=== PATIENT | female | born 1960 | race Caucasian/White ===

== ENCOUNTER → 2020-09-23 11:17 | Outpatient (BNVA) | payer MEDICARE, MEDICAID, SELFPAY | PROVIDERS: PCP Internal Medicine; Referring Provider Internal Medicine; Visit Provider Internal Medicine Gastroenterology | DX: K50.012 Crohn's disease of small intestine with intestinal obstruction (principal) | CPT/HCPCS: 99213 ==

== ENCOUNTER → 2020-09-25 10:38 | Outpatient (BNVA) | payer MEDICARE, MEDICAID, SELFPAY | PROVIDERS: PCP Internal Medicine; Referring Provider Internal Medicine; Visit Provider Internal Medicine Gastroenterology | DX: Z23 Encounter for immunization (principal) | CPT/HCPCS: 90471; 90686; 99211 ==

== ENCOUNTER 2020-09-26 09:34 | Outpatient (REF) | payer MEDICARE, MEDICAID, SELFPAY ==
[2020-09-26 10:15] LABS: MANUAL DIFF FLAG NO
[2020-09-26 10:33] LABS: Basophils Absolute Auto 0.1 X10*3/uL (0.0-0.2); Basophils Percent Auto 0.7 % (0-2); Eosinophils Absolute Auto 0.2 X10*3/uL (0.0-0.4); Hematocrit 44.7 % (37-47); Hemoglobin 14.6 g/dl (12.0-16.0); Imm Gran Abs Auto 0.02 X10*3/uL (0.00-0.03); Imm Gran Pct Auto 0.2 % (0.0-0.4); Lymphocytes Absolute Auto 3.3 X10*3/uL (1.2-4.9); Lymphocytes Percent Auto 36.1 % (20-40); Mean Corpuscular HGB Conc 32.7 g/dl (31.0-35.0); Mean Corpuscular Hemoglobin 29.4 pg (27.0-33.0); Mean Corpuscular Volume 90.1 fL (80-98); Mean Platelet Volume 11.3 fL (9.4-12.3); Monocytes Absolute Auto 0.5 X10*3/uL (0.1-1.2); Neutrophils Absolute Auto 5.1 X10*3/uL (2.0-8.3); Platelet Count 285 X10*3/uL (160-400); Red Blood Count 4.96 X10*6/uL (4.20-5.50); Red Cell Distribution Width 13.7 % (11.0-16.0); White Blood Count 9.2 X10*3/uL (4.8-10.8)
[2020-09-26 11:04] LABS: Alanine Aminotransferase 26 U/L (0-31); Albumin Level 4.3 g/dL (3.5-5.0); Alkaline Phosphatase 102 U/L (39-117); Anion Gap 14 (12-20); Aspartate Amino Transferase 20 U/L (5-31); Bilirubin Total 0.7 mg/dL (0.0-1.0); Blood Urea Nitrogen 9 mg/dL (9-16); C Reactive Protein 0.28 mg/dL (< or = 0.50); Calcium 9.8 mg/dL (8.4-10.2); Carbon Dioxide 26 mmol/L (22-29); Chloride 107 mmol/L (96-108); Estimated Glomerular Filt Rate > 60; Glucose Random 124 mg/dL (60-115); Potassium 4.6 mmol/l (3.3-5.1); Sodium 142 mmol/L (135-145); Total Protein 6.9 g/dL (6.5-8.0)
[2020-09-26 11:13] LABS: Vitamin D 25-OH Total 33.1 ng/mL (>30)
== END 2020-09-26 09:35 | disposition home or self-care (01) ==
LOC: HO.LAB 09:34
PROVIDERS: PCP Internal Medicine; Visit Provider Internal Medicine Gastroenterology
DX: K50.00 Crohn's disease of small intestine without complications (principal)
CPT/HCPCS: 36415; 80053; 82306; 85025; 86140

== ENCOUNTER 2020-10-03 01:31 | Inpatient (IN) | payer MEDICARE, MEDICAID, SELFPAY ==
[2020-10-03] VITALS (7 sets, daily range): BP systolic 101–142; BP diastolic 49–74; PULSE 59–88; RESP 16–19; TEMP 36.1–36.9; O2SAT 94–98; BMI 25.7
--- NOTE | 2020-10-03 01:50 | ECG_ITS ---
Test Reason : ABD PAIN Blood Pressure : / mmHG Vent. Rate : 071 BPM Atrial Rate : 071 BPM P-R Int : 128 ms QRS Dur : 088 ms QT Int : 408 ms P-R-T Axes : 062 041 065 degrees QTc Int : 443 ms Sinus rhythm with occasional Premature ventricular complexes Otherwise normal ECG When compared with ECG of 28-MAR-2020 18:47, Premature ventricular complexes are now Present Referred By: Stephanie Lai Electronically Signed By:AKIRA MARX MD
--- NOTE | 2020-10-03 01:52 | ED_ITS ---
HPI - Abdominal Pain General Chief Complaint: Abdominal Pain Stated Complaint: ABD PAIN Time Seen by Provider: 10/03/20 01:50 Source: patient Mode of arrival: ambulatory Limitations: no limitations History of Present Illness HPI narrative: This is a 60-year-old female with significant past medical history for Crohn's currently managed on Stelara and states that she began having abdominal discomfort that she describes as crampy, nonradiating, waxing and waning this started at approximately midnight. She denies any associated fevers, chills, shortness of breath, chest pain/palpitations, vomiting, but is having some nausea. In addition, she denies any urinary pain/ burning / frequency, obstipation. She is currently being followed by Dr. Cruz, of GI. Related Data Home Medications Medication Instructions Recorded Confirmed atorvastatin 40 mg tablet 40 mg PO DAILY 09/23/20 09/23/20 ustekinumab 90 mg/mL subcutaneous 90 mg SUBCUT Q4W 09/23/20 09/23/20 syringe Allergies Allergy/AdvReac Type Severity Reaction Status Date / Time No Known Allergies Allergy Unverified 08/15/20 15:00 [No Known Allergies*] Review of Systems Review of Systems Pertinent positives and negatives as stated in the HPI and 10 point review of systems is otherwise negative. Physical Exam Vital Signs: Vital Signs: Vital Signs Temp Pulse Resp BP Pulse Ox 10/03/20 01:40 98.5 F 88 18 142/74 H 97 Body Mass Index 25.7 VITAL SIGNS: Reviewed. GENERAL: Well developed, well nourished, in no acute distress. HEAD: Normocephalic/atraumatic, EYES: PERRLA, EOMI intact without pain, no nystagmus/pallor/icterus noted EARS: Ext canals without abnormality, TMs non-bulging and non-erythematous NOSE: Nares patent bilateral OROPHARYNX: no oral lesions noted, posterior pharynx clear and non-erythematous without noted tonsillar enlargement/erythema/exudates NECK: Supple, no adenopathy LUNGS: Normal breath sounds. No adventitious sounds or accessory muscle use. SpO2<97> CARDIOVASCULAR: Regular rate and rhythm without noted murmurs, no JVD or lower extremity edema. ABDOMEN: Soft, tenderness on palpation throughout the right side of the abdomen without rebound, non-distended with bowel sounds. No rigidity. No guarding. No p alpable masses or hernias noted MUSCULOSKELETAL: No tenderness, deformities, or effusions noted on gross inspection. EXTREMITIES: No cyanosis, clubbing or edema. SKIN: Inspection of the skin reveals no rashes, ulcerations, jaundice, pallor, or petechiae. NEUROLOGIC: Alert and oriented x 4. Strength and sensation to light touch were grossly intact x 4. Course Course Course Narrative: This is a 60-year-old female with history and clinical presentation consistent with possible Crohn's flare but more than likely an SBO as patient has had no previous flares in between her Stelara treatments ( the next of which is due on 10/08). I doubt cholecystitis, pancreatitis, appendicitis, diverticulitis. On review review of all investigations there is a leukocytosis with CT findings consistent with SBO and trace free fluid. Otherwise, there are no other clinically significant abnormalities noted. 0335: Spoke with Dr Dick who will admit patient. MDM - Abdominal Pain Lab Data Result diagrams: 10/03/20 02:06 10/03/20 02:06 Labs: Lab Results 10/03/20 10/03/20 10/03/20 Range/Units 02:06 02:06 02:06 WBC 13.2 H (4.8-10.8) X10*3/uL RBC 5.03 (4.20-5.50) X10*6/uL Hgb 15.0 (12.0-16.0) g/dl Hct 44.5 (37-47) % MCV 88.5 (80-98) fL MCH 29.8 (27.0-33.0) pg MCHC 33.7 (31.0-35.0) g/dl RDW 13.6 (11.0-16.0) % Plt Count 268 (160-400) X10*3/uL MPV 10.6 (9.4-12.3) fL Immature Gran % (Auto) 0.4 (0.0-0.4) % Neut % (Auto) 69.1 (45-73) % Lymph % (Auto) 23.5 (20-40) % [place] % (Auto) 5.2 (2-11) % Eos % (Auto) 1.3 (0-4) % Baso % (Auto) 0.5 (0-2) % Lymph # (Auto) 3.1 (1.2-4.9) X10*3/uL [place] # (Auto) 0.7 (0.1-1.2) X10*3/uL Eos # (Auto) 0.2 (0.0-0.4) X10*3/uL Baso # (Auto) 0.1 (0.0-0.2) X10*3/uL Abs Immat Gran (auto) 0.05 H (0.00-0.03) X10*3/uL Absolute Neuts (auto) 9.1 H (2.0-8.3) X10*3/uL Absolute Nucleated RBC 0.000 (0.0-0.012) X10*3/uL Nucleated RBC % (auto) 0.0 (0.0-0.2) /100WBC Sodium 141 (135-145) mmol/L Potassium 3.9 (3.3-5.1) mmol/l Chloride 107 (96-108) mmol/L Carbon Dioxide 21 L (22-29) mmol/L Anion Gap 17 (12-20) BUN 8 L (9-16) mg/dL Creatinine 0.74 (0.5-1.4) mg/dL Estim Creat Clear Calc 64.5 Estimated GFR > 60 Random Glucose 112 (60-115) mg/dL Lactic Acid 1.9 (0.5-2.0) mmol/L Calcium 9.6 (8.4-10.2) mg/dL Total Bilirubin 0.4 (0.0-1.0) mg/dL AST 23 (5-31) U/L ALT 28 (0-31) U/L Alkaline Phosphatase 100 (39-117) U/L Total Protein 6.7 (6.5-8.0) g/dL Albumin 4.1 (3.5-5.0) g/dL Lipase 16 (8-78) U/L ECG Data Attestation: I personally reviewed and interpreted this ECG as follows: Prior ECG tracings: not available for review Interpretation: Normal sinus rhythm, HR - 71, there is no evidence of acute ischemia, DC/QRS/QTC are within normal limits. Discharge Plan Discharge Clinical Impression: Small bowel obstruction Prescriptions: No Action Stelara 90 mg/mL syringe 90 mg subcut Q4W RF: 0 atorvastatin 40 mg tablet 40 mg PO DAILY RF: 0 PMFSH Past Medical History Source: nursing notes reviewed Medical History Crohns disease of small intestine Hyperlipidemia Surgical History History of esophagogastroduodenoscopy (EGD) Hx of colonoscopy Family History Family History Father No problems noted. Mother Pneumonia Sister Breast cancer Social History Social History Alcohol intake: never Smoking Status: Never smoker Tobacco Type: Cigarette Packs Per Day: 0.5 Cigarettes Per Day: 10.0 Use of substances other than those prescribed or required for medical reasons: No Advance Directives: No
[2020-10-03] MEDS: ondansetron HCL 4 MG/2 ML VIAL IVPUSH ×4 (02:10→19:20)
[2020-10-03 02:13] LABS: MANUAL DIFF FLAG NO
[2020-10-03 02:14] LABS: Basophils Absolute Auto 0.1 X10*3/uL (0.0-0.2); Basophils Percent Auto 0.5 % (0-2); Eosinophils Absolute Auto 0.2 X10*3/uL (0.0-0.4); Eosinophils Percent Auto 1.3 % (0-4); Hematocrit 44.5 % (37-47); Imm Gran Abs Auto 0.05 X10*3/uL (0.00-0.03); Imm Gran Pct Auto 0.4 % (0.0-0.4); Lymphocytes Absolute Auto 3.1 X10*3/uL (1.2-4.9); Lymphocytes Percent Auto 23.5 % (20-40); Mean Corpuscular HGB Conc 33.7 g/dl (31.0-35.0); Mean Corpuscular Hemoglobin 29.8 pg (27.0-33.0); Mean Corpuscular Volume 88.5 fL (80-98); Mean Platelet Volume 10.6 fL (9.4-12.3); Monocytes Absolute Auto 0.7 X10*3/uL (0.1-1.2); Monocytes Percent Auto 5.2 % (2-11); Neutrophils Absolute Auto 9.1 X10*3/uL (2.0-8.3); Neutrophils Percent Auto 69.1 % (45-73); Platelet Count 268 X10*3/uL (160-400); Red Blood Count 5.03 X10*6/uL (4.20-5.50); Red Cell Distribution Width 13.6 % (11.0-16.0); White Blood Count 13.2 X10*3/uL (4.8-10.8)
--- NOTE | 2020-10-03 02:15 | CT_ITS ---
EXAMINATION: CT ABDOMEN AND PELVIS WITH CONTRAST CLINICAL INFORMATION: Abdominal pain. COMPARISON: Multiple prior exams are reviewed. The most recent is from 03/28/2020. TECHNIQUE: Contiguous axial thin section helical images of the abdomen and pelvis were performed following the administration of 85 mL of intravenous Omnipaque 350. The data set was reformatted in the coronal and sagittal planes and reviewed on an independent workstation. DLP: 454 mGy-cm. FINDINGS: The visualized lung bases are clear. The visualized portions of the heart are unremarkable. The liver is of normal size and attenuation without concerning focal lesions nor intrahepatic biliary ductal dilation. There is a stable low-attenuation lesion within the inferior right lobe of the liver measuring 11 mm that is too small to fully characterize following contrast administration. A normal gallbladder is identified. There is no wall thickening or discernible pericholecystic fluid. The spleen, pancreas, adrenal glands are unremarkable. Both kidneys are of normal size and attenuation without hydronephrosis or nephrolithiasis. Following the administration of IV contrast, prompt symmetric nephrograms are displayed. There is no abdominal free fluid. There is neither mesenteric nor retroperitoneal lymphadenopathy. There is irregular wall thickening to the distal ileum proximal to the anastomosis site within the colon within the right upper quadrant. There is mild adjacent fat stranding and trace free fluid. There are also a few scattered nonpathologically enlarged lymph nodes. Proximal to this location, there aren't numerous dilated loops of small bowel. There is mild wall thickening to the colon at the anastomosis site. There is trace pelvic free fluid. The urinary bladder is unremarkable. There is neither pelvic nor inguinal lymphadenopathy. Bone windows: Neither sclerotic nor lytic bone lesions are identified. CT/CT abdomen pelvis w con IMPRESSION: Distal small bowel obstruction secondary to marked wall thickening to the distal ileum proximal to the anastomosis site. There is adjacent fat stranding and trace free fluid without drainable fluid collections. Automated exposure control (Care Dose) Adjustment of the mA and/or kv according to patient size (this includes techniques or standardized protocols for targeted exams where dose is matched to indication / reason for exam; i.e. extremities or head).
[2020-10-03] MEDS: HYDROmorphone HCl 0.5 MG/0.5 ML SYRINGE IVPUSH ×2 (02:20→03:55)
[2020-10-03 02:34] LABS: Lactic Acid 1.9 mmol/L (0.5-2.0)
[2020-10-03 02:39] LABS: Alanine Aminotransferase 28 U/L (0-31); Albumin Level 4.1 g/dL (3.5-5.0); Alkaline Phosphatase 100 U/L (39-117); Anion Gap 17 (12-20); Aspartate Amino Transferase 23 U/L (5-31); Bilirubin Total 0.4 mg/dL (0.0-1.0); Blood Urea Nitrogen 8 mg/dL (9-16); Calcium 9.6 mg/dL (8.4-10.2); Carbon Dioxide 21 mmol/L (22-29); Chloride 107 mmol/L (96-108); Creatinine Clr Calc Pharmacy 64.5; Estimated Glomerular Filt Rate > 60; Glucose Random 112 mg/dL (60-115); Lipase 16 U/L (8-78); Potassium 3.9 mmol/l (3.3-5.1); Sodium 141 mmol/L (135-145); Total Protein 6.7 g/dL (6.5-8.0)
[2020-10-03] MEDS: iohexoL 350 MG/ML 100 ML INFUS..BTL 85 ML IV (03:14)
[2020-10-03] MEDS: Piperacillin Sodium/Tazobactam 3.375 GM in 0.9 % Sodium Chloride 50 ML IV ×4 (03:55→22:10)
[2020-10-03 04:21] LABS: SARS COV2 PCR INHOUSE NEGATIVE (Negative)
[2020-10-03] MEDS: Lidocaine HCl 4 % Laryng-O-Jet 4 ML 1 APPL TOPICAL (05:10)
[2020-10-03] MEDS: Morphine Sulfate 4 MG/ML CARTRIDGE 3 MG IVPUSH ×6 (06:03→22:22)
[2020-10-03] MEDS: Dextrose 5 % and Lactated Ring 1,000 ML 125 ML IVCONT ×2 (06:07→15:50)
--- NOTE | 2020-10-03 07:51 | XR_ITS ---
EXAMINATION: XR CHEST CLINICAL INFORMATION: NG tube placement. COMPARISON: 03/28/2020 TECHNIQUE: Frontal view of the chest was obtained. FINDINGS: Lungs are well expanded and clear. No consolidation, pleural effusion or pneumothorax. Cardiac silhouette is normal in size. Atherosclerotic calcification of the aortic arch. The tip of the NG tube is located in the proximal stomach. The side-port of the tube is in the region of the esophagogastric junction. The visualized bones are intact. The visualized loops of bowel in the upper portion of the abdomen are in the normal size range. No pneumoperitoneum. XR/XR chest 1V IMPRESSION: * The tip of the NG tube is located within the proximal stomach. * No acute pulmonary disease.
[2020-10-03 08:31] LABS: Glucose Urine UA NEG (NEG); Leukocyte Esterase Urine NEG (NEG); Nitrite Urine NEG (NEG); Urine Blood NEG (NEG); Urine Ketones NEG (NEG); Urine Protein NEG (NEG-TRACE)
[2020-10-03 08:35] LABS: Appearance Urine CLEAR; Color Urine YELLOW; UACC Culture Trigger NO
--- NOTE | 2020-10-03 10:11 | MHC.CM.PN ---
PATIENT REPORTS THAT SHE LIVES ALONE. NO DME OR VNA SERVICES. SHE IS ACTIVE WITH [facility]. SHE IS HOPING TO RETURN HOME WITH NO NEED FOR SERVICES. HCP ON FILE, PRINTED, AND IN CHART. IMM 10/03 IN CHART
--- NOTE | 2020-10-03 11:12 | P.CONIM_ITS ---
History of Present Illness Data of Consult Service Date: 10/03/20 Requesting physician: Simone Dick Primary Care Provider: Jorge Green MD [facility] Reason for consult: Crohn's disease, SBO, medical management this is a 60-year-old female with history of Crohn's disease and dyslipidemia who presented to the emergency department with abdominal pain. She reports onset of generalized abdominal pain around midnight. This was associated with nausea and nonbloody emesis. She had 1 loose stool prior to midnight and has not had any diarrhea. She has history of Crohn's disease with multiple colon resections in the past. she has been admitted previously for SBOs related to Crohn's flare. she had a tele health visit on 09/23 with her faculty support coordinator Dr. Cruz at that time she had no abdominal pain or GI complaints. Today in the emergency department her workup was significant for leukocytosis of 13.2. her CAT scan showed a distal small bowel obstruction secondary to marked wall thickening to the distal ileum proximal to the anastomosis site. An NG-tube was placed. She was admitted to the surgical service and the hospitalists were consulted for assistance in medical management. She continues to have generalized abdominal discomfort. She has no other specific complaints. Review of Systems Review of Systems: Yes all other systems are reviewed and are negative Constitutional: Constitutional: Denies chills and Denies fever(s) Cardiovascular: Cardiovascular: Denies chest pain, Denies palpitations and Denies dyspnea Respiratory: Respiratory: Denies dyspnea Gastrointestinal: Gastrointestinal: Reports abdominal pain and Reports nausea Endocrine: Endocrine: Denies palpitations [facility] Medical History (Updated 10/03/20 @ 11:26 by COLIN Wright) Crohns disease of small intestine Gastritis Hyperlipidemia Small bowel obstruction Functional capacity: independent ambulation Family History Father No problems noted. Mother Pneumonia Sister Breast cancer Surgical History (Updated 10/03/20 @ 11:22 by COLIN Wright) History of appendectomy History of bowel resection History of esophagogastroduodenoscopy (EGD) Hx of colonoscopy S/P BSO (bilateral salpingo-oophorectomy) Social History (Updated 10/03/20 @ 11:24 by COLIN Wright) Household Members: None Housing: House Do you presently have visiting nurse or other home services: No Alcohol intake: never Smoking Status: Current every day smoker Tobacco Type: Cigarette Packs Per Day: 1 Cigarettes Per Day: 20.0 Smoked in Last 30 Days: Yes Patient Interested in Nicotine Replacement: Yes Patient Given Instructions on How to Stop Smoking: Yes Date Education Initiated: 10/03/20 Second Hand Smoke Exposure: No Use of substances other than those prescribed or required for medical reasons: No Currently Displaying Signs/Symptoms of Drug Intoxication Withdrawal: No Any prior treatment program specific to substance use: No Have you been hit, kicked, punched, or otherwise hurt by someone within the past year? If so, by whom?: No Do you feel safe in your current relationship?: No Current Relationship Is there a partner from a previous relationship who is making you feel unsafe now?: No Are you made to feel afraid or neglected: No Advance Directives: No Do you have thoughts of harming others: None Do you have a plan to hurt others: No Plan Recently lost weight without trying: No service: No Current occupational status: disabled Meds Allergies Allergy/AdvReac Type Severity Reaction Status Date / Time No Known Allergies Allergy Unverified 08/15/20 15:00 [No Known Allergies*] Home Medications Medication Instructions Recorded Confirmed Type atorvastatin 40 mg tablet 40 mg PO DAILY 09/23/20 10/03/20 History ustekinumab 90 mg/mL subcutaneous 90 mg SUBCUT Q4W 09/23/20 10/03/20 History syringe Physical Exam Vital Signs and Narrative: Vital Signs: Last Vital Signs Temp 97.3 F 10/03/20 07:24 Pulse 59 10/03/20 07:24 Resp 18 10/03/20 07:24 BP 133/66 10/03/20 07:24 Pulse Ox 97 10/03/20 07:24 Body Mass Index 25.7 Const: Nutritional Appearance: well nourished Orientation/consciousness: patient oriented x3 HENMT: Other: NGT in place with 150cc output Head: Yes normocephalic and Yes atraumatic Eyes: Sclerae: sclerae normal Chest: Chest palpation & inspection: normal inspection of the chest Resp: Effort & Inspection: normal respiratory effort and no respiratory distress Auscultation: clear to auscultation bilaterally Cardio: Rate: regular rate Rhythm: regular rhythm GI: Palpation (GI): Soft to palpation and Tenderness to palpation present (GI) (generalized) Skin: General skin exam: no rashes or lesions noted Neuro: General: patient oriented x3 Cranial nerves: Yes CN's II-XII intact bilaterally and Yes Bilaterally intact EOM present Extrem: General: Yes normal to inspection Results Labs Labs: Laboratory Tests 10/03/20 10/03/20 10/03/20 02:06 02:06 02:06 WBC 13.2 H RBC 5.03 Hgb 15.0 Hct 44.5 MCV 88.5 MCH 29.8 MCHC 33.7 RDW 13.6 Plt Count 268 MPV 10.6 Immature Gran % (Auto) 0.4 Neut % (Auto) 69.1 Lymph % (Auto) 23.5 [place] % (Auto) 5.2 Eos % (Auto) 1.3 Baso % (Auto) 0.5 Lymph # (Auto) 3.1 [place] # (Auto) 0.7 Eos # (Auto) 0.2 Baso # (Auto) 0.1 Abs Immat Gran (auto) 0.05 H Absolute Neuts (auto) 9.1 H Absolute Nucleated RBC 0.000 Nucleated RBC % (auto) 0.0 Sodium 141 Potassium 3.9 Chloride 107 Carbon Dioxide 21 L Anion Gap 17 BUN 8 L Creatinine 0.74 Estim Creat Clear Calc 64.5 Estimated GFR > 60 Random Glucose 112 Lactic Acid 1.9 Calcium 9.6 Total Bilirubin 0.4 AST 23 ALT 28 Alkaline Phosphatase 100 Total Protein 6.7 Albumin 4.1 Lipase 16 Urine Color Urine Appearance Urine pH Ur Specific [place] Urine Protein Urine Glucose (UA) Urine Ketones Urine Blood Urine Nitrite Ur Leukocyte Esterase Coronavirus (PCR) 10/03/20 10/03/20 03:16 08:16 WBC RBC Hgb Hct MCV MCH MCHC RDW Plt Count MPV Immature Gran % (Auto) Neut % (Auto) Lymph % (Auto) [place] % (Auto) Eos % (Auto) Baso % (Auto) Lymph # (Auto) [place] # (Auto) Eos # (Auto) Baso # (Auto) Abs Immat Gran (auto) Absolute Neuts (auto) Absolute Nucleated RBC Nucleated RBC % (auto) Sodium Potassium Chloride Carbon Dioxide Anion Gap BUN Creatinine Estim Creat Clear Calc Estimated GFR Random Glucose Lactic Acid Calcium Total Bilirubin AST ALT Alkaline Phosphatase Total Protein Albumin Lipase Urine Color YELLOW Urine Appearance CLEAR Urine pH 5.0 Ur Specific [place] 1.010 Urine Protein NEG Urine Glucose (UA) NEG Urine Ketones NEG Urine Blood NEG Urine Nitrite NEG Ur Leukocyte Esterase NEG Coronavirus (PCR) NEGATIVE Assessment and Plan (1) Crohns disease of small intestine: Status: Acute (2) Small bowel obstruction: Status: Acute this is a 60-year-old female with a history of Crohn's disease on Stelara who presented to the emergency department with abdominal pain found to have small-bowel obstruction SBO possibly related to underlying Crohn's flare - recommend GI consult to determine need for steroids HLD - hold statin tobacco dependence smoking cessation advised -NRT thank you for allowing us to participate in the care of this patient. We will follow along with you. this case was discussed with Dr. Spear
[2020-10-03] MEDS: Nicotine 14 MG PATCH.TD24 TRANSDERMA (12:19)
--- NOTE | 2020-10-03 12:25 | P.HPGS_ITS ---
History of Present Illness History of Present Illness Chief complaint: SMALL BOWEL OBSTRUCTION, CHRON'S Narrative: Rose Nieves is a 60 year old female Presenting with complaints of abdominal pain beginning in the right upper quadrant extending throughout the entire abdomen. The pain is similar to previous episodes of abdominal pain related to small-bowel obstruction. She reports no bowels for several days and abdominal distension. Patient has a history of Crohn's disease and is on the care of Dr. Erum Cruz. The pain developed around midnight today and increased in severity throughout the day. She subsequently presented to the emergency department. A CT of the abdomen and pelvis was obtained which confirmed a small-bowel obstruction with transition point in areas of bowel wall thickening proximal to a prior bowel anastomosis. She is admitted to the surgical service for management of this small-bowel obstruction. Review of Systems Review of Systems: Yes all other systems are reviewed and are negative Constitutional: Constitutional: Denies chills, Denies fever(s) and Denies headache(s) ENT: Denies dizziness and Denies headache(s) Cardiovascular: Cardiovascular: Denies chest pain, Denies palpitations and Denies dyspnea Respiratory: Respiratory: Denies dyspnea and Denies wheezing Gastrointestinal: Gastrointestinal: Reports abdominal pain and Reports nausea Musculoskeletal: Musculoskeletal: Denies back pain, Denies arthralgias, Denies joint swelling and Denies numbness Integumentary/Breasts: Skin/Breast: Denies change in pigmentation, Denies erythema and Denies rash Neurologic: Denies confusion, Denies dizziness, Denies headache(s) and Denies numbness Psychiatric: Psychiatric: Denies anxiety, Denies confusion and Denies depression Endocrine: Endocrine: Denies palpitations Hematologic/Lymphatic: Hematologic/Lymphatic: Denies easy bleeding, Denies easy bruising and Denies lymphadenopathy Allergic/Immunologic: Allergic/Immunologic: Denies wheezing PMFSH Past Medical History Medical History Crohns disease of small intestine Gastritis Hyperlipidemia Small bowel obstruction Functional capacity: independent ambulation Family History Family History Father No problems noted. Mother Pneumonia Sister Breast cancer Surgical History Surgical History History of appendectomy History of bowel resection History of esophagogastroduodenoscopy (EGD) Hx of colonoscopy S/P BSO (bilateral salpingo-oophorectomy) Social History Social History Household Members: None Housing: House Do you presently have visiting nurse or other home services: No Alcohol intake: never Smoking Status: Current every day smoker Tobacco Type: Cigarette Packs Per Day: 1 Cigarettes Per Day: 20.0 Smoked in Last 30 Days: Yes Patient Interested in Nicotine Replacement: Yes Patient Given Instructions on How to Stop Smoking: Yes Date Education Initiated: 10/03/20 Second Hand Smoke Exposure: No Use of substances other than those prescribed or required for medical reasons: No Currently Displaying Signs/Symptoms of Drug Intoxication Withdrawal: No Any prior treatment program specific to substance use: No Have you been hit, kicked, punched, or otherwise hurt by someone within the past year? If so, by whom?: No Do you feel safe in your current relationship?: No Current Relationship Is there a partner from a previous relationship who is making you feel unsafe now?: No Are you made to feel afraid or neglected: No Advance Directives: No Do you have thoughts of harming others: None Do you have a plan to hurt others: No Plan Recently lost weight without trying: No service: No Current occupational status: disabled Meds Allergies Allergy/AdvReac Type Severity Reaction Status Date / Time No Known Allergies Allergy Unverified 08/15/20 15:00 [No Known Allergies*] Home Medications Medication Instructions Recorded Confirmed Type atorvastatin 40 mg tablet 40 mg PO DAILY 09/23/20 10/03/20 History ustekinumab 90 mg/mL subcutaneous 90 mg SUBCUT Q4W 09/23/20 10/03/20 History syringe Physical Exam Vital Signs: Vital Signs: Vital Signs Temp Pulse Resp BP Pulse Ox 10/03/20 11:35 96.9 F 64 18 109/49 L 96 10/03/20 07:24 97.3 F 59 18 133/66 97 10/03/20 02:55 69 16 122/70 98 10/03/20 01:40 98.5 F 88 18 142/74 H 97 Body Mass Index 25.7 Const: General: No confusion Nutritional Appearance: well nourished Orientation/consciousness: No confusion Eyes: Sclerae: sclerae normal EOM: EOMs intact bilaterally Neck: Neck: Yes normal visual inspection Resp: Effort & Inspection: normal respiratory effort, no cough and no respiratory distress Cardio: Jugular venous distension: no JVD Rate: regular rate Rhythm: regular rhythm GI: Inspection: Yes distended and Yes scar Palpation (GI): Soft to palpation, Tenderness to palpation present (GI) in the LUQ and in the RUQ, no guarding and not rigid Percussion: Yes normal to percussion Auscultation: normal bowel sounds Skin: General skin exam: dry skin Rashes: no rashes Neuro: General: No confusion Extrem: General: Yes no clubbing, cyanosis or edema Right upper extremity: normal capillary refill Left upper extremity: full ROM Results Results Labs: Short CBC 10/03/20 Range/Units 02:06 WBC 13.2 H (4.8-10.8) X10*3/uL Hgb 15.0 (12.0-16.0) g/dl Hct 44.5 (37-47) % Plt Count 268 (160-400) X10*3/uL BMP 10/03/20 02:06 Sodium 141 Potassium 3.9 Chloride 107 Carbon Dioxide 21 L BUN 8 L Creatinine 0.74 Calcium 9.6 Liver Function 10/03/20 Range/Units 02:06 Total Bilirubin 0.4 (0.0-1.0) mg/dL AST 23 (5-31) U/L ALT 28 (0-31) U/L Alkaline Phosphatase 100 (39-117) U/L Albumin 4.1 (3.5-5.0) g/dL Urine 10/03/20 Range/Units 08:16 Urine Color YELLOW Urine Appearance CLEAR Urine pH 5.0 (5.0-8.0) Ur Specific [place] 1.010 (1.005-1.025) Urine Protein NEG (NEG-TRACE) MG/DL Urine Glucose (UA) NEG (NEG) MG/DL Assessment and Plan (1) Small bowel obstruction: Status: Acute Patient presents with a recurrent episode of small-bowel obstruction. She has had numerous previous episodes of similar problem related to prior surgery and scar tissue. There is an area of wall thickening which may be related to Crohn's disease. GI consultation will be requested. Will keep NPO, with IV fluid hydration and nasogastric tube decompression. Appreciate hospitalist's input. (2) Crohns disease of small intestine: Status: Acute
--- NOTE | 2020-10-03 18:57 | PC.NURSE ---
0743- When this RN checked placement of NG tube, there was alot of resistance, unable to successfully check placement with air. Dr. Dick made aware. Ordered STAT CXR to check for placement. Placement confirmed. Pt c/o nausea and abd pain. NG tube placed back on low intermittent suction Given PRN morphine at 0918. 0945- Pt still having increased nausea and pain. Pt not due for zofran or morphine. NG tube easier to flush, poor output. 100ml clear liquid. Dr. Dick updated on pt status. No new orders. Will continue to monitor.
[2020-10-04] MEDS: Dextrose 5 % and Lactated Ring 1,000 ML 125 ML IVCONT ×3 (00:18→20:27)
[2020-10-04] MEDS: Morphine Sulfate 4 MG/ML CARTRIDGE 3 MG IVPUSH ×4 (01:21→21:44)
[2020-10-04 04:00] VITALS: BP 117/55; PULSE 72; RESP 19; TEMP 36.4; O2SAT 94
[2020-10-04] MEDS: Piperacillin Sodium/Tazobactam 3.375 GM in 0.9 % Sodium Chloride 50 ML IV ×4 (04:12→21:55)
[2020-10-04 05:37] LABS: MANUAL DIFF FLAG NO
[2020-10-04 06:13] LABS: Anion Gap 14 (12-20); Blood Urea Nitrogen 10 mg/dL (9-16); Calcium 8.3 mg/dL (8.4-10.2); Carbon Dioxide 23 mmol/L (22-29); Chloride 109 mmol/L (96-108); Creatinine Clr Calc Pharmacy 69.2; Estimated Glomerular Filt Rate > 60; Glucose Random 134 mg/dL (60-115); Potassium 4.1 mmol/l (3.3-5.1); Sodium 142 mmol/L (135-145)
[2020-10-04 06:59] LABS: Basophils Percent Auto 0.4 % (0-2); Eosinophils Absolute Auto 0.1 X10*3/uL (0.0-0.4); Eosinophils Percent Auto 1.5 % (0-4); Hematocrit 43.2 % (37-47); Imm Gran Abs Auto 0.01 X10*3/uL (0.00-0.03); Imm Gran Pct Auto 0.1 % (0.0-0.4); Lymphocytes Absolute Auto 2.2 X10*3/uL (1.2-4.9); Lymphocytes Percent Auto 29.5 % (20-40); Mean Corpuscular HGB Conc 32.4 g/dl (31.0-35.0); Mean Corpuscular Hemoglobin 29.6 pg (27.0-33.0); Mean Corpuscular Volume 91.3 fL (80-98); Mean Platelet Volume 11.4 fL (9.4-12.3); Monocytes Absolute Auto 0.7 X10*3/uL (0.1-1.2); Neutrophils Absolute Auto 4.3 X10*3/uL (2.0-8.3); Neutrophils Percent Auto 58.5 % (45-73); Platelet Count 245 X10*3/uL (160-400); Red Blood Count 4.73 X10*6/uL (4.20-5.50); Red Cell Distribution Width 13.9 % (11.0-16.0); White Blood Count 7.3 X10*3/uL (4.8-10.8)
[2020-10-04 07:39] VITALS: BP 128/57; PULSE 62; RESP 19; TEMP 36.3; O2SAT 97
[2020-10-04] MEDS: Nicotine 14 MG PATCH.TD24 TRANSDERMA (09:05)
--- NOTE | 2020-10-04 10:47 | PM.PNGS ---
Subjective Subjective Interval history: Ms. Nieves reports continued abdominal pain in the right upper quadrant radiating towards the left upper quadrant, seems to come in waves. Pain does improve with pain medication. No flatus or BM reported yet. Physical Exam Vital Signs: Vital Signs: Last Vital Signs Temp 97.3 F 10/04/20 07:39 Pulse 62 10/04/20 07:39 Resp 19 10/04/20 07:39 BP 128/57 L 10/04/20 07:39 Pulse Ox 97 10/04/20 07:39 Body Mass Index 25.7 Const: Other: sleepy, appears in pain Resp: Other: breathing comfortably on room air, no respiratory distress GI: Other: abdomen is softer to palpation with tenderness to deep palpation but no rebound or guarding Extrem: Other: no edema Progress Note: A&P Assessment and plan (1) Small bowel obstruction: Status: Acute Assessment and Plan: continue bowel rest, IV fluids, nasogastric tube decompression. (2) Crohns disease of small intestine: Status: Acute Assessment and Plan: Awaiting GI consultation, may benefit from steroid bolus. Fall Risk Details Current Medications: Current Medications Generic Name Dose Route Start Last Admin Trade Name Freq PRN Reason Stop Dose Admin Dextrose/Lactated Ringer's 1,000 mls @ 125 mls/hr 10/03/20 05:28 10/04/20 09:04 D5lr IVCONT 125 mls/hr .Q8H BARRON Administration Piperacillin Sod/Tazobactam 50 mls @ 100 mls/hr 10/03/20 10:00 10/04/20 09:43 Sod 3.375 gm/ Sodium Chloride IV Infused Q6H BARRON Infusion Morphine Sulfate 3 mg 10/03/20 05:28 10/04/20 09:06 Morphine Sulfate 4 Mg/Ml Cartridge IVPUSH 3 mg Q3H PRN Administration ABDOMINAL PAIN Nicotine 14 mg 10/03/20 11:10 10/04/20 09:05 Nicotine 14 Mg Patch.Td24 TRANSDERMA 14 mg DAILY BARRON Administration Ondansetron HCl 4 mg 10/03/20 05:28 10/03/20 19:20 Ondansetron Hcl 4 Mg/2 Ml Vial IVPUSH 4 mg QID PRN Administration Nausea Time Spent With Patient Time: Total time spent is greater than 50% in coordination of care (as documented) at patient's floor/unit and/or counseling patient: Time with patient: 15 - 24 minutes
[2020-10-04 11:31] VITALS: BP 122/52; PULSE 69; RESP 19; TEMP 37.3; O2SAT 96
--- NOTE | 2020-10-04 12:16 | HO.PM.IMPN ---
Subjective Subjective Date of Service: 10/04/20 Interval History: Patient seen and examined at bedside patient reported nausea and abdominal discomfort Constitutional Constitutional: Reports weakness Cardiovascular Cardiovascular: Denies dyspnea Respiratory Respiratory: Denies dyspnea Gastrointestinal Gastrointestinal: Reports abdominal pain, Reports nausea and Reports vomiting Neurologic Neurologic: Reports weakness Physical Exam Vital Signs: Vital Signs: Last Vital Signs Temp 99.1 F 10/04/20 11:31 Pulse 69 10/04/20 11:31 Resp 19 10/04/20 11:31 BP 122/52 L 10/04/20 11:31 Pulse Ox 96 10/04/20 11:31 Body Mass Index 25.7 Const: Nutritional Appearance: well nourished Orientation/consciousness: patient oriented x3 HENMT: Other: NGT in place Head: Yes normocephalic and Yes atraumatic Eyes: Sclerae: sclerae normal Chest: Chest palpation & inspection: normal inspection of the chest Resp: Effort & Inspection: normal respiratory effort and no respiratory distress Auscultation: clear to auscultation bilaterally Cardio: Rate: regular rate Rhythm: regular rhythm GI: Palpation (GI): Soft to palpation and Tenderness to palpation present (GI) (generalized) Skin: General skin exam: no rashes or lesions noted Neuro: General: patient oriented x3 Cranial nerves: Yes CN's II-XII intact bilaterally and Yes Bilaterally intact EOM present Extrem: General: Yes normal to inspection Objective Data Current Medications Generic Name Dose Route Start Last Admin Trade Name Freq PRN Reason Stop Dose Admin Dextrose/Lactated Ringer's 1,000 mls @ 125 mls/hr 10/03/20 05:28 10/04/20 09:04 D5lr IVCONT 125 mls/hr .Q8H BARRON Administration Piperacillin Sod/Tazobactam 50 mls @ 100 mls/hr 10/03/20 10:00 10/04/20 09:43 Sod 3.375 gm/ Sodium Chloride IV Infused Q6H BARRON Infusion Morphine Sulfate 3 mg 10/03/20 05:28 10/04/20 09:06 Morphine Sulfate 4 Mg/Ml Cartridge IVPUSH 3 mg Q3H PRN Administration ABDOMINAL PAIN Nicotine 14 mg 10/03/20 11:10 10/04/20 09:05 Nicotine 14 Mg Patch.Td24 TRANSDERMA 14 mg DAILY BARRON Administration Ondansetron HCl 4 mg 10/03/20 05:28 10/03/20 19:20 Ondansetron Hcl 4 Mg/2 Ml Vial IVPUSH 4 mg QID PRN Administration Nausea Labs CBC & Chem 7: 10/04/20 05:23 10/04/20 05:23 Assessment and Plan (1) Crohns disease of small intestine: Status: Acute (2) Small bowel obstruction: Status: Acute Assessment and Plan: 60-year-old female with a history of Crohn's disease on Stelara who presented to the emergency department with abdominal pain found to have small-bowel obstruction SBO likely related to underlying Crohn's flare surgery following GI consult pending patient will likely need IV steroid HLD -hold statin tobacco dependence smoking cessation advised -NRT DVT prophylaxis Venodyne per surgery
--- NOTE | 2020-10-04 12:45 | P.CNGI_ITS ---
History of Present Illness Data of Consult Primary Care Provider: Jorge Green MD HPI 60 y/o f w/ crohn disease s/p small bowel resction x 2 with ileocecal a nastomosis who I am seeing for assessment for SBO, possible crohns exacerbation. She had sudden onset severe diffuse abdominal pain along with nausea, vomiting and abdominal distention yesterday. Before that she felt totally normal and had no concerning sx. She did not have fever or night sweats. She denies diarrhea or constipation. Symptoms were consistent with prior episodes of crohns flare and SBO. No sick contacts. CT of the abdomen and pelvis was obtained which confirmed a small-bowel obs truction with transition point in areas of bowel wall thickening proximal to a prior bowel anastomosis. 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 She has NGT placed with coffee colored aspirate, she feels a little better today, less abdo pain, commenced on zosyn. For her crohns she had been on stelara with good effect q 4 weeks up till now. She has had entyvio, and remicade in the past due to break thru sx and flares whilst on these treatments, note she had no antibodies per lab review, levels seemed good, so more consistent with primary failure vs sub optimal dosing or not enought time given to elicit response. she has never been on imuran or 6MP, MTX, never been on other anti TNF. Not on NSAIDS Review of Systems Constitutional: Constitutional: Denies headache(s) and Reports weakness ENT: Denies dizziness and Denies headache(s) Musculoskeletal: Musculoskeletal: Denies numbness Neurologic: Denies confusion, Denies dizziness, Denies headache(s), Denies n umbness and Reports weakness Psychiatric: Psychiatric: Denies confusion PMFSH Past Medical History Medical History Crohns disease of small intestine Gastritis Hyperlipidemia Small bowel obstruction Functional capacity: independent ambulation Family History Family History Father No problems noted. Mother Pneumonia Sister Breast cancer Surgical History Surgical History History of appendectomy History of bowel resection History of esophagogastroduodenoscopy (EGD) Hx of colonoscopy S/P BSO (bilateral salpingo-oophorectomy) Social History Social History Household Members: None Housing: House Do you presently have visiting nurse or other home services: No Alcohol intake: never Smoking Status: Current every day smoker Tobacco Type: Cigarette Packs Per Day: 1 Cigarettes Per Day: 20.0 Smoked in Last 30 Days: Yes Patient Interested in Nicotine Replacement: Yes Patient Given Instructions on How to Stop Smoking: Yes Date Education Initiated: 10/03/20 Second Hand Smoke Exposure: No Use of substances other than those prescribed or required for medical reasons: No Currently Displaying Signs/Symptoms of Drug Intoxication Withdrawal: No Any prior treatment program specific to substance use: No Have you been hit, kicked, punched, or otherwise hurt by someone within the past year? If so, by whom?: No Do you feel safe in your current relationship?: No Current Relationship Is there a partner from a previous relationship who is making you feel unsafe now?: No Are you made to feel afraid or neglected: No Advance Directives: No Do you have thoughts of harming others: None Do you have a plan to hurt others: No Plan Recently lost weight without trying: No service: No Current occupational status: disabled Meds Allergies Allergy/AdvReac Type Severity Reaction Status Date / Time No Known Allergies Allergy Unverified 08/15/20 15:00 [No Known Allergies*] Home Medications Medication Instructions Recorded Confirmed Type atorvastatin 40 mg tablet 40 mg PO DAILY 09/23/20 10/03/20 History ustekinumab 90 mg/mL subcutaneous 90 mg SUBCUT Q4W 09/23/20 10/03/20 History syringe Physical Exam Vital Signs: Vital Signs: Last Vital Signs Temp 99.1 F 10/04/20 11:31 Pulse 69 10/04/20 11:31 Resp 19 10/04/20 11:31 BP 122/52 L 10/04/20 11:31 Pulse Ox 96 10/04/20 11:31 Body Mass Index 25.7 VITAL SIGNS: Reviewed. GENERAL: Well developed, well nourished, in no acute distress. HEAD: Normocephalic/atraumatic, EYES: PERRLA, EOMI intact without pain, no nystagmus/pallor/icterus noted EARS: Ext canals without abnormality, TMs non-bulging and non-erythematous NOSE: Nares patent bilateral OROPHARYNX: no oral lesions noted, posterior pharynx clear and non-erythematous without noted tonsillar enlargement/erythema/exudates NECK: Supple, no adenopathy LUNGS: Normal breath sounds. No adventitious sounds or accessory muscle use. SpO2<97> CARDIOVASCULAR: Regular rate and rhythm without noted murmurs, no JVD or lower extremity edema. ABDOMEN: Soft, tenderness on palpation throughout the right side of the abdomen without rebound, non-distended with bowel sounds. No rigidity. No guarding. No palpable masses or hernias noted MUSCULOSKELETAL: No tenderness, deformities, or effusions noted on gross inspection. EXTREMITIES: No cyanosis, clubbing or edema. SKIN: Inspection of the skin reveals no rashes, ulcerations, jaundice, pallor, or petechiae. NEUROLOGIC: Alert and oriented x 4. Strength and sensation to light touch were grossly intact x 4. Const: Other: sleepy, appears in pain General: No confusion Nutritional Appearance: well nourished Orientation/consciousness: No confusion HENMT: Other: NGT in place Head: Yes normocephalic and Yes atraumatic Eyes: Sclerae: sclerae normal EOM: EOMs intact bilaterally Neck: Neck: Yes normal visual inspection Chest: Chest palpation & inspection: normal inspection of the chest Resp: Other: breathing comfortably on room air, no respiratory distress Effort & Inspection: normal respiratory effort, no cough and no respiratory distress Auscultation: clear to auscultation bilaterally Cardio: Jugular venous distension: no JVD Rate: regular rate Rhythm: regular rhythm GI: Other: abdomen is softer to palpation with tenderness to deep palpation but no rebound or guarding Inspection: Yes distended and Yes scar Palpation (GI): Soft to palpation, Tenderness to palpation present (GI) (generalized) in the LUQ and in the RUQ, no guarding and not rigid Percussion: Yes normal to percussion Auscultation: abnormal bowel sounds (high pitched, tinkling) Skin: General skin exam: no rashes or lesions noted and dry skin Rashes: no rashes Neuro: General: No confusion Cranial nerves: Yes CN's II-XII intact bilaterally and Yes Bilaterally intact EOM present Extrem: Other: no edema General: Yes normal to inspection and Yes no clubbing, cyanosis or edema Right upper extremity: normal capillary refill Left upper extremity: full ROM Results Labs CBC & Chem 7: 10/04/20 05:23 10/04/20 05:23 Labs: Short CBC 10/04/20 Range/Units 05:23 WBC 7.3 (4.8-10.8) X10*3/uL Hgb 14.0 (12.0-16.0) g/dl Hct 43.2 (37-47) % Plt Count 245 (160-400) X10*3/uL BMP 10/04/20 05:23 Sodium 142 Potassium 4.1 Chloride 109 H Carbon Dioxide 23 BUN 10 Creatinine 0.69 Calcium 8.[address] scan - abdomen: Attestation: I personally reviewed and interpreted this imaging study as follows: My impression: patchy hyperattenuated bowel, large and small bowel, worse ileocolonic area, with surrounding mesenteric stranding, dilated loops with air fluid levels Radiologist's impression: Assessment and Plan (1) Crohns disease of small intestine: Status: Acute (2) Small bowel obstruction: Status: Acute 1/ Acute on chronic SBO at surgical anastomosis site, prob has a combination of inflammatory and fibostenotic stricturing disease, infectious enteritis also possible given she is on a biologic. Smoking would be an indep endent risk factor for severe crohns and may even enhance biologic clearance. c diff and CMV colitis seem much less given the sudden onset of sx. PLAN: 1/ Rcommend cont wt bowel decompression as doing 2/ can commence short course of solu medrol 20 mg q8h for 48 hrs, can stop thereafter, and can decide whether she needs longer term taper or not, personally she would rather avoid steroids as it affects her sleep and mood. Budesonide would be another option. 3/ cont wth ABx therapy as doing 4/ if transition to PO diet must be on low roughage diet and avoid high fiber content 5/ encourage smoking cessation 6/ doesnt need TPN at this point, check minerals and micronutrient levels, replace if low 7/ longer term should check ustekinumab levels and for antibodies, might need a top up one off infusion 8/ if conts to have attcks might need to consider colonoscopy with balloon dilation +/-kenalog injection into stricture vs surgical stricturoplasty or limited resection of problem area.
[2020-10-04 15:08] LABS: CDIFF Ag Negative (Negative); CDIFF Internal ctrl Dots and bkg OK (V); CDiff Toxin Negative (Negative)
[2020-10-04 15:20] VITALS: BP 140/69; PULSE 73; RESP 18; TEMP 36.7; O2SAT 92
[2020-10-04 19:54] VITALS: BP 132/69; PULSE 73; RESP 18; TEMP 36.6; O2SAT 97
[2020-10-04] MEDS: ondansetron HCL 4 MG/2 ML VIAL IVPUSH (21:55)
[2020-10-05] VITALS (7 sets, daily range): BP systolic 106–154; BP diastolic 60–76; PULSE 65–79; RESP 17–18; TEMP 36.3–36.6; O2SAT 92–95
[2020-10-05] MEDS: Piperacillin Sodium/Tazobactam 3.375 GM in 0.9 % Sodium Chloride 50 ML IV ×4 (05:28→21:25)
[2020-10-05] MEDS: Morphine Sulfate 4 MG/ML CARTRIDGE 3 MG IVPUSH ×2 (07:37→18:11)
[2020-10-05] MEDS: Nicotine 14 MG PATCH.TD24 TRANSDERMA (07:38)
[2020-10-05] MEDS: ondansetron HCL 4 MG/2 ML VIAL IVPUSH ×2 (07:42→18:11)
[2020-10-05] MEDS: Dextrose 5 % and Lactated Ring 1,000 ML 125 ML IVCONT ×3 (07:43→19:40)
--- NOTE | 2020-10-05 09:07 | PM.PNGS ---
Subjective Subjective Interval history: Rose feels improved today with decreased abdominal pain. She reports 3 bowel movements between yesterday and today. Nasogastric tube is noted to be bloody today. Physical Exam Vital Signs: Vital Signs: Last Vital Signs Temp 97.7 F 10/05/20 07:36 Pulse 75 10/05/20 07:36 Resp 18 10/05/20 07:36 BP 138/63 10/05/20 07:36 Pulse Ox 93 10/05/20 07:36 Body Mass Index 25.7 Const: Other: Awake, alert, in no acute distress Resp: Other: breathing comfortably on room air, no respiratory distress GI: Other: abdomen soft and nontender, no tympany to percussion, no rebound, no guarding Skin: Other: warm and dry, no rash Extrem: Other: no edema, full range of motion Psych: Other: alert and oriented x3 Progress Note: A&P Assessment and plan (1) Crohns disease of small intestine: Status: Acute Assessment and Plan: The patient started on steroid bolus yesterday and already is improved with several bowel movements and less abdominal pain. Nasogastric tube output has decreased as well. The tube will be clamped in residuals checked in 4 hours. Will removed tube if low residual output. Will slowly advanced to a low residue diet. Gastroenterology input greatly appreciated. (2) Small bowel obstruction: Status: Acute Fall Risk Details Current Medications: Current Medications Generic Name Dose Route Start Last Admin Trade Name Freq PRN Reason Stop Dose Admin Famotidine 20 mg 10/05/20 09:00 Famotidine/Pf 20 Mg/2 Ml Vial IVPUSH DAILY BARRON Dextrose/Lactated Ringer's 1,000 mls @ 125 mls/hr 10/03/20 05:28 10/05/20 07:43 D5lr IVCONT 125 mls/hr .Q8H BARRON Administration Piperacillin Sod/Tazobactam 50 mls @ 100 mls/hr 10/03/20 10:00 10/05/20 06:18 Sod 3.375 gm/ Sodium Chloride IV Infused Q6H BARRON Infusion Methylprednisolone Sodium Succinate 20 mg 10/04/20 13:15 10/05/20 05:28 Methylprednisolone Sod Succ/Pf 40 Mg/Ml Vial IVPUSH 20 mg Q8H BARRON Administration Morphine Sulfate 3 mg 10/03/20 05:28 10/05/20 07:37 Morphine Sulfate 4 Mg/Ml Cartridge IVPUSH 3 mg Q3H PRN Administration ABDOMINAL PAIN Nicotine 14 mg 10/03/20 11:10 10/05/20 07:38 Nicotine 14 Mg Patch.Td24 TRANSDERMA 14 mg DAILY BARRON Administration Ondansetron HCl 4 mg 10/03/20 05:28 10/05/20 07:42 Ondansetron Hcl 4 Mg/2 Ml Vial IVPUSH 4 mg QID PRN Administration Nausea Time Spent With Patient Time: Total time spent is greater than 50% in coordination of care (as documented) at patient's floor/unit and/or counseling patient: Time with patient: 15 - 24 minutes
[2020-10-05] MEDS: Famotidine/PF 20 MG/2 ML VIAL IVPUSH (10:37)
--- NOTE | 2020-10-05 13:03 | P.PNIM_ITS ---
Subjective Subjective Date of Service: 10/05/20 Interval History: the patient was seen and evaluated this morning Laying in bed, sleeping, comfortable NG tube in place, reported suctioning small amount blood with gastric contents No reported other overnight events. Physical Exam Vital Signs: Vital Signs: Last Vital Signs Temp 97.4 F 10/05/20 11:05 Pulse 70 10/05/20 11:05 Resp 17 10/05/20 11:05 BP 143/66 H 10/05/20 11:05 Pulse Ox 93 10/05/20 11:05 Body Mass Index 25.7 Constitutional : Alert, oriented, not in distress Neck : Normal inspection, Supple Cardiovascular : RRR, S1 S2, no lower extremity edema Respiratory : Good bilateral air entry, no crackles, wheezes or rhonchi Gastrointestinal: soft, lax, Normal bowel sounds, Non tender Skin : Warm/Dry, No rash Neurological : Alert & oriented x3, No focal deficit Objective Data Current Medications Generic Name Dose Route Start Last Admin Trade Name Freq PRN Reason Stop Dose Admin Famotidine 20 mg 10/05/20 09:00 10/05/20 10:37 Famotidine/Pf 20 Mg/2 Ml Vial IVPUSH 20 mg DAILY BARRON Administration Dextrose/Lactated Ringer's 1,000 mls @ 125 mls/hr 10/03/20 05:28 10/05/20 07:43 D5lr IVCONT 125 mls/hr .Q8H BARRON Administration Piperacillin Sod/Tazobactam 50 mls @ 100 mls/hr 10/03/20 10:00 10/05/20 12:50 Sod 3.375 gm/ Sodium Chloride IV Infused Q6H BARRON Infusion Methylprednisolone Sodium Succinate 20 mg 10/04/20 13:15 10/05/20 05:28 Methylprednisolone Sod Succ/Pf 40 Mg/Ml Vial IVPUSH 20 mg Q8H BARRON Administration Morphine Sulfate 3 mg 10/03/20 05:28 10/05/20 07:37 Morphine Sulfate 4 Mg/Ml Cartridge IVPUSH 3 mg Q3H PRN Administration ABDOMINAL PAIN Nicotine 14 mg 10/03/20 11:10 10/05/20 07:38 Nicotine 14 Mg Patch.Td24 TRANSDERMA 14 mg DAILY BARRON Administration Ondansetron HCl 4 mg 10/03/20 05:28 10/05/20 07:42 Ondansetron Hcl 4 Mg/2 Ml Vial IVPUSH 4 mg QID PRN Administration Nausea Labs CBC & Chem 7: 10/04/20 05:23 10/04/20 05:23 Assessment and Plan (1) Small bowel obstruction: Status: Acute (2) Crohns disease of small intestine: Status: Acute Assessment and Plan: this is a 60-year-old female with a history of Crohn's disease on Stelara who presented to the emergency department with abdominal pain found to have small- bowel obstruction SBO possibly related to underlying Crohn's flare Started on IV steroids for total of 2 days GI on board GI bleed Seems to be local irritation from the NG tube Hemoglobin and vitals are stable continue to monitor CBC HLD hold statin tobacco dependence smoking cessation advised NRT
--- NOTE | 2020-10-05 15:27 | PC.NURSE ---
ngt clamped x 4 hours, residual 0. ngt removed per md order. patient tolerated without complaint
[2020-10-06] MEDS: Morphine Sulfate 4 MG/ML CARTRIDGE 3 MG IVPUSH (01:19)
[2020-10-06] MEDS: Piperacillin Sodium/Tazobactam 3.375 GM in 0.9 % Sodium Chloride 50 ML IV ×2 (03:30→07:53)
[2020-10-06] MEDS: Dextrose 5 % and Lactated Ring 1,000 ML 125 ML IVCONT (03:34)
[2020-10-06 03:42] VITALS: BP 119/61; PULSE 65; RESP 18; TEMP 36.8; O2SAT 94
[2020-10-06 07:43] VITALS: BP 154/74; PULSE 63; RESP 18; TEMP 36.4; O2SAT 98
[2020-10-06] MEDS: Nicotine 14 MG PATCH.TD24 TRANSDERMA (07:53)
[2020-10-06] MEDS: Famotidine/PF 20 MG/2 ML VIAL IVPUSH (07:54)
--- NOTE | 2020-10-06 08:09 | PM.PNGS ---
Subjective Subjective Interval history: Rose reports feels much improved, tolerated removal of NGT and clear liquid diet. Passing her normally loose stools. Denies abdominal pain. Physical Exam Vital Signs: Vital Signs: Last Vital Signs Temp 97.6 F 10/06/20 07:43 Pulse 63 10/06/20 07:43 Resp 18 10/06/20 07:43 BP 154/74 H 10/06/20 07:43 Pulse Ox 98 10/06/20 07:43 Body Mass Index 25.7 Const: General: cooperative, comfortable and no acute distress Resp: Effort & Inspection: normal respiratory effort Cardio: Jugular venous distension: no JVD GI: Inspection: Yes normal to inspection and No distended Palpation (GI): Soft to palpation, nontender, no guarding and not rigid Percussion: Yes normal to percussion Skin: General skin exam: no rashes or lesions noted Progress Note: A&P Assessment and plan (1) Small bowel obstruction: Status: Acute Assessment and Plan: SBO resolved (2) Crohns disease of small intestine: Status: Acute Assessment and Plan: Continues on steroid bolus of Methyprednisolone 20 mg Q8H with a marked improvement of symptoms. Will stop the bolus after 48 hours as recommended by Dr. James. Will stop IVFs, Pepcid and antibiotics. Fall Risk Details Current Medications: Current Medications Generic Name Dose Route Start Last Admin Trade Name Freq PRN Reason Stop Dose Admin Famotidine 20 mg 10/05/20 09:00 10/06/20 07:54 Famotidine/Pf 20 Mg/2 Ml Vial IVPUSH 20 mg DAILY BARRON Administration Dextrose/Lactated Ringer's 1,000 mls @ 125 mls/hr 10/03/20 05:28 10/06/20 04:10 D5lr IVCONT 125 mls/hr .Q8H BARRON Infusion Piperacillin Sod/Tazobactam 50 mls @ 100 mls/hr 10/03/20 10:00 10/06/20 07:53 Sod 3.375 gm/ Sodium Chloride IV 100 mls/hr Q6H BARRON Administration Methylprednisolone Sodium Succinate 20 mg 10/04/20 13:15 10/06/20 03:30 Methylprednisolone Sod Succ/Pf 40 Mg/Ml Vial IVPUSH 20 mg Q8H BARRON Administration Morphine Sulfate 3 mg 10/03/20 05:28 10/06/20 01:19 Morphine Sulfate 4 Mg/Ml Cartridge IVPUSH 3 mg Q3H PRN Administration ABDOMINAL PAIN Nicotine 14 mg 10/03/20 11:10 10/06/20 07:53 Nicotine 14 Mg Patch.Td24 TRANSDERMA 14 mg DAILY BARRON Administration Ondansetron HCl 4 mg 10/03/20 05:28 10/05/20 18:11 Ondansetron Hcl 4 Mg/2 Ml Vial IVPUSH 4 mg QID PRN Administration Nausea Time Spent With Patient Time: Total time spent is greater than 50% in coordination of care (as documented) at patient's floor/unit and/or counseling patient: Time with patient: 15 - 24 minutes
[2020-10-06 09:47] LABS: Hematocrit 38.7 % (37-47); Hemoglobin 12.8 g/dl (12.0-16.0); Mean Corpuscular HGB Conc 33.1 g/dl (31.0-35.0); Mean Corpuscular Hemoglobin 29.8 pg (27.0-33.0); Mean Corpuscular Volume 90.2 fL (80-98); Mean Platelet Volume 11.2 fL (9.4-12.3); Platelet Count 234 X10*3/uL (160-400); Red Blood Count 4.29 X10*6/uL (4.20-5.50); Red Cell Distribution Width 13.3 % (11.0-16.0); White Blood Count 10.6 X10*3/uL (4.8-10.8)
--- NOTE | 2020-10-06 11:22 | P.PNIM_ITS ---
Subjective Subjective Interval History: the patient was seen and evaluated this morning Feels better, having difficulty passing stool but has been passing gas denies any fever, chills, pain is under better control Tolerating diet much better No reported other overnight events. Physical Exam Vital Signs: Vital Signs: Last Vital Signs Temp 97.6 F 10/06/20 07:43 Pulse 63 10/06/20 07:43 Resp 18 10/06/20 07:43 BP 154/74 H 10/06/20 07:43 Pulse Ox 98 10/06/20 07:43 Body Mass Index 25.7 Constitutional : Alert, oriented, not in distress Neck : Normal inspection, Supple Cardiovascular : RRR, S1 S2, no lower extremity edema Respiratory : Good bilateral air entry, no crackles, wheezes or rhonchi Gastrointestinal: soft, lax, Normal bowel sounds, Non tender Skin : Warm/Dry, No rash Neurological : Alert & oriented x3, No focal deficit Objective Data Current Medications Generic Name Dose Route Start Last Admin Trade Name Freq PRN Reason Stop Dose Admin Methylprednisolone Sodium Succinate 20 mg 10/04/20 13:15 10/06/20 03:30 Methylprednisolone Sod Succ/Pf 40 Mg/Ml Vial IVPUSH 10/06/20 14:00 20 mg Q8H BARRON Administration Morphine Sulfate 3 mg 10/03/20 05:28 10/06/20 01:19 Morphine Sulfate 4 Mg/Ml Cartridge IVPUSH 3 mg Q3H PRN Administration ABDOMINAL PAIN Nicotine 14 mg 10/03/20 11:10 10/06/20 07:53 Nicotine 14 Mg Patch.Td24 TRANSDERMA 14 mg DAILY BARRON Administration Ondansetron HCl 4 mg 10/03/20 05:28 10/05/20 18:11 Ondansetron Hcl 4 Mg/2 Ml Vial IVPUSH 4 mg QID PRN Administration Nausea Labs CBC & Chem 7: 10/06/20 09:26 10/04/20 05:23 Assessment and Plan (1) Small bowel obstruction: Status: Acute (2) Crohns disease of small intestine: Status: Acute Assessment and Plan: this is a 60-year-old female with a history of Crohn's disease on Stelara who presented to the emergency department with abdominal pain found to have small- bowel obstruction SBO possibly related to underlying Crohn's flare Continue IV steroids for today tapering dose starting tomorrow GI on board GI bleed Seems to be local irritation from the NG tube Hemoglobin and vitals are stable continue to monitor CBC HLD hold statin tobacco dependence smoking cessation advised NRT
[2020-10-06 12:00] VITALS: BP 157/75; PULSE 67; RESP 16; TEMP 36.4; O2SAT 96
[2020-10-06 15:41] VITALS: BP 156/73; PULSE 66; RESP 18; TEMP 36.4; O2SAT 94
[2020-10-06 19:07] VITALS: BP 152/76; PULSE 78; RESP 18; TEMP 36.4; O2SAT 93
[2020-10-07] VITALS: BP 141/77; PULSE 62; RESP 16; TEMP 36.6; O2SAT 96
[2020-10-07 03:50] VITALS: BP 166/74; PULSE 55; RESP 16; TEMP 36.7; O2SAT 96
[2020-10-07 06:25] LABS: Hemoglobin 13.2 g/dl (12.0-16.0); Mean Corpuscular Hemoglobin 29.2 pg (27.0-33.0); Mean Corpuscular Volume 88.5 fL (80-98); Mean Platelet Volume 11.1 fL (9.4-12.3); Platelet Count 242 X10*3/uL (160-400); Red Blood Count 4.52 X10*6/uL (4.20-5.50); Red Cell Distribution Width 13.2 % (11.0-16.0); White Blood Count 13.2 X10*3/uL (4.8-10.8)
[2020-10-07 06:58] LABS: Anion Gap 9 (12-20); Blood Urea Nitrogen 11 mg/dL (9-16); Calcium 8.9 mg/dL (8.4-10.2); Carbon Dioxide 27 mmol/L (22-29); Chloride 107 mmol/L (96-108); Creatinine Clr Calc Pharmacy 74.6; Estimated Glomerular Filt Rate > 60; Glucose Random 87 mg/dL (60-115); Potassium 3.1 mmol/l (3.3-5.1); Sodium 140 mmol/L (135-145)
[2020-10-07 08:00] VITALS: BP 156/78; PULSE 58; RESP 18; TEMP 36.3; O2SAT 96
[2020-10-07] MEDS: predniSONE 10 MG TABLET 30 MG PO (08:53)
[2020-10-07] MEDS: Famotidine 20 MG TABLET PO (08:53)
[2020-10-07] MEDS: Potassium Chloride ER 20 MEQ TAB.ER.PRT PO (08:54)
[2020-10-07] MEDS: Nicotine 14 MG PATCH.TD24 TRANSDERMA (08:54)
--- NOTE | 2020-10-07 09:50 | MHC.CM.PN ---
PATIENT IS DISCHARGED HOME WITH NO SERVICES. DAUGHTER IS HERE TO TRANSPORT. RN AWARE
--- NOTE | 2020-10-07 10:06 | P.PNIM_ITS ---
Subjective Subjective Date of Service: 10/07/20 Interval History: the patient was seen and evaluated this morning Feels better, having difficulty passing stool but has been passing gas denies any fever, chills, pain is under better control Tolerating diet much better No reported other overnight events. Review of Systems Review of Systems: Yes all other systems are reviewed and are negative Constitutional No fever, chills or weakness No chest pain, palpitation No shortness of breath or coughing No abdominal pain, nausea or vomiting No urinary symptoms No any rash or wounds Physical Exam Vital Signs: Vital Signs: Last Vital Signs Temp 97.4 F 10/07/20 08:00 Pulse 58 10/07/20 08:00 Resp 18 10/07/20 08:00 BP 156/78 H 10/07/20 08:00 Pulse Ox 96 10/07/20 08:00 Body Mass Index 25.7 Constitutional : Alert, oriented, not in distress Neck : Normal inspection, Supple Cardiovascular : RRR, S1 S2, no lower extremity edema Respiratory : Good bilateral air entry, no crackles, wheezes or rhonchi Gastrointestinal: soft, lax, Normal bowel sounds, Non tender Skin : Warm/Dry, No rash Neurological : Alert & oriented x3, No focal deficit Objective Data Current Medications Generic Name Dose Route Start Last Admin Trade Name Freq PRN Reason Stop Dose Admin Famotidine 20 mg 10/07/20 09:00 10/07/20 08:53 Famotidine 20 Mg Tablet PO 20 mg BID BARRON Administration Morphine Sulfate 3 mg 10/03/20 05:28 10/06/20 01:19 Morphine Sulfate 4 Mg/Ml Cartridge IVPUSH 3 mg Q3H PRN Administration ABDOMINAL PAIN Nicotine 14 mg 10/03/20 11:10 10/07/20 08:54 Nicotine 14 Mg Patch.Td24 TRANSDERMA 14 mg DAILY BARRON Administration Ondansetron HCl 4 mg 10/03/20 05:28 10/05/20 18:11 Ondansetron Hcl 4 Mg/2 Ml Vial IVPUSH 4 mg QID PRN Administration Nausea Prednisone 30 mg 10/07/20 09:00 10/07/20 08:53 Prednisone 10 Mg Tablet PO 30 mg DAILY BARRON Administration Labs CBC & Chem 7: 10/07/20 06:04 10/07/20 06:04 Assessment and Plan (1) Small bowel obstruction: Status: Acute (2) Crohns disease of small intestine: Status: Acute Assessment and Plan: this is a 60-year-old female with a history of Crohn's disease on Stelara who presented to the emergency department with abdominal pain found to have small- bowel obstruction SBO related to underlying Crohn's flare Better with steroids To DC on tapering dose of Prednisone after discussing with dr Iglesias from GI To DC on Famotidine as well GI bleed Seems to be local irritation from the NG tube Hemoglobin and vitals are stable HLD hold statin tobacco dependence smoking cessation advised NRT at discharge
--- NOTE | 2020-11-19 09:53 | P.DS_ITS ---
DS: Providers Provider Date of admission: 10/03/20 03:49 Date of discharge: 10/07/20 Primary care physician: Jorge Green MD Admitting clinician: Simone Dick Consults: 10/03/20 05:28 Consult to Hospitalist Routine Consulting Provider: Hospitalist Reason for consultation: CROHNS DISEASE, SBO, MEDICAL MANAGEMENT 10/03/20 11:06 Consult to Gastroenterology Routine Consulting Provider: [facility] Reason for consultation: sbo ?r/t crohns flare Has provider been notified: No Attending physician on discharge: Simone Dick Discharging clinician: Simone Dick DS: Diagnosis Discharge Diagnosis (1) Small bowel obstruction: Status: Resolved (2) Crohns disease of small intestine: Status: Acute DS: Medications Discharge Medications Home Medications: Home Medications Medication Instructions Recorded Confirmed atorvastatin 40 mg tablet 40 mg PO DAILY 09/23/20 10/03/20 ustekinumab 90 mg/mL subcutaneous 90 mg SUBCUT Q4W 09/23/20 10/03/20 syringe Previous Rx's Medication Instructions Recorded famotidine 20 mg PO BID #60 tab 10/07/20 nicotine 14 mg TRANSDERMAL DAILY #30 ea 10/07/20 prednisone See Taper PO DAILY #147 ea 10/07/20 DS: Summary Hospital Course Hospital Course: Rose Nieves is a 60 year old female presenting with complaints of abdominal pain beginning in the right upper quadrant extending throughout the entire abdomen.? The pain was similar to previous episodes of abdominal pain related to small-bowel obstruction.? She reports no bowels for several days and abdominal distension.? Patient has a history of Crohn's disease and is on the care of Dr. Erum Cruz.? The pain developed around midnight 10/03/2020 and increased in severity throughout the day.? She subsequently presented to the emergency department.? A CT of the abdomen and pelvis confirmed a small-bowel obstruction with transition point in areas of bowel wall thickening proximal to a prior bowel anastomosis.? She is admitted to the surgical service for management of this small-bowel obstruction. She was made NPO and started on IV fluids. A hospitalist and GI consult was requested. On HD #2: Ms. Nieves reported continued abdominal pain in the right upper quadrant radiating towards the left upper quadrant, which came in waves.? Pain did improve with pain medication.? No flatus or BM reported yet. She was evaluated by GI and started on a steroid bolus. On the next hospital day, she felt improved with decreased abdominal pain.? She reported 3 bowel movements over the previous 24 hours.? Nasogastric tube is noted to be bloody. She was much improved with the steroid bolus. The tube was clamped and low residuals noted after 4 hours. The tube was then removed and clear liquids started. ? HD#3: Rose reported feeling much improved, tolerated removal of NGT and clear liquid diet.? She continued passing her normally loose stools and denied abdominal pain.?The steroid? bolus of Methyprednisolone 20 mg Q8H was continued and the IVFs, Pepcid and antibiotics stopped. HD#4: Patient much improved with SBO due to a Crohn?s flair. She was placed on a steroid taper and discharged to home. She will follow up with GI as an outpatient. Time Spent with Patient Time attestation: Total time spent providing and/or coordinating discharge services: Discharge coordination time: Less than 30 minutes Physical Exam Vital Signs: Vital Signs: Last Vital Signs Temp 97.4 F 10/07/20 08:00 Pulse 58 10/07/20 08:00 Resp 18 10/07/20 08:00 BP 156/78 H 10/07/20 08:00 Pulse Ox 96 10/07/20 08:00 Body Mass Index 25.7 Const: General: cooperative, comfortable and well developed; No confusion Nutritional Appearance: well nourished Orientation/consciousness: patient oriented x3 and No confusion Eyes: Sclerae: sclerae normal EOM: EOMs intact bilaterally Neck: Neck: Yes normal visual inspection Resp: Effort & Inspection: normal respiratory effort, no cough and no respiratory distress Cardio: Jugular venous distension: no JVD Rate: regular rate Rhythm: regular rhythm GI: Inspection: Yes normal to inspection Palpation (GI): Soft to palpation, nontender, no guarding and not rigid Percussion: Yes normal to percussion Auscultation: normal bowel sounds Skin: General skin exam: dry skin Rashes: no rashes Neuro: General: patient oriented x3, no focal motor deficits and No confusion Extrem: General: Yes full ROM and Yes no clubbing, cyanosis or edema DS: Data Data Completed and Pending Labs on day of discharge: 10/03/20 01:50 ECG 12 lead EKG Stat EKG Documentation DIRECTED IV insert/maintain .Now ondansetron HCL [Zofran] 4 mg IVPUSH ONCE ONE 10/03/20 02:06 Complete Blood Count Auto Diff Stat Comprehensive Met. Panel Stat Lactic Acid Stat Lipase Stat 10/03/20 02:12 HYDROmorphone HCl [Dilaudid] 0.5 mg IVPUSH ONCE ONE 10/03/20 02:15 CT abdomen pelvis w con Stat 10/03/20 03:13 iohexoL 350 MG/ML [Omnipaque 350 MG/ML] 85 ml IV ONCE ONE 10/03/20 03:16 SARS COV2 PCR INHOUSE Stat 10/03/20 03:37 HYDROmorphone HCl [Dilaudid] 0.5 mg IVPUSH ONCE ONE Piperacillin Sodium/Tazobactam [Zosyn] 3.375 gm 0.9 % Sodium Chloride [Ns] 50 ml IV ONCE 10/03/20 03:39 Code Status Routine Transfer Order Routine 10/03/20 03:53 Piperacillin Sodium/Tazobactam [Zosyn] 3.375 gm IV .STK-MED ONE 10/03/20 04:50 ondansetron HCL [Zofran] 4 mg IVPUSH ONCE ONE 10/03/20 04:52 NG/OG Tube Insert/Maintain Q8HR Lidocaine HCl 4 % Sdchse-Y-Lzx [Xylocaine 4 % Azesgs-D-Nlw] 1 appl TOPICAL ONCE ONE 10/03/20 05:28 Dextrose 5 % and Lactated Ring [D5lr] 1,000 ml IVCONT 125 mls/hr Morphine Sulfate 3 mg IVPUSH Q3H PRN ondansetron HCL [Zofran] 4 mg IVPUSH QID PRN 10/03/20 05:28 Ambulate QSHIFT WHILE AWAKE Compression Therapy QSHIFT IV insert/maintain Q4HR Intake and Output QSHIFTE Vital Signs QSHIFT 10/03/20 07:18 NG/OG Tube Insert/Maintain NOW 10/03/20 07:51 XR chest 1V Stat 10/03/20 08:16 UA CC w/rflx Micro + Cult Stat 10/03/20 09:11 Piperacillin Sodium/Tazobactam [Zosyn] 3.375 gm IV .STK-MED ONE 10/03/20 10:00 Piperacillin Sodium/Tazobactam [Zosyn] 3.375 gm 0.9 % Sodium Chloride [Ns] 50 ml IV Q6H 10/03/20 11:10 Nicotine [Nicoderm] 14 mg TRANSDERMA DAILY 10/03/20 15:37 Piperacillin Sodium/Tazobactam [Zosyn] 3.375 gm IV .STK-MED ONE 10/03/20 21:44 Piperacillin Sodium/Tazobactam [Zosyn] 3.375 gm IV .STK-MED ONE 10/04/20 03:17 Piperacillin Sodium/Tazobactam [Zosyn] 3.375 gm IV .STK-MED ONE 10/04/20 05:23 Basic Metabolic Panel Routine Complete Blood Count Auto Diff Routine 10/04/20 08:58 Piperacillin Sodium/Tazobactam [Zosyn] 3.375 gm IV .STK-MED ONE 10/04/20 13:15 methylPREDNISolone Sod Succ/PF [SOLU-MedroL] 20 mg IVPUSH Q8H 10/04/20 13:38 CDiff with Reflex to PCR Routine 10/04/20 15:35 Piperacillin Sodium/Tazobactam [Zosyn] 3.375 gm IV .STK-MED ONE 10/04/20 21:39 Piperacillin Sodium/Tazobactam [Zosyn] 3.375 gm IV .STK-MED ONE 10/05/20 05:23 Piperacillin Sodium/Tazobactam [Zosyn] 3.375 gm IV .STK-MED ONE 10/05/20 09:00 Famotidine/PF [Pepcid/PF] 20 mg IVPUSH DAILY 10/05/20 10:33 Piperacillin Sodium/Tazobactam [Zosyn] 3.375 gm IV .STK-MED ONE 10/05/20 15:40 Piperacillin Sodium/Tazobactam [Zosyn] 3.375 gm IV .STK-MED ONE 10/05/20 21:17 Piperacillin Sodium/Tazobactam [Zosyn] 3.375 gm IV .STK-MED ONE 10/06/20 03:24 Piperacillin Sodium/Tazobactam [Zosyn] 3.375 gm IV .STK-MED ONE 10/06/20 07:51 Piperacillin Sodium/Tazobactam [Zosyn] 3.375 gm IV .STK-MED ONE 10/06/20 09:26 Complete Blood Count no Diff Routine 10/07/20 06:04 Basic Metabolic Panel DAILY@0600 Complete Blood Count no Diff DAILY@0600 10/07/20 07:30 Potassium Chloride ER [Klor-con] 20 meq PO ONCE ONE 10/07/20 09:00 Famotidine [Pepcid] 20 mg PO BID predniSONE 30 mg PO DAILY Laboratory Last Values WBC 13.2 X10*3/uL (4.8-10.8) H 10/07/20 06:04 RBC 4.52 X10*6/uL (4.20-5.50) 10/07/20 06:04 Hgb 13.2 g/dl (12.0-16.0) 10/07/20 06:04 Hct 40.0 % (37-47) 10/07/20 06:04 MCV 88.5 fL (80-98) 10/07/20 06:04 MCH 29.2 pg (27.0-33.0) 10/07/20 06:04 MCHC 33.0 g/dl (31.0-35.0) 10/07/20 06:04 RDW 13.2 % (11.0-16.0) 10/07/20 06:04 Plt Count 242 X10*3/uL (160-400) 10/07/20 06:04 MPV 11.1 fL (9.4-12.3) 10/07/20 06:04 Immature Gran % (Auto) 0.1 % (0.0-0.4) 10/04/20 05:23 Neut % (Auto) 58.5 % (45-73) 10/04/20 05:23 Lymph % (Auto) 29.5 % (20-40) 10/04/20 05:23 [place] % (Auto) 10.0 % (2-11) 10/04/20 05:23 Eos % (Auto) 1.5 % (0-4) 10/04/20 05:23 Baso % (Auto) 0.4 % (0-2) 10/04/20 05:23 Lymph # (Auto) 2.2 X10*3/uL (1.2-4.9) 10/04/20 05:23 [place] # (Auto) 0.7 X10*3/uL (0.1-1.2) 10/04/20 05:23 Eos # (Auto) 0.1 X10*3/uL (0.0-0.4) 10/04/20 05:23 Baso # (Auto) 0.0 X10*3/uL (0.0-0.2) 10/04/20 05:23 Abs Immat Gran (auto) 0.01 X10*3/uL (0.00-0.03) 10/04/20 05:23 Absolute Neuts (auto) 4.3 X10*3/uL (2.0-8.3) 10/04/20 05:23 Absolute Nucleated RBC 0.000 X10*3/uL (0.0-0.012) 10/07/20 06:04 Nucleated RBC % (auto) 0.0 /100WBC (0.0-0.2) 10/07/20 06:04 Sodium 140 mmol/L (135-145) 10/07/20 06:04 Potassium 3.1 mmol/l (3.3-5.1) L D 10/07/20 06:04 Chloride 107 mmol/L (96-108) 10/07/20 06:04 Carbon Dioxide 27 mmol/L (22-29) 10/07/20 06:04 Anion Gap 9 (12-20) L 10/07/20 06:04 BUN 11 mg/dL (9-16) 10/07/20 06:04 Creatinine 0.64 mg/dL (0.5-1.4) 10/07/20 06:04 Estim Creat Clear Calc 74.6 10/07/20 06:04 Estimated GFR > 60 10/07/20 06:04 Random Glucose 87 mg/dL (60-115) D 10/07/20 06:04 Lactic Acid 1.9 mmol/L (0.5-2.0) 10/03/20 02:06 Calcium 8.9 mg/dL (8.4-10.2) D 10/07/20 06:04 Total Bilirubin 0.4 mg/dL (0.0-1.0) 10/03/20 02:06 AST 23 U/L (5-31) 10/03/20 02:06 ALT 28 U/L (0-31) 10/03/20 02:06 Alkaline Phosphatase 100 U/L (39-117) 10/03/20 02:06 Total Protein 6.7 g/dL (6.5-8.0) 10/03/20 02:06 Albumin 4.1 g/dL (3.5-5.0) 10/03/20 02:06 Lipase 16 U/L (8-78) 10/03/20 02:06 Urine Color YELLOW 10/03/20 08:16 Urine Appearance CLEAR 10/03/20 08:16 Urine pH 5.0 (5.0-8.0) 10/03/20 08:16 Ur Specific [place] 1.010 (1.005-1.025) 10/03/20 08:16 Urine Protein NEG MG/DL (NEG-TRACE) 10/03/20 08:16 Urine Glucose (UA) NEG MG/DL (NEG) 10/03/20 08:16 Urine Ketones NEG MG/DL (NEG) 10/03/20 08:16 Urine Blood NEG (NEG) 10/03/20 08:16 Urine Nitrite NEG (NEG) 10/03/20 08:16 Ur Leukocyte Esterase NEG (NEG) 10/03/20 08:16 C. difficile Toxin A&B Negative (Negative) 10/04/20 13:38 C. difficile Antigen Negative (Negative) 10/04/20 13:38 C. difficile Interpret SEE NOTE 10/04/20 13:38 Coronavirus (PCR) NEGATIVE (Negative) 10/03/20 03:16 Discharge Plan Discharge Patient Disposition: Home, Self-Care Referrals: Jorge Green MD [Primary Care Provider] - Discharge Medications: New nicotine 14 mg/24 hr Patch 24 Hour 14 mg transdermal DAILY Qty: 30 RF: 0 prednisone 5 mg tablets,dose pack See Taper mg PO DAILY Qty: 147 RF: 0 famotidine 20 mg Tablet 20 mg PO BID Qty: 60 RF: 2 Continued Stelara 90 mg/mL syringe 90 mg subcut Q4W RF: 0 atorvastatin 40 mg tablet 40 mg PO DAILY RF: 0 Discharge Orders: Discharge Order (Routine); Ordered 10/07/20 Ordered By: Simone Dick Diet: advance to usual diet Activity on Discharge: As tolerated Discharge Date/Time: 10/07/20 10:34 Visit Report Forms: Patient Portal Discharge page Care Plan Goals: Steroid bolus, GI consultation Health Concerns: Stricture due to Crohn's disease, partial SBO Plan of Treatment: Advance diet as tolerated
== END 2020-10-07 10:34 | disposition home or self-care (01) | DRG 387 ==
LOC: HO.ED 03:41 → HO.S3 04:40
PROVIDERS: Internal Medicine; Student in an Organized Health Care Education/Training Program; Admitting Provider Surgery; Emergency Provider Student in an Organized Health Care Education/Training Program; PCP Internal Medicine; Visit Provider Surgery
DX: K50.012 Crohn's disease of small intestine with intestinal obstruction (principal); E78.5 Hyperlipidemia, unspecified; Z20.828 Contact with and (suspected) exposure to other viral communicable diseases; F17.210 Nicotine dependence, cigarettes, uncomplicated; Z71.6 Tobacco abuse counseling; Z79.899 Other long term (current) drug therapy
CPT/HCPCS: 36415; 71045; 74177; 80048; 80053; 81003; 83605; 83690; 85025; 85027; 87324; 87449; 93005; 96365; 96375; 96376; 99285; J1170; J2270; J2405; J2543; J2920; Q9967; U0003

== ENCOUNTER 2020-11-18 09:23 | Outpatient (REF) | payer MEDICARE, MEDICAID, SELFPAY ==
[2020-11-18 10:36] LABS: Alanine Aminotransferase 23 U/L (0-31); Albumin Level 4.2 g/dL (3.5-5.0); Alkaline Phosphatase 91 U/L (39-117); Aspartate Amino Transferase 21 U/L (5-31); Bilirubin Direct 0.2 mg/dL (0.0-0.5); Bilirubin Total 0.5 mg/dL (0.0-1.0); Cholesterol 180 mg/dL; HDL Cholesterol 50 mg/dL; LDL Cholesterol Calculated 106 mg/dl; Total Protein 6.7 g/dL (6.5-8.0); Triglycerides 124 mg/dL
[2020-11-18 11:44] LABS: Reflex LDLD? No
== END 2020-11-18 09:24 | disposition home or self-care (01) ==
LOC: HO.LAB 09:23
PROVIDERS: Visit Provider Internal Medicine
DX: E78.2 Mixed hyperlipidemia (principal)
CPT/HCPCS: 80061; 80076

== ENCOUNTER → 2020-12-04 09:16 | Outpatient (BNVA) | payer MEDICARE, MEDICAID, SELFPAY | PROVIDERS: PCP Internal Medicine; Visit Provider Internal Medicine Gastroenterology | DX: Z13.89 Encounter for screening for other disorder (principal) | CPT/HCPCS: 99212 ==

== ENCOUNTER 2020-12-27 08:27 | Outpatient (REF) | payer MEDICARE, MEDICAID, SELFPAY ==
[2020-12-27 09:07] LABS: Blood Urea Nitrogen 10 mg/dL (9-16)
[2020-12-27 10:52] LABS: Estimated Glomerular Filt Rate > 60
== END 2020-12-27 08:28 | disposition home or self-care (01) ==
LOC: HO.MRI 08:27
PROVIDERS: Visit Provider Internal Medicine Gastroenterology
DX: K50.00 Crohn's disease of small intestine without complications (principal)
CPT/HCPCS: 36415; 82550; 82565; 84520

== ENCOUNTER 2020-12-28 09:07 | Outpatient (REF) | payer MEDICARE, MEDICAID, SELFPAY ==
[2020-12-28 09:40] LABS: MANUAL DIFF FLAG NO
[2020-12-28 09:44] LABS: Basophils Absolute Auto 0.1 X10*3/uL (0.0-0.2); Basophils Percent Auto 0.6 % (0-2); Eosinophils Absolute Auto 0.2 X10*3/uL (0.0-0.4); Eosinophils Percent Auto 1.2 % (0-4); Hematocrit 44.4 % (37-47); Hemoglobin 14.7 g/dl (12.0-16.0); Imm Gran Abs Auto 0.04 X10*3/uL (0.00-0.03); Imm Gran Pct Auto 0.3 % (0.0-0.4); Lymphocytes Absolute Auto 3.4 X10*3/uL (1.2-4.9); Lymphocytes Percent Auto 27.7 % (20-40); Mean Corpuscular HGB Conc 33.1 g/dl (31.0-35.0); Mean Corpuscular Hemoglobin 29.4 pg (27.0-33.0); Mean Corpuscular Volume 88.8 fL (80-98); Mean Platelet Volume 10.9 fL (9.4-12.3); Monocytes Absolute Auto 0.5 X10*3/uL (0.1-1.2); Monocytes Percent Auto 4.2 % (2-11); Neutrophils Absolute Auto 8.2 X10*3/uL (2.0-8.3); Platelet Count 273 X10*3/uL (160-400); Red Cell Distribution Width 13.7 % (11.0-16.0); White Blood Count 12.4 X10*3/uL (4.8-10.8)
[2020-12-28 10:10] LABS: Alanine Aminotransferase 26 U/L (0-31); Albumin Level 4.3 g/dL (3.5-5.0); Alkaline Phosphatase 98 U/L (39-117); Anion Gap 15 (12-20); Aspartate Amino Transferase 21 U/L (5-31); Bilirubin Total 0.7 mg/dL (0.0-1.0); Blood Urea Nitrogen 10 mg/dL (9-16); C Reactive Protein 0.25 mg/dL (< or = 0.50); Calcium 10.1 mg/dL (8.4-10.2); Carbon Dioxide 25 mmol/L (22-29); Chloride 106 mmol/L (96-108); Estimated Glomerular Filt Rate > 60; Glucose Random 117 mg/dL (60-115); Potassium 4.2 mmol/L (3.3-5.1); Sodium 142 mmol/L (135-145)
== END 2020-12-28 09:08 | disposition home or self-care (01) ==
LOC: HO.LAB 09:07
PROVIDERS: PCP Internal Medicine; Visit Provider Internal Medicine Gastroenterology
DX: K50.00 Crohn's disease of small intestine without complications (principal)
CPT/HCPCS: 36415; 80053; 80299; 82542; 84999; 85025; 86140

== ENCOUNTER 2021-01-24 11:19 | Outpatient (REF) | payer MEDICARE, MEDICAID, SELFPAY ==
[2021-01-24 13:41] LABS: Blood Urea Nitrogen 11 mg/dL (9-16); Estimated Glomerular Filt Rate > 60
== END 2021-01-24 11:20 | disposition home or self-care (01) ==
LOC: HO.LAB 11:19
PROVIDERS: PCP Internal Medicine; Visit Provider Internal Medicine Gastroenterology
DX: K50.00 Crohn's disease of small intestine without complications (principal)
CPT/HCPCS: 36415; 82565; 84520

== ENCOUNTER 2021-01-27 13:38 | Outpatient (REF) | payer MEDICARE, MEDICAID, SELFPAY ==
--- NOTE | ~2021-01-27 | CT_ITS ---
EXAMINATION: CT ABDOMEN AND PELVIS WITH CONTRAST CLINICAL INFORMATION: Crohn's disease and small intestine COMPARISON: Previous CT of the abdomen and pelvis most recent September 2020 TECHNIQUE: Multidetector volumetric images were obtained from the superior aspect of the liver through the pubic symphysis following administration 85 mL of Omnipaque 350 intravenous contrast. Sagittal and coronal reformatted images were obtained on the technologist's workstation. Oral contrast: 1.5 L of oral BREEZA contrast. This CT examination was performed using dose optimization techniques as appropriate, variously including the following: *Automated exposure control *Adjustment of mA and/or kV according to patient size (this includes techniques or standardized protocols for targeted exams where dose is matched to indication/reason for exam; i.e. extremities or head) *Use of iterative reconstruction technique DLP: 355 mGy-cm FINDINGS: LUNG BASES: There is a 3 mm left lower lobe nodule axial image 25 series 3. The lung bases are otherwise clear. LIVER, GALLBLADDER, AND BILIARY TREE: The liver is normal in size, shape, and attenuation. There are several small low-attenuation lesions, largest measuring 1 cm in the peripheral right lobe of the liver axial image 90 series 3. These probably represent cysts and are stable. No biliary ductal dilatation is present. The gallbladder is unremarkable with no evidence of radiopaque gallstones, gallbladder wall thickening, or obvious pericholecystic inflammatory changes. PANCREAS: Unremarkable. SPLEEN: Unremarkable. ADRENAL GLANDS: Unremarkable. KIDNEYS AND URETERS: The kidneys are normal in size, shape, and attenuation. No hydronephrosis, hydroureter. There are small bilateral renal stones. There are bilateral renal cysts. BLADDER: Unremarkable. GASTROINTESTINAL TRACT: There are postsurgical changes following right hemicolectomy. There is a subtle wall thickening, enhancement and caliber change of the distal small bowel just proximal to the enterocolic anastomosis axial image 171 series 3, coronal reconstructed image 38 and sagittal reconstructed image 90 questionable for short segment area of active Crohn's disease. There is a slight caliber change of the most distal small bowel distal to this region and just proximal to the enterocolic anastomosis questionable for mild stricture. There is no evidence of obstruction. No abscess or fistula is seen. Small and large bowel is otherwise unremarkable. The rectum is unremarkable. ABDOMINAL WALL: No significant hernia is appreciated. LYMPH NODES: There are small, small bowel mesentery lymph nodes. No enlarged lymph nodes are seen. There is no ascites. VASCULAR: There is evidence of atherosclerotic disease. PELVIC VISCERA: There are multiple calcified and noncalcified small uterine lesions suggestive of fibroids. OSSEOUS STRUCTURES: Unremarkable. CT/CT abdomen pelvis w con IMPRESSION: Subtle area of wall thickening and enhancement of the distal small bowel of questionable for active Crohn's disease. There is also a slight caliber change in this region suggestive of possible mild stricture. This area is approximately 5 cm proximal to the enterocolic anastomosis. There is no evidence of obstruction. Liver and bilateral renal cysts. Small bilateral renal stones. Fibroid uterus.
[2021-01-27] MEDS: iohexoL 350 MG/ML 100 ML INFUS..BTL 85 ML IV (15:35)
[2021-01-27] MEDS: Sorbitol/Mannit/Xanth Imaging 500 ML LIQUID 1500 ML PO (15:36)
== END 2021-01-27 13:39 | disposition home or self-care (01) ==
LOC: HO.US 13:38
PROVIDERS: Visit Provider Internal Medicine Gastroenterology
DX: K50.00 Crohn's disease of small intestine without complications (principal)
CPT/HCPCS: 74177; Q9967

== ENCOUNTER 2021-03-06 09:26 | Outpatient (REF) | payer MEDICARE, MEDICAID, SELFPAY ==
--- NOTE | ~2021-03-06 | CT_ITS ---
EXAMINATION: CT chest wo con. CLINICAL INFORMATION: Pulmonary nodules COMPARISON: Prior CT December 2019 TECHNIQUE: Multidetector volumetric CT imaging of the chest was done. Axial MIP volume rendering provided. Sagittal and coronal reformatted images were obtained. This CT examination was performed using dose optimization techniques as appropriate, variously including the following: *Automated exposure control *Adjustment of mA and/or kV according to patient size (this includes techniques or standardized protocols for targeted exams where dose is matched to indication/reason for exam; i.e. extremities or head) *Use of iterative reconstruction technique CONTRAST: Noncontrasted study. DLP: 319 mGy-cm FINDINGS: CARD PUNCHER: LINES/TUBES: Blasting Contract Man reviewed, no lines. LUNGS: Lung parenchyma: No evidence of significant interstitial disease. Lung nodules/masses: There is a stable 4.5 mm nodule right upper lobe now on image 121 series 4 unchanged from prior study. Stable calcified 3 mm nodule right upper lobe image 145 series 4. Stable 3 mm fissure based nodule right lower lobe image 346 series 4. There is a stable 5 mm nodule left lower lobe image 371 series 4. Stable 4 mm nodule left upper lobe image 571 series 7. There are other smaller densities. AIRWAYS: Trachea and bronchi are normal. PLEURA: No pleural effusion or pneumothorax. MEDIASTINUM AND JOYCE: No mediastinal, hilar or axillary lymphadenopathy. No mediastinal mass. VESSELS: HEART AND PERICARDIUM: Thoracic aorta is normal in size. Heart is normal in size. No pericardial effusion. There are coronary calcifications. Pulmonary arteries are normal in size. LOWER NECK, AXILLA: The visualized thyroid gland is unremarkable. No axillary mass or adenopathy. VISUALIZED ABDOMEN: There is a nonobstructing 3 mm stone upper calyx right kidney. There is subcapsular liver cysts 1 cm they have not changed from prior exams. CHEST WALL AND BONES: No chest wall mass. The visualized bony thorax is within normal limits. CT/CT chest wo con IMPRESSION: 1. No suspicious lung mass. No suspicious lung nodules. 2. Scattered bilateral calcified and noncalcified subcentimeter lung nodules unchanged largest is a 5 mm nodule. Various management parameters for solitary pulmonary nodules are in the literature. According to the UPDATED 2017 Fleischner Society recommendations, the advised follow-up imaging for solid nodules < 6 mm is: LOW RISK PATIENT: No routine follow-up. HIGH RISK PATIENT: Optional CT at 12 months. Reference: Guidelines for Management of Incidental Pulmonary Nodules Detected on CT Images: From the Fleischner Society 2017. 3. Coronary calcifications. 4. Nonobstructing 4 mm stone right kidney, right lower 1 cm liver cyst unchanged.
== END 2021-03-06 09:27 | disposition home or self-care (01) ==
LOC: HO.CT 09:26
PROVIDERS: PCP Internal Medicine; Visit Provider Internal Medicine
DX: R91.1 Solitary pulmonary nodule (principal)
CPT/HCPCS: 71250

== ENCOUNTER → 2021-03-24 09:56 | Outpatient (BNVA) | payer MEDICARE, MEDICAID, SELFPAY | PROVIDERS: PCP Internal Medicine; Visit Provider Internal Medicine Gastroenterology | DX: K50.012 Crohn's disease of small intestine with intestinal obstruction (principal); F17.200 Nicotine dependence, unspecified, uncomplicated; Z71.6 Tobacco abuse counseling; Z79.899 Other long term (current) drug therapy | CPT/HCPCS: Q3014 ==

== ENCOUNTER 2021-04-13 05:15 | Inpatient (IN) | payer MEDICARE, MEDICAID, SELFPAY ==
--- NOTE | ~2021-04-13 | CT_ITS ---
EXAMINATION: CT ABDOMEN AND PELVIS WITHOUT CONTRAST CLINICAL INFORMATION: History of Crohn's disease and small bowel obstructions. COMPARISON: 01/27/2021 TECHNIQUE: Multidetector volumetric imaging was performed from the superior aspect of the liver through the pubic symphysis. Sagittal and coronal reformatted images were obtained on the technologist's workstation. This CT examination was performed using dose optimization techniques as appropriate, variously including the following: *Automated exposure control *Adjustment of mA and/or kV according to patient size (this includes techniques or standardized protocols for targeted exams where dose is matched to indication/reason for exam; i.e. extremities or head) *Use of iterative reconstruction technique DLP: 517 mGy-cm FINDINGS: LUNG BASES: No acute findings. No suspicious pulmonary nodules. Coronary calcifications. LIVER, GALLBLADDER, AND BILIARY TREE: The liver is normal in size, shape, and attenuation. Stable cyst within the right lobe of liver. No suspicious hepatic lesion or biliary ductal dilatation is present. Gallbladder unremarkable. PANCREAS: Unremarkable. SPLEEN: Unremarkable. ADRENAL GLANDS: Unremarkable. KIDNEYS AND URETERS: The kidneys are normal in size, shape, and attenuation. No hydronephrosis, or hydroureter. There are bilateral nonobstructive intrarenal calculi, at least 3 within the right kidney and 4 within the left kidney ranging in size from punctate to 4 mm. No ureteral calculi. No perinephric stranding. BLADDER: Unremarkable. GASTROINTESTINAL TRACT: Status post right hemicolectomy with ileocolic anastomosis within the right midabdomen. Upstream from the anastomosis, extending over length of approximately 10 cm up to the anastomosis is irregular wall thickening and narrowing with upstream dilatation of the small bowel measuring up to 4.2 cm. Further upstream, within the distal jejunum or proximal ileum is a segment of small bowel approximately 8.6 cm in length demonstrating irregular wall thickening and narrowing. Proximal celiac, there are additional mildly dilated loops of small bowel which gradually taper to normal caliber within the proximal jejunum. ABDOMINAL WALL: No significant hernia is appreciated. LYMPH NODES: Normal. VASCULAR: Aorta is atherosclerotic but normal caliber. PELVIC VISCERA: Calcified uterine fibroids are present without significant enlargement of the uterus. No adnexal abnormalities. OSSEOUS STRUCTURES: No acute or suspicious osseous abnormalities. CT/CT abdomen pelvis wo con IMPRESSION: * The patient is status post right hemicolectomy with an ileocolic anastomosis within the right midabdomen. The distal 10 cm of small bowel leading up to the ileocolic anastomosis shows irregular wall thickening and luminal narrowing on a chronic basis. There is dilatation of the small bowel proximal to this segment measuring up to 4.2 cm which may represent a combination of a partial mechanical small bowel obstruction and ileus. There is an additional segment of small bowel within the left midabdomen, likely distal jejunum or proximal ileum measuring 8.6 cm in length, also showing irregular wall thickening and luminal narrowing likely representing an additional site of inflammation of indeterminate activity. * Bilateral nonobstructive intrarenal calculi as described.
[2021-04-13 05:18] VITALS: BP 132/86; PULSE 112; RESP 18; TEMP 36.9; O2SAT 98; BMI 26.4
--- NOTE | 2021-04-13 05:32 | ECG_ITS ---
Test Reason : CHEST PAIN Blood Pressure : / mmHG Vent. Rate : 089 BPM Atrial Rate : 089 BPM P-R Int : 124 ms QRS Dur : 082 ms QT Int : 374 ms P-R-T Axes : 067 039 069 degrees QTc Int : 455 ms Sinus rhythm with frequent Premature ventricular complexes Otherwise normal ECG When compared with ECG of 03-OCT-2020 01:57, Premature ventricular complexes Present Referred By: Raissa Toledo Electronically Signed By:Bart Clarke
--- NOTE | 2021-04-13 05:34 | ED_ITS ---
HPI - Abdominal Pain General Chief Complaint: Abdominal Pain Stated Complaint: ABD PAIN Time Seen by Provider: 04/13/21 05:26 Source: patient Mode of arrival: ambulatory Limitations: no limitations History of Present Illness HPI narrative: Patient comes emergency room complaining of diffuse abdominal pain that started at 2 in the morning. Patient states she has had small bowel obstructions in the past secondary to Crohn's disease. Patient states it feels the same. Patient states that if she does have a small bowel obstruction, she refuses an NG tube. Patient complaining of nausea, no vomiting or diarrhea. Patient denies fever chills. Related Data Home Medications Medication Instructions Recorded Confirmed atorvastatin 40 mg tablet 40 mg PO DAILY 09/23/20 03/24/21 Previous Rx's Medication Instructions Recorded nicotine 14 mg TRANSDERMAL DAILY #30 ea 10/07/20 ustekinumab 90 mg/mL subcutaneous 90 mg SUBCUT Q4W 28 Days #1 ml 01/30/21 syringe Allergies Allergy/AdvReac Type Severity Reaction Status Date / Time No Known Allergies Allergy Verified 12/04/20 09:16 [No Known Allergies*] Review of Systems Review of Systems Constitutional : No Weight loss, No Fever, No Chills, No Night Sweats, No Fatigue, No Malaise ENT/Mouth : No Hearing loss, No Ear Pain, No Nasal Congestion, No Sinus Pain, No Hoarseness, No sore throat, No Rhinorrhea, No Swallowing Difficulty Eyes: No Eye Pain, No Swelling, No Redness, No Foreign Body, No Discharge, No Vision Changes Cardiovascular : No Chest Pain, No SOB, No Dyspnea on Exertion, No Orthopnea, No Edema, No Palpitations Respiratory : No Cough, No Sputum, No Wheezing, No Smoke Exposure, No Dyspnea Gastrointestinal : Complaining of Nausea, No Vomiting, No Diarrhea, No Constipation, complaining of diffuse abdominal pain and distension, No H ematochezia, No Melena Genitourinary : no irregular bleeding, No Dysuria, No Urinary Frequency, No H ematuria, No Urinary Incontinence, No Urgency, No Flank Pain, No Urinary Flow Changes, No Hesitancy Musculoskeletal : No joint pain, No Myalgias, No Joint Swelling Skin : No Skin Lesions, No rash Neuro : No Weakness, No Numbness, No Paresthesias, No Loss of Consciousness, No Dizziness, No Headache Psych : No Anxiety/Panic, No Depression, No SI/HI/AH/VH, No Social Issues, Heme/Lymph: No Bruising, No Bleeding,No Lymphadenopathy Endocrine : No Polyuria, No Polydipsia, No Temperature Intolerance Physical Exam Vital Signs: Vital Signs: Last Vital Signs Temp 98.5 F 04/13/21 05:18 Pulse 112 H 04/13/21 05:18 Resp 18 04/13/21 05:18 BP 132/86 04/13/21 05:18 Pulse Ox 98 04/13/21 05:18 Body Mass Index 26.4 Appearance: Alert. Oriented X3. Patient looks very uncomfortable Eyes: Pupils equal, round and reactive to light. ENT: Pharynx normal. Neck: Normal inspection. Neck supple. No lymph nodes noted. No crepitus CVS: Normal heart rate and rhythm. Pulses normal. Normal S1 and S2 Respiratory: No respiratory distress. Breath sounds normal. No Wheezing. No rales Abdomen: Distended, diffuse tenderness to palpation, no rebound or guarding Skin: Skin warm and dry. Normal skin color. Normal skin turgor. Extremities: No lower extremity edema. No lower extremity edema. No Lacerations. No Rash Neuro: Oriented X 3. No motor deficit. No sensory deficit. Moving all extermities. No slurred speech. Course Course Course Narrative: I discussed the patient with Dr. Dick. Patient will be admitted by surgery. MDM - Abdominal Pain Lab Data Result diagrams: 04/13/21 06:22 04/13/21 06:21 Labs: Lab Results 04/13/21 04/13/21 04/13/21 Range/Units 06:21 06:21 06:21 WBC (4.8-10.8) X10*3/uL RBC (4.20-5.50) X10*6/uL Hgb (12.0-16.0) g/dl Hct (37-47) % MCV (80-98) fL MCH (27.0-33.0) pg MCHC (31.0-35.0) g/dl RDW (11.0-16.0) % Plt Count (160-400) X10*3/uL MPV (9.4-12.3) fL Immature Gran % (Auto) (0.0-0.4) % Neut % (Auto) (45-73) % Lymph % (Auto) (20-40) % [place] % (Auto) (2-11) % Eos % (Auto) (0-4) % Baso % (Auto) (0-2) % Lymph # (Auto) (1.2-4.9) X10*3/uL [place] # (Auto) (0.1-1.2) X10*3/uL Eos # (Auto) (0.0-0.4) X10*3/uL Baso # (Auto) (0.0-0.2) X10*3/uL Abs Immat Gran (auto) (0.00-0.03) X10*3/uL Absolute Neuts (auto) (2.0-8.3) X10*3/uL Absolute Nucleated RBC (0.0-0.012) X10*3/uL Nucleated RBC % (auto) (0.0-0.2) /100WBC Smear Tech's Comments Sodium 141 (135-145) mmol/L Potassium 4.8 (3.3-5.1) mmol/L Chloride 107 (96-108) mmol/L Carbon Dioxide 22 (22-29) mmol/L Anion Gap 17 (12-20) BUN 11 (9-16) mg/dL Creatinine 0.84 (0.5-1.4) mg/dL Estim Creat Clear Calc 56.7 Estimated GFR > 60 Random Glucose 115 (60-115) mg/dL Lactic Acid 2.5 H* (0.5-2.0) mmol/L Calcium 10.6 H (8.4-10.2) mg/dL Total Bilirubin 0.5 (0.0-1.0) mg/dL Direct Bilirubin 0.2 (0.0-0.5) mg/dL AST 23 (5-31) U/L ALT 25 (0-31) U/L Alkaline Phosphatase 121 H D (39-117) U/L Total Protein 7.4 (6.5-8.0) g/dL Albumin 4.4 (3.5-5.0) g/dL Lipase 20 (8-78) U/L 05/16/ Range/Units 06:22 WBC 16.0 H (4.8-10.8) X10*3/uL RBC 5.47 (4.20-5.50) X10*6/uL Hgb 16.1 H (12.0-16.0) g/dl Hct 48.5 H (37-47) % MCV 88.7 (80-98) fL MCH 29.4 (27.0-33.0) pg MCHC 33.2 (31.0-35.0) g/dl RDW 13.8 (11.0-16.0) % Plt Count 273 (160-400) X10*3/uL MPV 11.0 (9.4-12.3) fL Immature Gran % (Auto) 0.3 (0.0-0.4) % Neut % (Auto) 79.0 H (45-73) % Lymph % (Auto) 15.6 L (20-40) % [place] % (Auto) 4.3 (2-11) % Eos % (Auto) 0.4 (0-4) % Baso % (Auto) 0.4 (0-2) % Lymph # (Auto) 2.5 (1.2-4.9) X10*3/uL [place] # (Auto) 0.7 (0.1-1.2) X10*3/uL Eos # (Auto) 0.1 (0.0-0.4) X10*3/uL Baso # (Auto) 0.1 (0.0-0.2) X10*3/uL Abs Immat Gran (auto) 0.05 H (0.00-0.03) X10*3/uL Absolute Neuts (auto) 12.6 H (2.0-8.3) X10*3/uL Absolute Nucleated RBC 0.000 (0.0-0.012) X10*3/uL Nucleated RBC % (auto) 0.0 (0.0-0.2) /100WBC Smear Tech's Comments VERIFIED Sodium (135-145) mmol/L Potassium (3.3-5.1) mmol/L Chloride (96-108) mmol/L Carbon Dioxide (22-29) mmol/L Anion Gap (12-20) BUN (9-16) mg/dL Creatinine (0.5-1.4) mg/dL Estim Creat Clear Calc Estimated GFR Random Glucose (60-115) mg/dL Lactic Acid (0.5-2.0) mmol/L Calcium (8.4-10.2) mg/dL Total Bilirubin (0.0-1.0) mg/dL Direct Bilirubin (0.0-0.5) mg/dL AST (5-31) U/L ALT (0-31) U/L Alkaline Phosphatase (39-117) U/L Total Protein (6.5-8.0) g/dL Albumin (3.5-5.0) g/dL Lipase (8-78) U/L Imaging Data CT scan - abdomen: Radiologist's impression: FINDINGS: LUNG BASES: No acute findings. No suspicious pulmonary nodules. Coronary calcifications. LIVER, GALLBLADDER, AND BILIARY TREE: The liver is normal in size, shape, and attenuation. Stable cyst within the right lobe of liver. No suspicious hepatic lesion or biliary ductal dilatation is present. Gallbladder unremarkable. PANCREAS: Unremarkable. SPLEEN: Unremarkable. ADRENAL GLANDS: Unremarkable. KIDNEYS AND URETERS: The kidneys are normal in size, shape, and attenuation. No hydronephrosis, or hydroureter. There are bilateral nonobstructive intrarenal calculi, at least 3 within the right kidney and 4 within the left kidney ranging in size from punctate to 4 mm. No ureteral calculi. No perinephric stranding. BLADDER: Unremarkable. GASTROINTESTINAL TRACT: Status post right hemicolectomy with ileocolic anastomosis within the right midabdomen. Upstream from the anastomosis, extending over length of approximately 10 cm up to the anastomosis is irregular wall thickening and narrowing with upstream dilatation of the small bowel measuring up to 4.2 cm. Further upstream, within the distal jejunum or proximal ileum is a segment of small bowel approximately 8.6 cm in length demonstrating irregular wall thickening and narrowing. Proximal celiac, there are additional mildly dilated loops of small bowel which gradually taper to normal caliber within the proximal jejunum. ABDOMINAL WALL: No significant hernia is appreciated. LYMPH NODES: Normal. VASCULAR: Aorta is atherosclerotic but normal caliber. PELVIC VISCERA: Calcified uterine fibroids are present without significant enlargement of the uterus. No adnexal abnormalities. OSSEOUS STRUCTURES: No acute or suspicious osseous abnormalities. CT/CT abdomen pelvis wo con IMPRESSION: * The patient is status post right hemicolectomy with an ileocolic anastomosis within the right midabdomen. The distal 10 cm of small bowel leading up to the ileocolic anastomosis shows irregular wall thickening and luminal narrowing on a chronic basis. There is dilatation of the small bowel proximal to this segment measuring up to 4.2 cm which may represent a combination of a partial mechanical small bowel obstruction and ileus. There is an additional segment of small bowel within the left midabdomen, likely distal jejunum or proximal ileum measuring 8.6 cm in length, also showing irregular wall thickening and luminal narrowing likely representing an additional site of inflammation of indeterminate activity. * Bilateral nonobstructive intrarenal calculi as described. ECG Data Attestation: I personally reviewed and interpreted this ECG as follows: (Center rhythm, heart rate 89, no ST segment depression or elevation, frequent PVCs, QTC 455) Discharge Plan Discharge Clinical Impression: SBO (small bowel obstruction) Patient Disposition: Admitted As Inpatient [facility] Past Medical History Medical History Crohns disease of small intestine Gastritis Hyperlipidemia Small bowel obstruction Surgical History History of appendectomy History of bowel resection History of esophagogastroduodenoscopy (EGD) Hx of colonoscopy S/P BSO (bilateral salpingo-oophorectomy) Family History Family History Father No problems noted. Mother Pneumonia Sister Breast cancer Social History Social History Household Members: None Housing: House Alcohol intake: never Smoking Status: Never smoker Tobacco Type: Cigarette Packs Per Day: 1 Cigarettes Per Day: 20.0 Second Hand Smoke Exposure: No Use of substances other than those prescribed or required for medical reasons: No Advance Directives: Yes Advance Directives Information Provided: No Advance Directives on File: No Patient : No service: No Current occupational status: disabled
[2021-04-13 06:26] LABS: Eosinophils Absolute Auto 0.1 X10*3/uL (0.0-0.4); Eosinophils Percent Auto 0.4 % (0-4); Imm Gran Abs Auto 0.05 X10*3/uL (0.00-0.03); Imm Gran Pct Auto 0.3 % (0.0-0.4); MANUAL DIFF FLAG SCAN; Mean Corpuscular HGB Conc 33.2 g/dl (31.0-35.0); Mean Corpuscular Hemoglobin 29.4 pg (27.0-33.0); PLT CLUMP 1; SCAN SMEAR FLAG 1
[2021-04-13 06:28] LABS: Basophils Absolute Auto 0.1 X10*3/uL (0.0-0.2); Basophils Percent Auto 0.4 % (0-2); Hematocrit 48.5 % (37-47); Hemoglobin 16.1 g/dl (12.0-16.0); Lymphocytes Absolute Auto 2.5 X10*3/uL (1.2-4.9); Lymphocytes Percent Auto 15.6 % (20-40); Mean Corpuscular Volume 88.7 fL (80-98); Monocytes Absolute Auto 0.7 X10*3/uL (0.1-1.2); Monocytes Percent Auto 4.3 % (2-11); Neutrophils Absolute Auto 12.6 X10*3/uL (2.0-8.3); Red Blood Count 5.47 X10*6/uL (4.20-5.50); Red Cell Distribution Width 13.8 % (11.0-16.0)
[2021-04-13 06:45] LABS: Lactic Acid 2.5 mmol/L (0.5-2.0)
[2021-04-13 06:50] LABS: Lipase 20 U/L (8-78)
[2021-04-13 06:51] LABS: Platelet Count 273 X10*3/uL (160-400); SLIDE REVIEW VERIFIED
[2021-04-13 06:54] LABS: Alanine Aminotransferase 25 U/L (0-31); Albumin Level 4.4 g/dL (3.5-5.0); Alkaline Phosphatase 121 U/L (39-117); Anion Gap 17 (12-20); Aspartate Amino Transferase 23 U/L (5-31); Bilirubin Direct 0.2 mg/dL (0.0-0.5); Bilirubin Total 0.5 mg/dL (0.0-1.0); Blood Urea Nitrogen 11 mg/dL (9-16); Calcium 10.6 mg/dL (8.4-10.2); Carbon Dioxide 22 mmol/L (22-29); Chloride 107 mmol/L (96-108); Creatinine Clr Calc Pharmacy 56.7; Estimated Glomerular Filt Rate > 60; Glucose Random 115 mg/dL (60-115); Potassium 4.8 mmol/L (3.3-5.1); Sodium 141 mmol/L (135-145); Total Protein 7.4 g/dL (6.5-8.0)
[2021-04-13] MEDS: 0.9 % Sodium Chloride 1,000 ML 999 ML IVCONT ×2 (07:32→08:15)
[2021-04-13] MEDS: Morphine Sulfate 4 MG/ML CARTRIDGE IVPUSH ×3 (07:32→14:44)
[2021-04-13] MEDS: ondansetron HCL 4 MG/2 ML VIAL IVPUSH ×2 (07:32→11:56)
--- NOTE | 2021-04-13 08:01 | PM.HPGS ---
History of Present Illness History of Present Illness Date of Service: 04/13/21 Chief complaint: Small bowel obstruction Crohns disease Narrative: Rose Nieves is a 61 year old female presenting with complaints of abdominal pain beginning in the right upper quadrant extending throughout the entire abdomen. The pain is similar to previous episodes of abdominal pain related to small-bowel obstruction . She reports the pain started suddenly at around 02:00 o'clock in the morning today. She was fine yesterday without any pain. She did have a bowel movement this morning without change in the abdominal pain. Patient has a history of Crohn's disease and is on the care of Dr. Erum Cruz. She subsequently presented to the emergency department and a CT of the abdomen and pelvis was obtained which confirmed a small-bowel obstruction with transition point in areas of bowel wall thickening proximal to a prior bowel anastomosis at the site similar to previous areas of obstruction. She is admitted to the surgical service for management of this small-bowel obstruction /Crohn's flare. Review of Systems Review of Systems: Yes all other systems are reviewed and are negative Constitutional: Constitutional: Denies chills, Denies fever(s) and Denies headache(s) ENT: Denies dizziness and Denies headache(s) Cardiovascular: Cardiovascular: Denies chest pain, Denies palpitations and Denies dyspnea Respiratory: Respiratory: Denies dyspnea and Denies wheezing Gastrointestinal: Gastrointestinal: Reports abdominal pain and Reports nausea Musculoskeletal: Musculoskeletal: Denies back pain, Denies arthralgias, Denies joint swelling and Denies numbness Integumentary/Breasts: Skin/Breast: Denies change in pigmentation, Denies erythema and Denies rash Neurologic: Denies dizziness, Denies headache(s) and Denies numbness Psychiatric: Psychiatric: Denies anxiety and Denies depression Endocrine: Endocrine: Denies palpitations Hematologic/Lymphatic: Hematologic/Lymphatic: Denies easy bleeding, Denies easy bruising and Denies lymphadenopathy Allergic/Immunologic: Allergic/Immunologic: Denies wheezing PMFSH Past Medical History Medical History Crohns disease of small intestine Gastritis Hyperlipidemia Small bowel obstruction Family History Family History Father No problems noted. Mother Pneumonia Sister Breast cancer Surgical History Surgical History History of appendectomy History of bowel resection History of esophagogastroduodenoscopy (EGD) Hx of colonoscopy S/P BSO (bilateral salpingo-oophorectomy) Social History Social History Household Members: None Housing: House Alcohol intake: never Smoking Status: Never smoker Tobacco Type: Cigarette Packs Per Day: 1 Cigarettes Per Day: 20.0 Second Hand Smoke Exposure: No Use of substances other than those prescribed or required for medical reasons: No Advance Directives: Yes Advance Directives Information Provided: No Advance Directives on File: No Patient : No service: No Current occupational status: disabled Meds Allergies Allergy/AdvReac Type Severity Reaction Status Date / Time No Known Allergies Allergy Verified 12/04/20 09:16 [No Known Allergies*] Active Medications: Current Medications Generic Name Dose Route Start Last Admin Trade Name Freq PRN Reason Stop Dose Admin Sodium Chloride 1,000 mls @ 999 mls/hr 04/13/21 07:11 Ns IVCONT 04/13/21 08:11 .Q1H1M ONE Home Medications Medication Instructions Recorded Confirmed Last Taken Type atorvastatin 40 mg tablet 40 mg PO DAILY 09/23/20 03/24/21 Unknown History Physical Exam Vital Signs: Vital Signs: Last Vital Signs Temp 98.5 F 04/13/21 05:18 Pulse 112 H 04/13/21 05:18 Resp 18 04/13/21 05:18 BP 132/86 04/13/21 05:18 Pulse Ox 98 04/13/21 05:18 Body Mass Index 26.4 Const: General: cooperative, comfortable, no acute distress, alert and awake Nutritional Appearance: well nourished Orientation/consciousness: patient oriented x3 Limitations: no limitations Neck: Neck: Yes normal visual inspection, Yes full ROM and Yes no JVD Resp: Effort & Inspection: normal respiratory effort, no cough, no stridor and not tachypneic Auscultation: no wheezes GI: Inspection: Yes normal to inspection and Yes distended Palpation (GI): Soft to palpation, nontender, no guarding and not rigid Percussion: Yes dullness to percussion Auscultation: Hypoactive bowel sounds present Skin: Other: Warm and dry General skin exam: no rashes or lesions noted Neuro: General: patient oriented x3 Extrem: General: Yes capillary refill normal and Yes no clubbing, cyanosis or edema Results Results Labs: Short CBC 04/13/21 Range/Units 06:22 WBC 16.0 H (4.8-10.8) X10*3/uL Hgb 16.1 H (12.0-16.0) g/dl Hct 48.5 H (37-47) % Plt Count 273 (160-400) X10*3/uL BMP 04/13/21 06:21 Sodium 141 Potassium 4.8 Chloride 107 Carbon Dioxide 22 BUN 11 Creatinine 0.84 Calcium 10.6 H Liver Function 04/13/21 Range/Units 06:21 Total Bilirubin 0.5 (0.0-1.0) mg/dL Direct Bilirubin 0.2 (0.0-0.5) mg/dL AST 23 (5-31) U/L ALT 25 (0-31) U/L Alkaline Phosphatase 121 H D (39-117) U/L Albumin 4.4 (3.5-5.0) g/dL [address] [id number] Scan ReportSigned Patient: Rose Nieves [facility]#: [id number]: 1960cct:[id number]/Sex: 61 / FADM Date: 04/13/21Loc: [address]: Ordering Physician: SUSAN FUCHS MD Date of Service: 04/13/21 Procedure(s): CT abdomen pelvis wo [facility] Accession Number(s): [id number] cc: SUSAN FUCHS MD~ EXAMINATION: CT ABDOMEN AND PELVIS WITHOUT CONTRAST CLINICAL INFORMATION: History of Crohn's disease and small bowel obstructions. COMPARISON: 01/27/2021 TECHNIQUE: Multidetector volumetric imaging was performed from the superior aspect of the liver through the pubic symphysis. Sagittal and coronal reformatted images were obtained on the technologist's workstation. This CT examination was performed using dose optimization techniques as appropriate, variously including the following: *Automated exposure control *Adjustment of mA and/or kV according to patient size (this includes techniques or standardized protocols for targeted exams where dose is matched to indication/reason for exam; i.e. extremities or head) *Use of iterative reconstruction technique DLP: 517 mGy-cm FINDINGS: LUNG BASES: No acute findings. No suspicious pulmonary nodules. Coronary calcifications. LIVER, GALLBLADDER, AND BILIARY TREE: The liver is normal in size, shape, and attenuation. Stable cyst within the right lobe of liver. No suspicious hepatic lesion or biliary ductal dilatation is present. Gallbladder unremarkable. PANCREAS: Unremarkable. SPLEEN: Unremarkable. ADRENAL GLANDS: Unremarkable. KIDNEYS AND URETERS: The kidneys are normal in size, shape, and attenuation. No hydronephrosis, or hydroureter. There are bilateral nonobstructive intrarenal calculi, at least 3 within the right kidney and 4 within the left kidney ranging in size from punctate to 4 mm. No ureteral calculi. No perinephric stranding. BLADDER: Unremarkable. GASTROINTESTINAL TRACT: Status post right hemicolectomy with ileocolic anastomosis within the right midabdomen. Upstream from the anastomosis, extending over length of approximately 10 cm up to the anastomosis is irregular wall thickening and narrowing with upstream dilatation of the small bowel measuring up to 4.2 cm. Further upstream, within the distal jejunum or proximal ileum is a segment of small bowel approximately 8.6 cm in length demonstrating irregular wall thickening and narrowing. Proximal celiac, there are additional mildly dilated loops of small bowel which gradually taper to normal caliber within the proximal jejunum. ABDOMINAL WALL: No significant hernia is appreciated. LYMPH NODES: Normal. VASCULAR: Aorta is atherosclerotic but normal caliber. PELVIC VISCERA: Calcified uterine fibroids are present without significant enlargement of the uterus. No adnexal abnormalities. OSSEOUS STRUCTURES: No acute or suspicious osseous abnormalities. CT/CT abdomen pelvis wo con IMPRESSION: * The patient is status post right hemicolectomy with an ileocolic anastomosis within the right midabdomen. The distal 10 cm of small bowel leading up to the ileocolic anastomosis shows irregular wall thickening and luminal narrowing on a chronic basis. There is dilatation of the small bowel proximal to this segment measuring up to 4.2 cm which may represent a combination of a partial mechanical small bowel obstruction and ileus. There is an additional segment of small bowel within the left midabdomen, likely distal jejunum or proximal ileum measuring 8.6 cm in length, also showing irregular wall thickening and luminal narrowing likely representing an additional site of inflammation of indeterminate activity. * Bilateral nonobstructive intrarenal calculi as described. Dictated By:BRYNN CORLEY MDSigned By:<Electronically signed by BRYNN CORLEY MD in OV>04/13/21 0628 Assessment and Plan (1) SBO (small bowel obstruction): Status: Acute Rose Nieves returns with recurrence small-bowel obstruction located just proximal to her ileocolonic anastomosis with some thickening of the small bowel similar to previous episodes most recently in September 2020. there is proximal dilated small bowel suggestive of a small-bowel obstruction. Her WBC and lactate are elevated and she is currently receiving boluses in the emergency department and repeat lactate has been requested. examination reveals her abdomen to be soft with only mild distension. She reports passing a bowel movement today there for findings are suggestive of a partial obstruction. I will hold off on nasogastric tube decompression but will keep her NPO with IV fluids. I will start her on Zosyn because of the elevated WBC and consult Gastroenterology for possible management of a Crohn's flare. Patient expressed understanding and agrees with the plan. (2) Crohns disease of small intestine: Qualifiers: Digestive disease complication type: with intestinal obstruction Qualified Code(s): K50.012 - Crohn's disease of small intestine with intestinal obstruction Status: Acute
[2021-04-13 08:25] LABS: Reflex Lactate? Lactic Acid Added
[2021-04-13 08:45] VITALS: BP 142/68; PULSE 80; RESP 18; O2SAT 97
[2021-04-13 09:25] LABS: COVID-19 Test Negative (Negative)
[2021-04-13 09:30] LABS: ~Lactic Acid-LAB USE ONLY 1.8 mmol/L (0.5-2.0)
[2021-04-13] MEDS: oxyCODONE HCl Immed Release 5 MG TABLET PO (10:16)
[2021-04-13 11:08] VITALS: BP 129/78; PULSE 93; RESP 20; O2SAT 93
[2021-04-13] MEDS: Piperacillin Sodium/Tazobactam 3.375 GM in 0.9 % Sodium Chloride 50 ML IV ×2 (11:17→18:05)
[2021-04-13] MEDS: Heparin Sodium,Porcine 5,000 UNIT/ML VIAL 5000 UNIT SUBCUT ×2 (11:18→21:08)
--- NOTE | 2021-04-13 11:22 | PM.GICN ---
History of Present Illness Data of Consult Service Date: 04/13/21 Requesting physician: Simone Dick Primary Care Provider: Jorge Green MD [facility] Reason for consult: SBO, crohns 61 y/o f w/ crohn disease s/p small bowel resction x 2 with ileocecal anastomosis who I am seeing for assessment for SBO, and crohns exacerbation. She had sudden onset severe diffuse abdominal pain / along with nausea, vomiting and abdominal distention today which mimics her usual crohn flare up. Before today she had no concerning sx. She has been on stelara q 4 weekly, and last admission was 09/2020 with same attack. She has had entyvio, and remicade in the past due to break thru sx and flares whilst on these treatments, note she had no antibodies per lab review, levels seemed good, so more consistent with primary failure vs sub optimal dosing or not enought time given to elicit response. she has never been on imuran or 6MP, MTX, never been on other anti TNF. Not on NSAIDS. She is a smoker. She denies fever or night sweats. She denies diarrhea or constipation. No sick contacts. CT of the abdomen and pelvis was obtained which confirmed a small-bowel obstruction with transition point in areas of bowel wall thickening proximal to a prior bowel anastomosis at the site similar to previous areas of obstruction. Due to elevated WCC and lactate she is on bowel rest and zosyn Review of Systems Review of Systems: Constitutional : No Weight loss, No Fever, No Chills, No Night Sweats, No Fatigue, No Malaise ENT/Mouth : No Hearing loss, No Ear Pain, No Nasal Congestion, No Sinus Pain, No Hoarseness, No sore throat, No Rhinorrhea, No Swallowing Difficulty Eyes: No Eye Pain, No Swelling, No Redness, No Foreign Body, No Discharge, No Vision Changes Cardiovascular : No Chest Pain, No SOB, No Dyspnea on Exertion, No Orthopnea, No Edema, No Palpitations Respiratory : No Cough, No Sputum, No Wheezing, No Smoke Exposure, No Dyspnea Gastrointestinal : Complaining of Nausea, No Vomiting, No Diarrhea, No Constipation, complaining of diffuse abdominal pain and distension, No Hematochezia, No Melena Genitourinary : no irregular bleeding, No Dysuria, No Urinary Frequency, No Hematuria, No Urinary Incontinence, No Urgency, No Flank Pain, No Urinary Flow Changes, No Hesitancy Musculoskeletal : No joint pain, No Myalgias, No Joint Swelling Skin : No Skin Lesions, No rash Neuro : No Weakness, No Numbness, No Paresthesias, No Loss of Consciousness, No Dizziness, No Headache Psych : No Anxiety/Panic, No Depression, No SI/HI/AH/VH, No Social Issues, Heme/Lymph: No Bruising, No Bleeding,No Lymphadenopathy Endocrine : No Polyuria, No Polydipsia, No Temperature Intolerance Constitutional: Constitutional: Denies headache(s) ENT: Denies dizziness and Denies headache(s) Musculoskeletal: Musculoskeletal: Denies numbness Neurologic: Denies dizziness, Denies headache(s) and Denies numbness Psychiatric: Psychiatric: Denies anxiety and Denies depression [facility] Past Medical History Medical History Crohns disease of small intestine Gastritis Hyperlipidemia Small bowel obstruction Family History Family History Father No problems noted. Mother Pneumonia Sister Breast cancer Surgical History Surgical History History of appendectomy History of bowel resection History of esophagogastroduodenoscopy (EGD) Hx of colonoscopy S/P BSO (bilateral salpingo-oophorectomy) Social History Social History Household Members: None Housing: House Alcohol intake: never Smoking Status: Never smoker Tobacco Type: Cigarette Packs Per Day: 1 Cigarettes Per Day: 20.0 Second Hand Smoke Exposure: No Advance Directives Date on File: 04/13/21 service: No Current occupational status: disabled Meds Allergies Allergy/AdvReac Type Severity Reaction Status Date / Time No Known Allergies Allergy Verified 04/13/21 15:02 [No Known Allergies*] Active Medications: Current Medications Generic Name Dose Route Start Last Admin Trade Name Freq PRN Reason Stop Dose Admin Acetaminophen 650 mg 04/13/21 09:57 Acetaminophen 325 Mg Tablet PO Q6H PRN Pain, Mild (Pain Scale 1-3) Heparin Sodium (Porcine) 5,000 unit 04/13/21 09:57 04/13/21 11:18 Heparin Sodium,Porcine 5,000 Unit/Ml Vial SUBCUT 5,000 unit Q12H BARRON Administration Dextrose/Lactated Ringer's 1,000 mls @ 125 mls/hr 04/13/21 09:57 D5lr IVCONT .Q8H BARRON Piperacillin Sod/Tazobactam 50 mls @ 100 mls/hr 04/13/21 09:57 04/13/21 11:17 Sod 3.375 gm/ Sodium Chloride IV 100 mls/hr Q6H BARRON Administration Morphine Sulfate 4 mg 04/13/21 09:57 Morphine Sulfate 4 Mg/Ml Cartridge IVPUSH Q4H PRN Pain, Severe (Pain Scale 7-10) Oxycodone HCl 5 mg 04/13/21 09:57 04/13/21 10:16 Oxycodone Hcl Immed Release 5 Mg Tablet PO 5 mg Q6H PRN Administration Pain, Moderate (Pain Scale 4-6 Sodium Chloride 3 ml 04/13/21 16:00 0.9 % Sodium Chloride Flush 3 Ml Syringe IVFLUSH QSHIFT [facility] Zolpidem Tartrate 5 mg 04/13/21 09:57 Zolpidem Tartrate 5 Mg Tablet PO BEDTIME PRN Insomnia Home Medications Medication Instructions Recorded Confirmed Last Taken Type atorvastatin 40 mg tablet 40 mg PO DAILY 09/23/20 04/13/21 1 Day Ago History ~04/12/21 Physical Exam Vital Signs: Vital Signs: Last Vital Signs Temp 98.5 F 04/13/21 05:18 Pulse 93 04/13/21 11:08 Resp 20 04/13/21 11:08 BP 129/78 04/13/21 11:08 Pulse Ox 93 04/13/21 11:08 Body Mass Index 26.4 Const: General: cooperative, alert, awake and in distress; No comfortable Orientation/consciousness: patient oriented x3 Limitations: no limitations Eyes: General: appearance normal, both eyes and all related structures Neck: Neck: Yes normal visual inspection, Yes full ROM and Yes no JVD Resp: Effort & Inspection: normal respiratory effort, no cough, no stridor and not tachypneic Auscultation: no wheezes Cardio: Jugular venous distension: no JVD Rate: regular rate Rhythm: regular rhythm GI: Inspection: Yes normal to inspection and Yes distended Palpation (GI): Soft to palpation, nontender, no guarding and not rigid Percussion: Yes dullness to percussion Auscultation: Hypoactive bowel sounds present Skin: Other: Warm and dry General skin exam: no rashes or lesions noted Neuro: General: patient oriented x3 Extrem: General: Yes capillary refill normal and Yes no clubbing, cyanosis or edema Psych: Appearance: grossly normal Insight: Good insight present (Psych) Results Labs CBC & Chem 7: 04/13/21 06:22 04/13/21 06:21 Labs: Short CBC 04/13/21 Range/Units 06:22 WBC 16.0 H (4.8-10.8) X10*3/uL Hgb 16.1 H (12.0-16.0) g/dl Hct 48.5 H (37-47) % Plt Count 273 (160-400) X10*3/uL BMP 04/13/21 06:21 Sodium 141 Potassium 4.8 Chloride 107 Carbon Dioxide 22 BUN 11 Creatinine 0.84 Calcium 10.6 H Liver Function 04/13/21 Range/Units 06:21 Total Bilirubin 0.5 (0.0-1.0) mg/dL Direct Bilirubin 0.2 (0.0-0.5) mg/dL AST 23 (5-31) U/L ALT 25 (0-31) U/L Alkaline Phosphatase 121 H D (39-117) U/L Albumin 4.4 (3.5-5.0) g/dL Imaging CT scan - abdomen: Attestation: I personally reviewed and interpreted this imaging study as follows: My impression: dilated loops of small bowel with transition point noted, air fluid levels, colon decompressed with stool present--diffuse aortic atherosclerosis. Assessment and Plan (1) SBO (small bowel obstruction): Status: Acute (2) Crohns disease of small intestine: Qualifiers: Digestive disease complication type: with intestinal obstruction Qualified Code(s): K50.012 - Crohn's disease of small intestine with intestinal obstruction Status: Acute 1/ SBO due to crohns flare possible fibrostenotic vs inflammatory stricture with inadequate response to stelara. PLAN: 1/ Agree with bowel rest, IV fluids, scheduled zofran q8h, replace lytes riley Mag, K, Ca, Na, minimize opiates as best as possible 2/ add solumderol 20 mg q 8 h to the zosyn 3/ IF turns around within 24-48 hrs then transition to PO prednisone, otherwise she may need TPN 4/ looking further out, options becoming less with current treatment modalities, I would recommend adding methotrexate 25 mg IV once a week with folic acid 1 mg daily but can be discussed at f/u 5/ she needs to stop smoking 6/ check zinc level and replace if low 7/ At some point a repeat colonoscopy would be a good idea to eval the anastomosis and see if any scope for dilation of any stricture there
[2021-04-13 11:33] LABS: Glucose Urine UA NEG (NEG); Leukocyte Esterase Urine NEG (NEG); Nitrite Urine NEG (NEG); PH 5.5 (5.0-8.0); Specific Gravity - Urine 1.025 (1.005-1.025); Urine Blood NEG (NEG); Urine Ketones NEG (NEG); Urine Protein NEG (NEG-TRACE)
[2021-04-13 11:37] LABS: Appearance Urine HAZY; Color Urine YELLOW
[2021-04-13] MEDS: Dextrose 5 % and Lactated Ring 1,000 ML 125 ML IVCONT (11:57)
--- NOTE | 2021-04-13 13:26 | PC.NURSE ---
Attempted to call report to the floor, nurse not available and will call back.
--- NOTE | 2021-04-13 13:55 | PC.NURSE ---
Patient informed that she has a bed assignment and that we are waiting to give nurse-nurse report. At this time she also complains of 3/10 pain in her abdomen that was relieved earlier by morphine but has started to wear off. This RN offered the patient Tylenol as she is not due for her oxycodone or morphine yet. Patient refused PRN Tylenol as she states it doesnt help at all .
[2021-04-13 14:47] VITALS: BP 99/56; PULSE 78; RESP 18; TEMP 36; O2SAT 93
[2021-04-13] MEDS: HYDROmorphone HCl 0.5 MG/0.5 ML SYRINGE IVPUSH ×2 (18:05→21:29)
[2021-04-13] MEDS: Metoclopramide HCl 10 MG/2 ML VIAL IVPUSH (18:06)
[2021-04-13] MEDS: methylPREDNISolone Sod Succ 40 MG/ML VIAL 20 MG IVPUSH (19:42)
[2021-04-13 23:59] VITALS: BP 121/60; PULSE 82; RESP 16; TEMP 36.7; O2SAT 92
[2021-04-14] MEDS: HYDROmorphone HCl 0.5 MG/0.5 ML SYRINGE IVPUSH ×5 (00:30→17:41)
[2021-04-14] MEDS: Piperacillin Sodium/Tazobactam 3.375 GM in 0.9 % Sodium Chloride 50 ML IV ×4 (00:30→17:44)
[2021-04-14] MEDS: Dextrose 5 % and Lactated Ring 1,000 ML 125 ML IVCONT ×3 (02:13→22:23)
[2021-04-14] MEDS: methylPREDNISolone Sod Succ 40 MG/ML VIAL 20 MG IVPUSH ×3 (02:13→20:07)
[2021-04-14 07:01] LABS: Hematocrit 43.7 % (37-47); Hemoglobin 14.1 g/dl (12.0-16.0); Mean Corpuscular HGB Conc 32.3 g/dl (31.0-35.0); Mean Corpuscular Hemoglobin 29.5 pg (27.0-33.0); Mean Corpuscular Volume 91.4 fL (80-98); Red Blood Count 4.78 X10*6/uL (4.20-5.50); Red Cell Distribution Width 14.5 % (11.0-16.0); White Blood Count 8.9 X10*3/uL (4.8-10.8)
--- NOTE | 2021-04-14 07:05 | P.CDIC_ITS ---
CDI Concurrent Query Service Date: 04/14/21 Documentation Clarification: Please clarify if you are treating a proba ble/suspected/likely or confirmed: Sepsis, present on admission No Sepsis Provider Response: Other (no sepsis) Other Diagnosis: No sepsis PLEASE DO NOT DELETE/MODIFY EXISTING CONTENT Additional information is needed in order to code to the highest accuracy and appropriate Severity of Illness (SOI). Please clarify the information noted below in your progress notes and discharge summary. Risk Factors/Clinical Indicators/Treatments 61 year old female admitted with Acute Crohns Disease of small intestine with intestinal obstruction. WBC 16.0 LA 2.5 T 98.5, P 112, R 18, BP 132/86 Treated with IVF and IV antibiotic GI consult CDS: Audra Carrizales RN Contact Number: [phone] Please Review the information above and exercise your independent professional judgment in responding to the query. If you concur, pleas document in the PRO AMBROSIO NOTES and DISCHARGE SUMMARY. If you do not agree with the query, please document in the query above. THIS QUERY IS PART OF THE PERMANENT MEDICAL RECORD
[2021-04-14 07:12] VITALS: BP 137/59; PULSE 69; RESP 20; TEMP 36.1; O2SAT 93
[2021-04-14 07:22] LABS: Anion Gap 16 (12-20); Blood Urea Nitrogen 15 mg/dL (9-16); Calcium 8.7 mg/dL (8.4-10.2); Carbon Dioxide 20 mmol/L (22-29); Chloride 111 mmol/L (96-108); Creatinine Clr Calc Pharmacy 67.2; Estimated Glomerular Filt Rate > 60; Glucose Random 150 mg/dL (60-115); Potassium 4.6 mmol/L (3.3-5.1); Sodium 142 mmol/L (135-145)
[2021-04-14 07:50] LABS: Band Neutrophils Percent 13 % (3-5); Lymphocytes Absolute Manual 2.1 X10*3/uL (0.6-4.8); Lymphocytes Percent Manual 24 % (20-40); Monocytes Absolute Manual 0.7 X10*3/uL (0.0-1.2); Monocytes Percent Manual 8 % (2-11); Neutrophils Absolute Manual 6.1 X10*3/uL (2.2-7.9); Neutrophils Percent Manual 55 % (45-73)
[2021-04-14 07:51] LABS: Large Platelet PRESENT; Platelet Estimate NORMAL (NORMAL); Platelet Morphology Comment NOTED
[2021-04-14 07:52] LABS: RBC Morphology NORMAL
[2021-04-14 07:53] LABS: Mean Platelet Volume 12.3 fL (9.4-12.3); Platelet Count 192 X10*3/uL (160-400)
[2021-04-14] MEDS: Nicotine 14 MG PATCH.TD24 TRANSDERMA (10:10)
[2021-04-14] MEDS: Heparin Sodium,Porcine 5,000 UNIT/ML VIAL 5000 UNIT SUBCUT ×2 (10:11→21:24)
--- NOTE | 2021-04-14 10:32 | P.PNGS_ITS ---
Subjective Subjective Date of Service: 04/14/21 Interval history: Patient feels improved with decreased abdominal pain and small BM Physical Exam Vital Signs: Vital Signs: Last Vital Signs Temp 97 F 04/14/21 07:12 Pulse 69 04/14/21 07:12 Resp 20 04/14/21 07:12 BP 137/59 L 04/14/21 07:12 Pulse Ox 93 04/14/21 07:12 Body Mass Index 26.4 Const: General: cooperative, comfortable and no acute distress GI: Other: soft, nondistended, non-tender, no rebound no guarding Percussion: Yes normal to percussion Skin: General skin exam: no rashes or lesions noted Extrem: General: Yes no clubbing, cyanosis or edema Progress Note: A&P Assessment and plan (1) SBO (small bowel obstruction): Status: Acute (2) Crohns disease of small intestine: Status: Acute Assessment and Plan: Patient started on a steroid bolus per GI for Crohn's flair. She reports a small BM this morning. Will advance to clear liquids this morning. Fall Risk Details Current Medications: Current Medications Generic Name Dose Route Start Last Admin Trade Name Freq PRN Reason Stop Dose Admin Acetaminophen 650 mg 04/13/21 09:57 Acetaminophen 325 Mg Tablet PO Q6H PRN Pain, Mild (Pain Scale 1-3) Atorvastatin Calcium 40 mg 04/14/21 21:00 Atorvastatin Calcium 40 Mg Tablet PO BEDTIME [facility] Heparin Sodium (Porcine) 5,000 unit 04/13/21 09:57 04/14/21 10:11 Heparin Sodium,Porcine 5,000 Unit/Ml Vial SUBCUT 5,000 unit Q12H B[facility]ON Administration Hydromorphone HCl 0.5 mg 04/13/21 15:00 04/14/21 10:11 Hydromorphone Hcl 0.5 Mg/0.5 Ml Syringe IVPUSH 0.5 mg Q2H PRN Administration abdominal pain Dextrose/Lactated Ringer's 1,000 mls @ 125 mls/hr 04/13/21 09:57 04/14/21 10:11 D5lr IVCONT Not Given .Q8H [facility]ON Piperacillin Sod/Tazobactam 50 mls @ 100 mls/hr 04/13/21 18:00 04/14/21 06:44 Sod 3.375 gm/ Sodium Chloride IV Infused Q6H [facility]ON Infusion Methylprednisolone Sodium Succinate 20 mg 04/13/21 19:00 04/14/21 10:11 Methylprednisolone Sod Succ 40 Mg/Ml Vial IVPUSH 20 mg Q8H B[facility]ON Administration Metoclopramide HCl 10 mg 04/13/21 14:59 04/13/21 18:06 Metoclopramide Hcl 10 Mg/2 Ml Vial IVPUSH 10 mg Q6H PRN Administration Nausea and Vomiting Nicotine 14 mg 04/14/21 09:00 04/14/21 10:10 Nicotine 14 Mg Patch.Td24 TRANSDERMA 14 mg DAILY [facility]ON Administration Ondansetron HCl 4 mg 04/13/21 11:27 04/13/21 11:56 Ondansetron Hcl 4 Mg/2 Ml Vial IVPUSH 4 mg Q6H PRN Administration Nausea Oxycodone HCl 5 mg 04/13/21 09:57 04/13/21 10:16 Oxycodone Hcl Immed Release 5 Mg Tablet PO 5 mg Q6H PRN Administration Pain, Moderate (Pain Scale 4-6 Sodium Chloride 3 ml 04/13/21 16:00 04/14/21 08:10 0.9 % Sodium Chloride Flush 3 Ml Syringe IVFLUSH Not Given QSHIFT [facility] Zolpidem Tartrate 5 mg 04/13/21 09:57 Zolpidem Tartrate 5 Mg Tablet PO BEDTIME PRN Insomnia Time Spent With Patient Time: Total time spent is greater than 50% in coordination of care (as documented) at patient's floor/unit and/or counseling patient: Time with patient: 15 - 24 minutes Procedures Date of Service Date of Service: 04/14/21
[2021-04-14 11:02] VITALS: BP 105/52; PULSE 73; RESP 18; TEMP 36; O2SAT 93
[2021-04-14] MEDS: ondansetron HCL 4 MG/2 ML VIAL IVPUSH (13:14)
--- NOTE | 2021-04-14 13:41 | MHC.CM.PN ---
NURSE CODING ASSISTANT NOTE ELECTRONIC MEDICAL RECORD REVIEWED ALONG WITH CASE DISCUSSED WITH STAFF NURSE AND HOSPITALIST MET WITH PATIENT SHE HAS KNOW CHRONS DIAGNOSIS AND ILUS FOLLOWED OUTPATIENT BY DR SOTO. SHE WAS ADMITTED INPATIENT STATUS AND IS BEING TREATED CONSERVATIVELY WITH IV ANALGESICS, ANTIEMETIC, IV FLUIDS (NPO) IV SOULMADEROL AND REPLACING HER MAGNESIUM ,POTASSIUM AND CALCIUM AND ALL LABS / PATIENT REPORTED SHE LIVES ALONE BUT HER DAUGHTER MECHELLE MICHELLE LIVE ON THE SECOND FLOOR SHE HAS NO VNA /NO DME /NO PROTOCOL MANAGER SERVICES DISCHARGE PLAN HOME WITH NO SERVICES PCP DR JAY JAY [facility] REQUESTED COPY CONTINUE TO SMOKE INFORMED HER OF SMOKING CESSATION PROGRAMS HERE AT THE [facility].
[2021-04-14 15:52] VITALS: BP 145/67; PULSE 80; RESP 20; TEMP 36.6; O2SAT 92
[2021-04-14] MEDS: 0.9 % Sodium Chloride Flush 3 ML SYRINGE IVFLUSH (16:00)
[2021-04-14] MEDS: Metoclopramide HCl 10 MG/2 ML VIAL IVPUSH (17:42)
--- NOTE | 2021-04-14 18:42 | PC.NURSE ---
pt unable to tolerate clears. Vomitted clears x 2. Nausea present. Gave PRN Zofran and later PRN Reglan w. some effect. Pt also reported increased pain throughout shift. Gave PRN dilaudid with good effect. Pt also reported that this SBO feels differently than previous. Pt reported in the past she typically felt much better than she does today. Encouraged ambulation to try to relieve gas pain, but only contributed to worsening cramping and nausea. Pt now resting comfortably in bed. Will cont to monitor and assess.
[2021-04-14] MEDS: Atorvastatin Calcium 40 MG TABLET PO (20:07)
--- NOTE | 2021-04-14 20:20 | P.PNGI_ITS ---
Subjective Subjective Date of Service: 04/14/21 Interval History: She feels better today, much more relaxed and passing some stool and gas this morning pain is reduced but still present no fevers or chills Critical Care Time (minutes): 15 Physical Exam Vital Signs: Vital Signs: Last Vital Signs Temp 97.8 F 04/14/21 15:52 Pulse 80 04/14/21 15:52 Resp 20 04/14/21 15:52 BP 145/67 H 04/14/21 15:52 Pulse Ox 92 04/14/21 15:52 Body Mass Index 26.4 Const: General: no acute distress and alert Orientation/consciousness: patient oriented x3 Resp: Effort & Inspection: normal respiratory effort Cardio: Jugular venous distension: no JVD Rate: regular rate Rhythm: reg ular rhythm GI: Inspection: Yes normal to inspection Palpation (GI): Soft to palpation, Tenderness to palpation present (GI) and no guarding Percussion: Yes normal to percussion Skin: General skin exam: no rashes or lesions noted Neuro: General: patient oriented x3 Extrem: General: Yes normal to inspection Psych: Appearance: grossly normal Objective Data Labs CBC & Chem 7: 04/14/21 06:00 04/14/21 06:00 Labs: Laboratory Results - last 24 hr 04/14/21 04/14/21 06:00 06:00 WBC 8.9 RBC 4.78 Hgb 14.1 Hct 43.7 MCV 91.4 MCH 29.5 MCHC 32.3 RDW 14.5 Plt Count 192 D MPV 12.3 Immature Gran % (Auto) Cancelled Neut % (Auto) Cancelled Lymph % (Auto) Cancelled [place] % (Auto) Cancelled Eos % (Auto) Cancelled Baso % (Auto) Cancelled Lymph # (Auto) Cancelled [place] # (Auto) Cancelled Eos # (Auto) Cancelled Baso # (Auto) Cancelled Abs Immat Gran (auto) Cancelled Absolute Neuts (auto) Cancelled Absolute Nucleated RBC 0.000 Nucleated RBC % (auto) 0.0 Neutrophils % (Manual) 55 Band Neutrophils % 13 H Lymphocytes % (Manual) 24 Monocytes % (Manual) 8 Abs Neuts (Manual) 6.1 Lymphocytes # (Manual) 2.1 Monocytes # (Manual) 0.7 Platelet Estimate NORMAL Large Platelets PRESENT Plt Morphology Comment NOTED RBC Morphology NORMAL Sodium 142 Potassium 4.6 Chloride 111 H Carbon Dioxide 20 L Anion Gap 16 BUN 15 Creatinine 0.71 Estim Creat Clear Calc 67.2 Estimated GFR > 60 Random Glucose 150 H Calcium 8.7 D Progress Note: A&P Assessment and plan (1) SBO (small bowel obstruction): Status: Acute (2) Crohns disease of small intestine: Status: Acute Assessment and Plan: 1/ SBO from active crohns, seems improved with ABX and steroids PLAN: 1/ allow clears and advance diet as tolerated 2/ another 24 hrs of solumderol then transition to PO pred 40 mg with taper over 2-4 weeks 3/ discussed o/p f/u for MTX and colonoscopy, she seems amenable to the idea--will discuss further at f/u 4/ smoking cessation Fall Risk Details Current Medications: Current Medications Generic Name Dose Route Start Last Admin Trade Name Freq PRN Reason Stop Dose Admin Acetaminophen 650 mg 04/13/21 09:57 Acetaminophen 325 Mg Tablet PO Q6H PRN Pain, Mild (Pain Scale 1-3) Atorvastatin Calcium 40 mg 04/14/21 21:00 04/14/21 20:07 Atorvastatin Calcium 40 Mg Tablet PO 40 mg BEDTIME [facility] Administration Heparin Sodium (Porcine) 5,000 unit 04/13/21 09:57 04/14/21 10:11 Heparin Sodium,Porcine 5,000 Unit/Ml Vial SUBCUT 5,000 unit Q12H B[facility]ON Administration Hydromorphone HCl 0.5 mg 04/13/21 15:00 04/14/21 17:41 Hydromorphone Hcl 0.5 Mg/0.5 Ml Syringe IVPUSH 0.5 mg Q2H PRN Administration abdominal pain Dextrose/Lactated Ringer's 1,000 mls @ 125 mls/hr 04/13/21 09:57 04/14/21 18:00 D5lr IVCONT Not Given .Q8H [facility]ON Piperacillin Sod/Tazobactam 50 mls @ 100 mls/hr 04/13/21 18:00 04/14/21 18:16 Sod 3.375 gm/ Sodium Chloride IV Infused Q6H [facility]ON Infusion Methylprednisolone Sodium Succinate 20 mg 04/13/21 19:00 04/14/21 20:07 Methylprednisolone Sod Succ 40 Mg/Ml Vial IVPUSH 20 mg Q8H B[facility]ON Administration Metoclopramide HCl 10 mg 04/13/21 14:59 04/14/21 17:42 Metoclopramide Hcl 10 Mg/2 Ml Vial IVPUSH 10 mg Q6H PRN Administration Nausea and Vomiting Nicotine 14 mg 04/14/21 09:00 04/14/21 10:10 Nicotine 14 Mg Patch.Td24 TRANSDERMA 14 mg DAILY [facility] Administration Ondansetron HCl 4 mg 04/13/21 11:27 04/14/21 13:14 Ondansetron Hcl 4 Mg/2 Ml Vial IVPUSH 4 mg Q6H PRN Administration Nausea Oxycodone HCl 5 mg 04/13/21 09:57 04/13/21 10:16 Oxycodone Hcl Immed Release 5 Mg Tablet PO 5 mg Q6H PRN Administration Pain, Moderate (Pain Scale 4-6 Sodium Chloride 3 ml 04/13/21 16:00 04/14/21 16:00 0.9 % Sodium Chloride Flush 3 Ml Syringe IVFLUSH 3 ml QSHIFT [facility] Administration Zolpidem Tartrate 5 mg 04/13/21 09:57 Zolpidem Tartrate 5 Mg Tablet PO BEDTIME PRN Insomnia Time Spent With Patient Time: Total time spent is greater than 50% in coordination of care (as documented) at patient's floor/unit and/or counseling patient: Time with patient: 15 - 24 minutes No Severe Sepsis: No Severe Sepsis Procedures Date of Service Date of Service: 04/14/21
[2021-04-15] VITALS: BP 144/68; PULSE 84; RESP 16; TEMP 36.6; O2SAT 99
[2021-04-15] MEDS: Piperacillin Sodium/Tazobactam 3.375 GM in 0.9 % Sodium Chloride 50 ML IV ×2 (00:30→05:55)
[2021-04-15] MEDS: methylPREDNISolone Sod Succ 40 MG/ML VIAL 20 MG IVPUSH ×3 (03:34→18:10)
[2021-04-15] MEDS: Nicotine 14 MG PATCH.TD24 TRANSDERMA (07:08)
[2021-04-15] MEDS: HYDROmorphone HCl 0.5 MG/0.5 ML SYRINGE IVPUSH ×3 (07:10→19:58)
[2021-04-15] MEDS: 0.9 % Sodium Chloride Flush 3 ML SYRINGE IVFLUSH ×2 (07:15→19:58)
[2021-04-15 07:51] VITALS: BP 166/75; PULSE 83; RESP 19; TEMP 36.6; O2SAT 92
--- NOTE | 2021-04-15 08:37 | PM.PNGS ---
Subjective Subjective Date of Service: 04/15/21 Interval history: Patient denies significant abdominal pain other than occasional cramping with loose stool. She tried clear liquids yesterday but did vomit x1. She feels improved today would like to try liquids once again. She denies any new symptoms. Physical Exam Vital Signs: Vital Signs: Last Vital Signs Temp 97.8 F 04/15/21 07:51 Pulse 83 04/15/21 07:51 Resp 19 04/15/21 07:51 BP 166/75 H 04/15/21 07:51 Pulse Ox 92 04/15/21 07:51 Body Mass Index 26.4 Const: General: cooperative, comfortable and no acute distress Eyes: Sclerae: sclerae normal GI: Other: Soft, nondistended, nontender, no rebound or rigidity. No evidence of intra-abdominal sepsis Skin: Other: Warm, dry, no rash, Extrem: Other: No cyanosis, clubbing, or edema, normal capillary refill bilaterally. Progress Note: A&P Assessment and plan (1) SBO (small bowel obstruction): Status: Acute Assessment and Plan: Patient small-bowel obstruction has resolved and he is now moving her bowels. We will try her on clear liquids once again and decreased IV fluids. Patient initially noted to have elevated lactate and WBC which have all normalized. Patient has no evidence of intra-abdominal abscess or other septic source. Will stop antibiotics. Patient encouraged to ambulate. (2) Crohns disease of small intestine: Status: Acute Fall Risk Details Current Medications: Current Medications Generic Name Dose Route Start Last Admin Trade Name Freq PRN Reason Stop Dose Admin Acetaminophen 650 mg 04/13/21 09:57 Acetaminophen 325 Mg Tablet PO Q6H PRN Pain, Mild (Pain Scale 1-3) Atorvastatin Calcium 40 mg 04/14/21 21:00 04/14/21 20:07 Atorvastatin Calcium 40 Mg Tablet PO 40 mg BEDTIME BARRON Administration Heparin Sodium (Porcine) 5,000 unit 04/13/21 09:57 04/14/21 21:24 Heparin Sodium,Porcine 5,000 Unit/Ml Vial SUBCUT 5,000 unit Q12H BARRON Administration Hydromorphone HCl 0.5 mg 04/13/21 15:00 04/15/21 07:10 Hydromorphone Hcl 0.5 Mg/0.5 Ml Syringe IVPUSH 0.5 mg Q2H PRN Administration abdominal pain Dextrose/Lactated Ringer's 1,000 mls @ 80 mls/hr 04/13/21 09:57 04/15/21 06:05 D5lr IVCONT Infused .[id number] BARRON Infusion Methylprednisolone Sodium Succinate 20 mg 04/13/21 19:00 04/15/21 03:34 Methylprednisolone Sod Succ 40 Mg/Ml Vial IVPUSH 20 mg Q8H BARRON Administration Metoclopramide HCl 10 mg 04/13/21 14:59 04/14/21 17:42 Metoclopramide Hcl 10 Mg/2 Ml Vial IVPUSH 10 mg Q6H PRN Administration Nausea and Vomiting Nicotine 14 mg 04/14/21 09:00 04/15/21 07:08 Nicotine 14 Mg Patch.Td24 TRANSDERMA 14 mg DAILY BARRON Administration Ondansetron HCl 4 mg 04/13/21 11:27 04/14/21 13:14 Ondansetron Hcl 4 Mg/2 Ml Vial IVPUSH 4 mg Q6H PRN Administration Nausea Oxycodone HCl 5 mg 04/13/21 09:57 04/13/21 10:16 Oxycodone Hcl Immed Release 5 Mg Tablet PO 5 mg Q6H PRN Administration Pain, Moderate (Pain Scale 4-6 Sodium Chloride 3 ml 04/13/21 16:00 04/15/21 07:15 0.9 % Sodium Chloride Flush 3 Ml Syringe IVFLUSH 3 ml QSHIFT BARRON Administration Zolpidem Tartrate 5 mg 04/13/21 09:57 Zolpidem Tartrate 5 Mg Tablet PO BEDTIME PRN Insomnia Time Spent With Patient Time: Total time spent is greater than 50% in coordination of care (as documented) at patient's floor/unit and/or counseling patient: Time with patient: 15 - 24 minutes Procedures Date of Service Date of Service: 04/15/21
[2021-04-15] MEDS: Heparin Sodium,Porcine 5,000 UNIT/ML VIAL 5000 UNIT SUBCUT ×2 (10:50→21:27)
[2021-04-15] MEDS: Dextrose 5 % and Lactated Ring 1,000 ML 80 ML IVCONT (10:51)
--- NOTE | 2021-04-15 13:10 | MHC.CM.PN ---
NURSE TILE HELPER NOTE ELECTRONIC MEDICAL RECORD REVIEWED ALONG WITH CASE DISCUSSED ON MULTIPLE, DISCIPLINARY ROUNDS. PATIENT HAD BEEN ADMITTED WITH SMALL BOWEL OBSTRUCTION, RESOLVED AND NO WMOVING HER BOWELS PLAN PER DOPCUMENTATION IS TO ADVANCE DIET TO CLEAR LIQUIDS ONCE AGAIN. AND THEN [id number] IV FLUIDS. CONTINUE TO MONITOR ALL LABS , IV SOLUDEROL IV ANALGEICS DISCHARGE PLAN HOME NO SERVICES ANTICIPATED
[2021-04-15 15:09] VITALS: BP 172/82; PULSE 83; RESP 16; TEMP 36.6; O2SAT 98
[2021-04-15 16:56] VITALS: BP 158/76
[2021-04-15] MEDS: Atorvastatin Calcium 40 MG TABLET PO (19:58)
[2021-04-15] MEDS: Zolpidem Tartrate 5 MG TABLET PO (19:58)
[2021-04-15 23:41] VITALS: BP 157/79; PULSE 75; RESP 14; TEMP 36.4; O2SAT 97
[2021-04-16] MEDS: Dextrose 5 % and Lactated Ring 1,000 ML 80 ML IVCONT ×2 (01:00→12:00)
[2021-04-16] MEDS: methylPREDNISolone Sod Succ 40 MG/ML VIAL 20 MG IVPUSH ×3 (02:40→18:01)
[2021-04-16 07:31] VITALS: BP 169/87; PULSE 62; RESP 17; TEMP 36.7; O2SAT 96
[2021-04-16] MEDS: Heparin Sodium,Porcine 5,000 UNIT/ML VIAL 5000 UNIT SUBCUT ×2 (09:10→21:08)
[2021-04-16] MEDS: Nicotine 14 MG PATCH.TD24 TRANSDERMA (09:11)
[2021-04-16] MEDS: Acetaminophen 325 MG TABLET 650 MG PO (13:17)
[2021-04-16 15:24] VITALS: BP 149/75; PULSE 73; RESP 18; TEMP 36.6; O2SAT 95
--- NOTE | 2021-04-16 17:55 | PM.GIPN ---
Subjective Subjective Date of Service: 04/16/21 Interval History: conts to improve, diet has been advanced passing stool and gas pain is much less no fevers no nausea or vomiting Critical Care Time (minutes): 15 Physical Exam Vital Signs: Vital Signs: Last Vital Signs Temp 97.9 F 04/16/21 15:24 Pulse 73 04/16/21 15:24 Resp 18 04/16/21 15:24 BP 149/75 H 04/16/21 15:24 Pulse Ox 95 04/16/21 15:24 Body Mass Index 26.4 EXAM: GENERAL: The patient is relaxed VITAL SIGNS:see workflow HEENT: Nonicteric sclerae, PERRLA, EOMI. Oropharynx clear. Moist mucous membranes. Conjunctivae appear well perfused. No thyroid mass. CHEST: Chest wall is nontender. HEART: Regular rate and rhythm without murmurs. LUNGS: Clear to auscultation bilaterally. ABDOMEN: Soft, positive bowel sounds, nontender, no organomegaly.no flank tenderness SKIN: No rash, no excessive bruising, petechiae, or purpura. NEUROLOGIC: Cranial nerves II-XII intact without motor/sensory deficit. Objective Data Labs CBC & Chem 7: 04/14/21 06:00 04/14/21 06:00 Progress Note: A&P Assessment and plan (1) SBO (small bowel obstruction): Status: Acute (2) Crohns disease of small intestine: Status: Acute Assessment and Plan: 1/ SBO and crohns disease--improved PLAN: 1/ transition to PO pred 40 mg OD and titrate down over 2 weeks 2/ discussed other options again like budesonide and MTX but she wants to talk to Dr Cruz, explained that not sure if Dr Cruz will be back, but she can wait to see, can f/u with the office Fall Risk Details Current Medications: Current Medications Generic Name Dose Route Start Last Admin Trade Name Freq PRN Reason Stop Dose Admin Acetaminophen 650 mg 04/13/21 09:57 04/16/21 13:17 Acetaminophen 325 Mg Tablet PO 650 mg Q6H PRN Administration Pain, Mild (Pain Scale 1-3) Atorvastatin Calcium 40 mg 04/14/21 21:00 04/15/21 19:58 Atorvastatin Calcium 40 Mg Tablet PO 40 mg BEDTIME BARRON Administration Heparin Sodium (Porcine) 5,000 unit 04/13/21 09:57 04/16/21 09:10 Heparin Sodium,Porcine 5,000 Unit/Ml Vial SUBCUT 5,000 unit Q12H BARRON Administration Hydromorphone HCl 0.5 mg 04/13/21 15:00 04/15/21 19:58 Hydromorphone Hcl 0.5 Mg/0.5 Ml Syringe IVPUSH 0.5 mg Q2H PRN Administration abdominal pain Methylprednisolone Sodium Succinate 20 mg 04/13/21 19:00 04/16/21 10:41 Methylprednisolone Sod Succ 40 Mg/Ml Vial IVPUSH 20 mg Q8H BARRON Administration Metoclopramide HCl 10 mg 04/13/21 14:59 04/14/21 17:42 Metoclopramide Hcl 10 Mg/2 Ml Vial IVPUSH 10 mg Q6H PRN Administration Nausea and Vomiting Nicotine 14 mg 04/14/21 09:00 04/16/21 09:11 Nicotine 14 Mg Patch.Td24 TRANSDERMA 14 mg DAILY BARRON Administration Ondansetron HCl 4 mg 04/13/21 11:27 04/14/21 13:14 Ondansetron Hcl 4 Mg/2 Ml Vial IVPUSH 4 mg Q6H PRN Administration Nausea Oxycodone HCl 5 mg 04/13/21 09:57 04/13/21 10:16 Oxycodone Hcl Immed Release 5 Mg Tablet PO 5 mg Q6H PRN Administration Pain, Moderate (Pain Scale 4-6 Sodium Chloride 3 ml 04/13/21 16:00 04/16/21 13:15 0.9 % Sodium Chloride Flush 3 Ml Syringe IVFLUSH Not Given QSHIFT [facility] Zolpidem Tartrate 5 mg 04/13/21 09:57 04/15/21 19:58 Zolpidem Tartrate 5 Mg Tablet PO 5 mg BEDTIME PRN Administration Insomnia Time Spent With Patient Time: Total time spent is greater than 50% in coordination of care (as documented) at patient's floor/unit and/or counseling patient: Time with patient: 15 - 24 minutes Procedures Date of Service Date of Service: 04/16/21
--- NOTE | 2021-04-16 19:01 | PM.PNGS ---
Subjective Subjective Date of Service: 04/16/21 Interval history: Patient feels improved with decreased abdominal pain and no further diarrhea. She tolerated the clear liquids and would like to try a regular diet Physical Exam Vital Signs: Vital Signs: Last Vital Signs Temp 97.9 F 04/16/21 15:24 Pulse 73 04/16/21 15:24 Resp 18 04/16/21 15:24 BP 149/75 H 04/16/21 15:24 Pulse Ox 95 04/16/21 15:24 Body Mass Index 26.4 Const: General: cooperative, healthy appearing, comfortable and no acute distress Resp: Effort & Inspection: normal respiratory effort GI: Other: Soft, nondistended, nontender to palpation, no rebound or guarding Skin: Other: Warm, dry, no rash Extrem: General: Yes no clubbing, cyanosis or edema Progress Note: A&P Assessment and plan (1) SBO (small bowel obstruction): Status: Acute (2) Crohns disease of small intestine: Status: Acute Assessment and Plan: Patient with a Crohn's flare resulting in bowel obstruction, now on a steroid bolus which appears to be helping. Her symptoms are much improved and she is ready for regular diet. Possible discharge in a.m. if diet is tolerated without nausea or vomiting. Fall Risk Details Current Medications: Current Medications Generic Name Dose Route Start Last Admin Trade Name Freq PRN Reason Stop Dose Admin Acetaminophen 650 mg 04/13/21 09:57 04/16/21 13:17 Acetaminophen 325 Mg Tablet PO 650 mg Q6H PRN Administration Pain, Mild (Pain Scale 1-3) Atorvastatin Calcium 40 mg 04/14/21 21:00 04/15/21 19:58 Atorvastatin Calcium 40 Mg Tablet PO 40 mg BEDTIME BARRON Administration Heparin Sodium (Porcine) 5,000 unit 04/13/21 09:57 04/16/21 09:10 Heparin Sodium,Porcine 5,000 Unit/Ml Vial SUBCUT 5,000 unit Q12H BARRON Administration Hydromorphone HCl 0.5 mg 04/13/21 15:00 04/15/21 19:58 Hydromorphone Hcl 0.5 Mg/0.5 Ml Syringe IVPUSH 0.5 mg Q2H PRN Administration abdominal pain Methylprednisolone Sodium Succinate 20 mg 04/13/21 19:00 04/16/21 18:01 Methylprednisolone Sod Succ 40 Mg/Ml Vial IVPUSH 20 mg Q8H BARRON Administration Metoclopramide HCl 10 mg 04/13/21 14:59 04/14/21 17:42 Metoclopramide Hcl 10 Mg/2 Ml Vial IVPUSH 10 mg Q6H PRN Administration Nausea and Vomiting Nicotine 14 mg 04/14/21 09:00 04/16/21 09:11 Nicotine 14 Mg Patch.Td24 TRANSDERMA 14 mg DAILY BARRON Administration Ondansetron HCl 4 mg 04/13/21 11:27 04/14/21 13:14 Ondansetron Hcl 4 Mg/2 Ml Vial IVPUSH 4 mg Q6H PRN Administration Nausea Oxycodone HCl 5 mg 04/13/21 09:57 04/13/21 10:16 Oxycodone Hcl Immed Release 5 Mg Tablet PO 5 mg Q6H PRN Administration Pain, Moderate (Pain Scale 4-6 Sodium Chloride 3 ml 04/13/21 16:00 04/16/21 13:15 0.9 % Sodium Chloride Flush 3 Ml Syringe IVFLUSH Not Given QSHIFT BARRON Zolpidem Tartrate 5 mg 04/13/21 09:57 04/15/21 19:58 Zolpidem Tartrate 5 Mg Tablet PO 5 mg BEDTIME PRN Administration Insomnia Time Spent With Patient Time: Total time spent is greater than 50% in coordination of care (as documented) at patient's floor/unit and/or counseling patient: Time with patient: 15 - 24 minutes Procedures Date of Service Date of Service: 04/16/21
[2021-04-16] MEDS: Atorvastatin Calcium 40 MG TABLET PO (21:08)
[2021-04-16] MEDS: 0.9 % Sodium Chloride Flush 3 ML SYRINGE IVFLUSH (21:09)
[2021-04-17] VITALS: BP 143/81; PULSE 64; RESP 14; TEMP 37; O2SAT 97
[2021-04-17 07:36] VITALS: BP 149/80; PULSE 61; RESP 16; TEMP 37.1; O2SAT 98
--- NOTE | 2021-04-17 07:58 | PM.DS ---
DS: Providers Provider Date of Service: 04/17/21 Date of admission: 04/13/21 08:17 Primary care physician: Jorge Green MD Consults: 04/13/21 09:57 Consult to Gastroenterology Routine Consulting Provider: [facility] [place] G[facility]ology [facility] Reason for consultation: small-bowel obstruction, Crohn's disease, possible flare Discharging clinician: Simone Dick DS: Diagnosis Discharge Diagnosis (1) SBO (small bowel obstruction): Status: Acute (2) Crohns disease of small intestine: Status: Acute DS: Medications Discharge Medications Home Medications: Home Medications Medication Instructions Recorded Confirmed atorvastatin 40 mg tablet 40 mg PO DAILY 09/23/20 04/13/21 Previous Rx's Medication Instructions Recorded nicotine 14 mg TRANSDERMAL DAILY #30 ea 10/07/20 ustekinumab 90 mg/mL subcutaneous 90 mg SUBCUT Q4W 28 Days #1 ml 01/30/21 syringe prednisone See Taper PO Q OTHER DAY #84 tab 04/17/21 DS: Summary Hospital Course Hospital Course: Rose Nieves is a 61 year old female presenting with complaints of abdominal pain beginning in the right upper quadrant extending throughout the entire abdomen. The pain is similar to previous episodes of abdominal pain related to small-bowel obstruction . She reports the pain started suddenly at around 02:00 o'clock in the morning today. She was fine the day prior without any pain. She did have a bowel movement in the morning without change in the abdominal pain. Patient has a history of Crohn's disease and is on the care of Dr. Erum Cruz. She subsequently presented to the emergency department and a CT of the abdomen and pelvis was obtained which confirmed a small-bowel obstruction with transition point in areas of bowel wall thickening proximal to a prior bowel anastomosis at the site similar to previous areas of obstruction. She is admitted to the surgical service for management of this small-bowel obstruction /Crohn's flare. Patient was made NPO and started on IV fluids. Nasogastric tube was not placed. Consultation with Gastroenterology was requested. She was seen by Dr. James, and a steroid bolus was ordered. Within 24 hours the patient feels improved with decreased abdominal pain, passing liquid stool. She was subsequently started on a clear liquid diet and tolerated this well. On the next 24 hours she was advanced to a regular low residue diet and again tolerated this well without nausea or vomiting. She subsequently discharged to home in stable condition tolerating regular diet without abdominal pain 04/17/2021. She was converted to oral prednisone and will taper over the next several weeks. She should follow up with Gastroenterology as outpatient for further management of her Crohn's. Patient expressed understanding and agrees with the plan. I recommended remaining on a low residue diet. Time Spent with Patient Time attestation: Total time spent providing and/or coordinating discharge services: Discharge coordination time: Less than 30 minutes Quality: Stroke Does the patient have a stroke diagnosis?: No Physical Exam Vital Signs: Vital Signs: Last Vital Signs Temp 98.7 F 04/17/21 07:36 Pulse 61 04/17/21 07:36 Resp 16 04/17/21 07:36 BP 149/80 H 04/17/21 07:36 Pulse Ox 98 04/17/21 07:36 Body Mass Index 26.4 Const: General: cooperative, healthy appearing, comfortable and no acute distress Resp: Effort & Inspection: normal respiratory effort, no stridor and not tachypneic Auscultation: no rhonchi GI: Inspection: Yes normal to inspection Palpation (GI): Soft to palpation, nontender, no guarding and not rigid Skin: General skin exam: no rashes or lesions noted Extrem: General: Yes no clubbing, cyanosis or edema Discharge Plan Discharge Patient Disposition: Home, Self-Care Discharge Diagnosis: Crohn's disease flair Referrals: Jorge Green MD [Primary Care Provider] - 1 Week Erum Cruz MD [Physician] - 2 Weeks Discharge Medications: New prednisone 5 mg tablet See Taper mg PO Q OTHER DAY Qty: 84 RF: 0 Continued ustekinumab [Stelara] 90 mg/mL syringe 90 mg subcut Q4W 28 Days Qty: 1 RF: 6 nicotine 14 mg/24 hr Patch 24 Hour 14 mg transdermal DAILY Qty: 30 RF: 0 atorvastatin 40 mg tablet 40 mg PO DAILY RF: 0 Discharge Orders: Discharge Order (Routine); Ordered 04/17/21 Ordered By: Simone Dick Diet: advance to usual diet Activity on Discharge: As tolerated Stand Alone Forms: Patient Portal Discharge page Care Plan Goals: Return to normal diet and activity Health Concerns: Crohn's disease, small-bowel obstruction Plan of Treatment: Prednisone taper, follow-up with Gastroenterology Assessment: Crohn's disease with small-bowel obstruction
[2021-04-17] MEDS: predniSONE 20 MG TABLET 40 MG PO (08:29)
[2021-04-17] MEDS: 0.9 % Sodium Chloride Flush 3 ML SYRINGE IVFLUSH (08:30)
== END 2021-04-17 09:16 | disposition home or self-care (01) | DRG 387 ==
LOC: HO.ED 07:23 → HO.EDOVER 08:41 → HO.S3 13:07
PROVIDERS: Admitting Provider Surgery; Emergency Provider Emergency Medicine; PCP Internal Medicine; Visit Provider Surgery
DX: K50.012 Crohn's disease of small intestine with intestinal obstruction (principal); E78.5 Hyperlipidemia, unspecified; Z20.822 Contact with and (suspected) exposure to COVID-19; Z79.899 Other long term (current) drug therapy
CPT/HCPCS: 36415; 74176; 80048; 80076; 81003; 83605; 83690; 85007; 85025; 85027; 87635; 93005; 96361; 96374; 96375; 99285; J1170; J2270; J2405; J2543; J2765; J2920

== ENCOUNTER → 2021-05-22 09:42 | Outpatient (BNVA) | payer MEDICARE, MEDICAID, SELFPAY | PROVIDERS: PCP Internal Medicine; Referring Provider Internal Medicine; Visit Provider Internal Medicine Gastroenterology | DX: K50.012 Crohn's disease of small intestine with intestinal obstruction (principal) | CPT/HCPCS: 99212 ==

== ENCOUNTER 2021-05-26 13:13 | Outpatient (REF) | payer MEDICARE, MEDICAID, SELFPAY ==
[2021-05-26 13:16] LABS: MANUAL DIFF FLAG NO
[2021-05-26 13:24] LABS: Basophils Absolute Auto 0.1 X10*3/uL (0.0-0.2); Basophils Percent Auto 0.7 % (0-2); Eosinophils Absolute Auto 0.2 X10*3/uL (0.0-0.4); Eosinophils Percent Auto 1.3 % (0-4); Hematocrit 44.4 % (37-47); Hemoglobin 14.3 g/dl (12.0-16.0); Imm Gran Abs Auto 0.04 X10*3/uL (0.00-0.03); Imm Gran Pct Auto 0.3 % (0.0-0.4); Lymphocytes Absolute Auto 4.4 X10*3/uL (1.2-4.9); Mean Corpuscular HGB Conc 32.2 g/dl (31.0-35.0); Mean Corpuscular Hemoglobin 29.5 pg (27.0-33.0); Mean Corpuscular Volume 91.7 fL (80-98); Mean Platelet Volume 11.5 fL (9.4-12.3); Monocytes Absolute Auto 0.5 X10*3/uL (0.1-1.2); Monocytes Percent Auto 4.4 % (2-11); Neutrophils Absolute Auto 6.4 X10*3/uL (2.0-8.3); Neutrophils Percent Auto 55.3 % (45-73); Platelet Count 301 X10*3/uL (160-400); Red Blood Count 4.84 X10*6/uL (4.20-5.50); Red Cell Distribution Width 14.7 % (11.0-16.0); White Blood Count 11.5 X10*3/uL (4.8-10.8)
[2021-05-26 14:01] LABS: Alanine Aminotransferase 18 U/L (0-31); Albumin Level 4.4 g/dL (3.5-5.0); Alkaline Phosphatase 92 U/L (39-117); Anion Gap 14 (12-20); Aspartate Amino Transferase 20 U/L (5-31); Bilirubin Total 0.3 mg/dL (0.0-1.0); Blood Urea Nitrogen 10 mg/dL (9-16); Carbon Dioxide 24 mmol/L (22-29); Chloride 112 mmol/L (96-108); Cholesterol 165 mg/dL; Estimated Glomerular Filt Rate > 60; Glucose Fasting 78 mg/dL (60-99); HDL Cholesterol 52 mg/dL; LDL Cholesterol Calculated 90 mg/dl; Potassium 4.5 mmol/L (3.3-5.1); Sodium 145 mmol/L (135-145); Total Protein 6.8 g/dL (6.5-8.0); Triglycerides 115 mg/dL
[2021-05-26 14:06] LABS: Reflex LDLD? No
[2021-05-26 14:07] LABS: Glucose Urine UA NEG (NEG); Leukocyte Esterase Urine NEG (NEG); Nitrite Urine NEG (NEG); PH 5.5 (5.0-8.0); Specific Gravity - Urine >= 1.030 (1.005-1.025); Urine Blood NEG (NEG); Urine Ketones NEG (NEG); Urine Protein TRACE MG/DL (NEG-TRACE)
[2021-05-26 14:13] LABS: Appearance Urine CLEAR; Color Urine YELLOW
== END 2021-05-26 13:14 | disposition home or self-care (01) ==
LOC: HO.LNP 13:13
PROVIDERS: Visit Provider Internal Medicine
DX: D72.9 Disorder of white blood cells, unspecified (principal); R03.0 Elevated blood-pressure reading, without diagnosis of hypertension; F17.200 Nicotine dependence, unspecified, uncomplicated
CPT/HCPCS: 80053; 80061; 81003; 85025

== ENCOUNTER 2021-05-29 15:01 | Outpatient (REF) | payer MEDICARE, MEDICAID, SELFPAY ==
[2021-05-29 15:32] LABS: Iron 86 mcg/dL (30-160); Percent Iron Saturation 25 % (15-50); Total Iron Binding Capacity 351 mcg/dL (228-428); Unsaturated Iron Binding 265 ug/dL
== END 2021-05-29 15:02 | disposition home or self-care (01) ==
LOC: HO.LNP 15:01
PROVIDERS: Visit Provider Internal Medicine
DX: G25.81 Restless legs syndrome (principal)
CPT/HCPCS: 83540

== ENCOUNTER 2021-06-04 08:39 | Outpatient (REF) | payer MEDICARE, MEDICAID, SELFPAY ==
--- NOTE | ~2021-06-04 | MM_ITS ---
EXAMINATION: MM SCREENING DIGITAL BREAST TOMOSYNTHESIS, BILATERAL CLINICAL INFORMATION: Screening. Asymptomatic. The lifetime risk of breast cancer based on the Tyrer-Cuzick Model is 7%. COMPARISON: Mammography: 05/29/2020 and prior exams dating back to 03/10/2013 TECHNIQUE: Digital breast tomosynthesis is performed in both the craniocaudal and mediolateral oblique views along with computer-aided detection (CAD). Synthesized 2D images are generated from the tomosynthesis. FINDINGS: There are scattered areas of fibroglandular density (ACR BI-RADS breast composition Category b). Breast tissue composition borders on predominantly fatty. Background stromal and fibroglandular densities are similar to prior studies. There is no interval mass or architectural abnormality. No abnormal calcifications. The axilla and skin contours are unremarkable. MM/MM tomosynthesis screening BI IMPRESSION: No mammographic evidence of malignancy. ASSESSMENT: BI-RADS 1: Negative RECOMMENDATION: Routine annual mammography screening. This patient's information was entered into a reminder system with a target due date for their next mammogram.
== END 2021-06-04 08:40 | disposition home or self-care (01) ==
LOC: HO.MAMMO 08:39
PROVIDERS: PCP Internal Medicine; Visit Provider Internal Medicine
DX: Z12.31 Encounter for screening mammogram for malignant neoplasm of breast (principal)
CPT/HCPCS: 77063; 77067

== ENCOUNTER 2021-06-19 10:06 | Outpatient (REF) | payer MEDICARE, MEDICAID, SELFPAY ==
--- NOTE | ~2021-06-19 | US_ITS ---
EXAMINATION: US EXTRACRANIAL CAROTID DUPLEX, BILATERAL CLINICAL INFORMATION: This is a 61 year old female with carotid bruit. Carotid artery disease. COMPARISON: None TECHNIQUE: Real-time ultrasound and Doppler techniques (integrating B-mode 2-D vascular images, Doppler spectral analysis and color-flow Doppler imaging) were utilized to interrogate the extracranial carotid arteries, the vertebral arteries and proximal subclavian arteries bilaterally. The degree of stenosis is determined by criteria similar to NASCET. FINDINGS: Right Side: 1. There is minimal atherosclerotic plaque seen in the bifurcation/proximal ICA region. 2. The common carotid artery PSV proximally is 89 cm/s and distally 93 cm/s. 3. The proximal internal carotid artery velocities are 91 cm/s systolic and 25 cm/s diastolic. 4. The proximal external carotid artery PSV is 121 cm/s. 5. The vertebral artery shows antegrade flow. 6. The subclavian artery waveforms are stenotic with elevated velocities of 284 cm/s. This is consistent with a hemodynamically significant stenosis. Left Side: 1. There is minimal atherosclerotic plaque seen in the bifurcation/proximal ICA region. 2. The common carotid artery PSV proximally is 110 cm/s and distally 94 cm/s. 3. The proximal internal carotid artery velocities are 60 cm/s systolic and 20 cm/s diastolic. 4. The proximal external carotid artery PSV is 143 cm/s. 5. The vertebral artery shows antegrade flow. 6. The subclavian artery waveforms are stenotic with elevated velocities of 212 cm/s.. This is consistent with a hemodynamically significant stenosis. US/US carotid duplex BI IMPRESSION: 1. RIGHT: Minimal, non-hemodynamically significant stenosis of the proximal right internal carotid artery corresponding to a 0-49% stenosis by velocity criteria. 2. LEFT: Minimal, non-hemodynamically significant stenosis of the proximal left internal carotid artery corresponding to a 0-49% stenosis by velocity criteria. 3. There are bilateral hemodynamically significant subclavian artery stenoses. However, the vertebral arteries remain antegrade.
== END 2021-06-19 10:07 | disposition home or self-care (01) ==
LOC: HO.US 10:06
PROVIDERS: PCP Internal Medicine; Visit Provider Internal Medicine
DX: R09.89 Other specified symptoms and signs involving the circulatory and respiratory systems (principal)
CPT/HCPCS: 93880

== ENCOUNTER 2021-06-19 10:13 | Outpatient (REF) | payer MEDICARE, MEDICAID, SELFPAY ==
[2021-06-24 23:26] LABS: Calprotectin, Fecal 43 mcg/g
== END 2021-06-19 10:14 | disposition home or self-care (01) ==
LOC: HO.LNP 10:13
PROVIDERS: Visit Provider Internal Medicine Gastroenterology
DX: K50.012 Crohn's disease of small intestine with intestinal obstruction (principal)
CPT/HCPCS: 83993

== ENCOUNTER 2021-07-03 08:08 | Outpatient (REF) | payer MEDICARE, MEDICAID, SELFPAY | END 2021-07-03 08:09 | disposition home or self-care (01) | LOC: HO.MAMMO 08:08 | PROVIDERS: Visit Provider Internal Medicine | DX: Z13.89 Encounter for screening for other disorder (principal) ==

== ENCOUNTER → 2021-07-28 08:14 | Outpatient (BNVA) | payer MEDICARE, MEDICAID, SELFPAY | PROVIDERS: PCP Internal Medicine; Visit Provider Internal Medicine Gastroenterology | CPT/HCPCS: Q3014 ==

== ENCOUNTER 2021-12-06 13:51 | Inpatient (IN) | payer MEDICARE, MEDICAID, SELFPAY ==
--- NOTE | ~2021-12-06 | CT_ITS ---
EXAMINATION: CT ABDOMEN AND PELVIS WITHOUT CONTRAST CLINICAL INFORMATION: Small bowel obstruction, vomiting and abdominal pain COMPARISON: CT abdomen pelvis 04/13/2021 and 09/17/2019 TECHNIQUE: Multidetector volumetric imaging was performed from the superior aspect of the liver through the pubic symphysis. Sagittal and coronal reformatted images were obtained on the technologist's workstation. This CT examination was performed using dose optimization techniques as appropriate, variously including the following: *Automated exposure control *Adjustment of mA and/or kV according to patient size (this includes techniques or standardized protocols for targeted exams where dose is matched to indication/reason for exam; i.e. extremities or head) *Use of iterative reconstruction technique DLP: 479 mGy-cm FINDINGS: LUNG BASES: Stable 3 mm solid right lower lobe pulmonary nodule when compared to 2019 therefore likely benign. Stable 3 mm pleural-based left lower lobe pulmonary nodule morphologically resembling a benign intrapulmonary lymph node. Stable 5 mm solid left lower lobe pulmonary nodule, 4:79 when compared to 2019 therefore likely benign. ABDOMINAL AND PELVIC WALL: Small fat-containing umbilical hernia. LIVER AND BILIARY TREE: Stable fluid attenuation cyst in the right hepatic lobe. GALLBLADDER: Unremarkable PANCREAS: Unremarkable SPLEEN: Unremarkable ADRENAL GLANDS: Unremarkable. KIDNEYS AND URETERS: Bilateral nonobstructing renal stones measuring up to 3 mm in the right midpole similar to prior. No hydronephrosis. UPPER GASTROINTESTINAL TRACT: New marked wall thickening of the gastric wall throughout the lesser curvature and the greater curvature along the gastric antrum and distal body. Proximal to the wall thickening along the greater curvature is a large saccular thin-walled outpouching new from prior with an approximately 4 cm neck. VASCULAR: Moderate aortoiliac atherosclerosis. LYMPH NODES: Few prominent right lower quadrant nodes likely reactive. BLADDER: Unremarkable PELVIC VISCERA: Unremarkable LOWER GASTROINTESTINAL TRACT: Colonic diverticulosis without evidence of diverticulitis. Stool is present in the colon at the hepatic flexure and in the rectosigmoid colon. The post surgical changes of prior right hemicolectomy and ileocolonic anastomosis. There is at least moderate wall thickening involving the neoterminal ileum similar to prior with dilation of proximal small bowel to 4.3 cm suggestive of underlying stricture with resultant small bowel obstruction with dilated loops of small bowel with air-fluid levels overall similar in morphology to prior previously measuring up to 4.2 cm. Lack of intravenous contrast limits assessment for bowel wall enhancement. There is small volume of free fluid with intermesenteric loop inflammatory fat stranding. No pneumatosis or portal venous gas. OSSEOUS STRUCTURES: Unremarkable CT/CT abdomen pelvis wo con IMPRESSION: There is at least moderate chronic wall thickening involving the neoterminal ileum similar to prior with dilation of proximal small bowel to 4.3 cm suggestive of underlying stricture with proximally dilated loops of small bowel with air-fluid levels suggesting small bowel obstruction overall similar in morphology to prior. Lack of intravenous contrast limits assessment for bowel wall enhancement. There is small volume of free fluid with intermesenteric loop inflammatory fat stranding. Stool is present in the colon distally. New marked wall thickening of the gastric wall throughout the lesser curvature as well as the greater curvature along the gastric antrum and distal body. Proximal to the wall thickening along the greater curvature is a large saccular thin-walled outpouching new from prior with an approximately 4 cm neck, which may reflect a new large ulceration or possibly diverticulum, for which correlation with endoscopy is recommended. Bilateral nonobstructing renal stones measuring up to 3 mm in the right midpole similar to prior. No hydronephrosis.
--- NOTE | ~2021-12-06 | XR_ITS ---
EXAMINATION: XR CHEST CLINICAL INFORMATION: NG tube confirmation COMPARISON: CT abdomen pelvis today TECHNIQUE: Frontal view of the chest was obtained. FINDINGS: Since the CT scan earlier today, an NG tube has been placed with its tip in good position within the fundus of the stomach. No significant abnormality is noted involving the heart, lungs, mediastinum, bony thorax or soft tissues. XR/XR chest 1V IMPRESSION: NG tube in good position within the stomach
[2021-12-06 14:05] VITALS: BP 146/70; PULSE 96; RESP 18; TEMP 36.7; O2SAT 99; BMI 26.5
--- NOTE | 2021-12-06 16:44 | ECG_ITS ---
Test Reason : abdominal pain Blood Pressure : / mmHG Vent. Rate : 069 BPM Atrial Rate : 069 BPM P-R Int : 152 ms QRS Dur : 084 ms QT Int : 408 ms P-R-T Axes : 055 025 062 degrees QTc Int : 437 ms Normal sinus rhythm Normal ECG When compared with ECG of 13-APR-2021 05:59, Premature ventricular complexes are no longer Present Referred By: Shelly Gerard Electronically Signed By:FARIDEH SAMSON MD
--- NOTE | 2021-12-06 16:46 | ED.ABDPAIN ---
HPI - Abdominal Pain General Chief Complaint: Abdominal Pain Stated Complaint: Abd pain Time Seen by Provider: 12/06/21 16:43 Source: patient Mode of arrival: ambulatory Limitations: no limitations History of Present Illness HPI narrative: 61-year-old female history of Crohn's disease came in for evaluation of abdominal pain. Pain started since yesterday, describes the pain as constant severe 10/10 minutes may abdominal pain, patient had small bowel movement this morning unable to pass flatus since yesterday, pain is associated with feeling distension of the abdomen and bloating sensation, patient vomited 2 times this morning, movement, no passing flatus nothing aggravated the pain, nothing alleviates the pain, patient had similar pain in the past and was secondary to small bowel obstruction. Patient had a history of Crohn's disease and she also had surgical history of appendectomy, small-bowel resection, bilateral salpingo oophorectomy . Related Data Home Medications Medication Instructions Recorded Confirmed atorvastatin 40 mg tablet 40 mg PO DAILY 09/23/20 12/06/21 Previous Rx's Medication Instructions Recorded ustekinumab 90 mg/mL subcutaneous 90 mg SUBCUT Q4W 28 Days #1 ml 08/11/21 syringe (Polyeralara) Allergies Allergy/AdvReac Type Severity Reaction Status Date / Time No Known Allergies Allergy Verified 07/28/21 08:15 [No Known Allergies*] Review of Systems Review of Systems All other systems are reviewed and are negative Constitutional: Reports as per HPI and Reports no additional constitutional complaints Eyes: Reports as per HPI and Reports no additional eye complaints Reports system reviewed and no additional complaints, except as documented Cardiovascular: Reports as per HPI and Reports no additional cardiovascular complaints Respiratory: Reports as per HPI and Reports no additional respiratory complaints Gastrointestinal: Reports as per HPI and Reports no additional gastrointestinal complaints Genitourinary: Reports no additional female genitourinary complaints Musculoskeletal: Reports no additional musculoskeletal complaints Skin/Breast: Reports system reviewed and no additional complaints, except as docu Psychiatric: Reports no additional psychiatric complaints Endocrine: Reports no additional endocrine complaints Hematologic/Lymphatic: Reports no additional hematologic/lymphatic complaints Allergic/Immunologic: Reports no additional allergic/immunologic complaints Reports system reviewed and no additional complaints, except as documented and Reports Abnormal speech present Physical Exam Vital Signs: Vital Signs: Last Vital Signs Temp 97.9 F 12/06/21 18:23 Pulse 75 12/06/21 20:19 Resp 16 12/06/21 20:19 BP 117/57 L 12/06/21 20:19 Pulse Ox 96 12/06/21 20:19 BMI result Body Mass Index 26.5 vital signs have been reviewed as appeared to be correct. Blood pressure normal. Heart rate normal. Respiration rate normal. Temperature normal. Oxygen saturation normal. Appearance: Alert. Oriented X3. Moderate generalized distress due to abdominal pain and vomiting. Head: Normal external exam. Normocephalic. Atraumatic. No Adkins signs noted. No raccoon eyes noted Eyes: PERRLA. EOMI. Conjunctiva and sclera normal. Eyelids normal. ENT: TM's Normal. Pharynx normal. Uvula midline. Moist mucous membranes. No trismus noted. No drooling noted. No muffled voice noted. Neck: Normal inspection. Neck supple. FROM. No adenopathy. Thyroid Normal. No meningeal signs. No neck mass noted. CVS: Normal heart rate and rhythm. Heart sound normal. No murmurs noted. Pulses normal throughout. Respiratory: No respiratory distress. Painless inspiration. Breath sounds normal. No wheezes/rales/rhonchi noted. Chest nontender. No accessory muscle usage noted or decreased air movement noted. Abdomen: Distended, diffusely tender, no rebound tenderness, no bowel sound. No organomegaly noted. No visible injury noted. Back: No CVA tenderness. Full range of motion noted. Skin: Skin warm and dry. Normal skin color. Normal skin turgor. No rashes/lesions/lacerations noted. Extremities: No lower extremity edema. Extremities exhibit normal range of motion. Extremities nontender. Neuro: Oriented X 3. Cranial nerve exam: II-XII are grossly intact No motor deficit. No sensory deficit. Reflexes normal. Course Course Course Narrative: Assessment and plan. 61 years old female history of small-bowel obstruction secondary to small bowel surgery and Crohn's disease, presented today with 1 day of abdominal pain and vomiting typical for her presentation of small bowel obstruction. 1. Dr. Cortes at the bedside examining the patient patient will get admitted, patient is declining NG tube I will have another spoke with the patient explaining the importance of having NG tube at this point. 2. Patient meets SIRS criteria which is secondary to non infectious small bowel obstruction at this point there is no sepsis and no indication for antibiotic. MDM - Abdominal Pain Lab Data Attestation: I reviewed the patient's lab results. Result diagrams: 12/06/21 18:18 12/06/21 18:18 Labs: Lab Results 12/06/21 12/06/21 12/06/21 Range/Units 18:18 18:18 18:19 WBC 17.0 H (4.8-10.8) X10*3/uL RBC 5.53 H (4.20-5.50) X10*6/uL Hgb 16.4 H (12.0-16.0) g/dl Hct 49.6 H (37.0-47.0) % MCV 89.7 (80.0-98.0) fL MCH 29.7 (27.0-33.0) pg MCHC 33.1 (31.0-35.0) g/dl RDW 13.6 (11.0-16.0) % Plt Count 213 (160-400) X10*3/uL MPV 10.7 (9.4-12.3) fL Immature Gran % (Auto) 0.5 H (0.0-0.4) % Neut % (Auto) 79.3 H (45-73) % Lymph % (Auto) 14.4 L (20-40) % [place] % (Auto) 4.9 (2-11) % Eos % (Auto) 0.5 (0-4) % Baso % (Auto) 0.4 (0-2) % Lymph # (Auto) 2.5 (1.2-4.9) X10*3/uL [place] # (Auto) 0.8 (0.1-1.2) X10*3/uL Eos # (Auto) 0.1 (0.0-0.4) X10*3/uL Baso # (Auto) 0.1 (0.0-0.2) X10*3/uL Abs Immat Gran (auto) 0.08 H (0.00-0.03) X10*3/uL Absolute Neuts (auto) 13.5 H (2.0-8.3) x10*3/uL Absolute Nucleated RBC 0.000 (0.0-0.012) X10*3/uL Nucleated RBC % (auto) 0.0 (0.0-0.2) /100WBC Sodium 143 (135-145) mmol/L Potassium 4.1 (3.3-5.1) mmol/L Chloride 109 H (96-108) mmol/L Carbon Dioxide 23 (22-29) mmol/L Anion Gap 15 (12-20) BUN 10 (9-16) mg/dL Creatinine 0.95 (0.5-1.4) mg/dL Estim Creat Clear Calc 50.3 Estimated GFR 60 Random Glucose 103 (60-115) mg/dL Lactic Acid (0.5-2.0) mmol/L Calcium 10.6 H (8.4-10.2) mg/dL Total Bilirubin 0.4 (0.0-1.0) mg/dL Direct Bilirubin 0.2 (0.0-0.5) mg/dL AST 19 (5-31) U/L ALT 24 (0-31) U/L Alkaline Phosphatase 104 (39-117) U/L B-Natriuretic Peptide (<100) pg/mL Total Protein 7.2 (6.5-8.0) g/dL Albumin 4.3 (3.5-5.0) g/dL Lipase 32 (8-78) U/L Urine Color Urine Appearance Urine pH (5.0-8.0) Ur Specific [place] (1.005-1.025) Urine Protein (NEG-TRACE) MG/DL Urine Glucose (UA) (NEG) MG/DL Urine Ketones (NEG) MG/DL Urine Blood (NEG) Urine Nitrite (NEG) Ur Leukocyte Esterase (NEG) Urine RBC (0) /HPF Urine WBC (0-4) /HPF Ur Squamous Epith Cells /LPF Urine Bacteria /LPF Urine Mucus /LPF COVID-19 (LINDA) Negative (Negative) COVID-19 Clin Com See Note 12/06/21 12/06/21 12/06/21 Range/Units 18:32 18:59 18:59 WBC (4.8-10.8) X10*3/uL RBC (4.20-5.50) X10*6/uL Hgb (12.0-16.0) g/dl Hct (37.0-47.0) % MCV (80.0-98.0) fL MCH (27.0-33.0) pg MCHC (31.0-35.0) g/dl RDW (11.0-16.0) % Plt Count (160-400) X10*3/uL MPV (9.4-12.3) fL Immature Gran % (Auto) (0.0-0.4) % Neut % (Auto) (45-73) % Lymph % (Auto) (20-40) % [place] % (Auto) (2-11) % Eos % (Auto) (0-4) % Baso % (Auto) (0-2) % Lymph # (Auto) (1.2-4.9) X10*3/uL [place] # (Auto) (0.1-1.2) X10*3/uL Eos # (Auto) (0.0-0.4) X10*3/uL Baso # (Auto) (0.0-0.2) X10*3/uL Abs Immat Gran (auto) (0.00-0.03) X10*3/uL Absolute Neuts (auto) (2.0-8.3) x10*3/uL Absolute Nucleated RBC (0.0-0.012) X10*3/uL Nucleated RBC % (auto) (0.0-0.2) /100WBC Sodium (135-145) mmol/L Potassium (3.3-5.1) mmol/L Chloride (96-108) mmol/L Carbon Dioxide (22-29) mmol/L Anion Gap (12-20) BUN (9-16) mg/dL Creatinine (0.5-1.4) mg/dL Estim Creat Clear Calc Estimated GFR Random Glucose (60-115) mg/dL Lactic Acid 1.4 (0.5-2.0) mmol/L Calcium (8.4-10.2) mg/dL Total Bilirubin (0.0-1.0) mg/dL Direct Bilirubin (0.0-0.5) mg/dL AST (5-31) U/L ALT (0-31) U/L Alkaline Phosphatase (39-117) U/L B-Natriuretic Peptide 59 (<100) pg/mL Total Protein (6.5-8.0) g/dL Albumin (3.5-5.0) g/dL Lipase (8-78) U/L Urine Color YELLOW Urine Appearance HAZY Urine pH 5.5 (5.0-8.0) Ur Specific [place] 1.020 (1.005-1.025) Urine Protein NEG (NEG-TRACE) MG/DL Urine Glucose (UA) NEG (NEG) MG/DL Urine Ketones NEG (NEG) MG/DL Urine Blood NEG (NEG) Urine Nitrite NEG (NEG) Ur Leukocyte Esterase 1+ H (NEG) Urine RBC 0-2 (0) /HPF Urine WBC 1-4 (0-4) /HPF Ur Squamous Epith Cells 2+ /LPF Urine Bacteria TRACE /LPF Urine Mucus 2+ /LPF COVID-19 (LINDA) (Negative) COVID-19 Clin Com Imaging Data CT scan - abdomen: Attestation: I personally reviewed and interpreted this imaging study as follows: Radiologist's impression: SThere is at least moderate chronic wall thickening involving the neoterminal ileum similar to prior with dilation of proximal small bowel to 4.3 cm suggestive of underlying stricture with proximally dilated loops of small bowel with air-fluid levels suggesting small bowel obstruction overall similar in morphology to prior. Lack of intravenous contrast limits assessment for bowel wall enhancement. There is small volume of free fluid with intermesenteric loop inflammatory fat stranding. Stool is present in the colon distally. ? New marked wall thickening of the gastric wall throughout the lesser curvature as well as the greater curvature along the gastric antrum and distal body. Proximal to the wall thickening along the greater curvature is a large saccular thin-walled outpouching new from prior with an approximately 4 cm neck, which may reflect a new large ulceration or possibly diverticulum, for which correlation with endoscopy is recommended.? ? Bilateral nonobstructing renal stones measuring up to 3 mm in the right midpole similar to prior. No hydronephrosis.? ECG Data Attestation: I personally reviewed and interpreted this ECG as follows: Interpretation: Normal sinus rhythm at 69 beats per minute, normal axis deviation, normal intervals. Discharge Plan Discharge Clinical Impression: Crohns disease of small intestine, SBO (small bowel obstruction) Patient Disposition: Admitted As Inpatient [facility] Past Medical History Medical History Crohns disease of small intestine Gastritis Hyperlipidemia Small bowel obstruction Surgical History History of appendectomy History of bowel resection History of esophagogastroduodenoscopy (EGD) Hx of colonoscopy S/P BSO (bilateral salpingo-oophorectomy) Family History Family History Father No problems noted. Mother Pneumonia Sister Breast cancer Social History Social History Household Members: None Housing: House Do you presently have visiting nurse or other home services: No Alcohol intake: never Cigarette Packs Per Day: 1 Cigarettes Per Day: 20.0 Second Hand Smoke Exposure: No Advance Directives: No Advance Directives Date on File: 04/13/21 service: No Current occupational status: unemployed and disabled
--- NOTE | 2021-12-06 17:12 | PHA.MEDREC ---
Pharmacy Consult ? Medication Reconciliation Pharmacy has completed the medication reconciliation.
[2021-12-06] MEDS: Morphine Sulfate 2 MG/ML CARTRIDGE IVPUSH ×2 (17:27→19:20)
[2021-12-06] MEDS: 0.9 % Sodium Chloride 1,000 ML 999 ML IV (17:27)
[2021-12-06] MEDS: ondansetron HCL 4 MG/2 ML VIAL IVPUSH ×3 (17:28→20:18)
[2021-12-06 18:23] VITALS: BP 123/55; PULSE 72; RESP 16; TEMP 36.6; O2SAT 97
[2021-12-06 18:26] LABS: MANUAL DIFF FLAG NO
[2021-12-06 18:28] LABS: Basophils Absolute Auto 0.1 X10*3/uL (0.0-0.2); Basophils Percent Auto 0.4 % (0-2); Eosinophils Percent Auto 0.5 % (0-4); PLT CLUMP 1; SCAN SMEAR FLAG 1
[2021-12-06 18:30] LABS: Eosinophils Absolute Auto 0.1 X10*3/uL (0.0-0.4); Hematocrit 49.6 % (37.0-47.0); Hemoglobin 16.4 g/dl (12.0-16.0); Imm Gran Abs Auto 0.08 X10*3/uL (0.00-0.03); Imm Gran Pct Auto 0.5 % (0.0-0.4); Lymphocytes Absolute Auto 2.5 X10*3/uL (1.2-4.9); Lymphocytes Percent Auto 14.4 % (20-40); Mean Corpuscular HGB Conc 33.1 g/dl (31.0-35.0); Mean Corpuscular Hemoglobin 29.7 pg (27.0-33.0); Mean Corpuscular Volume 89.7 fL (80.0-98.0); Mean Platelet Volume 10.7 fL (9.4-12.3); Monocytes Absolute Auto 0.8 X10*3/uL (0.1-1.2); Monocytes Percent Auto 4.9 % (2-11); Neutrophils Absolute Auto 13.5 x10*3/uL (2.0-8.3); Neutrophils Percent Auto 79.3 % (45-73); Red Blood Count 5.53 X10*6/uL (4.20-5.50); Red Cell Distribution Width 13.6 % (11.0-16.0)
[2021-12-06 18:41] LABS: COVID-19 Test Negative (Negative); IDNOW Serial# 9DD0AD1C
[2021-12-06 18:46] LABS: Alanine Aminotransferase 24 U/L (0-31); Albumin Level 4.3 g/dL (3.5-5.0); Alkaline Phosphatase 104 U/L (39-117); Anion Gap 15 (12-20); Aspartate Amino Transferase 19 U/L (5-31); Bilirubin Direct 0.2 mg/dL (0.0-0.5); Bilirubin Total 0.4 mg/dL (0.0-1.0); Blood Urea Nitrogen 10 mg/dL (9-16); Calcium 10.6 mg/dL (8.4-10.2); Carbon Dioxide 23 mmol/L (22-29); Chloride 109 mmol/L (96-108); Creatinine Clr Calc Pharmacy 50.3; Estimated Glomerular Filt Rate 60; Glucose Random 103 mg/dL (60-115); Lipase 32 U/L (8-78); Potassium 4.1 mmol/L (3.3-5.1); Sodium 143 mmol/L (135-145); Total Protein 7.2 g/dL (6.5-8.0)
[2021-12-06 18:49] LABS: Appearance Urine HAZY; Color Urine YELLOW; Glucose Urine UA NEG (NEG); Leukocyte Esterase Urine 1+ (NEG); Nitrite Urine NEG (NEG); PH 5.5 (5.0-8.0); UACC Culture Trigger YES; Urine Blood NEG (NEG); Urine Ketones NEG (NEG); Urine Protein NEG (NEG-TRACE)
[2021-12-06 18:52] LABS: Platelet Count 213 X10*3/uL (160-400)
[2021-12-06 18:59] LABS: Bacteria Urine TRACE /LPF; Mucus Urine 2+ /LPF; RBC Urine 0-2 /HPF (0); Squamous Epithelial Cell Urine 2+ /LPF
[2021-12-06 19:15] LABS: Lactic Acid 1.4 mmol/L (0.5-2.0)
[2021-12-06 19:23] LABS: B Type Natriuretic Peptide 59 pg/mL (<100)
--- NOTE | 2021-12-06 20:10 | P.HPGS_ITS ---
History of Present Illness History of Present Illness Date of Service: 12/08/21 Chief complaint: Crohns ds with sbo Narrative: Rose Nieves is a 61 year old female well knwon to the surgical service. She has a long hx of XCrohn's disease with frequent admissions for SBO. She says she has started to have abdl pain again this morning, constant, mostly on the right and lower abdomen. She says she felt much more distended earlier. She vomitted once. She had a bowel movement today but no flatus. Her last admission for the same problem was last March 2021. She says she has been well since then and maintained on Stellara. She sees Dr. Iglesias for GI. Review of Systems Constitutional: Constitutional: Denies chills and Denies fever(s) Cardiovascular: Cardiovascular: Denies chest pain, Denies dyspnea and Denies dyspnea on exertion Respiratory: Respiratory: Denies cough, Denies dyspnea and Denies dyspnea on exertion Gastrointestinal: Gastrointestinal: Denies hematochezia and Denies change in bowel habits Genitourinary: Genitourinary: Denies hematuria Musculoskeletal: Musculoskeletal: Denies back pain and Denies limited range of motion Neurologic: Denies focal weakness and Denies convulsions Psychiatric: Psychiatric: Denies depression and Denies mood swings PMFSH Past Medical History Medical History Crohns disease of small intestine Gastritis Hyperlipidemia Small bowel obstruction Family History Family History Father No problems noted. Mother Pneumonia Sister Breast cancer Surgical History Surgical History History of appendectomy History of bowel resection History of esophagogastroduodenoscopy (EGD) Hx of colonoscopy S/P BSO (bilateral salpingo-oophorectomy) Social History Social History Household Members: None Housing: Apartment Do you presently have visiting nurse or other home services: No Alcohol intake: never Patient Tobacco Use Status: Current everyday Tobacco user Tobacco use type: Cigarette Cigarette Packs Per Day: 1 Cigarettes Per Day: 20.0 Years Smoked: 45 Smoked in Last 30 Days: Yes Patient Interested in Nicotine Replacement: Yes Patient Given Instructions on How to Stop Smoking: Yes Date Education Initiated: 12/07/21 Second Hand Smoke Exposure: No Use of substances other than those prescribed or required for medical reasons: No Currently Displaying Signs/Symptoms of Drug Intoxication Withdrawal: No Have you been hit, kicked, punched, or otherwise hurt by someone within the past year? If so, by whom?: No Do you feel safe in your current relationship?: Yes Is there a partner from a previous relationship who is making you feel unsafe now?: No Are you made to feel afraid or neglected: No Advance Directives: No Advance Directives Date on File: 04/13/21 Do you have thoughts of harming others: None Do you have a plan to hurt others: No Plan Recently lost weight without trying: No Nutrition Risks: No Nutritional Risk service: No Current occupational status: unemployed and disabled Meds Allergies Allergy/AdvReac Type Severity Reaction Status Date / Time No Known Allergies Allergy Verified 12/07/21 13:43 [No Known Allergies*] Active Medications: Current Medications Pharmacy Consult (Consult Rx Perform Med Rec) 1 each MISCELLANE ONCE PRN PRN Reason: Consult order Home Medications Medication Instructions Recorded Confirmed Last Taken Type atorvastatin 40 mg tablet 40 mg PO DAILY 09/23/20 12/06/21 12/06/21 History Physical Exam Vital Signs: Vital Signs: Last Vital Signs Temp 97.9 F 12/06/21 18:23 Pulse 72 12/06/21 18:23 Resp 16 12/06/21 18:23 BP 123/55 L 12/06/21 18:23 Pulse Ox 97 12/06/21 18:23 BMI result Body Mass Index 26.5 Const: General: comfortable and no acute distress Orientation/consciousness: patient oriented x3 Neck: Neck: Yes no lymphadenopathy Resp: Auscultation: clear to auscultation bilaterally Cardio: Rhythm: regular rhythm GI: Other: tender dffusely with no rebound or guarding, minimally distended Palpation (GI): Soft to palpation, nontender and no guarding Neuro: General: patient oriented x3 Results Results Labs: Short CBC 12/06/21 Range/Units 18:18 WBC 17.0 H (4.8-10.8) X10*3/uL Hgb 16.4 H (12.0-16.0) g/dl Hct 49.6 H (37.0-47.0) % Plt Count 213 (160-400) X10*3/uL BMP 12/06/21 18:18 Sodium 143 Potassium 4.1 Chloride 109 H Carbon Dioxide 23 BUN 10 Creatinine 0.95 Calcium 10.6 H Liver Function 12/06/21 Range/Units 18:18 Total Bilirubin 0.4 (0.0-1.0) mg/dL Direct Bilirubin 0.2 (0.0-0.5) mg/dL AST 19 (5-31) U/L ALT 24 (0-31) U/L Alkaline Phosphatase 104 (39-117) U/L Albumin 4.3 (3.5-5.0) g/dL Urine 12/06/21 Range/Units 18:32 Urine Color YELLOW Urine Appearance HAZY Urine pH 5.5 (5.0-8.0) Ur Specific [place] 1.020 (1.005-1.025) Urine Protein NEG (NEG-TRACE) MG/DL Urine Glucose (UA) NEG (NEG) MG/DL Assessment and Plan (1) Crohns disease of small intestine: Qualifiers: Digestive disease complication type: with intestinal obstruction Qualified Code(s): K50.012 - Crohn's disease of small intestine with intestinal obstruction Status: Acute She is presenting again with SBO at the same area at the old ileocolonic anastomosis. She will be admitted and will be kept NPO. She will have an NGT inserted. I will repeat her labs tomorrow. I may consult Dr. Iglesias during this admission for input. Her CAT scan shows is question of thickening of the gastric wall along with a possible new diverticulum in the stomach. She otherwise has a very benign exam. She understands the plan well. Quality Stroke Does the patient have a stroke diagnosis?: No VTE Prior VTE?: No VTE Risk Level:: Medical - moderate - high VTE Device Contraindication: N/A - Device Ordered VTE Drug Contraindication: Drug Allergy Procedures Date of Service Date of Service: 12/06/21
[2021-12-06] MEDS: Morphine Sulfate 2 MG/ML CARTRIDGE 1 MG IVPUSH (20:18)
[2021-12-06 20:19] VITALS: BP 117/57; PULSE 75; RESP 16; O2SAT 96
[2021-12-06] MEDS: Heparin Sodium,Porcine 5,000 UNIT/ML VIAL 5000 UNIT SUBCUT (20:54)
[2021-12-06] MEDS: Lactated Ringers 1,000 ML 100 ML IVCONT (20:54)
[2021-12-06 23:06] VITALS: BP 123/67; PULSE 87; RESP 18; TEMP 37.2; O2SAT 97
[2021-12-07] VITALS: BP 120/57; PULSE 80; RESP 18; TEMP 36.5; O2SAT 94
[2021-12-07] MEDS: Morphine Sulfate 4 MG/ML CARTRIDGE 3 MG IVPUSH ×2 (00:30→03:33)
[2021-12-07 03:32] VITALS: BP 132/67; PULSE 78; RESP 18; TEMP 36.3; O2SAT 94
[2021-12-07] MEDS: Lactated Ringers 1,000 ML 100 ML IVCONT ×2 (05:37→16:33)
[2021-12-07 05:50] LABS: Hematocrit 44.5 % (37.0-47.0); Hemoglobin 14.6 g/dl (12.0-16.0); Mean Corpuscular HGB Conc 32.8 g/dl (31.0-35.0); Mean Corpuscular Hemoglobin 29.2 pg (27.0-33.0); Mean Platelet Volume 10.7 fL (9.4-12.3); Platelet Count 240 X10*3/uL (160-400); Red Cell Distribution Width 13.9 % (11.0-16.0); White Blood Count 10.4 X10*3/uL (4.8-10.8)
[2021-12-07 06:20] LABS: Anion Gap 13 (12-20); Blood Urea Nitrogen 17 mg/dL (9-16); Calcium 9.3 mg/dL (8.4-10.2); Carbon Dioxide 23 mmol/L (22-29); Chloride 111 mmol/L (96-108); Creatinine Clr Calc Pharmacy 63.8; Estimated Glomerular Filt Rate > 60; Glucose Random 109 mg/dL (60-115); Potassium 4.6 mmol/L (3.3-5.1); Sodium 142 mmol/L (135-145)
[2021-12-07 07:37] VITALS: BP 133/57; PULSE 73; RESP 20; TEMP 36.4; O2SAT 93
[2021-12-07] MEDS: Heparin Sodium,Porcine 5,000 UNIT/ML VIAL 5000 UNIT SUBCUT ×2 (09:28→20:57)
--- NOTE | 2021-12-07 10:07 | PM.PNGS ---
Subjective Subjective Date of Service: 12/07/21 Interval history: pain still present although not as severe as yesterday she says she gets nauseous with Morphine - asking for alternative denies flatus no events reported overnight Physical Exam Vital Signs: Vital Signs: Last Vital Signs Temp 97.5 F 12/07/21 07:37 Pulse 73 12/07/21 07:37 Resp 20 12/07/21 07:37 BP 133/57 L 12/07/21 07:37 Pulse Ox 93 12/07/21 07:37 BMI result Body Mass Index 26.5 Const: General: no acute distress Resp: Effort & Inspection: normal respiratory effort Cardio: Rate: regular rate GI: Other: not disteneded, mild diffuse tenderness Palpation (GI): Soft to palpation, not firm and no guarding Objective Data Active Medications Heparin Sodium (Porcine) (Heparin Sodium,Porcine 5,000 Unit/Ml Vial) 5,000 unit SUBCUT BID [facility] Last Admin: 12/07/21 09:28 Dose: 5,000 unit Documented by: KAL Lactated Ringer's (Lr) 1,000 mls @ 100 mls/hr IVCONT .Q10H [facility] Last Admin: 12/07/21 05:37 Dose: 100 mls/hr Documented by: MUNA Ondansetron HCl (Ondansetron Hcl 4 Mg/2 Ml Vial) 4 mg IVPUSH Q8H PRN PRN Reason: Nasal Congestion Pharmacy Consult (Consult Rx Perform Med Rec) 1 each MISCELLANE ONCE PRN PRN Reason: Consult order Sodium Chloride (0.9 % Sodium Chloride Flush 3 Ml Syringe) 3 ml IVFLUSH QSHIFT [facility] Last Admin: 12/07/21 07:20 Dose: Not Given Documented by: KAL Non-Admin Reason: IV Running Labs CBC & Chem 7: 12/07/21 05:36 12/07/21 05:36 Labs: Laboratory Results - last 24 hr 12/06/21 12/06/21 12/06/21 18:18 18:18 18:19 MCV 89.7 MCH 29.7 MCHC 33.1 RDW 13.6 Plt Count 213 MPV 10.7 Immature Gran % (Auto) 0.5 H Neut % (Auto) 79.3 H Lymph % (Auto) 14.4 L [place] % (Auto) 4.9 Eos % (Auto) 0.5 Baso % (Auto) 0.4 Lymph # (Auto) 2.5 [place] # (Auto) 0.8 Eos # (Auto) 0.1 Baso # (Auto) 0.1 Abs Immat Gran (auto) 0.08 H Absolute Neuts (auto) 13.5 H Absolute Nucleated RBC 0.000 Nucleated RBC % (auto) 0.0 Anion Gap 15 Estim Creat Clear Calc 50.3 Estimated GFR 60 Random Glucose 103 Lactic Acid Calcium 10.6 H Total Bilirubin 0.4 Direct Bilirubin 0.2 AST 19 ALT 24 Alkaline Phosphatase 104 B-Natriuretic Peptide Total Protein 7.2 Albumin 4.3 Lipase 32 Urine Color Urine Appearance Urine pH Ur Specific [place] Urine Protein Urine Glucose (UA) Urine Ketones Urine Blood Urine Nitrite Ur Leukocyte Esterase Urine RBC Urine WBC Ur Squamous Epith Cells Urine Bacteria Urine Mucus COVID-19 (LINDA) Negative COVID-19 Clin Com See Note 12/06/21 12/06/21 12/06/21 18:32 18:59 18:59 MCV MCH MCHC RDW Plt Count MPV Immature Gran % (Auto) Neut % (Auto) Lymph % (Auto) [place] % (Auto) Eos % (Auto) Baso % (Auto) Lymph # (Auto) [place] # (Auto) Eos # (Auto) Baso # (Auto) Abs Immat Gran (auto) Absolute Neuts (auto) Absolute Nucleated RBC Nucleated RBC % (auto) Anion Gap Estim Creat Clear Calc Estimated GFR Random Glucose Lactic Acid 1.4 Calcium Total Bilirubin Direct Bilirubin AST ALT Alkaline Phosphatase B-Natriuretic Peptide 59 Total Protein Albumin Lipase Urine Color YELLOW Urine Appearance HAZY Urine pH 5.5 Ur Specific [place] 1.020 Urine Protein NEG Urine Glucose (UA) NEG Urine Ketones NEG Urine Blood NEG Urine Nitrite NEG Ur Leukocyte Esterase 1+ H Urine RBC 0-2 Urine WBC 1-4 Ur Squamous Epith Cells 2+ Urine Bacteria TRACE Urine Mucus 2+ COVID-19 (LINDA) COVID-19 [employer] Com 12/07/21 12/07/21 05:36 05:36 MCV 89.0 MCH 29.2 MCHC 32.8 RDW 13.9 Plt Count 240 MPV 10.7 Immature Gran % (Auto) Neut % (Auto) Lymph % (Auto) [place] % (Auto) Eos % (Auto) Baso % (Auto) Lymph # (Auto) [place] # (Auto) Eos # (Auto) Baso # (Auto) Abs Immat Gran (auto) Absolute Neuts (auto) Absolute Nucleated RBC 0.000 Nucleated RBC % (auto) 0.0 Anion Gap 13 Estim Creat Clear Calc 63.8 Estimated GFR > 60 Random Glucose 109 Lactic Acid Calcium 9.3 D Total Bilirubin Direct Bilirubin AST ALT Alkaline Phosphatase B-Natriuretic Peptide Total Protein Albumin Lipase Urine Color Urine Appearance Urine pH Ur Specific [place] Urine Protein Urine Glucose (UA) Urine Ketones Urine Blood Urine Nitrite Ur Leukocyte Esterase Urine RBC Urine WBC Ur Squamous Epith Cells Urine Bacteria Urine Mucus COVID-19 (LINDA) COVID-19 Clin Com Procedures Date of Service Date of Service: 12/07/21 Progress Note: A&P Assessment and plan (1) SBO (small bowel obstruction): Status: Acute Assessment and Plan: Crohns ds with obstruction at 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 Harris bloom NGT in will switch to Dilaudid as pt's request encouraged ambulation exam benign labs ok explained plan to pt Fall Risk Details Current Medications: Current Medications Heparin Sodium (Porcine) (Heparin Sodium,Porcine 5,000 Unit/Ml Vial) 5,000 unit SUBCUT BID [facility] Last Admin: 12/07/21 09:28 Dose: 5,000 unit Documented by: Lactated Ringer's (Lr) 1,000 mls @ 100 mls/hr IVCONT .Q10H [facility] Last Admin: 12/07/21 05:37 Dose: 100 mls/hr Documented by: Ondansetron HCl (Ondansetron Hcl 4 Mg/2 Ml Vial) 4 mg IVPUSH Q8H PRN PRN Reason: Nasal Congestion Pharmacy Consult (Consult Rx Perform Med Rec) 1 each MISCELLANE ONCE PRN PRN Reason: Consult order Sodium Chloride (0.9 % Sodium Chloride Flush 3 Ml Syringe) 3 ml IVFLUSH QSHIFT [facility] Last Admin: 12/07/21 07:20 Dose: Not Given Documented by: Time Spent With Patient Time: Total time spent is greater than 50% in coordination of care (as documented) at patient's floor/unit and/or counseling patient: Time with patient: 15 - 24 minutes Quality Stroke Does the patient have a stroke diagnosis?: No VTE Prior VTE?: No VTE Risk Level:: Medical - moderate - high VTE Device Contraindication: N/A - Device Ordered VTE Drug Contraindication: N/A - Med Ordered
[2021-12-07] MEDS: HYDROmorphone HCl 1 MG/ML SYRINGE 0.5 MG IVPUSH ×2 (11:11→19:22)
[2021-12-07 12:00] VITALS: PULSE 97; RESP 18; TEMP 37.2; O2SAT 98
--- NOTE | 2021-12-07 12:40 | MHC.CM.PN ---
CM MET WITH PT WHO REPORTS SHE LIVES ALONE AND IS INDEPENDENT WITH ALL CARE PT DENIES USE OF HOME OR COMMUNITY SERVICES PT HAS A HCP ON FILE PT CONFIRMS HER PCP IS JAY JAY STUART IMM DELIVERED CURRENT DC PLAN IS HOME WITH NO SERVICES FAMILY TO TRANSPORT
[2021-12-07 16:00] VITALS: BP 146/68; PULSE 72; RESP 15; TEMP 36.9; O2SAT 92
[2021-12-07] MEDS: ondansetron HCL 4 MG/2 ML VIAL IVPUSH (19:29)
[2021-12-07 19:32] VITALS: BP 136/60; PULSE 78; RESP 17; TEMP 37.1; O2SAT 92
[2021-12-08] VITALS (9 sets, daily range): BP systolic 119–176; BP diastolic 62–91; PULSE 66–78; RESP 16–18; TEMP 36.1–37.2; O2SAT 92–99
[2021-12-08] MEDS: HYDROmorphone HCl 1 MG/ML SYRINGE 0.5 MG IVPUSH ×5 (00:39→19:50)
[2021-12-08] MEDS: Lactated Ringers 1,000 ML 100 ML IVCONT ×3 (01:52→19:44)
--- NOTE | 2021-12-08 08:44 | P.PNGS_ITS ---
Subjective Subjective Date of Service: 12/08/21 <Radha Hsieh PA-C - Last Filed: 12/08/21 08:50> 12/08/21 <Rusty Cortes MD - Last Filed: 12/08/21 14:32> Interval history: Feels better this morning. Abd pain continues to wax and wane but overall pain has decreased significantly. Passing flatus and has had multiple BM. Denies nausea, vomiting. Has not been OOB. <Radha Hsieh PA-C - Last Filed: 12/08/21 08:50> Physical Exam Vital Signs: Vital Signs: Last Vital Signs Temp 97 F 12/08/21 07:03 Pulse 71 12/08/21 07:03 Resp 18 12/08/21 07:03 BP 119/62 12/08/21 07:03 Pulse Ox 92 12/08/21 07:03 BMI result Body Mass Index 26.5 <UJ Neves Last Filed: 12/08/21 08:50> Const: General: comfortable, no acute distress and alert <Radha Hsieh PA-C - Last Filed: 12/08/21 08:50> Orientation/consciousness: patient oriented x3 <JU Neves Last Filed: 12/08/21 08:50> Resp: Effort & Inspection: normal respiratory effort <JU Neves Last Filed: 12/08/21 08:50> GI: Inspection: No distended <JU Neves Last Filed: 12/08/21 08:50> Palpation (GI): Soft to palpation, Tenderness to palpation present (GI) (mild, RLQ), no guarding and not rigid <Radha Hsieh PA-C - Last Filed: 12/08/21 08:50> Percussion: Yes normal to percussion <JU Neves Last Filed: 12/08/21 08:50> Skin: General skin exam: no rashes or lesions noted <JU Neves Last Filed: 12/08/21 08:50> Neuro: General: patient oriented x3 <JU Neves Last Filed: 12/08/21 08:50> Extrem: General: Yes no clubbing, cyanosis or edema <Radha Hsieh PA-C - Last Filed: 12/08/21 08:50> Objective Data Active Medications Heparin Sodium (Porcine) (Heparin Sodium,Porcine 5,000 Unit/Ml Vial) 5,000 unit SUBCUT BID [facility] Last Admin: 12/07/21 20:57 Dose: 5,000 unit Documented by: MUNA Hydromorphone HCl (Hydromorphone Hcl 1 Mg/Ml Syringe) 0.5 mg IVPUSH Q3H PRN; Protocol PRN Reason: Pain, Severe (Pain Scale 7-10) Last Admin: 12/08/21 06:10 Dose: 0.5 mg Documented by: MUNA Lactated Ringer's (Lr) 1,000 mls @ 100 mls/hr IVCONT .Q10H [facility] Last Admin: 12/08/21 01:52 Dose: 100 mls/hr Documented by: MUNA Ondansetron HCl (Ondansetron Hcl 4 Mg/2 Ml Vial) 4 mg IVPUSH Q8H PRN PRN Reason: Nasal Congestion Last Admin: 12/07/21 19:29 Dose: 4 mg Documented by: MUNA Pharmacy Consult (Consult Rx Perform Med Rec) 1 each MISCELLANE ONCE PRN PRN Reason: Consult order Sodium Chloride (0.9 % Sodium Chloride Flush 3 Ml Syringe) 3 ml IVFLUSH QSHIFT [facility] Last Admin: 12/08/21 00:14 Dose: Not Given Documented by: MUNA Non-Admin Reason: IV Running <Radha Hsieh PA-C - Last Filed: 12/08/21 08:50> Labs CBC & Chem 7: : 12/07/21 05:36 12/07/21 05:36 <Radha Hsieh PA-C - Last Filed: 12/08/21 08:50> Microbiology Microbiology Results: Microbiology 12/06/21 18:59 Blood Culture - Preliminary Blood - Venous No growth after 24 hours. 12/06/21 18:46 Blood Culture - Preliminary Blood - Venous No growth after 24 hours. 12/06/21 18:55 Urine Culture - Preliminary Urine clean catch - Clean Catch Midstream No growth to date. <Radha Hsieh PA-C - Last Filed: 12/08/21 08:50> Procedures Date of Service Date of Service: 12/08/21 <Radha Hsieh PA-C - Last Filed: 12/08/21 08:50> Progress Note: A&P Assessment and plan (1) SBO (small bowel obstruction): Status: Acute <Radha Hsieh PA-C - Last Filed: 12/08/21 08:50> (2) Crohns disease of small intestine: Status: Acute <Radha Hsieh PA-C - Last Filed: 12/08/21 08:50> Assessment and Plan: Passing flatus Feels much better Has BMs DC NG tube Abdomen remained soft, benign, minimal tenderness GI consult because of findings on CT scan - new diverticulum on stomach? Looks well Seen and examined - agree with COLIN Hsieh <Rusty Cortes MD - Last Filed: 12/08/21 14:32> Assessment and Plan: 61 year old female with history of Crohns with obstruction at old ileocolonic anastomosis. Inflammatory changes on CT scan. Also with ?new stomach diverticulum. She feels improved with decreased overall pain, now with return of GI function. Abd benign- soft, ND, mild right sided tenderness. Will clamp NGT, check residual in 4 hrs, unclamp sooner if abd pain worsens, develops N/V. Await GI input. Strongly encouraged OOB/ambulation. Patient agrees. <Radha Hsieh PA-C - Last Filed: 12/08/21 08:50> Fall Risk Details Current Medications: Current Medications Heparin Sodium (Porcine) (Heparin Sodium,Porcine 5,000 Unit/Ml Vial) 5,000 unit SUBCUT BID [facility] Last Admin: 12/07/21 20:57 Dose: 5,000 unit Documented by: Hydromorphone HCl (Hydromorphone Hcl 1 Mg/Ml Syringe) 0.5 mg IVPUSH Q3H PRN; Protocol PRN Reason: Pain, Severe (Pain Scale 7-10) Last Admin: 12/08/21 06:10 Dose: 0.5 mg Documented by: Lactated Ringer's (Lr) 1,000 mls @ 100 mls/hr IVCONT .Q10H [facility] Last Admin: 12/08/21 01:52 Dose: 100 mls/hr Documented by: Ondansetron HCl (Ondansetron Hcl 4 Mg/2 Ml Vial) 4 mg IVPUSH Q8H PRN PRN Reason: Nasal Congestion Last Admin: 12/07/21 19:29 Dose: 4 mg Documented by: Pharmacy Consult (Consult Rx Perform Med Rec) 1 each MISCELLANE ONCE PRN PRN Reason: Consult order Sodium Chloride (0.9 % Sodium Chloride Flush 3 Ml Syringe) 3 ml IVFLUSH QSHIFT [facility] Last Admin: 12/08/21 00:14 Dose: Not Given Documented by: <Radha Hsieh PA-C - Last Filed: 12/08/21 08:50> Time Spent With Patient Time: Total time spent is greater than 50% in coordination of care (as documented) at patient's floor/unit and/or counseling patient: <Radha Hsieh PA-C - Last Filed: 12/08/21 08:50> Time with patient: 15 - 24 minutes <Radha Hsieh PA-C - Last Filed: 12/08/21 08:50> Quality Stroke Does the patient have a stroke diagnosis?: No <Radha Hsieh PA-C - Last Filed: 12/08/21 08:50> VTE Prior VTE?: No <Radha Hsieh PA-C - Last Filed: 12/08/21 08:50> VTE Risk Level:: Medical - moderate - high <JU Neves Last Filed: 12/08/21 08:50> VTE Device Contraindication: N/A - Device Ordered <JU Neves Last Filed: 12/08/21 08:50> VTE Drug Contraindication: N/A - Med Ordered <Radha Hsieh PA-C - Last Filed: 12/08/21 08:50>
[2021-12-08] MEDS: Heparin Sodium,Porcine 5,000 UNIT/ML VIAL 5000 UNIT SUBCUT ×2 (08:57→19:45)
--- NOTE | 2021-12-08 11:16 | P.CNGI_ITS ---
History of Present Illness Data of Consult Service Date: 12/08/21 Requesting physician: Radha Hsieh Primary Care Provider: Jorge Green MD HPI 61 YF was seen at [facility] ED on 12/06/21: HPI narrative:? 61-year-old female history of Crohn's disease came in for evaluation of abdominal pain. Pain started since yesterday, describes the pain as constant severe 10/10 minutes may abdominal pain, patient had small bowel movement this morning unable to pass flatus since yesterday, pain is associated with feeling distension of the abdomen and bloating sensation, patient vomited 2 times this morning, movement, no passing flatus nothing aggravated the pain, nothing alleviates the pain, patient had similar pain in the past and was secondary to small bowel obstruction. Patient had a history of Crohn's disease and she also had surgical history of appendectomy, small-bowel resection, bilateral salpingo oophorectomy . Patient was being followed by Dr. Cruz since 2012 before establishing care with me. Pt complains of sudden onset of lower abominal pain with bloating morning of 12/06/20 accompanied by nausea and bilious yellow vomitus. Pt was admitted and managed with bowel rest and NG suction. She has been passing gas and having watery bowel movements since last night with improvement in abdominal pain and bloating. Patient denies use of aspirin or NSAIDs and takes Tylenol p.r.n. for aches and pains. IMAGING STUDIES:? 12/06/[address] SCAN SHOWED: There is at least moderate chronic wall thickening involving the neoterminal ileum similar to prior with dilation of proximal small bowel to 4.3 cm suggestive of underlying stricture with proximally dilated loops of small bowel with air-fluid levels suggesting small bowel obstruction overall similar in morphology to prior. Lack of intravenous contrast limits assessment for bowel wall enhancement. There is small volume of free fluid with intermesenteric loop inflammatory fat stranding. Stool is present in the colon distally. ? New marked wall thickening of the gastric wall throughout the lesser curvature as well as the greater curvature along the gastric antrum and distal body. Proximal to the wall thickening along the greater curvature is a large saccular thin-walled outpouching new from prior with an approximately 4 cm neck, which may reflect a new large ulceration or possibly diverticulum, for which correlation with endoscopy is recommended.? ? Bilateral nonobstructing renal stones measuring up to 3 mm in the right midpole similar to prior. No hydronephrosis.? 04/13/[address] SCAN SHOWED: *? The patient is status post right hemicolectomy with an ileocolic anastomosis within the right midabdomen. The distal 10 cm of small bowel leading up to the ileocolic anastomosis shows irregular wall thickening and luminal narrowing on a chronic basis. There is dilatation of the small bowel proximal to this segment measuring up to 4.2 cm which may represent a combination of a partial mechanical small bowel obstruction and ileus. There is an additional segment of small bowel within the left midabdomen, likely distal jejunum or proximal ileum measuring 8.6 cm in length, also showing irregular wall thickening and luminal narrowing likely representing an additional site of inflammation of indeterminate activity. *? Bilateral nonobstructive intrarenal calculi as described. ENDOSCOPIC STUDIES:?01/29/21 EGD AND COLONOSCOPY WERE PERFORMED BY DR. CRUZ: POSTOPERATIVE DIAGNOSIS: Esophagogastroduodenoscopy: Hiatal hernia, Superficial hemorrhagic gastritis; Colonoscopy: open anastomosis, ileal mucosa normal, able to intubate for approximately 8 cm, colon mucosa normal. BIOPSIES SHOWED: A.? Duodenum, biopsies:? Duodenal mucosa with no significant histopathology; no villous abnormality identified; no increase in intraepithelial lymphocytes. B.? Stomach, random, biopsies:? Gastric mucosa with mild chronic, inactive gastritis; negative for Helicobacter pylori organisms; negative for intestinal metaplasia; negative for dysplasia. C.? Small bowel, biopsies:? Small bowel mucosa within normal limits; no active ?inflammation; no granulomas; negative for malignancy. ?D.? Colon, proximal, biopsies:? Colonic mucosa within normal limits. ?E.? Colon, left, biopsies:? Colonic mucosa within normal limits. 05/2021 Fecal calprotectin was 43 Nov, 2020: Stelara level was 14 and no antibodies were detected Review of Systems Constitutional: Constitutional: Denies fever(s), Denies headache(s) and Denies weight loss Eyes: Eyes: Denies eye discharge and Denies irritation ENT: Reports Normal hearing present, Denies dysphagia, Denies dizziness and Denies headache(s) Cardiovascular: Cardiovascular: Denies chest pain, Denies leg edema and Denies dyspnea on exertion Respiratory: Respiratory: Denies cough, Denies dyspnea on exertion and Denies wheezing Gastrointestinal: Gastrointestinal: Reports abdominal pain, Denies change in bowel habits, Denies dysphagia, Denies heartburn, Reports nausea and Reports vomiting Genitourinary: Genitourinary: Denies difficulty voiding and Denies dysuria Musculoskeletal: Musculoskeletal: Denies back pain and Denies arthralgias Integumentary/Breasts: Skin/Breast: Denies pruritus, Denies rash and Denies jaundice Neurologic: Reports Normal hearing present, Denies Abnormal speech present, Denies dizziness, Denies headache(s) and Denies seizure-like activity Psychiatric: Psychiatric: Denies anxiety, Denies depression and Denies panic attacks Endocrine: Endocrine: Denies cold intolerance, Denies flushing and Denies heat intolerance Hematologic/Lymphatic: Hematologic/Lymphatic: Denies easy bleeding and Denies easy bruising Allergic/Immunologic: Allergic/Immunologic: Denies wheezing PMFSH Past Medical History Medical History Crohns disease of small intestine Gastritis Hyperlipidemia Small bowel obstruction Family History Family History Father No problems noted. Mother Pneumonia Sister Breast cancer Surgical History Surgical History History of appendectomy History of bowel resection History of esophagogastroduodenoscopy (EGD) Hx of colonoscopy S/P BSO (bilateral salpingo-oophorectomy) Social History Social History Household Members: None Housing: Apartment Do you presently have visiting nurse or other home services: No Alcohol intake: never Patient Tobacco Use Status: Current everyday Tobacco user Tobacco use type: Cigarette Cigarette Packs Per Day: 1 Cigarettes Per Day: 20.0 Years Smoked: 45 Smoked in Last 30 Days: Yes Patient Interested in Nicotine Replacement: Yes Patient Given Instructions on How to Stop Smoking: Yes Date Education Initiated: 12/07/21 Second Hand Smoke Exposure: No Use of substances other than those prescribed or required for medical reasons: No Currently Displaying Signs/Symptoms of Drug Intoxication Withdrawal: No Have you been hit, kicked, punched, or otherwise hurt by someone within the past year? If so, by whom?: No Do you feel safe in your current relationship?: Yes Is there a partner from a previous relationship who is making you feel unsafe now?: No Are you made to feel afraid or neglected: No Advance Directives: No Advance Directives Date on File: 04/13/21 Do you have thoughts of harming others: None Do you have a plan to hurt others: No Plan Recently lost weight without trying: No Nutrition Risks: No Nutritional Risk service: No Current occupational status: unemployed and disabled Meds Allergies Allergy/AdvReac Type Severity Reaction Status Date / Time No Known Allergies Allergy Verified 12/07/21 13:43 [No Known Allergies*] Active Medications: Current Medications Heparin Sodium (Porcine) (Heparin Sodium,Porcine 5,000 Unit/Ml Vial) 5,000 unit SUBCUT BID [facility] Last Admin: 12/08/21 08:57 Dose: 5,000 unit Documented by: Hydromorphone HCl (Hydromorphone Hcl 1 Mg/Ml Syringe) 0.5 mg IVPUSH Q3H PRN; Protocol PRN Reason: Pain, Severe (Pain Scale 7-10) Last Admin: 12/08/21 06:10 Dose: 0.5 mg Documented by: Lactated Ringer's (Lr) 1,000 mls @ 100 mls/hr IVCONT .Q10H [facility] Last Admin: 12/08/21 11:02 Dose: 100 mls/hr Documented by: Ondansetron HCl (Ondansetron Hcl 4 Mg/2 Ml Vial) 4 mg IVPUSH Q8H PRN PRN Reason: Nasal Congestion Last Admin: 12/07/21 19:29 Dose: 4 mg Documented by: Pharmacy Consult (Consult Rx Perform Med Rec) 1 each MISCELLANE ONCE PRN PRN Reason: Consult order Sodium Chloride (0.9 % Sodium Chloride Flush 3 Ml Syringe) 3 ml IVFLUSH QSHIFT [facility] Last Admin: 12/08/21 08:58 Dose: Not Given Documented by: Home Medications Medication Instructions Recorded Confirmed Last Taken Type atorvastatin 40 mg tablet 40 mg PO DAILY 09/23/20 12/06/21 12/06/21 History Physical Exam Vital Signs: Vital Signs: Last Vital Signs Temp 97 F 12/08/21 10:47 Pulse 72 12/08/21 10:47 Resp 18 12/08/21 10:47 BP 137/65 12/08/21 10:47 Pulse Ox 96 12/08/21 10:47 BMI result Body Mass Index 26.5 Const: General: healthy appearing and no acute distress Nutritional Appearance: overweight Orientation/consciousness: patient oriented x3 Limitations: no limitations HENMT: Head: Yes normal to inspection Ears: hearing grossly normal bilaterally Mouth: Normal oral and palatal mucosa present Eyes: Sclerae: sclerae normal Pupils: Equal, round and reactive pupils present Neck: Neck: Yes normal visual inspection Chest: Chest palpation & inspection: normal inspection of the chest Resp: Effort & Inspection: normal respiratory effort Auscultation: clear to auscultation bilaterally Cardio: Palpation: normal PMI Rate: regular rate Rhythm: regular rhythm Heart sounds: S1 normal heart sound present, S2 normal heart sound present and no murmurs GI: Palpation (GI): Soft to palpation, Tenderness to palpation present (GI) (Moderate RLQ and supra-pubic tenderness) and No hepatosplenomegaly present Auscultation: normal bowel sounds Rectal Exam - Female: deferred Skin: General skin exam: no rashes or lesions noted Neuro: General: patient oriented x3, gait normal and moves all extremities Cranial nerves: Yes Equal, round and reactive pupils present and Yes Normal hearing present Speech: No Abnormal speech present Psych: Appearance: grossly normal Mental Status: mental status grossly normal Results Labs CBC & Chem 7: 12/07/21 05:36 12/07/21 05:36 Microbiology Microbiology Results: Microbiology 12/06/21 18:59 Blood - Venous Blood Culture - Preliminary No growth after 24 hours. 12/06/21 18:46 Blood - Venous Blood Culture - Preliminary No growth after 24 hours. 12/06/21 18:55 Urine clean catch - Clean Catch Midstream Urine Culture - Preliminary No growth to date. Assessment and Plan (1) SBO (small bowel obstruction): Status: Acute (2) Crohns disease of small intestine: Status: Acute 61 YF diagnosed with Crohn's disease diagnosed > than 20 yrs ago. 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 Patient was last admitted with another episode of SBO in 03/2021 and was managed with bowel rest and IV fluids. She refused NG tube. 12/06/[address] scan showed moderate chronic wall thickening involving the neoterminal ileum similar to prior with dilation of proximal small bowel to 4.3 cm suggestive of underlying stricture with proximally dilated loops of small bowel with air-fluid levels suggesting small bowel obstruction overall similar in morphology to prior. There is small volume of free fluid with intermesenteric loop inflammatory fat stranding. Stool is present in the colon distally. ? New marked wall thickening of the gastric wall throughout the lesser curvature as well as the greater curvature along the gastric antrum and distal body. Proximal to the wall thickening along the greater curvature is a large saccular thin-walled outpouching new from prior with an approximately 4 cm neck, which may reflect a new large ulceration or possibly diverticulum, for which correlation with endoscopy is recommended.? She likely has inflammation superimposed on area of fibrotic stricture. RECOMMENDATIONS: 1. Agree with a clear liquid diet and advancing diet as tolerated. 2. Proceed with EGD on 12/09/21 - scheduled at 11:30 am. Procedure and potential complications including bleeding, perforation, drug reaction and aspiration were reviewed with the patient. 3. She will be scheduled for a colonoscopy as an outpatient to assess Crohn's disease activity (of note Fecal calprotectin was normal last year) 4. If she continues to have recurrent episodes of SBO, surgical resection of the diseased segment will be helpful in preventing recurrent obstruction. Procedures Date of Service Date of Service: 12/08/21
--- NOTE | 2021-12-08 14:39 | MHC.CM.PN ---
EMR REVIEWED, PT's ng tube removed, pt having flatus and bm's, per chart pt remains on NPO however pt's nurse reporting pt will be on clear liquids, antic d/c in 1-2 days.
[2021-12-08] MEDS: 0.9 % Sodium Chloride Flush 3 ML SYRINGE IVFLUSH (15:33)
--- NOTE | 2021-12-08 17:15 | PC.NURSE ---
Radha SHAW clamped pts NG tube during rounds. Residual checked 4 hours later at 12:21pm. Residual 10mL. Pt denies nausea, states her abdominal pain has stayed the same since the NG tube has been clamped. Pt states she is passing gas. Radha Hsieh notified via tiger text. Orders recieved to remove NG tube and start pt on clears. NG tube removed, pt tolerated well. Pt started on clears. Upon re-assessment one hour later, pt denies nausea, states she is passing gas.
[2021-12-09] VITALS (9 sets, daily range): BP systolic 105–177; BP diastolic 52–79; PULSE 63–136; RESP 16–22; TEMP 36.1–37.2; O2SAT 93–99
[2021-12-09] MEDS: HYDROmorphone HCl 1 MG/ML SYRINGE 0.5 MG IVPUSH ×3 (03:47→22:55)
[2021-12-09] MEDS: Lactated Ringers 1,000 ML 100 ML IVCONT ×2 (03:49→16:59)
--- NOTE | 2021-12-09 08:24 | PM.PNGS ---
Subjective Subjective Date of Service: 12/09/21 <Radha Hsieh PA-C - Last Filed: 12/09/21 08:27> 12/09/21 <Rusty Cortes MD - Last Filed: 12/09/21 10:15> Interval history: NGT removed yesterday and started on liquids. Tolerating liquids without n/v. Pain continues to wax and wane but remains overall improved. Awaiting upper endo this morning. <Radha Hsieh PA-C - Last Filed: 12/09/21 08:27> Physical Exam Vital Signs: Vital Signs: Last Vital Signs Temp 97 F 12/09/21 07:13 Pulse 64 12/09/21 07:13 Resp 18 12/09/21 07:13 BP 150/68 H 12/09/21 07:13 Pulse Ox 93 12/09/21 07:13 BMI result Body Mass Index 26.5 <Radha Hsieh PA-C - Last Filed: 12/09/21 08:27> Const: General: comfortable, no acute distress and alert <Radha Hsieh PA-C - Last Filed: 12/09/21 08:27> Orientation/consciousness: patient oriented x3 <Radha Hsieh PA-C - Last Filed: 12/09/21 08:27> GI: Inspection: Yes normal to inspection and No distended <Radha Hsieh PA-C - Last Filed: 12/09/21 08:27> Palpation (GI): Soft to palpation, Tenderness to palpation present (GI) (mild lower abdominal tenderness R>L) and no guarding <Radha Hsieh PA-C - Last Filed: 12/09/21 08:27> Skin: General skin exam: no rashes or lesions noted <JU Neves Last Filed: 12/09/21 08:27> Neuro: General: patient oriented x3 <JU Neves Last Filed: 12/09/21 08:27> Objective Data Active Medications Acetaminophen (Acetaminophen 325 Mg Tablet) 650 mg PO Q6H PRN PRN Reason: fever, pain Heparin Sodium (Porcine) (Heparin Sodium,Porcine 5,000 Unit/Ml Vial) 5,000 unit SUBCUT BID [facility] Last Admin: 12/08/21 19:45 Dose: 5,000 unit Documented by: KACI Hydromorphone HCl (Hydromorphone Hcl 1 Mg/Ml Syringe) 0.5 mg IVPUSH Q3H PRN; Protocol PRN Reason: Pain, Severe (Pain Scale 7-10) Last Admin: 12/09/21 03:47 Dose: 0.5 mg Documented by: KACI Lactated Ringer's (Lr) 1,000 mls @ 100 mls/hr IVCONT .Q10H [facility] Last Admin: 12/09/21 03:49 Dose: 100 mls/hr Documented by: KACI Ondansetron HCl (Ondansetron Hcl 4 Mg/2 Ml Vial) 4 mg IVPUSH Q8H PRN PRN Reason: Nasal Congestion Last Admin: 12/07/21 19:29 Dose: 4 mg Documented by: ODRISM Oxycodone HCl (Oxycodone Hcl Immed Release 5 Mg Tablet) 5 mg PO Q4H PRN PRN Reason: Pain, Moderate (Pain Scale 4-6 Pharmacy Consult (Consult Rx Perform Med Rec) 1 each MISCELLANE ONCE PRN PRN Reason: Consult order Sodium Chloride (0.9 % Sodium Chloride Flush 3 Ml Syringe) 3 ml IVFLUSH QSHIFT [facility] Last Admin: 12/08/21 19:46 Dose: Not Given Documented by: KACI Non-Admin Reason: IV Running <Radha Hsieh PA-C - Last Filed: 12/09/21 08:27> Labs CBC & Chem 7: : 12/07/21 05:36 12/07/21 05:36 <Radha Hsieh PA-C - Last Filed: 12/09/21 08:27> Microbiology Microbiology Results: Microbiology 12/06/21 18:59 Blood Culture - Preliminary Blood - Venous No growth after 48 hours. 12/06/21 18:46 Blood Culture - Preliminary Blood - Venous No growth after 48 hours. 12/06/21 18:55 Urine Culture - Final Urine clean catch - Clean Catch Midstream <Radha Hsieh PA-C - Last Filed: 12/09/21 08:27> Procedures Date of Service Date of Service: 12/09/21 <Radha Hsieh PA-C - Last Filed: 12/09/21 08:27> Progress Note: A&P Assessment and plan (1) SBO (small bowel obstruction): Status: Acute <Radha Hsieh PA-C - Last Filed: 12/09/21 08:27> (2) Crohns disease of small intestine: Status: Acute <Radha Hsieh PA-C - Last Filed: 12/09/21 08:27> Assessment and Plan: Continues to have periodic pain and tenderness although much improved No nausea or vomiting Passing flatus Abdomen soft not tender at this time She is tolerating clear liquids Scheduled for EGD today Improving otherwise with regards to symptoms Seen and examined - agree with COLIN Hsieh <Rusty Cortes MD - Last Filed: 12/09/21 10:15> Assessment and Plan: 61 year old female with history of Crohns with obstruction at old ileocolonic anastomosis. Inflammatory changes on CT scan. Also with ?new stomach diverticulum. SBO appears resolved. Awaiting EGD this morning with Dr. Iglesias to evaluate ?stomach diverticulum. Advance diet to solids following as tolerated. <Radha Hsieh PA-C - Last Filed: 12/09/21 08:27> Fall Risk Details Current Medications: Current Medications Acetaminophen (Acetaminophen 325 Mg Tablet) 650 mg PO Q6H PRN PRN Reason: fever, pain Heparin Sodium (Porcine) (Heparin Sodium,Porcine 5,000 Unit/Ml Vial) 5,000 unit SUBCUT BID [facility] Last Admin: 12/08/21 19:45 Dose: 5,000 unit Documented by: Hydromorphone HCl (Hydromorphone Hcl 1 Mg/Ml Syringe) 0.5 mg IVPUSH Q3H PRN; Protocol PRN Reason: Pain, Severe (Pain Scale 7-10) Last Admin: 12/09/21 03:47 Dose: 0.5 mg Documented by: Lactated Ringer's (Lr) 1,000 mls @ 100 mls/hr IVCONT .Q10H [facility] Last Admin: 12/09/21 03:49 Dose: 100 mls/hr Documented by: Ondansetron HCl (Ondansetron Hcl 4 Mg/2 Ml Vial) 4 mg IVPUSH Q8H PRN PRN Reason: Nasal Congestion Last Admin: 12/07/21 19:29 Dose: 4 mg Documented by: Oxycodone HCl (Oxycodone Hcl Immed Release 5 Mg Tablet) 5 mg PO Q4H PRN PRN Reason: Pain, Moderate (Pain Scale 4-6 Pharmacy Consult (Consult Rx Perform Med Rec) 1 each MISCELLANE ONCE PRN PRN Reason: Consult order Sodium Chloride (0.9 % Sodium Chloride Flush 3 Ml Syringe) 3 ml IVFLUSH QSHIFT [facility] Last Admin: 12/08/21 19:46 Dose: Not Given Documented by: <Radha Hsieh PA-C - Last Filed: 12/09/21 08:27> Time Spent With Patient Time: Total time spent is greater than 50% in coordination of care (as documented) at patient's floor/unit and/or counseling patient: <Radha Hsieh PA-C - Last Filed: 12/09/21 08:27> Time with patient: less than 15 minutes <Radha Hsieh PA-C - Last Filed: 12/09/21 08:27> Quality Stroke Does the patient have a stroke diagnosis?: No <Radha Hsieh PA-C - Last Filed: 12/09/21 08:27> VTE Prior VTE?: No <Radha Hsieh PA-C - Last Filed: 12/09/21 08:27> VTE Risk Level:: Medical - moderate - high <JU Neves Last Filed: 12/09/21 08:27> VTE Device Contraindication: N/A - Device Ordered <JU Neves Last Filed: 12/09/21 08:27> VTE Drug Contraindication: Drug Allergy <JU Neves Last Filed: 12/09/21 08:27>
[2021-12-09] MEDS: oxyCODONE HCl Immed Release 5 MG TABLET PO (08:44)
[2021-12-09] MEDS: Acetaminophen 325 MG TABLET 650 MG PO (08:44)
[2021-12-09] MEDS: Lactated Ringers 500 ML 20 ML IVCONT (11:00)
--- NOTE | 2021-12-09 12:10 | P.CONAN_ITS ---
HPI - Anesthesia Eval Consult details Narrative: 61 F for EGD smoker , Crohn s , SBO HLD PMFSH Active Problems Active Problems: All Active Problems (Updated 12/06/21 @ 20:19 by Shelly Gerard MD) SBO (small bowel obstruction) (Acute) Crohns disease of small intestine (Acute) Past Medical History Medical History Crohns disease of small intestine Gastritis Hyperlipidemia Small bowel obstruction Family History Family History Father No problems noted. Mother Pneumonia Sister Breast cancer Surgical History Surgical History History of appendectomy History of bowel resection History of esophagogastroduodenoscopy (EGD) Hx of colonoscopy S/P BSO (bilateral salpingo-oophorectomy) History of Problems with Anesthesia: No Social History Social History Household Members: None Housing: Apartment Do you presently have visiting nurse or other home services: No Alcohol intake: never Patient Tobacco Use Status: Current everyday Tobacco user Tobacco use type: Cigarette Cigarette Packs Per Day: 1 Cigarettes Per Day: 15 Years Smoked: 45 Smoked in Last 30 Days: Yes Patient Interested in Nicotine Replacement: Yes Patient Given Instructions on How to Stop Smoking: Yes Date Education Initiated: 12/07/21 Second Hand Smoke Exposure: No Use of substances other than those prescribed or required for medical reasons: No Currently Displaying Signs/Symptoms of Drug Intoxication Withdrawal: No Have you been hit, kicked, punched, or otherwise hurt by someone within the past year? If so, by whom?: No Do you feel safe in your current relationship?: Yes Is there a partner from a previous relationship who is making you feel unsafe now?: No Are you made to feel afraid or neglected: No Are you DNR?: No Advance Directives: No Advance Directives Date on File: 04/13/21 Do you have thoughts of harming others: None Do you have a plan to hurt others: No Plan Recently lost weight without trying: No Nutrition Risks: No Nutritional Risk service: No Current occupational status: unemployed and disabled Meds Allergies Allergy/AdvReac Type Severity Reaction Status Date / Time No Known Allergies Allergy Verified 12/09/21 10:39 [No Known Allergies*] Active Medications: Current Medications Acetaminophen (Acetaminophen 325 Mg Tablet) 650 mg PO Q6H PRN PRN Reason: fever, pain Last Admin: 12/09/21 08:44 Dose: 650 mg Documented by: Heparin Sodium (Porcine) (Heparin Sodium,Porcine 5,000 Unit/Ml Vial) 5,000 unit SUBCUT BID [facility] Last Admin: 12/09/21 08:47 Dose: Not Given Documented by: Hydromorphone HCl (Hydromorphone Hcl 1 Mg/Ml Syringe) 0.5 mg IVPUSH Q3H PRN; Protocol PRN Reason: Pain, Severe (Pain Scale 7-10) Last Admin: 12/09/21 03:47 Dose: 0.5 mg Documented by: Lactated Ringer's (Lr) 1,000 mls @ 100 mls/hr IVCONT .Q10H [facility] Last Infusion: 12/09/21 11:24 Dose: 0 mls/hr Documented by: Ondansetron HCl (Ondansetron Hcl 4 Mg/2 Ml Vial) 4 mg IVPUSH Q8H PRN PRN Reason: Nasal Congestion Last Admin: 12/07/21 19:29 Dose: 4 mg Documented by: Oxycodone HCl (Oxycodone Hcl Immed Release 5 Mg Tablet) 5 mg PO Q4H PRN PRN Reason: Pain, Moderate (Pain Scale 4-6 Last Admin: 12/09/21 08:44 Dose: 5 mg Documented by: Pharmacy Consult (Consult Rx Perform Med Rec) 1 each MISCELLANE ONCE PRN PRN Reason: Consult order Sodium Chloride (0.9 % Sodium Chloride Flush 3 Ml Syringe) 3 ml IVFLUSH QSHIFT [facility] Last Admin: 12/09/21 08:38 Dose: Not Given Documented by: Home Medications Medication Instructions Recorded Confirmed Last Taken Type atorvastatin 40 mg tablet 40 mg PO DAILY 09/23/20 12/06/21 12/06/21 History Exam Exam Date and Time: December 09, 2021 1210 Height,Weight and Vital Signs: Height 5 ft Weight 61.689 kg Last Vital Signs Temp 98.3 F 12/09/21 10:42 Pulse 73 12/09/21 10:42 Resp 16 12/09/21 10:42 BP 158/71 H 12/09/21 10:42 Pulse Ox 96 12/09/21 10:42 Pertinent Lab Results Pertinent Lab Results: Laboratory Tests 12/06/21 12/06/21 12/06/21 18:18 18:18 18:19 WBC 17.0 H RBC 5.53 H Hgb 16.4 H Hct 49.6 H MCV 89.7 MCH 29.7 MCHC 33.1 RDW 13.6 Plt Count 213 MPV 10.7 Immature Gran % (Auto) 0.5 H Neut % (Auto) 79.3 H Lymph % (Auto) 14.4 L [place] % (Auto) 4.9 Eos % (Auto) 0.5 Baso % (Auto) 0.4 Lymph # (Auto) 2.5 [place] # (Auto) 0.8 Eos # (Auto) 0.1 Baso # (Auto) 0.1 Abs Immat Gran (auto) 0.08 H Absolute Neuts (auto) 13.5 H Absolute Nucleated RBC 0.000 Nucleated RBC % (auto) 0.0 Sodium 143 Potassium 4.1 Chloride 109 H Carbon Dioxide 23 Anion Gap 15 BUN 10 Creatinine 0.95 Estim Creat Clear Calc 50.3 Estimated GFR 60 Random Glucose 103 Lactic Acid Calcium 10.6 H Total Bilirubin 0.4 Direct Bilirubin 0.2 AST 19 ALT 24 Alkaline Phosphatase 104 B-Natriuretic Peptide Total Protein 7.2 Albumin 4.3 Lipase 32 Urine Color Urine Appearance Urine pH Ur Specific [place] Urine Protein Urine Glucose (UA) Urine Ketones Urine Blood Urine Nitrite Ur Leukocyte Esterase Urine RBC Urine WBC Ur Squamous Epith Cells Urine Bacteria Urine Mucus COVID-19 (LINDA) Negative COVID-19 Clin Com See Note 12/06/21 12/06/21 12/06/21 18:32 18:59 18:59 WBC RBC Hgb Hct MCV MCH MCHC RDW Plt Count MPV Immature Gran % (Auto) Neut % (Auto) Lymph % (Auto) [place] % (Auto) Eos % (Auto) Baso % (Auto) Lymph # (Auto) [place] # (Auto) Eos # (Auto) Baso # (Auto) Abs Immat Gran (auto) Absolute Neuts (auto) Absolute Nucleated RBC Nucleated RBC % (auto) Sodium Potassium Chloride Carbon Dioxide Anion Gap BUN Creatinine Estim Creat Clear Calc Estimated GFR Random Glucose Lactic Acid 1.4 Calcium Total Bilirubin Direct Bilirubin AST ALT Alkaline Phosphatase B-Natriuretic Peptide 59 Total Protein Albumin Lipase Urine Color YELLOW Urine Appearance HAZY Urine pH 5.5 Ur Specific [place] 1.020 Urine Protein NEG Urine Glucose (UA) NEG Urine Ketones NEG Urine Blood NEG Urine Nitrite NEG Ur Leukocyte Esterase 1+ H Urine RBC 0-2 Urine WBC 1-4 Ur Squamous Epith Cells 2+ Urine Bacteria TRACE Urine Mucus 2+ COVID-19 (LINDA) COVID-19 Clin Com 12/07/21 12/07/21 05:36 05:36 WBC 10.4 RBC 5.00 Hgb 14.6 Hct 44.5 MCV 89.0 MCH 29.2 MCHC 32.8 RDW 13.9 Plt Count 240 MPV 10.7 Immature Gran % (Auto) Neut % (Auto) Lymph % (Auto) [place] % (Auto) Eos % (Auto) Baso % (Auto) Lymph # (Auto) [place] # (Auto) Eos # (Auto) Baso # (Auto) Abs Immat Gran (auto) Absolute Neuts (auto) Absolute Nucleated RBC 0.000 Nucleated RBC % (auto) 0.0 Sodium 142 Potassium 4.6 Chloride 111 H Carbon Dioxide 23 Anion Gap 13 BUN 17 H D Creatinine 0.75 Estim Creat Clear Calc 63.8 Estimated GFR > 60 Random Glucose 109 Lactic Acid Calcium 9.3 D Total Bilirubin Direct Bilirubin AST ALT Alkaline Phosphatase B-Natriuretic Peptide Total Protein Albumin Lipase Urine Color Urine Appearance Urine pH Ur Specific [place] Urine Protein Urine Glucose (UA) Urine Ketones Urine Blood Urine Nitrite Ur Leukocyte Esterase Urine RBC Urine WBC Ur Squamous Epith Cells Urine Bacteria Urine Mucus COVID-19 (LINDA) COVID-19 Clin Com Airway Mallampati Class: II Neck ROM: Full Denture: Upper and Lower Loose/Missing/Broken Teeth: Yes Assessment and Plan Final Anesthetic Review History of Problems with Anesthesia: No NPO: Yes ASA Class: III Final Preanesthetic Review: Meds/Allgs Chart Reviewed and Anes Risks/Benef Reviewed Patient Risk: High Procedure Risk: Intermediate Anesthetic Plan Anesthetic Plan: GA and MAC: Disposition: Inp. Admit - Standard Bed
--- NOTE | 2021-12-09 13:23 | MHC.SHP ---
Pre-Procedural Eval Section A Date of Service: 12/09/21 The patient is an INPATIENT: Yes Changes since office visit: Yes New Medical Problems, Yes Changes in Medication and Yes Patient answered all questions; No Cold of Flu in the past 2 weeks The History & Physical has been completed within 30 days and I have reviewed it.: Yes Section B Chief Complaint: Crohns ds with sbo Allergies: Allergies Allergy/AdvReac Type Severity Reaction Status Date / Time No Known Allergies Allergy Verified 12/09/21 10:39 [No Known Allergies*] Plan I have reviewed the history and physical and performed a pertinent physical examination on my patient. No changes have occurred unless specified.
--- NOTE | 2021-12-09 13:24 | W.PM.OPN ---
Operative Note Operative Note Date of Service: 12/09/21 Narrative: Pre-op diagnosis:?abdnormal CT scan of the stomach, Crohn's disease with SBO Post-op diagnosis:?other (Hiatal hernia, Gastric ulcer, gastritis, multiple duodenal ulcers) Procedure:? FLEXIBLE TRANSORAL UPPER GASTROINTESTINAL ENDOSCOPY WITH BIOPSIES Consent:?Indications for the procedure and potential complications of bleeding, perforation, reaction to medications and missed diagnosis were discussed with the patient and informed consent was obtained. Instrument:?Olympus GIF H 190 mid size upper endoscope Monitoring: Vital signs and clinical assessment, continuous EKG monitoring, Pulse oximetry, Carbon Dioxide monitoring and blood pressure monitoring were done throughout the procedure. Procedure:?The patient was placed in the left lateral decubitis position and pre-procedure medications were administered and a bite block was placed. The endoscope was inserted into the mouth and advanced under direct vision to the third part of duodenum. A careful inspection was made as the upper endoscope was withdrawn including a retroflexed examination of the proximal stomach; Findings and interventions are described below. Findings: Larynx:? Normal Esophagus:Mildly tortuous esophagus with increased tertiary contractions without stricture. GE junction at 32 cms, small hiatal hernia 32 to 34 cms with a non-obstructing Schatzki's ring. No esophagitis or Marquez's. Stomach: Moderate gastric erythema with nodular appearing mucosa in the gastric body. Multiple 1 to 1.5 cms circular areas of submucosal hemorhages - likely due to NG tube trauma.? A 1.5 cms non-bleeding ulcer with an old clot at the base in the gastric body along the greater curvature.? Biopsies were obtained from the antrum and body of the stomach. Grade 3 flap valve on retroflexed examination of the cardia. Duodenum: Multiple 1-2 cms superficial linear ulcers in the apex of the bulb and proximal? descending duodenum - multiple biopsies obtained to rule out UGI Crohn's disease. Intervention: Biopsies as noted above Impression and Post Procedure Diagnosis: Endoscopy Findings: ESOPHAGUS: Mildly tortuous esophagus with increased tertiary contractions without stricture. GE junction at 32 cms, small hiatal hernia 32 to 34 cms with a non-obstructing Schatzki's ring. No esophagitis or Marquez's. STOMACH: Moderate gastric erythema with nodular appearing mucosa in the gastric body. Multiple 1 to 1.5 cms circular areas of submucosal hemorhages - likely due to NG tube trauma.? A 1.5 cms non-bleeding ulcer with an old clot at the base in the gastric body along the greater curvature.? Biopsies were obtained from the antrum and body of the stomach. Grade 3 flap valve on retroflexed examination of the cardia. DUODENUM: Multiple ulcers in the apex of the bulb and proximal? descending duodenum - multiple biopsies obtained to rule out UGI Crohn's disease. Plan: Await pathology results. Patient to start Omeprazole 20 mg twice daily for PUD. PT will be scheduled for a FU EGD in 8 to 12 weeks to confirm gastric and duodenal ulcers have healed.? Same colonoscopy will be scheduled to FU on Crohn's disease. Patient has an appointment on 01/29/22 in the GI Clinic with? Coty Iglesias M.D.. Above findings were reviewed with the patient and PUD and hiatal hernia handouts were given in the discharge area Surgeon:?Coty Iglesias MD Anesthesia:?MAC (Bruna Alejo CRNA) Was an Student Admissions Clerk used for this Procedure?:?No Student Admissions Clerk:?Amparo Don Estimated blood loss (mL):?0 Pathology:?other (A. DUODENAL ULCER R/O CROHNS DISEASE? B. GASTRIC ANTRUM R/O H. PYLORI? C. GASTRIC BODY) Condition:?stable Disposition:?PACU
[2021-12-09] MEDS: 0.9 % Sodium Chloride Flush 3 ML SYRINGE IVFLUSH (14:49)
[2021-12-09] MEDS: Omeprazole 20 MG CAPSULE.DR PO (16:59)
[2021-12-09] MEDS: Heparin Sodium,Porcine 5,000 UNIT/ML VIAL 5000 UNIT SUBCUT (19:23)
[2021-12-10 04:00] VITALS: BP 155/72; PULSE 57; RESP 17; TEMP 36.1; O2SAT 95
[2021-12-10] MEDS: Omeprazole 20 MG CAPSULE.DR PO ×2 (05:33→16:05)
--- NOTE | 2021-12-10 06:44 | HO.POSTANES ---
Post Anesthesia Evaluation Post Anesthesia Evaluation Vital Signs: Vital Signs Temp Pulse Resp BP Pulse Ox 12/10/21 04:00 97.0 F 57 17 155/72 H 95 12/09/21 23:35 98.1 F 64 17 134/65 96 12/09/21 19:27 97.9 F 65 18 177/79 H 99 Anesthesia: Monitored Mental Status: Awake Pain Control: Satisfactory Nausea/Vomiting: None Hydration: Adequate Anesthesia-Related Issues: No Anes. Related Issues
[2021-12-10 07:26] VITALS: BP 124/86; PULSE 63; RESP 18; TEMP 36; O2SAT 98
[2021-12-10] MEDS: oxyCODONE HCl Immed Release 5 MG TABLET PO ×2 (07:46→16:05)
[2021-12-10] MEDS: Heparin Sodium,Porcine 5,000 UNIT/ML VIAL 5000 UNIT SUBCUT ×2 (07:46→20:15)
[2021-12-10] MEDS: 0.9 % Sodium Chloride Flush 3 ML SYRINGE IVFLUSH ×3 (07:47→20:20)
--- NOTE | 2021-12-10 08:56 | PM.PNGS ---
Subjective Subjective Date of Service: 12/10/21 <Radha Hsieh PA-C - Last Filed: 12/10/21 09:08> 12/10/21 <Rusty Cortes MD - Last Filed: 12/10/21 11:47> Interval history: Had EGD yesterday. Reports continued RLQ pain, worsens with eating. Continues to pass flatus, bowel movements. Ambulating. <Radha Hsieh PA-C - Last Filed: 12/10/21 09:08> Physical Exam Vital Signs: Vital Signs: Last Vital Signs Temp 96.8 F 12/10/21 07:26 Pulse 63 12/10/21 07:26 Resp 18 12/10/21 07:26 BP 124/86 12/10/21 07:26 Pulse Ox 98 12/10/21 07:26 BMI result Body Mass Index 26.5 <Radha Hsieh PA-C - Last Filed: 12/10/21 09:08> Const: General: comfortable, no acute distress and alert <Radha Hsieh PA-C - Last Filed: 12/10/21 09:08> Orientation/consciousness: patient oriented x3 <Radha Hsieh PA-C - Last Filed: 12/10/21 09:08> GI: Inspection: No distended <Radha Hsieh PA-C - Last Filed: 12/10/21 09:08> Palpation (GI): Soft to palpation, Tenderness to palpation present (GI) in the RLQ, no guarding and not rigid <Radha Hsieh PA-C - Last Filed: 12/10/21 09:08> Skin: General skin exam: no rashes or lesions noted <Radha Hsieh PA-C - Last Filed: 12/10/21 09:08> Neuro: General: patient oriented x3 <JU Neves Last Filed: 12/10/21 09:08> Extrem: General: Yes no clubbing, cyanosis or edema <Radha Hsieh PA-C - Last Filed: 12/10/21 09:08> Objective Data Active Medications Acetaminophen (Acetaminophen 325 Mg Tablet) 650 mg PO Q6H PRN PRN Reason: fever, pain Last Admin: 12/09/21 08:44 Dose: 650 mg Documented by: HANNAH Heparin Sodium (Porcine) (Heparin Sodium,Porcine 5,000 Unit/Ml Vial) 5,000 unit SUBCUT BID [facility] Last Admin: 12/10/21 07:46 Dose: 5,000 unit Documented by: NENA Hydromorphone HCl (Hydromorphone Hcl 1 Mg/Ml Syringe) 0.5 mg IVPUSH Q3H PRN; Protocol PRN Reason: Pain, Severe (Pain Scale 7-10) Last Admin: 12/09/21 22:55 Dose: 0.5 mg Documented by: KACI Lactated Ringer's (Lr) 500 mls @ 20 mls/hr IVCONT .Q24H [facility] Last Infusion: 12/09/21 22:54 Dose: 0 mls/hr Documented by: KACI Omeprazole (Omeprazole 20 Mg Capsule.Dr) 20 mg PO BID@0630,1630 [facility] Last Admin: 12/10/21 05:33 Dose: 20 mg Documented by: KACI Ondansetron HCl (Ondansetron Hcl 4 Mg/2 Ml Vial) 4 mg IVPUSH Q8H PRN PRN Reason: Nasal Congestion Last Admin: 12/07/21 19:29 Dose: 4 mg Documented by: BIRISTay Oxycodone HCl (Oxycodone Hcl Immed Release 5 Mg Tablet) 5 mg PO Q4H PRN PRN Reason: Pain, Moderate (Pain Scale 4-6 Last Admin: 12/10/21 07:46 Dose: 5 mg Documented by: NENA Pharmacy Consult (Consult Rx Perform Med Rec) 1 each MISCELLANE ONCE PRN PRN Reason: Consult order Sodium Chloride (0.9 % Sodium Chloride Flush 3 Ml Syringe) 3 ml IVFLUSH QSHIFT [facility] Last Admin: 12/10/21 07:47 Dose: 3 ml Documented by: NENA <Radha Hsieh PA-C - Last Filed: 12/10/21 09:08> Labs CBC & Chem 7: : 12/07/21 05:36 12/07/21 05:36 <Radha Hsieh PA-C - Last Filed: 12/10/21 09:08> Procedures Date of Service Date of Service: 12/10/21 <Radha Hsieh PA-C - Last Filed: 12/10/21 09:08> Progress Note: A&P Assessment and plan (1) SBO (small bowel obstruction): Status: Acute <Radha Hsieh PA-C - Last Filed: 12/10/21 09:08> (2) Crohns disease of small intestine: Status: Acute <Radha Hsieh PA-C - Last Filed: 12/10/21 09:08> Assessment and Plan: Still feels a little bloated Still has some pain although better Passing flatus EGD done yesterday - multiple ulcers seen, small hiatal hernia Will check with Dr. Iglesias regarding starting steroid? Keep on clear liquids Seen and examined independently - agree with COLIN Hsieh <Rusty Cortes MD - Last Filed: 12/10/21 11:47> (3) Peptic ulcer disease: Status: Acute <Radha Hsieh PA-C - Last Filed: 12/10/21 09:08> Assessment and Plan: 61 year old female with history of Crohns, admitted with SBO. She had overall improvement in severity but has persistence of pain especially when eating. She did have inflammation of ileocolic anastomosis upon presentation. ?Active Crohns- addition of steroids-will discuss with GI. Continue clear liquids for now. Encouraged OOB/ambulation. EGD yesterday-- hiatal hernia, non-obstructing Schatzki's ring, gastric and duodenol ulcers. Started on Omeprazole. <Radha Hsieh PA-C - Last Filed: 12/10/21 09:08> Fall Risk Details Current Medications: Current Medications Acetaminophen (Acetaminophen 325 Mg Tablet) 650 mg PO Q6H PRN PRN Reason: fever, pain Last Admin: 12/09/21 08:44 Dose: 650 mg Documented by: Heparin Sodium (Porcine) (Heparin Sodium,Porcine 5,000 Unit/Ml Vial) 5,000 unit SUBCUT BID [facility] Last Admin: 12/10/21 07:46 Dose: 5,000 unit Documented by: Hydromorphone HCl (Hydromorphone Hcl 1 Mg/Ml Syringe) 0.5 mg IVPUSH Q3H PRN; Protocol PRN Reason: Pain, Severe (Pain Scale 7-10) Last Admin: 12/09/21 22:55 Dose: 0.5 mg Documented by: Lactated Ringer's (Lr) 500 mls @ 20 mls/hr IVCONT .Q24H [facility] Last Infusion: 12/09/21 22:54 Dose: Infused Documented by: Omeprazole (Omeprazole 20 Mg Capsule.Dr) 20 mg PO BID@0630,1630 [facility] Last Admin: 12/10/21 05:33 Dose: 20 mg Documented by: Ondansetron HCl (Ondansetron Hcl 4 Mg/2 Ml Vial) 4 mg IVPUSH Q8H PRN PRN Reason: Nasal Congestion Last Admin: 12/07/21 19:29 Dose: 4 mg Documented by: Oxycodone HCl (Oxycodone Hcl Immed Release 5 Mg Tablet) 5 mg PO Q4H PRN PRN Reason: Pain, Moderate (Pain Scale 4-6 Last Admin: 12/10/21 07:46 Dose: 5 mg Documented by: Pharmacy Consult (Consult Rx Perform Med Rec) 1 each MISCELLANE ONCE PRN PRN Reason: Consult order Sodium Chloride (0.9 % Sodium Chloride Flush 3 Ml Syringe) 3 ml IVFLUSH QSHIFT [facility] Last Admin: 12/10/21 07:47 Dose: 3 ml Documented by: <Radha Hsieh PA-C - Last Filed: 12/10/21 09:08> Time Spent With Patient Time: Total time spent is greater than 50% in coordination of care (as documented) at patient's floor/unit and/or counseling patient: <Radha Hsieh PA-C - Last Filed: 12/10/21 09:08> Time with patient: 15 - 24 minutes <Radha Hsieh PA-C - Last Filed: 12/10/21 09:08> Quality Stroke Does the patient have a stroke diagnosis?: No <Radha Hsieh PA-C - Last Filed: 12/10/21 09:08> VTE Prior VTE?: No <Radha Hsieh PA-C - Last Filed: 12/10/21 09:08> VTE Risk Level:: Medical - moderate - high <Radha Hsieh PA-C - Last Filed: 12/10/21 09:08> VTE Device Contraindication: N/A - Device Ordered <Radha Hsieh PA-C - Last Filed: 12/10/21 09:08> VTE Drug Contraindication: Drug Allergy <Radha Hsieh PA-C - Last Filed: 12/10/21 09:08>
[2021-12-10 11:35] VITALS: BP 167/77; PULSE 53; RESP 18; TEMP 37; O2SAT 98
[2021-12-10] MEDS: predniSONE 10 MG TABLET 30 MG PO (13:53)
--- NOTE | 2021-12-10 14:07 | MHC.CM.PN ---
EMR REVIEWED, EGD COMPLETED YESTERDAY, PT STARTED ON OMEPRAZOLE, CONT'S TO C/O RLQ PAIN AND REMAINS ON CLEAR LIQUIDS SHE HAS WORSENING PAIN WHEN EATING, NO PLAN FOR D/C TODAY, ANTIC D/C IN 1-2 DAYS AND CURRENT PLAN IS TO D/C HOME NO SERVICES W/FAMILY FOR TRANSPORT.
[2021-12-10 15:32] VITALS: BP 170/77; PULSE 53; RESP 16; TEMP 36.4; O2SAT 96
[2021-12-10 20:00] VITALS: BP 144/67; PULSE 55; RESP 16; TEMP 36.4; O2SAT 97
[2021-12-10 23:20] VITALS: BP 144/73; PULSE 57; RESP 18; TEMP 36.8; O2SAT 98
[2021-12-11 03:49] VITALS: BP 147/66; PULSE 60; RESP 18; TEMP 36.6; O2SAT 98
[2021-12-11] MEDS: Omeprazole 20 MG CAPSULE.DR PO ×2 (05:47→17:27)
[2021-12-11 06:32] LABS: C Reactive Protein 3.99 mg/dL (< or = 0.50)
[2021-12-11 07:45] VITALS: BP 150/69; PULSE 59; RESP 17; TEMP 36.5; O2SAT 99
--- NOTE | 2021-12-11 09:11 | PM.PNGS ---
Subjective Subjective Date of Service: 12/11/21 <Radha Hsieh PA-C - Last Filed: 12/11/21 09:15> 12/11/21 <Rusty Cortes MD - Last Filed: 12/11/21 09:47> Interval history: Feels much better this morning. Had no pain last night even after dinner. Has been up and ambulating without difficulty or pain. COntinues to pass flatus. <Radha Hsieh PA-C - Last Filed: 12/11/21 09:15> Physical Exam Vital Signs: Vital Signs: Last Vital Signs Temp 97.7 F 12/11/21 07:45 Pulse 59 12/11/21 07:45 Resp 17 12/11/21 07:45 BP 150/69 H 12/11/21 07:45 Pulse Ox 99 12/11/21 07:45 BMI result Body Mass Index 26.5 <Radha Hsieh PA-C - Last Filed: 12/11/21 09:15> Const: General: healthy appearing, comfortable and no acute distress <Radha Hsieh PA-C - Last Filed: 12/11/21 09:15> Orientation/consciousness: patient oriented x3 <Radha Hsieh PA-C - Last Filed: 12/11/21 09:15> GI: Inspection: No distended <Radha Hsieh PA-C - Last Filed: 12/11/21 09:15> Palpation (GI): Soft to palpation, nontender, no guarding and not rigid <Radha Hsieh PA-C - Last Filed: 12/11/21 09:15> Percussion: Yes normal to percussion <Radha Hsieh PA-C - Last Filed: 12/11/21 09:15> Skin: General skin exam: no rashes or lesions noted <JU Neves Last Filed: 12/11/21 09:15> Neuro: General: patient oriented x3 <JU Neves Last Filed: 12/11/21 09:15> Extrem: General: Yes no clubbing, cyanosis or edema <Radha Hsieh PA-C - Last Filed: 12/11/21 09:15> Objective Data Active Medications Acetaminophen (Acetaminophen 325 Mg Tablet) 650 mg PO Q6H PRN PRN Reason: fever, pain Last Admin: 12/09/21 08:44 Dose: 650 mg Documented by: HANNAH Heparin Sodium (Porcine) (Heparin Sodium,Porcine 5,000 Unit/Ml Vial) 5,000 unit SUBCUT BID [facility] Last Admin: 12/10/21 20:15 Dose: 5,000 unit Documented by: RYAN Hydromorphone HCl (Hydromorphone Hcl 1 Mg/Ml Syringe) 0.5 mg IVPUSH Q3H PRN; Protocol PRN Reason: Pain, Severe (Pain Scale 7-10) Last Admin: 12/09/21 22:55 Dose: 0.5 mg Documented by: KACI Lactated Ringer's (Lr) 500 mls @ 20 mls/hr IVCONT .Q24H [facility] Last Admin: 12/10/21 13:33 Dose: Not Given Documented by: CRISTÓBAL Non-Admin Reason: Medication Discontinued Omeprazole (Omeprazole 20 Mg Capsule.Dr) 20 mg PO BID@0630,1630 [facility] Last Admin: 12/11/21 05:47 Dose: 20 mg Documented by: RYAN Ondansetron HCl (Ondansetron Hcl 4 Mg/2 Ml Vial) 4 mg IVPUSH Q8H PRN PRN Reason: Nasal Congestion Last Admin: 12/07/21 19:29 Dose: 4 mg Documented by: MUNA Oxycodone HCl (Oxycodone Hcl Immed Release 5 Mg Tablet) 5 mg PO Q4H PRN PRN Reason: Pain, Moderate (Pain Scale 4-6 Last Admin: 12/10/21 16:05 Dose: 5 mg Documented by: CRISTÓBAL Pharmacy Consult (Consult Rx Perform Med Rec) 1 each MISCELLANE ONCE PRN PRN Reason: Consult order Prednisone (Prednisone 10 Mg Tablet) 30 mg PO DAILY [facility] Last Admin: 12/10/21 13:53 Dose: 30 mg Documented by: CRISTÓBAL Sodium Chloride (0.9 % Sodium Chloride Flush 3 Ml Syringe) 3 ml IVFLUSH QSHIFT [facility] Last Admin: 12/10/21 20:20 Dose: 3 ml Documented by: RYAN <Radha Hsieh PA-C - Last Filed: 12/11/21 09:15> Labs CBC & Chem 7: : 12/07/21 05:36 12/07/21 05:36 <Radha Hsieh PA-C - Last Filed: 12/11/21 09:15> Labs: Laboratory Results - last 24 hr 12/11/21 05:54 C-Reactive Protein 3.99 H <Radha Hsieh PA-C - Last Filed: 12/11/21 09:15> Procedures Date of Service Date of Service: 12/11/21 <Radha Hsieh PA-C - Last Filed: 12/11/21 09:15> Progress Note: A&P Assessment and plan (1) SBO (small bowel obstruction): Status: Acute <Radha Hsieh PA-C - Last Filed: 12/11/21 09:15> (2) Crohns disease of small intestine: Status: Acute <Radha Hsieh PA-C - Last Filed: 12/11/21 09:15> (3) Peptic ulcer disease: Status: Acute <Radha Hsieh PA-C - Last Filed: 12/11/21 09:15> Assessment and Plan: Now much improved - she was started on oral steroids Dr. Iglesias Denies abdominal pain Passing flatus Diet as tolerated Likely home with short course of steroids Will see in the office for follow-up Abdomen soft benign and nontender Seen and examined independently - agree with COLIN Hsieh <Rusty Cortes MD - Last Filed: 12/11/21 09:47> Assessment and Plan: 61 year old female with history of Crohns, admitted with SBO. Started on prednisone yesterday. Reports resolution of pain and abd is soft, non tender. Will advance to solid diet. If tolerating and remains asymptomatic, stable for discharge to home on Prednisone taper. EGD 12/09/21-- hiatal hernia, non-obstructing Schatzki's ring, gastric and duodenol ulcers. Started on Omeprazole. Will continue at home. Has f/u appt with Dr. Iglesias scheduled already. Patient comfortable with plan. <Radha Hsieh PA-C - Last Filed: 12/11/21 09:15> Fall Risk Details Current Medications: Current Medications Acetaminophen (Acetaminophen 325 Mg Tablet) 650 mg PO Q6H PRN PRN Reason: fever, pain Last Admin: 12/09/21 08:44 Dose: 650 mg Documented by: Heparin Sodium (Porcine) (Heparin Sodium,Porcine 5,000 Unit/Ml Vial) 5,000 unit SUBCUT BID [facility] Last Admin: 12/10/21 20:15 Dose: 5,000 unit Documented by: Hydromorphone HCl (Hydromorphone Hcl 1 Mg/Ml Syringe) 0.5 mg IVPUSH Q3H PRN; Protocol PRN Reason: Pain, Severe (Pain Scale 7-10) Last Admin: 12/09/21 22:55 Dose: 0.5 mg Documented by: Lactated Ringer's (Lr) 500 mls @ 20 mls/hr IVCONT .Q24H [facility] Last Admin: 12/10/21 13:33 Dose: Not Given Documented by: Omeprazole (Omeprazole 20 Mg Capsule.Dr) 20 mg PO BID@0630,1630 [facility] Last Admin: 12/11/21 05:47 Dose: 20 mg Documented by: Ondansetron HCl (Ondansetron Hcl 4 Mg/2 Ml Vial) 4 mg IVPUSH Q8H PRN PRN Reason: Nasal Congestion Last Admin: 12/07/21 19:29 Dose: 4 mg Documented by: Oxycodone HCl (Oxycodone Hcl Immed Release 5 Mg Tablet) 5 mg PO Q4H PRN PRN Reason: Pain, Moderate (Pain Scale 4-6 Last Admin: 12/10/21 16:05 Dose: 5 mg Documented by: Pharmacy Consult (Consult Rx Perform Med Rec) 1 each MISCELLANE ONCE PRN PRN Reason: Consult order Prednisone (Prednisone 10 Mg Tablet) 30 mg PO DAILY [facility] Last Admin: 12/10/21 13:53 Dose: 30 mg Documented by: Sodium Chloride (0.9 % Sodium Chloride Flush 3 Ml Syringe) 3 ml IVFLUSH QSHIFT [facility] Last Admin: 12/10/21 20:20 Dose: 3 ml Documented by: <Radha Hsieh PA-C - Last Filed: 12/11/21 09:15> Time Spent With Patient Time: Total time spent is greater than 50% in coordination of care (as documented) at patient's floor/unit and/or counseling patient: <Radha Hsieh PA-C - Last Filed: 12/11/21 09:15> Time with patient: 15 - 24 minutes <Radha Hsieh PA-C - Last Filed: 12/11/21 09:15> Quality Stroke Does the patient have a stroke diagnosis?: No <Radha Hsieh PA-C - Last Filed: 12/11/21 09:15> VTE Prior VTE?: No <Radha Hsieh PA-C - Last Filed: 12/11/21 09:15> VTE Risk Level:: Medical - moderate - high <Radha Hsieh PA-C - Last Filed: 12/11/21 09:15> VTE Device Contraindication: N/A - Device Ordered <Radha Hsieh PA-C - Last Filed: 12/11/21 09:15> VTE Drug Contraindication: Drug Allergy <Radha Hsieh PA-C - Last Filed: 12/11/21 09:15>
[2021-12-11] MEDS: predniSONE 10 MG TABLET 30 MG PO (09:55)
[2021-12-11] MEDS: Heparin Sodium,Porcine 5,000 UNIT/ML VIAL 5000 UNIT SUBCUT ×2 (09:55→21:44)
[2021-12-11] MEDS: 0.9 % Sodium Chloride Flush 3 ML SYRINGE IVFLUSH ×3 (09:56→21:47)
--- NOTE | 2021-12-11 11:04 | PM.DS ---
DS: Providers Provider Date of Service: 12/12/21 Date of admission: 12/06/21 20:15 Primary care physician: Jorge Green MD Attending physician on admission: Rusty Cortes Consults: 12/08/21 08:53 Consult to Gastroenterology Routine Consulting Provider: Coty Iglesias Reason for consultation: crohns, SBO, patient known to you Has provider been notified: No DS: Diagnosis Discharge Diagnosis (1) SBO (small bowel obstruction): Status: Acute (2) Crohns disease of small intestine: Status: Acute (3) Peptic ulcer disease: Status: Acute DS: Summary Hospital Course Hospital Course: BRIEF HPI: Rose Nieves is a 61 year old female well known to the surgical service. She has a long hx of Crohn's disease with frequent admissions for SBO. She says she started to have abdl pain again this morning, constant, mostly on the right and lower abdomen. She says she felt much more distended earlier. She vomited once. She had?a bowel movement today but no flatus. Her last admission for SBO was in March 2021. She says she has been well since then and maintained on Stelara. She sees?Dr. Iglesias for GI. Work up in the ED included a CT scan of the abd/pelvis which showed wall thickening involving the neoterminal ileum similar to prior with dilation of proximal small bowel suggestive of underlying stricture with proximally dilated loops of small bowel with air-fluid levels suggesting small bowel obstruction. It also demonstrated thickening of the gastric wall?along with a possible new diverticulum in the stomach. HOSPITAL COURSE: She was admitted to the surgical service for further treatment of the SBO. The SBO appears to be at the same area at the old ileocolonic anastomosis. She will be kept NPO with an NGT insertion for bowel decompression, IVF and PRN analgesics for pain. Further plan dependent on her clinical course. She improved symptomatically with supportive measures. She began passing flatus and had liquid BMs. Her NGT was clamped on HD #2 and had low residual and it was therefore removed and started on a clear liquid diet. A GI consult was obtained with Dr. Iglesias for treatment recommendations and input regarding the new possible stomach diverticulum. She recommended an EGD. This was performed on 12/09/21 without complication and showed a hiatal hernia, non-obstructing Schatzki's ring, gastric and duodenol ulcers. She was therefore started on Omeprazole. She was started back on clear liquids and had overall improvement in the severity of pain but still had some persistence of the RLQ pain. She was therefore started on a prednisone course. She had resolution in her symptoms. She was advanced to a solid diet. She was tolerating this without any symptom recurrence and continued to pass flatus. She felt ready for discharge. She was discharged to home on 12/12/21 in stable condition on omeprazole and a short prednisone taper. She has a follow up appointment with Dr. Iglesias scheduled with plan for repeat EGD down the line. Status at Discharge Functional status at discharge: independent ambulation Overall status at discharge: patient is back to baseline Time Spent with Patient Time attestation: Total time spent providing and/or coordinating discharge services: Discharge coordination time: Less than 30 minutes Quality: Stroke Does the patient have a stroke diagnosis?: No Physical Exam Vital Signs: Vital Signs: Last Vital Signs Temp 97.7 F 12/11/21 07:45 Pulse 59 12/11/21 07:45 Resp 17 12/11/21 07:45 BP 150/69 H 12/11/21 07:45 Pulse Ox 99 12/11/21 07:45 BMI result Body Mass Index 26.5 DS: Data Data Completed and Pending Completed studies during hospitalization [Text1]: Pending at discharge 12/09/21 13:52 Surgical [PTH] Routine Labs on day of discharge: Laboratory Results - last 24 hr 12/11/21 05:54 C-Reactive Protein 3.99 H Preliminary micro results at discharge 12/06/21 18:59 Blood Culture - Preliminary Blood - Venous No growth after 48 hours. 12/06/21 18:46 Blood Culture - Preliminary Blood - Venous No growth after 48 hours. Discharge Plan Discharge Patient Disposition: Home, Self-Care Discharge Diagnosis: SBO Referrals: Jorge Green MD [Primary Care Provider] - 1 Week Coty Iglesias MD [Physician] - 01/29/22 Discharge Medications: New omeprazole 20 mg capsule,delayed release(DR/EC) 20 mg PO BID Qty: 60 RF: 0 prednisone 10 mg tablet 30 mg PO DAILY Qty: 30 RF: 0 Continued Stelara 90 mg/mL syringe 90 mg subcut Q4W 28 Days Qty: 1 RF: 6 atorvastatin 40 mg tablet 40 mg PO DAILY RF: 0 Discharge Orders: Discharge Order (Routine); Ordered 12/12/21 Ordered By: Rusty Cortes Diet: advance to usual diet Activity on Discharge: As tolerated Stand Alone Forms: Patient Portal Discharge page Activity Restrictions/Additional Instructions: Call Your Doctor Or Return to ED If: ? ? -Your temperature exceeds 101.5? F? ? ? -You experience excessive pain or swelling ? ? -You have an unexpected reaction to medication ? ? -You experience continued vomiting/nausea Please follow up with Dr. Iglesias in office for repeat EGD. Care Plan Goals: Resolution of pain Health Concerns: Crohns disease, SBO Plan of Treatment: Prednisone taper F/u in office Assessment: Improved. Discharge Date/Time: 12/12/21 08:49
[2021-12-11 11:30] VITALS: BP 158/78; PULSE 63; RESP 20; TEMP 36.2; O2SAT 97
[2021-12-11 15:38] VITALS: BP 108/57; PULSE 57; RESP 16; TEMP 36.4; O2SAT 97
[2021-12-11 20:00] VITALS: BP 104/50; PULSE 60; RESP 16; TEMP 36.2; O2SAT 96
[2021-12-11] MEDS: Acetaminophen 325 MG TABLET 650 MG PO (21:43)
[2021-12-12] VITALS: BP 136/81; PULSE 53; RESP 17; TEMP 36.1; O2SAT 99
[2021-12-12 04:00] VITALS: BP 155/70; PULSE 52; RESP 17; TEMP 36.1; O2SAT 99
[2021-12-12] MEDS: Omeprazole 20 MG CAPSULE.DR PO (05:22)
[2021-12-12 07:59] VITALS: BP 169/79; PULSE 50; RESP 20; TEMP 36.3; O2SAT 96
--- NOTE | 2021-12-12 08:08 | PM.PNGS ---
Subjective Subjective Date of Service: 12/12/21 Interval history: Feels well Denies abdominal pain Tolerating diet well Has flatus and BMs Says she wants to go home Physical Exam Vital Signs: Vital Signs: Last Vital Signs Temp 97.4 F 12/12/21 07:59 Pulse 50 12/12/21 07:59 Resp 20 12/12/21 07:59 BP 169/79 H 12/12/21 07:59 Pulse Ox 96 12/12/21 07:59 BMI result Body Mass Index 26.5 Const: General: comfortable and no acute distress Resp: Effort & Inspection: normal respiratory effort Cardio: Rate: regular rate GI: Inspection: No distended Palpation (GI): Soft to palpation, not firm, nontender and no guarding Objective Data Active Medications Acetaminophen (Acetaminophen 325 Mg Tablet) 650 mg PO Q6H PRN PRN Reason: fever, pain Last Admin: 12/11/21 21:43 Dose: 650 mg Documented by: RYAN Heparin Sodium (Porcine) (Heparin Sodium,Porcine 5,000 Unit/Ml Vial) 5,000 unit SUBCUT BID [facility] Last Admin: 12/11/21 21:44 Dose: 5,000 unit Documented by: RYAN Hydromorphone HCl (Hydromorphone Hcl 1 Mg/Ml Syringe) 0.5 mg IVPUSH Q3H PRN; Protocol PRN Reason: Pain, Severe (Pain Scale 7-10) Last Admin: 12/09/21 22:55 Dose: 0.5 mg Documented by: KACI Omeprazole (Omeprazole 20 Mg Capsule.Dr) 20 mg PO BID@0630,1630 [facility] Last Admin: 12/12/21 05:22 Dose: 20 mg Documented by: RYAN Ondansetron HCl (Ondansetron Hcl 4 Mg/2 Ml Vial) 4 mg IVPUSH Q8H PRN PRN Reason: Nasal Congestion Last Admin: 12/07/21 19:29 Dose: 4 mg Documented by: MUNA Oxycodone HCl (Oxycodone Hcl Immed Release 5 Mg Tablet) 5 mg PO Q4H PRN PRN Reason: Pain, Moderate (Pain Scale 4-6 Last Admin: 12/10/21 16:05 Dose: 5 mg Documented by: CRISTÓBAL Pharmacy Consult (Consult Rx Perform Med Rec) 1 each MISCELLANE ONCE PRN PRN Reason: Consult order Prednisone (Prednisone 10 Mg Tablet) 30 mg PO DAILY [facility] Last Admin: 12/11/21 09:55 Dose: 30 mg Documented by: KAL Sodium Chloride (0.9 % Sodium Chloride Flush 3 Ml Syringe) 3 ml IVFLUSH QSHIFT [facility] Last Admin: 12/11/21 21:47 Dose: 3 ml Documented by: RYAN Labs CBC & Chem 7: 12/07/21 05:36 12/07/21 05:36 Microbiology Microbiology Results: Microbiology 12/06/21 18:59 Blood Culture - Final Blood - Venous No growth after 5 days. 12/06/21 18:46 Blood Culture - Final Blood - Venous No growth after 5 days. Procedures Date of Service Date of Service: 12/12/21 Progress Note: A&P Assessment and plan (1) Crohns disease of small intestine: Status: Acute Assessment and Plan: Symptoms resolved Abdomen soft and nontender Good GI function Okay to SC home As per Dr. Iglesias - short course of oral steroids Follow-up with Dr. Iglesias Patient comfortable with plan Fall Risk Details Current Medications: Current Medications Acetaminophen (Acetaminophen 325 Mg Tablet) 650 mg PO Q6H PRN PRN Reason: fever, pain Last Admin: 12/11/21 21:43 Dose: 650 mg Documented by: Heparin Sodium (Porcine) (Heparin Sodium,Porcine 5,000 Unit/Ml Vial) 5,000 unit SUBCUT BID [facility] Last Admin: 12/11/21 21:44 Dose: 5,000 unit Documented by: Hydromorphone HCl (Hydromorphone Hcl 1 Mg/Ml Syringe) 0.5 mg IVPUSH Q3H PRN; Protocol PRN Reason: Pain, Severe (Pain Scale 7-10) Last Admin: 12/09/21 22:55 Dose: 0.5 mg Documented by: Omeprazole (Omeprazole 20 Mg Capsule.) 20 mg PO BID@0630,1630 [facility] Last Admin: 12/12/21 05:22 Dose: 20 mg Documented by: Ondansetron HCl (Ondansetron Hcl 4 Mg/2 Ml Vial) 4 mg IVPUSH Q8H PRN PRN Reason: Nasal Congestion Last Admin: 12/07/21 19:29 Dose: 4 mg Documented by: Oxycodone HCl (Oxycodone Hcl Immed Release 5 Mg Tablet) 5 mg PO Q4H PRN PRN Reason: Pain, Moderate (Pain Scale 4-6 Last Admin: 12/10/21 16:05 Dose: 5 mg Documented by: Pharmacy Consult (Consult Rx Perform Med Rec) 1 each MISCELLANE ONCE PRN PRN Reason: Consult order Prednisone (Prednisone 10 Mg Tablet) 30 mg PO DAILY [facility] Last Admin: 12/11/21 09:55 Dose: 30 mg Documented by: Sodium Chloride (0.9 % Sodium Chloride Flush 3 Ml Syringe) [facility] Last Admin: 12/11/21 21:47 Dose: 3 ml Documented by: Time Spent With Patient Time: Total time spent is greater than 50% in coordination of care (as documented) at patient's floor/unit and/or counseling patient: Time with patient: 15 - 24 minutes Quality Stroke Does the patient have a stroke diagnosis?: No VTE Prior VTE?: No VTE Risk Level:: Medical - moderate - high VTE Device Contraindication: N/A - Device Ordered VTE Drug Contraindication: Drug Allergy
[2021-12-12] MEDS: predniSONE 10 MG TABLET 30 MG PO (08:14)
[2021-12-12] MEDS: Heparin Sodium,Porcine 5,000 UNIT/ML VIAL 5000 UNIT SUBCUT (08:14)
[2021-12-12] MEDS: 0.9 % Sodium Chloride Flush 3 ML SYRINGE IVFLUSH (08:15)
[2021-12-12 08:17] VITALS: PULSE 60
[2021-12-12] MEDS: oxyCODONE HCl Immed Release 5 MG TABLET PO (08:34)
== END 2021-12-12 08:49 | disposition home or self-care (01) | DRG 387 ==
LOC: HO.ED 20:19 → HO.EDOVER 20:25 → HO.S3 22:54
PROVIDERS: Internal Medicine Gastroenterology; Admitting Provider Surgery; Emergency Provider Emergency Medicine; PCP Internal Medicine; Visit Provider Surgery
PROC: 0DJ08ZZ Inspection of Upper Intestinal Tract, Via Natural or Artificial Opening Endoscopic (ICD-10-PCS; CPT 43235; principal; 2021-12-09 11:30)
DX: K50.012 Crohn's disease of small intestine with intestinal obstruction (principal); K44.9 Diaphragmatic hernia without obstruction or gangrene; K25.9 Gastric ulcer, unspecified as acute or chronic, without hemorrhage or perforation; K26.9 Duodenal ulcer, unspecified as acute or chronic, without hemorrhage or perforation; F17.210 Nicotine dependence, cigarettes, uncomplicated; Z20.822 Contact with and (suspected) exposure to COVID-19; Z71.6 Tobacco abuse counseling; Z79.899 Other long term (current) drug therapy
CPT/HCPCS: 36415; 71045; 74176; 80048; 80076; 81001; 83605; 83690; 83880; 85025; 85027; 86140; 87040; 87086; 87635; 88305; 88342; 93005; 99285; J1170; J2270; J2405; J3010

== ENCOUNTER 2021-12-30 01:23 | Inpatient (IN) | payer MEDICARE, MEDICAID, SELFPAY ==
[2021-12-30] VITALS (7 sets, daily range): BP systolic 105–147; BP diastolic 46–84; PULSE 67–84; RESP 15–19; TEMP 36.6–37.9; O2SAT 91–98; BMI 26.4
--- NOTE | ~2021-12-30 | CT_ITS ---
EXAMINATION: CT ABDOMEN AND PELVIS WITH CONTRAST CLINICAL INFORMATION: Diffuse abdominal pain, history of Crohn's and small bowel obstructions COMPARISON: 12/06/2021 TECHNIQUE: Multidetector volumetric images were obtained from the superior aspect of the liver through the pubic symphysis following administration 85 mL of Omnipaque 350 intravenous contrast. Sagittal and coronal reformatted images were obtained on the technologist's workstation. Oral contrast: No This CT examination was performed using dose optimization techniques as appropriate, variously including the following: *Automated exposure control *Adjustment of mA and/or kV according to patient size (this includes techniques or standardized protocols for targeted exams where dose is matched to indication/reason for exam; i.e. extremities or head) *Use of iterative reconstruction technique DLP: 451 mGy-cm FINDINGS: LUNG BASES: Partially visualized nodular density in the lingula, also noted on chest CT 03/06/2021. Coronary artery calcifications are present. LIVER, GALLBLADDER, AND BILIARY TREE: The liver is normal in size, shape, and attenuation. Redemonstrated small peripheral cyst in the right hepatic lobe. No biliary ductal dilatation is present. The gallbladder is unremarkable with no evidence of radiopaque gallstones, gallbladder wall thickening, or obvious pericholecystic inflammatory changes. PANCREAS: Unremarkable. SPLEEN: Unremarkable. ADRENAL GLANDS: Unremarkable. KIDNEYS AND URETERS: No hydronephrosis or obstructing calculus. Bilateral nephrograms are symmetric. A few scattered renal calculi are noted bilaterally measuring up to 4 mm in the right upper pole. A few small hypodensities in the bilateral kidneys favor cysts. BLADDER: Unremarkable. GASTROINTESTINAL TRACT: Status post right hemicolectomy with ileocolonic anastomosis in the right abdomen. The distalmost small bowel segment leading to the anastomosis has a collapsed, thick-walled appearance, and multiple loops of small bowel leading to this segment are fluid-filled and dilated, suspicious for sequelae of small bowel obstruction. The inferior dilation appears somewhat decreased since 12/06/2021. Small amount of free fluid is present in the pelvis. No free air is seen. ABDOMINAL WALL: No significant hernia is appreciated. LYMPH NODES: Normal. VASCULAR: There is atherosclerotic calcification along the aorta. PELVIC VISCERA: A few uterine fibroids are suspected. OSSEOUS STRUCTURES: Unremarkable. CT/CT abdomen pelvis w con IMPRESSION: Small bowel obstruction with transition point in the distalmost small bowel leading to the ileocolonic anastomosis in the right abdomen. Degree of small bowel dilation appears somewhat less than on 12/06/2021. Small amount of pelvic free fluid. Fleischner guidelines were followed.
--- NOTE | 2021-12-30 02:07 | ECG_ITS ---
Test Reason : abdominal pain Blood Pressure : / mmHG Vent. Rate : 082 BPM Atrial Rate : 082 BPM P-R Int : 122 ms QRS Dur : 082 ms QT Int : 368 ms P-R-T Axes : 063 017 072 degrees QTc Int : 429 ms Normal sinus rhythm Normal ECG When compared with ECG of 06-DEC-2021 18:25, No significant change was found Referred By: Raissa Toledo Electronically Signed By:NANETTE GAITAN
--- NOTE | 2021-12-30 02:09 | ED_ITS ---
HPI - Abdominal Pain General Chief Complaint: Nausea/Vomiting/Diarrhea Stated Complaint: n/v/abd pain Time Seen by Provider: 12/30/21 01:59 Source: patient Mode of arrival: ambulatory Limitations: no limitations History of Present Illness HPI narrative: Patient comes to the emergency room complaining of diffuse abdominal pain that started approximately 2 hours ago. Patient states before going to bed she was feeling normal, then the pain woke her up. Patient was discharged from the hospital on 12/12/2021, patient had a small bowel obstruction, patient does have history of Crohn's disease. Patient states she vomited once, no episodes of diarrhea. Patient denies fever chills Related Data Home Medications Medication Instructions Recorded Confirmed atorvastatin 40 mg tablet 40 mg PO DAILY 09/23/20 12/06/21 Previous Rx's Medication Instructions Recorded ustekinumab 90 mg/mL subcutaneous 90 mg SUBCUT Q4W 28 Days #1 ml 08/11/21 syringe ([facility]) omeprazole 20 mg capsule,delayed 20 mg PO BID #60 cap 12/10/21 release prednisone 10 mg tablet 30 mg PO DAILY #30 tab 12/11/21 Allergies Allergy/AdvReac Type Severity Reaction Status Date / Time No Known Allergies Allergy Verified 12/30/21 01:33 [No Known Allergies*] Review of Systems Review of Systems Constitutional : No Weight loss, No Fever, No Chills, No Night Sweats, No Fatigue, No Malaise ENT/Mouth : No Hearing loss, No Ear Pain, No Nasal Congestion, No Sinus Pain, No Hoarseness, No sore throat, No Rhinorrhea, No Swallowing Difficulty Eyes: No Eye Pain, No Swelling, No Redness, No Foreign Body, No Discharge, No Vision Changes Cardiovascular : No Chest Pain, No SOB, No Dyspnea on Exertion, No Orthopnea, No Edema, No Palpitations Respiratory : No Cough, No Sputum, No Wheezing, No Smoke Exposure, No Dyspnea Gastrointestinal : Lining 1 episode of nausea vomiting No Diarrhea, complaining of Constipation, complaining of diffuse abdominal pain, cramping, intermittent Genitourinary : no irregular bleeding, No Dysuria, No Urinary Frequency, No Hematuria, No Urinary Incontinence, No Urgency, No Flank Pain, No Urinary Flow Changes, No Hesitancy Musculoskeletal : No joint pain, No Myalgias, No Joint Swelling Skin : No Skin Lesions, No rash Neuro : No Weakness, No Numbness, No Paresthesias, No Loss of Consciousness, No Dizziness, No Headache Psych : No Anxiety/Panic, No Depression, No SI/HI/AH/VH, No Social Issues, Heme/Lymph: No Bruising, No Bleeding,No Lymphadenopathy Endocrine : No Polyuria, No Polydipsia, No Temperature Intolerance Physical Exam Verdana 4l Vital Signs: Verdana 4d Verdana 4d Vital Signs: Verdana 4d Verdana 4Bd Last Vital Signs Verdana 4d Editor Publications New 4d Editor Publications New 4d Temp 97.9 F 12/30/21 01:33 Editor Publications New 4d Pulse 82 12/30/21 02:40 Editor Publications New 4d Resp 16 12/30/21 02:40 BP 105/63 12/30/21 02:40 Pulse Ox 97 12/30/21 02:40 BMI result Body Mass Index 26.4 Const: Other: Appearance: Alert. Oriented X3. Patient looks uncomfortable Eyes: Pupils equal, round and reactive to light. ENT: Pharynx normal. Neck: Normal inspection. Neck supple. No lymph nodes noted. No crepitus CVS: Normal heart rate and rhythm. Pulses normal. Normal S1 and S2 Respiratory: No respiratory distress. Breath sounds normal. No Wheezing. No rales Abdomen: Soft , patient is not distended, currently does not have significant p ain with palpation in any of the quadrants Skin: Skin warm and dry. Normal skin color. Normal skin turgor. Extremities: No lower extremity edema. No Lacerations. No Rash Neuro: Oriented X 3. No motor deficit. No sensory deficit. Moving all extermities. No slurred speech. Course Course Course Narrative: Patient's white blood cell count elevation likely secondary to reactive leukocytosis I discussed the patient with Dr. Cortes. MDM - Abdominal Pain Lab Data Result diagrams: 12/30/21 02:26 12/30/21 02:26 Labs: Lab Results 12/30/21 12/30/21 12/30/21 Range/Units 02:26 02: 02:26 WBC 19.3 H (4.8-10.8) X10*3/uL RBC 5.89 H (4.20-5.50) X10*6/uL Hgb 17.6 H D (12.0-16.0) g/dl Hct 53.4 H (37.0-47.0) % MCV 90.7 (80.0-98.0) fL MCH 29.9 (27.0-33.0) pg MCHC 33.0 (31.0-35.0) g/dl RDW 14.7 (11.0-16.0) % Plt Count 261 (160-400) X10*3/uL MPV 10.7 (9.4-12.3) fL Immature Gran % (Auto) 0.5 H (0.0-0.4) % Neut % (Auto) 80.3 H (45-73) % Lymph % (Auto) 13.1 L (20-40) % [place] % (Auto) 4.9 (2-11) % Eos % (Auto) 0.8 (0-4) % Baso % (Auto) 0.4 (0-2) % Lymph # (Auto) 2.5 (1.2-4.9) X10*3/uL [place] # (Auto) 1.0 (0.1-1.2) X10*3/uL Eos # (Auto) 0.2 (0.0-0.4) X10*3/uL Baso # (Auto) 0.1 (0.0-0.2) X10*3/uL Abs Immat Gran (auto) 0.10 H (0.00-0.03) X10*3/uL Absolute Neuts (auto) 15.4 H (2.0-8.3) x10*3/uL Absolute Nucleated RBC 0.000 (0.0-0.012) X10*3/uL Nucleated RBC % (auto) 0.0 (0.0-0.2) /100WBC Sodium 143 (135-145) mmol/L Potassium 5.0 (3.3-5.1) mmol/L Chloride 105 (96-108) mmol/L Carbon Dioxide 26 (22-29) mmol/L Anion Gap 17 (12-20) BUN 11 (9-16) mg/dL Creatinine 0.85 (0.5-1.4) mg/dL Estim Creat Clear Calc 56.1 Estimated GFR > 60 Random Glucose 103 (60-115) mg/dL Calcium 11.0 H D (8.4-10.2) mg/dL Total Bilirubin 0.5 (0.0-1.0) mg/dL Direct Bilirubin < 0.2 (0.0-0.5) mg/dL AST 27 D (5-31) U/L ALT 29 (0-31) U/L Alkaline Phosphatase 92 (39-117) U/L Total Protein 7.8 (6.5-8.0) g/dL Albumin 4.5 (3.5-5.0) g/dL COVID-19 (LINDA) Negative (Negative) COVID-19 Clin Com See Note Imaging Data CT scan - abdomen: Radiologist's impression: FINDINGS: LUNG BASES: Partially visualized nodular density in the lingula, also noted on chest CT 03/06/2021. Coronary artery calcifications are present.? LIVER, GALLBLADDER, AND BILIARY TREE: The liver is normal in size, shape, and attenuation. Redemonstrated small peripheral cyst in the right hepatic lobe. No biliary ductal dilatation is present. The gallbladder is unremarkable with no evidence of radiopaque gallstones, gallbladder wall thickening, or obvious pericholecystic inflammatory changes.? PANCREAS: Unremarkable.? SPLEEN: Unremarkable.? ADRENAL GLANDS: Unremarkable.? KIDNEYS AND URETERS: No hydronephrosis or obstructing calculus. Bilateral nephrograms are symmetric. A few scattered renal calculi are noted bilaterally measuring up to 4 mm in the right upper pole. A few small hypodensities in the bilateral kidneys favor cysts. BLADDER: Unremarkable.? GASTROINTESTINAL TRACT: Status post right hemicolectomy with ileocolonic anastomosis in the right abdomen. The distalmost small bowel segment leading to the anastomosis has a collapsed, thick-walled appearance, and multiple loops of small bowel leading to this segment are fluid-filled and dilated, suspicious for sequelae of small bowel obstruction. The inferior dilation appears somewhat decreased since 12/06/2021. Small amount of free fluid is present in the pelvis. No free air is seen. ABDOMINAL WALL: No significant hernia is appreciated.? LYMPH NODES: Normal. VASCULAR: There is atherosclerotic calcification along the aorta. PELVIC VISCERA: A few uterine fibroids are suspected.? OSSEOUS STRUCTURES: Unremarkable.? CT/CT abdomen pelvis w con IMPRESSION: Small bowel obstruction with transition point in the distalmost small bowel leading to the ileocolonic anastomosis in the right abdomen. Degree of small bowel dilation appears somewhat less than on 12/06/2021. Small amount of pelvic free fluid.? ? Fleischner guidelines were followed. Discharge Plan Discharge Clinical Impression: SBO (small bowel obstruction) Patient Disposition: Admitted As Inpatient Prescriptions: No Action Stelara 90 mg/mL syringe 90 mg subcut Q4W 28 Days Qty: 1 6RF omeprazole 20 mg capsule,delayed release(DR/EC) 20 mg PO BID Qty: 60 0RF prednisone 10 mg tablet 30 mg PO DAILY Qty: 30 0RF Rx Instructions: Prednisone 30mg daily for 5 days Prednisone 20mg daily for 5 days Prednisone 10mg daily for 5 days atorvastatin 40 mg tablet 40 mg PO DAILY 0RF PMFSH Past Medical History Medical History Crohns disease of small intestine Gastritis Hyperlipidemia Small bowel obstruction Surgical History History of appendectomy History of bowel resection History of esophagogastroduodenoscopy (EGD) Hx of colonoscopy S/P BSO (bilateral salpingo-oophorectomy) Family History Family History Father No problems noted. Mother Pneumonia Sister Breast cancer Social History Social History Household Members: None Housing: Apartment Do you presently have visiting nurse or other home services: No Alcohol intake: never Patient Tobacco Use Status: Current everyday Tobacco user Tobacco use type: Cigarette Cigarette Packs Per Day: 1 Cigarettes Per Day: 15 Years Smoked: 45 Second Hand Smoke Exposure: No Advance Directives: Yes Advance Directives on File: Yes Advance Directives Date on File: 04/13/21 service: No Current occupational status: unemployed and disabled
[2021-12-30 02:29] LABS: MANUAL DIFF FLAG NO
[2021-12-30 02:30] LABS: Basophils Absolute Auto 0.1 X10*3/uL (0.0-0.2); Basophils Percent Auto 0.4 % (0-2); Eosinophils Absolute Auto 0.2 X10*3/uL (0.0-0.4); Eosinophils Percent Auto 0.8 % (0-4); Hematocrit 53.4 % (37.0-47.0); Hemoglobin 17.6 g/dl (12.0-16.0); Imm Gran Pct Auto 0.5 % (0.0-0.4); Lymphocytes Absolute Auto 2.5 X10*3/uL (1.2-4.9); Lymphocytes Percent Auto 13.1 % (20-40); Mean Corpuscular Hemoglobin 29.9 pg (27.0-33.0); Mean Corpuscular Volume 90.7 fL (80.0-98.0); Mean Platelet Volume 10.7 fL (9.4-12.3); Monocytes Percent Auto 4.9 % (2-11); Neutrophils Absolute Auto 15.4 x10*3/uL (2.0-8.3); Neutrophils Percent Auto 80.3 % (45-73); Platelet Count 261 X10*3/uL (160-400); Red Blood Count 5.89 X10*6/uL (4.20-5.50); Red Cell Distribution Width 14.7 % (11.0-16.0); White Blood Count 19.3 X10*3/uL (4.8-10.8)
[2021-12-30] MEDS: 0.9 % Sodium Chloride 1,000 ML 999 ML IVCONT (02:33)
[2021-12-30] MEDS: ondansetron HCL 4 MG/2 ML VIAL IVPUSH ×2 (02:37→09:57)
[2021-12-30] MEDS: HYDROmorphone HCl 1 MG/ML SYRINGE IVPUSH ×2 (02:37→05:28)
[2021-12-30 02:46] LABS: COVID-19 Test Negative (Negative)
[2021-12-30 03:04] LABS: Alanine Aminotransferase 29 U/L (0-31); Albumin Level 4.5 g/dL (3.5-5.0); Alkaline Phosphatase 92 U/L (39-117); Anion Gap 17 (12-20); Aspartate Amino Transferase 27 U/L (5-31); Bilirubin Direct < 0.2 mg/dL (0.0-0.5); Bilirubin Total 0.5 mg/dL (0.0-1.0); Blood Urea Nitrogen 11 mg/dL (9-16); Carbon Dioxide 26 mmol/L (22-29); Chloride 105 mmol/L (96-108); Creatinine Clr Calc Pharmacy 56.1; Estimated Glomerular Filt Rate > 60; Glucose Random 103 mg/dL (60-115); Sodium 143 mmol/L (135-145); Total Protein 7.8 g/dL (6.5-8.0)
[2021-12-30] MEDS: iohexoL 350 MG/ML 100 ML INFUS..BTL 85 ML IV (03:56)
--- NOTE | 2021-12-30 04:48 | PC.NURSE ---
Pt refusing NG tube, provider is aware.
[2021-12-30] MEDS: Prochlorperazine Edisylate 10 MG/2 ML VIAL 5 MG IVPUSH (05:26)
--- NOTE | 2021-12-30 05:33 | PC.NURSE ---
pt medicated per Mar, blood culture collected and sent. Attempted a second time to ask pt if she wanted NG for abd relief. Pt refusing.
[2021-12-30 06:04] LABS: Lactic Acid 1.8 mmol/L (0.5-2.0)
[2021-12-30] MEDS: Heparin Sodium,Porcine 5,000 UNIT/ML VIAL 5000 UNIT SUBCUT ×2 (07:43→20:39)
[2021-12-30] MEDS: 0.9 % Sodium Chloride 1,000 ML 100 ML IVCONT ×2 (07:44→21:28)
[2021-12-30] MEDS: 0.9 % Sodium Chloride Flush 3 ML SYRINGE IVFLUSH (07:44)
--- NOTE | 2021-12-30 07:52 | PHA.MEDREC ---
Pharmacy Consult ? Medication Reconciliation Pharmacy has completed the medication reconciliation. There are no remarkable issues for provider's attention. Ree Madden, JenniferD
--- NOTE | 2021-12-30 09:03 | P.HPGS_ITS ---
History of Present Illness History of Present Illness Date of Service: 12/30/21 <Radha Hsieh PA-C - Last Filed: 12/30/21 09:18> 12/30/21 <Rusty Cotres MD - Last Filed: 12/30/21 13:29> Chief complaint: bowel obstruction <Radha Hsieh PA-C - Last Filed: 12/30/21 09:18> Narrative: Rose Nieves is a 61 year old female well known to the surgical service with a long hx of Crohn's disease with frequent admissions for SBO. This current episode of pain began Wednesday night at midnight. It is the same as previous episodes of SBO- it is severe, constant in nature and located in the right lower abdomen. She has not been passing flatus and vomited once. She was last admitted 11/2021 for treatment of SBO. She responded with conservative measures and steroid course. She also had an EGD at that time for abnml CT scan which showed hiatal hernia, gastric ulcer, gastritis and multiple duodenal ulcers and was started on omeprazole. She is on Stelara for maintenance and sees?Dr. Iglesias for treatment. She just finished her steroid course Wednesday. Work up in the ED included a CT scan of the abd/pelvis which showed distal bowel segment leading to the anastomosis has a collapsed, thick-walled appearance, and multiple loops of small bowel leading to this segment are fluid-filled and dilated. She had a leukocytosis of 19.3. <Radha Hsieh PA-C - Last Filed: 12/30/21 09:18> Review of Systems Verdana 4l Constitutional: Verdana 4d Constitutional: Verdana 4d Verdana 4d Denies chills, Denies fatigue and Denies fever(s) Verdana 4Il <Radha Hsieh PA-C - Last Filed: 12/30/21 09:18> Verdana 4d Verdana 4l ENT: Verdana 4d Denies dizziness Verdana 4Il <Radha Hsieh PA-C - Last Filed: 12/30/21 09:18> Verdana 4d Verdana 4l Cardiovascular: Verdana 4d Cardiovascular: Verdana 4d Verdana 4d Denies chest pain and Denies palpitations Verdana 4Il <JU Neves Last Filed: 12/30/21 09:18> Verdana 4d Verdana 4l Respiratory: Verdana 4d Verdana 4d Respiratory: Verdana 4d Denies cough and Denies wheezing Verdana 4Il <JU Neves Last Filed: 12/30/21 09:18> Verdana 4d Verdana 4l Gastrointestinal: Verdana 4d Gastrointestinal: Verdana 4d Verdana 4d Reports as per HPI, Reports change in bowel habits and Reports vomiting Verdana 4Il <JU Neves Last Filed: 12/30/21 09:18> Verdana 4d Verdana 4l Genitourinary: Verdana 4d Verdana 4d Genitourinary: Verdana 4d Denies hematuria and Denies dysuria Verdana 4Il <JU Neves Last Filed: 12/30/21 09:18> Verdana 4d Verdana 4l Integumentary/Breasts: Verdana 4d Skin/Breast: Verdana 4d Verdana 4d Denies rash and Denies jaundice Verdana 4Il <JU Neves Last Filed: 12/30/21 09:18> Verdana 4d Verdana 4l Neurologic: Verdana 4d Denies dizziness and Denies focal weakness Verdana 4Il <JU Neves Last Filed: 12/30/21 09:18> Verdana 4d Verdana 4l Endocrine: Verdana 4d Verdana 4d Endocrine: Verdana 4d Denies fatigue and Denies palpitations Verdana 4Il <JU Neves Last Filed: 12/30/21 09:18> Verdana 4d Verdana 4l Allergic/Immunologic: Verdana 4d Allergic/Immunologic: Verdana 4d Verdana 4d Denies wheezing Verdana 4Il <JU Neves Last Filed: 12/30/21 09:18> Verdana 4d [facility] Past Medical History Medical History: Medical History Crohns disease of small intestine Gastritis Hyperlipidemia Small bowel obstruction <Radha Hsieh PA-C - Last Filed: 12/30/21 09:18> Family History Family History: Family History Father No problems noted. Mother Pneumonia Sister Breast cancer <Radha Hsieh PA-C - Last Filed: 12/30/21 09:18> Surgical History Surgical History: Surgical History History of appendectomy History of bowel resection History of esophagogastroduodenoscopy (EGD) Hx of colonoscopy S/P BSO (bilateral salpingo-oophorectomy) <Radha Hsieh PA-C - Last Filed: 12/30/21 09:18> Social History Social History: Social History Household Members: None Housing: Apartment Do you presently have visiting nurse or other home services: No Alcohol intake: never Patient Tobacco Use Status: Never used Tobacco Tobacco use type: Cigarette Cigarette Packs Per Day: 1 Cigarettes Per Day: 15 Years Smoked: 45 Second Hand Smoke Exposure: No Use of substances other than those prescribed or required for medical reasons: No Advance Directives: Yes Advance Directives on File: Yes Advance Directives Date on File: 04/13/21 service: No Current occupational status: unemployed and disabled <Radha Hsieh PA-C - Last Filed: 12/30/21 09:18> Meds Allergies/Adverse reactions: Allergies Allergy/AdvReac Type Severity Reaction Status Date / Time No Known Allergies Allergy Verified 12/30/21 01:33 [No Known Allergies*] <JU Neves Last Filed: 12/30/21 09:18> Active Medications: Current Medications Heparin Sodium (Porcine) (Heparin Sodium,Porcine 5,000 Unit/Ml Vial) 5,000 unit SUBCUT BID [facility] Last Admin: 12/30/21 07:43 Dose: 5,000 unit Documented by: Sodium Chloride (Ns) 1,000 mls @ 100 mls/hr IVCONT .Q10H [facility] Last Admin: 12/30/21 07:44 Dose: 100 mls/hr Documented by: Morphine Sulfate (Morphine Sulfate 4 Mg/Ml Cartridge) 3 mg IVPUSH Q3H PRN; Protocol PRN Reason: Pain, Severe (Pain Scale 7-10) Ondansetron HCl (Ondansetron Hcl 4 Mg/2 Ml Vial) 4 mg IVPUSH Q8H PRN PRN Reason: Nausea and Vomiting Sodium Chloride (0.9 % Sodium Chloride Flush 3 Ml Syringe) 3 ml IVFLUSH [facility] Last Admin: 12/30/21 07:44 Dose: 3 ml Documented by: <JU Neves Last Filed: 12/30/21 09:18> Home medications: Home Medications Medication Instructions Recorded Confirmed Last Taken Type atorvastatin 40 40 mg PO DAILY 09/23/20 12/30/21 12/29/21 History mg tablet acetaminophen 325 650 mg PO Q6H 12/30/21 12/30/21 Unknown History mg tablet PRN <JU Neves Last Filed: 12/30/21 09:18> Physical Exam Verdana 4l Vital Signs: Verdana 4d Verdana 4d Vital Signs: Verdana 4d Verdana 4Bd Last Vital Signs Verdana 4d Stained Glass Installer New 4d Stained Glass Installer New 4d Temp 97.9 F 12/30/21 01:33 Stained Glass Installer New 4d Pulse 67 12/30/21 06:15 Stained Glass Installer New 4d Resp 19 12/30/21 06:15 BP 109/57 L 12/30/21 06:15 Pulse Ox 94 12/30/21 06:15 BMI result Body Mass Index 26.4 <JU Neves Last Filed: 12/30/21 09:18> Const: General: comfortable, no acute distress and alert <JU Neves Last Filed: 12/30/21 09:18> Orientation/consciousness: patient oriented x3 <JU Neves Last Filed: 12/30/21 09:18> Resp: Effort & Inspection: normal respiratory effort <JU Neves Last Filed: 12/30/21 09:18> Auscultation: clear to auscultation bilaterally <Radha Hsieh PA-C - Last Filed: 12/30/21 09:18> Cardio: Rate: regular rate <Radha Hsieh PA-C Adrián Last Filed: 12/30/21 09:18> GI: Inspection: Yes normal to inspection and No distended <JU Neves Last Filed: 12/30/21 09:18> Palpation (GI): Soft to palpation, Tenderness to palpation present (GI) in the RLQ; Negative for with no rebound tenderness, no guarding and not rigid <Radha Hsieh PA-C Adrián Last Filed: 12/30/21 09:18> Percussion: Yes normal to percussion <JU Neves Last Filed: 12/30/21 09:18> Skin: General skin exam: no rashes or lesions noted <Radha Hsieh PA-C Adrián Last Filed: 12/30/21 09:18> Neuro: General: patient oriented x3 <JU Neves Last Filed: 12/30/21 09:18> Extrem: General: Yes no clubbing, cyanosis or edema <Radha Hsieh PA-C Adrián Last Filed: 12/30/21 09:18> Results Results Labs: Short CBC 12/30/21 Range/Units 02:26 WBC 19.3 H (4.8-10.8) X10*3/uL Hgb 17.6 H D (12.0-16.0) g/dl Hct 53.4 H (37.0-47.0) % Plt Count 261 (160-400) X10*3/uL BMP 12/30/21 02:26 Sodium 143 Potassium 5.0 Chloride 105 Carbon Dioxide 26 BUN 11 Creatinine 0.85 Calcium 11.0 H D Liver Function 12/30/21 Range/Units 02:26 Total Bilirubin 0.5 (0.0-1.0) mg/dL Direct Bilirubin < 0.2 (0.0-0.5) mg/dL AST 27 D (5-31) U/L ALT 29 (0-31) U/L Alkaline Phosphatase 92 (39-117) U/L Albumin 4.5 (3.5-5.0) g/dL <Radha Hsieh PA-C - Last Filed: 12/30/21 09:18> Assessment and Plan (1) SBO (small bowel obstruction): Status: Acute <Radha Hsieh PA-C - Last Filed: 12/30/21 09:18> Patient well known to surgical service Has had multiple lesions for small-bowel obstruction Had pain episode again starting last night Had BMs yesterday Abdomen soft, mild diffuse tenderness CT shows partial small-bowel obstruction in the distal ileum near anastomosis Patient refusing NG tube NPO IV fluids Seen and examined independently - agree with COLIN Hsieh <Rusty Cortes MD - Last Filed: 12/30/21 13:29> (2) Crohns disease of small intestine: Status: Acute <Radha Hsieh PA-C - Last Filed: 12/30/21 09:18> Plan 61 year old female with history of Crohns disease and multiple SBOs admitted for abdominal pain found to have dilated small bowel loops on imaging consistent with SBO. She will be admitted to the surgical service for further treatment of the SBO. She is clinically appearing well with a soft, nondistended abdomen and therefore will hold off on NGT insertion for now. She does have a leukocytosis but this is likely reactive and secondary to her recent steroid course. Cont IVF, bowel rest. It appears the transition point is again around the anastomosis. Discussed with her it may be time to proceed with resection of the diseased segment of small bowel given her frequent recurrences. Continue conservative measures for now. <Radha Hsieh PA-C - Last Filed: 12/30/21 09:18> Quality Stroke Does the patient have a stroke diagnosis?: No <JU Neves Last Filed: 12/30/21 09:18> VTE Prior VTE?: No <Radha Hsieh PA-C - Last Filed: 12/30/21 09:18> VTE Risk Level:: Medical - moderate - high <Radha Hsieh PA-C - Last Filed: 12/30/21 09:18> VTE Device Contraindication: N/A - Device Ordered <Radha Hsieh PA-C - Last Filed: 12/30/21 09:18> VTE Drug Contraindication: N/A - Med Ordered <Radha Hsieh PA-C - Last Filed: 12/30/21 09:18> Procedures Date of Service Date of Service: 12/30/21 <Radha Hsieh PA-C - Last Filed: 12/30/21 09:18>
[2021-12-30] MEDS: Morphine Sulfate 4 MG/ML CARTRIDGE IVPUSH ×3 (09:57→21:28)
--- NOTE | 2021-12-30 10:15 | PC.NURSE ---
Pt A&Ox4, pain 4/10 at this time, medicated as per MAR orders. Pt has refused NG tube, NS running at 100/hr. Abd soft, TTP in RLQ. Call hodges within reach. Will continue to monitor.
[2021-12-30] MEDS: Acetaminophen 325 MG TABLET 650 MG PO (13:08)
--- NOTE | 2021-12-30 15:11 | PC.NURSE ---
Pt medicated for 7/10 pain to abd at this time. Pt A&Ox3, ambulatory with no assistance.
--- NOTE | 2021-12-30 15:52 | MHC.CM.PN ---
PATIENT LIVES ALONE SHE IS INDEPENDENT WITH ADLS NO DME OR [facility] SERVICES SHE IS NOT VACCINATED AGAINST COVID-19 AND REPORTS NOT HAVING CONTRACTED IT. HCP IS ON FILE AND VERIFIED PCP IS DR STUART. IMM 12/30 IN CHART
--- NOTE | 2021-12-30 18:39 | PC.NURSE ---
Pt sleeping at this time, IV in R ac infiltrated, new IV established in hand. Will continue to monitor.
[2021-12-31] VITALS (7 sets, daily range): BP systolic 110–155; BP diastolic 48–70; PULSE 64–78; RESP 17–20; TEMP 36.3–37.4; O2SAT 94–97; BMI 27.0
[2021-12-31] MEDS: 0.9 % Sodium Chloride Flush 3 ML SYRINGE IVFLUSH (01:14)
[2021-12-31] MEDS: Morphine Sulfate 4 MG/ML CARTRIDGE IVPUSH (01:27)
[2021-12-31] MEDS: 0.9 % Sodium Chloride 1,000 ML 100 ML IVCONT ×3 (01:28→20:30)
[2021-12-31 05:57] LABS: MANUAL DIFF FLAG NO
[2021-12-31 06:07] LABS: Basophils Percent Auto 0.4 % (0-2); Eosinophils Absolute Auto 0.2 X10*3/uL (0.0-0.4); Hemoglobin 12.4 g/dl (12.0-16.0); Imm Gran Abs Auto 0.02 X10*3/uL (0.00-0.03); Imm Gran Pct Auto 0.3 % (0.0-0.4); Lymphocytes Percent Auto 43.3 % (20-40); Mean Corpuscular HGB Conc 31.8 g/dl (31.0-35.0); Mean Corpuscular Hemoglobin 29.6 pg (27.0-33.0); Mean Corpuscular Volume 93.1 fL (80.0-98.0); Mean Platelet Volume 10.8 fL (9.4-12.3); Monocytes Absolute Auto 0.6 X10*3/uL (0.1-1.2); Monocytes Percent Auto 7.9 % (2-11); Neutrophils Absolute Auto 3.1 x10*3/uL (2.0-8.3); Neutrophils Percent Auto 45.1 % (45-73); Platelet Count 199 X10*3/uL (160-400); Red Blood Count 4.19 X10*6/uL (4.20-5.50); Red Cell Distribution Width 15.2 % (11.0-16.0); White Blood Count 6.9 X10*3/uL (4.8-10.8)
[2021-12-31] MEDS: Acetaminophen 325 MG TABLET 650 MG PO (06:08)
[2021-12-31 06:26] LABS: Anion Gap 8 (12-20); Blood Urea Nitrogen 13 mg/dL (9-16); Calcium 8.8 mg/dL (8.4-10.2); Carbon Dioxide 26 mmol/L (22-29); Chloride 113 mmol/L (96-108); Estimated Glomerular Filt Rate > 60; Glucose Random 81 mg/dL (60-115); Potassium 4.1 mmol/L (3.3-5.1); Sodium 143 mmol/L (135-145)
--- NOTE | 2021-12-31 08:02 | P.PNGS_ITS ---
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 4d [employer] Plant Operator New 4d Temp 99.4 F 12/31/21 07:33 Journeyman Power Plant Operator New 4d Pulse 75 12/31/21 07:33 Journeyman Power Plant Operator New 4d Resp 20 12/31/21 07:33 BP 131/68 12/31/21 07:33 Pulse Ox 94 12/31/21 07:33 BMI result Body Mass Index 27.0 Const: General: comfortable and no acute distress Resp: Auscultation: clear to auscultation bilaterally Cardio: Rate: regular rate GI: Inspection: No distended Palpation (GI): Soft to palpation, not firm and nontender Objective Data Active Medications Acetaminophen (Acetaminophen 325 Mg Tablet) 650 mg PO Q6H PRN PRN Reason: fever, pain Last Admin: 12/31/21 06:08 Dose: 650 mg Documented by: CHAVEZ Heparin Sodium (Porcine) (Heparin Sodium,Porcine 5,000 Unit/Ml Vial) 5,000 unit SUBCUT BID [facility] Last Admin: 12/30/21 20:39 Dose: 5,000 unit Documented by: DALTON Sodium Chloride (Ns) 1,000 mls @ 100 mls/hr IVCONT .Q10H [facility] Last Admin: 12/31/21 01:28 Dose: 100 mls/hr Documented by: CHAVEZ Morphine Sulfate (Morphine Sulfate 4 Mg/Ml Cartridge) 4 mg IVPUSH Q3H PRN; Protocol PRN Reason: Pain, Severe (Pain Scale 7-10) Last Admin: 12/31/21 01:27 Dose: 4 mg Documented by: CHAVEZ Ondansetron HCl (Ondansetron Hcl 4 Mg/2 Ml Vial) 4 mg IVPUSH Q8H PRN PRN Reason: Nausea and Vomiting Last Admin: 12/30/21 09:57 Dose: 4 mg Documented by: DARIEL Oxycodone HCl (Oxycodone Hcl Immed Release 5 Mg Tablet) 5 mg PO Q4H PRN PRN Reason: Pain, Moderate (Pain Scale 4-6 Sodium Chloride (0.9 % Sodium Chloride Flush 3 Ml Syringe) 3 ml IVFLUSH QSHIFT [facility] Last Admin: 12/31/21 01:14 Dose: 3 ml Documented by: CHAVEZ Labs CBC & Chem 7: 12/31/21 05:43 12/31/21 05:43 Labs: Laboratory Results - last 24 hr 12/31/21 12/31/21 05:43 05:43 MCV 93.1 MCH 29.6 MCHC 31.8 RDW 15.2 Plt Count 199 MPV 10.8 Immature Gran % (Auto) 0.3 Neut % (Auto) 45.1 Lymph % (Auto) 43.3 H Meigs % (Auto) 7.9 Eos % (Auto) 3.0 Baso % (Auto) 0.4 Lymph # (Auto) 3.0 [place] # (Auto) 0.6 Eos # (Auto) 0.2 Baso # (Auto) 0.0 Abs Immat Gran (auto) 0.02 Absolute Neuts (auto) 3.1 Absolute Nucleated RBC 0.000 Nucleated RBC % (auto) 0.0 Anion Gap 8 L Estim Creat Clear Calc 72.0 Estimated GFR > 60 Random Glucose 81 Calcium 8.8 D Microbiology Microbiology Results: Microbiology 12/30/21 05:33 Blood Culture - Preliminary Blood - Venous No growth after 24 hours. 12/30/21 05:29 Blood Culture - Preliminary Blood - Venous No growth after 24 hours. Procedures Date of Service Date of Service: 12/31/21 Progress Note: A&P Assessment and plan (1) SBO (small bowel obstruction): Status: Acute Assessment and Plan: symptoms resolved abd soft, nontender labs ok start clear liquids she is considering surgery on an elective basis will see how she does with diet advancement Fall Risk Details Current Medications: Current Medications Acetaminophen (Acetaminophen 325 Mg Tablet) 650 mg PO Q6H PRN PRN Reason: fever, pain Last Admin: 12/31/21 06:08 Dose: 650 mg Documented by: Heparin Sodium (Porcine) (Heparin Sodium,Porcine 5,000 Unit/Ml Vial) 5,000 unit SUBCUT BID [facility] Last Admin: 12/30/21 20:39 Dose: 5,000 unit Documented by: Sodium Chloride (Ns) 1,000 mls @ 100 mls/hr IVCONT .Q10H [facility] Last Admin: 12/31/21 01:28 Dose: 100 mls/hr Documented by: Morphine Sulfate (Morphine Sulfate 4 Mg/Ml Cartridge) 4 mg IVPUSH Q3H PRN; Protocol PRN Reason: Pain, Severe (Pain Scale 7-10) Last Admin: 12/31/21 01:27 Dose: 4 mg Documented by: Ondansetron HCl (Ondansetron Hcl 4 Mg/2 Ml Vial) 4 mg IVPUSH Q8H PRN PRN Reason: Nausea and Vomiting Last Admin: 12/30/21 09:57 Dose: 4 mg Documented by: Oxycodone HCl (Oxycodone Hcl Immed Release 5 Mg Tablet) 5 mg PO Q4H PRN PRN Reason: Pain, Moderate (Pain Scale 4-6 Sodium Chloride (0.9 % Sodium Chloride Flush 3 Ml Syringe) 3 ml IVFLUSH [facility] Last Admin: 12/31/21 01:14 Dose: 3 ml Documented by: Time Spent With Patient Time: Total time spent is greater than 50% in coordination of care (as documented) at patient's floor/unit and/or counseling patient: Time with patient: 15 - 24 minutes Quality Stroke Does the patient have a stroke diagnosis?: No VTE Prior VTE?: No VTE Risk Level:: Medical - moderate - high VTE Device Contraindication: N/A - Device Ordered VTE Drug Contraindication: N/A - Med Ordered
[2021-12-31] MEDS: Heparin Sodium,Porcine 5,000 UNIT/ML VIAL 5000 UNIT SUBCUT ×2 (09:03→20:31)
[2021-12-31] MEDS: oxyCODONE HCl Immed Release 5 MG TABLET PO ×2 (12:06→17:01)
--- NOTE | 2021-12-31 14:49 | MHC.CM.PN ---
EMR REVIEWED, PER SURGICAL PT CONSIDERING SURGERY HOWEVER IMPROVING AND DIET WILL BE ADVANCED TO CLEAR LIQUIDS, NO D/C PLANNED FOR TODAY, CM WILL CONT TO MONITOR D/C NEEDS. PT MAY NEED VNA IF PLAN CHANGES TO SURGERY WHILE INPT OTHERWISE PT WILL D/C HOME NO SERVICES W/FAMILY FOR TRANSPORT.
[2022-01-01] VITALS (7 sets, daily range): BP systolic 119–198; BP diastolic 55–86; PULSE 50–67; RESP 16–20; TEMP 36.3–36.8; O2SAT 95–98
[2022-01-01] MEDS: Morphine Sulfate 4 MG/ML CARTRIDGE IVPUSH ×2 (01:31→13:07)
[2022-01-01] MEDS: 0.9 % Sodium Chloride 1,000 ML 100 ML IVCONT ×2 (06:00→15:53)
[2022-01-01] MEDS: Heparin Sodium,Porcine 5,000 UNIT/ML VIAL 5000 UNIT SUBCUT ×2 (09:11→20:39)
--- NOTE | 2022-01-01 14:56 | P.PNGS_ITS ---
Subjective Subjective Date of Service: 01/01/22 Interval history: Passing small amounts of flatus but says she has been having some sharp pains No vomiting, no nausea Physical Exam Verdana 4l Vital Signs: Verdana 4d Verdana 4d Vital Signs: Verdana 4d Verdana 4Bd Last Vital Signs Verdana 4d Lie Detector Operator New 4d Lie Detector Operator New 4d Temp 97.4 F 01/01/22 11:21 Lie Detector Operator New 4d Pulse 60 01/01/22 11:21 Lie Detector Operator New 4d Resp 18 01/01/22 11:21 BP 187/86 H 01/01/22 11:21 Pulse Ox 98 01/01/22 11:21 BMI result Body Mass Index 27.0 Const: General: comfortable and no acute distress Resp: Effort & Inspection: normal respiratory effort Cardio: Rate: regular rate GI: Other: Soft, nondistended, no guarding, no rebound, mild tenderness diffusely, right more than the left Objective Data Active Medications Acetaminophen (Acetaminophen 325 Mg Tablet) 650 mg PO Q6H PRN PRN Reason: fever, pain Last Admin: 12/31/21 06:08 Dose: 650 mg Documented by: CHAVEZ Heparin Sodium (Porcine) (Heparin Sodium,Porcine 5,000 Unit/Ml Vial) 5,000 unit SUBCUT BID [facility] Last Admin: 01/01/22 09:11 Dose: 5,000 unit Documented by: TRACIE Sodium Chloride (Ns) 1,000 mls @ 100 mls/hr IVCONT .Q10H [facility] Last Admin: 01/01/22 06:00 Dose: 100 mls/hr Documented by: CHAVEZ Morphine Sulfate (Morphine Sulfate 4 Mg/Ml Cartridge) 4 mg IVPUSH Q3H PRN; Protocol PRN Reason: Pain, Severe (Pain Scale 7-10) Last Admin: 01/01/22 13:07 Dose: 4 mg Documented by: TRACIE Ondansetron HCl (Ondansetron Hcl 4 Mg/2 Ml Vial) 4 mg IVPUSH Q8H PRN PRN Reason: Nausea and Vomiting Last Admin: 12/30/21 09:57 Dose: 4 mg Documented by: PARI-RAMLINDA Oxycodone HCl (Oxycodone Hcl Immed Release 5 Mg Tablet) 5 mg PO Q4H PRN PRN Reason: Pain, Moderate (Pain Scale 4-6 Last Admin: 12/31/21 17:01 Dose: 5 mg Documented by: GABY Sodium Chloride (0.9 % Sodium Chloride Flush 3 Ml Syringe) 3 ml IVFLUSH QSHIFT [facility] Last Admin: 01/01/22 09:16 Dose: Not Given Documented by: TRACIE Non-Admin Reason: IV Running Labs CBC & Chem 7: 12/31/21 05:43 12/31/21 05:43 Microbiology Microbiology Results: Microbiology 12/30/21 05:33 Blood Culture - Preliminary Blood - Venous No growth after 48 hours. 12/30/21 05:29 Blood Culture - Preliminary Blood - Venous No growth after 48 hours. Procedures Date of Service Date of Service: 01/01/22 Progress Note: A&P Assessment and plan (1) SBO (small bowel obstruction): Status: Acute Assessment and Plan: Had been passing flatus but says that she has some sharp pains today Will keep on clear liquids therefore Encouraged to get out of bed She has had multiple admissions - she is interested in surgical intervention Will allow inflammatory changes to subside Will probably do laparotomy as an elective procedure Patient understands plan Exam benign Fall Risk Details Current Medications: Current Medications Acetaminophen (Acetaminophen 325 Mg Tablet) 650 mg PO Q6H PRN PRN Reason: fever, pain Last Admin: 12/31/21 06:08 Dose: 650 mg Documented by: Heparin Sodium (Porcine) (Heparin Sodium,Porcine 5,000 Unit/Ml Vial) 5,000 unit SUBCUT BID [facility] Last Admin: 01/01/22 09:11 Dose: 5,000 unit Documented by: Sodium Chloride (Ns) 1,000 mls @ 100 mls/hr IVCONT .Q10H [facility] Last Admin: 01/01/22 06:00 Dose: 100 mls/hr Documented by: Morphine Sulfate (Morphine Sulfate 4 Mg/Ml Cartridge) 4 mg IVPUSH Q3H PRN; Protocol PRN Reason: Pain, Severe (Pain Scale 7-10) Last Admin: 01/01/22 13:07 Dose: 4 mg Documented by: Ondansetron HCl (Ondansetron Hcl 4 Mg/2 Ml Vial) 4 mg IVPUSH Q8H PRN PRN Reason: Nausea and Vomiting Last Admin: 12/30/21 09:57 Dose: 4 mg Documented by: Oxycodone HCl (Oxycodone Hcl Immed Release 5 Mg Tablet) 5 mg PO Q4H PRN PRN Reason: Pain, Moderate (Pain Scale 4-6 Last Admin: 12/31/21 17:01 Dose: 5 mg Documented by: Sodium Chloride (0.9 % Sodium Chloride Flush 3 Ml Syringe) [facility] Last Admin: 01/01/22 09:16 Dose: Not Given Documented by: Time Spent With Patient Time: Total time spent is greater than 50% in coordination of care (as documented) at patient's floor/unit and/or counseling patient: Time with patient: 15 - 24 minutes Quality Stroke Does the patient have a stroke diagnosis?: No VTE Prior VTE?: No VTE Risk Level:: Medical - moderate - high VTE Device Contraindication: N/A - Device Ordered VTE Drug Contraindication: N/A - Med Ordered
[2022-01-01] MEDS: Acetaminophen 325 MG TABLET 650 MG PO (16:01)
--- NOTE | 2022-01-01 16:20 | PC.NURSE ---
Addendum entered by Ginger Cool RN 01/01/22 16:55: patient seen by hospitalist,IV fluids d/c,dose of amlodipine administered,will monitor Original Note: P BP elevated 176/80 pulse 61 ,patient reported reddened area under left breast,warmer to touch,redness spreded out I Dr. Cortes made aware E Hospitalist consult pending
--- NOTE | 2022-01-01 16:33 | P.CONHOSP_ITS ---
History of Present Illness Data of Consult Service Date: 01/01/22 Requesting physician: Rusty Cortes Primary Care Provider: Unknown Physician HPI Reason for consult: Elevated blood pressure 61-year-old female patient with longstanding history of Crohn's disease with frequent admission for small-bowel obstruction admitted under surgery due to recurrent episode of right lower abdominal pain, CT scan of the abdomen and pelvis showed distal bowels segment leading to anastomosis as collapsed, thick- walled appearance and multiple loops of small bowel leading to this segment are fluid-filled and dilated patient also noted to have leukocytosis currently being managed conservatively with pain management bowel rest and IV fluids patient in last 24 hours noted to have worsening of blood pressure with high as systolic blood pressure being 198/77 patient denies any symptoms of headache, lightheadedness, dizziness, denies chest pain, no shortness of breath, denies worsening abdominal pain denies anxiety symptoms currently passing flatus and tolerating clear liquid diet. patient noted to have high blood pressure readings during prior hospitalization in March of 2021 Review of Systems Verdana 4l Review of Systems: Verdana 4d Verdana 4d General no headache, no dizziness, no fever chills. CVS no chest pain, no palpitation. Respiratory no cough, no sob Gastrointestinal no nausea no vomiting, no abdominal pain musculoskeletal no pain Verdana 4d Yes all other systemssystems are reviewed and are negative [facility] Medical History Crohns disease of small intestine Gastritis Hyperlipidemia Small bowel obstruction Family History Father No problems noted. Mother Pneumonia Sister Breast cancer Surgical History History of appendectomy History of bowel resection History of esophagogastroduodenoscopy (EGD) Hx of colonoscopy S/P BSO (bilateral salpingo-oophorectomy) Social History Household Members: None Housing: Apartment Do you presently have visiting nurse or other home services: No Alcohol intake: never Patient Tobacco Use Status: Current everyday Tobacco user Tobacco use type: Cigarette Cigarette Packs Per Day: 0.5 Cigarettes Per Day: 10.0 Years Smoked: many per pt Smoked in Last 30 Days: Yes e-Cigarette/Vaping Use: Never Used Patient Interested in Nicotine Replacement: No Patient Given Instructions on How to Stop Smoking: No Second Hand Smoke Exposure: No Use of substances other than those prescribed or required for medical reasons: No Currently Displaying Signs/Symptoms of Drug Intoxication Withdrawal: No Any prior treatment program specific to substance use: No Have you been hit, kicked, punched, or otherwise hurt by someone within the past year? If so, by whom?: No Do you feel safe in your current relationship?: No Current Relationship Is there a partner from a previous relationship who is making you feel unsafe now?: No Are you made to feel afraid or neglected: No Advance Directives: Yes Advance Directives on File: Yes Advance Directives Date on File: 04/13/21 Do you have thoughts of harming others: None Do you have a plan to hurt others: No Plan Recently lost weight without trying: No Eating poorly because of decreased appetite: Yes Nutrition Risks: Poor intake 0-25% >4 days Patient : No Poor oral hygiene: No service: No Current occupational status: unemployed and disabled Meds Allergies Allergy/AdvReac Type Severity Reaction Status Date / Time No Known Allergies Allergy Verified 12/30/21 01:33 [No Known Allergies*] Active Medications: Current Medications Acetaminophen (Acetaminophen 325 Mg Tablet) 650 mg PO Q6H PRN PRN Reason: fever, pain Last Admin: 01/01/22 16:01 Dose: 650 mg Documented by: Heparin Sodium (Porcine) (Heparin Sodium,Porcine 5,000 Unit/Ml Vial) 5,000 unit SUBCUT BID [facility] Last Admin: 01/01/22 09:11 Dose: 5,000 unit Documented by: Sodium Chloride (Ns) 1,000 mls @ 100 mls/hr IVCONT .Q10H [facility] Last Admin: 01/01/22 15:53 Dose: 100 mls/hr Documented by: Morphine Sulfate (Morphine Sulfate 4 Mg/Ml Cartridge) 4 mg IVPUSH Q3H PRN; Protocol PRN Reason: Pain, Severe (Pain Scale 7-10) Last Admin: 01/01/22 13:07 Dose: 4 mg Documented by: Ondansetron HCl (Ondansetron Hcl 4 Mg/2 Ml Vial) 4 mg IVPUSH Q8H PRN PRN Reason: Nausea and Vomiting Last Admin: 12/30/21 09:57 Dose: 4 mg Documented by: Oxycodone HCl (Oxycodone Hcl Immed Release 5 Mg Tablet) 5 mg PO Q4H PRN PRN Reason: Pain, Moderate (Pain Scale 4-6 Last Admin: 12/31/21 17:01 Dose: 5 mg Documented by: Sodium Chloride (0.9 % Sodium Chloride Flush 3 Ml Syringe) 3 ml IVFLUSH QSHIFT [facility] Last Admin: 01/01/22 15:53 Dose: Not Given Documented by: Home Medications Medication Instructions Recorded Confirmed Last Taken Type atorvastatin 40 40 mg PO DAILY 09/23/20 12/30/21 12/29/21 History mg tablet acetaminophen 325 650 mg PO Q6H 12/30/21 12/30/21 Unknown History mg tablet PRN Physical Exam Verdana 4l Vital Signs and Narrative: Verdana 4d Verdana 4d Vital Signs: Verdana 4d Verdana 4Bd Last Vital Signs Verdana 4d Financial Accounting Analyst New 4d Financial Accounting Analyst New 4d Temp 97.3 F 01/01/22 15:58 Financial Accounting Analyst New 4d Pulse 61 01/01/22 16:03 Financial Accounting Analyst New 4d Resp 20 01/01/22 16:03 BP 169/75 H 01/01/22 16:03 Pulse Ox 97 01/01/22 15:58 BMI result Body Mass Index 27.0 General patient resting comfortably in no acute distress. HEENT pupil equal, reactive to light and accommodation oral mucosa moist Neck is supple no JVD. CVS regular rate rhythm, Respiratory lungs clear to auscultation, no respiratory distress, no wheeze, no rhonchi. Gastrointestinal abdomen soft, nontender, bowel sounds audible, no guarding , no rigidity. Extremities no edema. Neuro nonfocal Skin no rash psych appropriate affect Results Labs CBC and Chem 7: 12/31/21 05:43 12/31/21 05:43 Assessment and Plan (1) Elevated blood pressure reading without diagnosis of hypertension: Status: Acute (2) SBO (small bowel obstruction): Status: Acute (3) Crohns disease of small intestine: Status: Acute (4) Hyperlipidemia: Status: Acute Plan 61-year-old female with past medical history of Crohn's disease, hyperlip idemia, tobacco use disorder admitted and a surgery for small-bowel obstruction being managed conservatively with significant improvement in pain tolerating clear liquid diet and noted to have high blood pressure in last 24 hours. Elevated blood pressure with no prior history of hypertension noted to have significantly elevated blood pressures, review old records from last year that also showed high blood pressure readings. will place patient on Norvasc likely has essential hypertension, follow blood pressure closely will also DC IV fluid since 6 L positive since admission. stable renal function follow clinical course closely no further workup needed tobacco use disorder counseling done patient declined nicotine patch hyperlipidemia resume statins on discharge.
[2022-01-01] MEDS: amLODIPine Besylate 5 MG TABLET PO (16:54)
[2022-01-01] MEDS: oxyCODONE HCl Immed Release 5 MG TABLET PO (20:46)
[2022-01-01] MEDS: 0.9 % Sodium Chloride Flush 3 ML SYRINGE IVFLUSH (23:58)
[2022-01-02 03:17] VITALS: BP 148/69; PULSE 52; RESP 18; TEMP 36.8; O2SAT 99
[2022-01-02] MEDS: amLODIPine Besylate 5 MG TABLET PO (07:40)
[2022-01-02] MEDS: oxyCODONE HCl Immed Release 5 MG TABLET PO ×2 (07:40→17:36)
[2022-01-02] MEDS: Heparin Sodium,Porcine 5,000 UNIT/ML VIAL 5000 UNIT SUBCUT ×2 (07:40→20:03)
[2022-01-02] MEDS: 0.9 % Sodium Chloride Flush 3 ML SYRINGE IVFLUSH ×3 (07:40→23:55)
[2022-01-02 07:49] VITALS: BP 164/74; PULSE 52; RESP 18; TEMP 36.6; O2SAT 97
[2022-01-02] MEDS: cephALEXin 500 MG CAPSULE PO ×3 (08:46→23:54)
--- NOTE | 2022-01-02 11:22 | P.PNIM_ITS ---
Subjective Subjective Date of Service: 01/02/22 Interval History: complaining of mild lightheadedness when she sit up and start walking, denies headache, no weakness no nausea vomiting abdominal pain or diarrhea, denies chest pain, no palpitations, no shortness breath, tolerating clear liquid diet. Review of Systems Review of Systems: Yes all other systems are reviewed and are negative Physical Exam Verdana 4l Vital Signs: Verdana 4d Verdana 4d Vital Signs: Verdana 4d Verdana 4Bd Last Vital Signs Verdana 4d Merchandise Coordinator New 4d Merchandise Coordinator New 4d Temp 97.9 F 01/02/22 07:49 Merchandise Coordinator New 4d Pulse 52 01/02/22 07:49 Merchandise Coordinator New 4d Resp 18 01/02/22 07:49 BP 164/74 H 01/02/22 07:49 Pulse Ox 97 01/02/22 07:49 BMI result Body Mass Index 27.0 Const: Other: General patient resting comfortably in no acute distress.? HEENT pupil equal, reactive to light and accommodation oral mucosa moist Neck is supple no JVD. CVS? regular rate rhythm, Respiratory lungs clear to auscultation, no respiratory distress, no wheeze, no rhonchi. Gastrointestinal abdomen soft, nontender, bowel sounds audible, no guarding , no rigidity. Extremities no edema. Neuro nonfocal Skin no rash psych appropriate affect Objective Data Active Medications Acetaminophen (Acetaminophen 325 Mg Tablet) 650 mg PO Q6H PRN PRN Reason: fever, pain Last Admin: 01/01/22 16:01 Dose: 650 mg Documented by: GABY Amlodipine Besylate (Amlodipine Besylate 5 Mg Tablet) 5 mg PO DAILY [facility]; Protocol Last Admin: 01/02/22 07:40 Dose: 5 mg Documented by: NENA Cephalexin HCl (Cephalexin 500 Mg Capsule) 500 mg PO Q8H [facility] Last Admin: 01/02/22 08:46 Dose: 500 mg Documented by: YARELY Heparin Sodium (Porcine) (Heparin Sodium,Porcine 5,000 Unit/Ml Vial) 5,000 unit SUBCUT BID [facility] Last Admin: 01/02/22 07:40 Dose: 5,000 unit Documented by: NENA Morphine Sulfate (Morphine Sulfate 4 Mg/Ml Cartridge) 4 mg IVPUSH Q3H PRN; Protocol PRN Reason: Pain, Severe (Pain Scale 7-10) Last Admin: 01/01/22 13:07 Dose: 4 mg Documented by: TRACIE Ondansetron HCl (Ondansetron Hcl 4 Mg/2 Ml Vial) 4 mg IVPUSH Q8H PRN PRN Reason: Nausea and Vomiting Last Admin: 12/30/21 09:57 Dose: 4 mg Documented by: N-RAMSK Oxycodone HCl (Oxycodone Hcl Immed Release 5 Mg Tablet) 5 mg PO Q4H PRN PRN Reason: Pain, Moderate (Pain Scale 4-6 Last Admin: 01/02/22 07:40 Dose: 5 mg Documented by: NENA Sodium Chloride (0.9 % Sodium Chloride Flush 3 Ml Syringe) [facility] Last Admin: 01/02/22 07:40 Dose: 3 ml Documented by: NENA Labs CBC & Chem 7: 12/31/21 05:43 12/31/21 05:43 Microbiology Microbiology Results: Microbiology 12/30/21 05:33 Blood Culture - Preliminary Blood - Venous No growth after 48 hours. 12/30/21 05:29 Blood Culture - Preliminary Blood - Venous No growth after 48 hours. Assessment and Plan (1) Small bowel obstruction: (2) Crohns disease of small intestine: Status: Acute (3) Hyperlipidemia: Status: Acute (4) Elevated blood pressure reading without diagnosis of hypertension: Status: Acute (5) SBO (small bowel obstruction): Status: Acute Plan 61-year-old? female with past medical history of Crohn's disease, hyperlipidemia, tobacco use disorder admitted and a surgery for small-bowel obstruction being managed conservatively with significant improvement in pain tolerating clear liquid diet and noted to have high blood pressure in last 24 ho urs. ?Elevated blood pressure with no prior history of hypertension Blood pressure improved continue Norvasc 5 mg by mouth daily ?noted to have significantly elevated blood pressures, review old records from? last year that also showed high blood pressure readings. ?stable renal function,?follow? clinical course closely no further workup needed ?tobacco use disorder counseling done patient declined nicotine patch ?hyperlipidemia resume statins on discharge. small-bowel obstruction management as per surgery code status full code Quality Stroke Does the patient have a stroke diagnosis?: No VTE Prior VTE?: No VTE Risk Level:: Medical - moderate - high VTE Device Contraindication: N/A - Device Ordered VTE Drug Contraindication: N/A - Med Ordered
[2022-01-02 11:50] VITALS: BP 118/57; PULSE 54; RESP 18; TEMP 36.3; O2SAT 98
--- NOTE | 2022-01-02 12:04 | MHC.CM.PN ---
IMM 01/02/22, per multidisciplinary rounds, pts diet advancing slowly, antic d/c in 1-2 days.
--- NOTE | 2022-01-02 12:49 | P.PNGS_ITS ---
Subjective Subjective Date of Service: 01/02/22 <Radha Hsieh PA-C - Last Filed: 01/02/22 12:55> 01/02/22 <Rusty Cortes MD - Last Filed: 01/02/22 13:39> Interval history: Overall feeling better. Still some mild cramping, intermittent RLQ pain. Tolerating liquids. Continues to pass flatus. Ambulating halls. Noticed redness on R breast. <Radha Hsieh PA-C - Last Filed: 01/02/22 12:55> Physical Exam Verdana 4l Vital Signs: Verdana 4d Verdana 4d Vital Signs: Verdana 4d Verdana 4Bd Last Vital Signs Verdana 4d Accounts Executive New 4d Accounts Executive New 4d Temp 97.3 F 01/02/22 11:50 Accounts Executive New 4d Pulse 54 01/02/22 11:50 Accounts Executive New 4d Resp 18 01/02/22 11:50 BP 118/57 L 01/02/22 11:50 Pulse Ox 98 01/02/22 11:50 BMI result Body Mass Index 27.0 <Radha Hsieh PA-C - Last Filed: 01/02/22 12:55> Const: General: comfortable, no acute distress and alert <JU Neves Last Filed: 01/02/22 12:55> Orientation/consciousness: patient oriented x3 <JU Neves Last Filed: 01/02/22 12:55> Chest: Other: R breast with small erythematous area at 6 o clock region with abrasion and small opening draining small amount of purulence, slightly tender, no palpable fluctuance or significant induration <Radha Hsieh PA-C - Last Filed: 01/02/22 12:55> Resp: Effort & Inspection: normal respiratory effort <JU Neves Last Filed: 01/02/22 12:55> GI: Inspection: No distended <JU Neves Last Filed: 01/02/22 12:55> Palpation (GI): Soft to palpation and Tenderness to palpation present (GI) (mild, RLQ) <JU Neves Last Filed: 01/02/22 12:55> Percussion: Yes normal to percussion <JU Neves Last Filed: 01/02/22 12:55> Skin: General skin exam: no rashes or lesions noted <JU Neves Last Filed: 01/02/22 12:55> Neuro: General: patient oriented x3 <Radha Hsieh PA-C - Last Filed: 01/02/22 12:55> Objective Data Active Medications Acetaminophen (Acetaminophen 325 Mg Tablet) 650 mg PO Q6H PRN PRN Reason: fever, pain Last Admin: 01/01/22 16:01 Dose: 650 mg Documented by: GABY Amlodipine Besylate (Amlodipine Besylate 5 Mg Tablet) 5 mg PO DAILY [facility]; Protocol Last Admin: 01/02/22 07:40 Dose: 5 mg Documented by: NENA Cephalexin HCl (Cephalexin 500 Mg Capsule) 500 mg PO Q8H [facility] Last Admin: 01/02/22 08:46 Dose: 500 mg Documented by: YARELY Heparin Sodium (Porcine) (Heparin Sodium,Porcine 5,000 Unit/Ml Vial) 5,000 unit SUBCUT BID [facility] Last Admin: 01/02/22 07:40 Dose: 5,000 unit Documented by: NENA Morphine Sulfate (Morphine Sulfate 4 Mg/Ml Cartridge) 4 mg IVPUSH Q3H PRN; Protocol PRN Reason: Pain, Severe (Pain Scale 7-10) Last Admin: 01/01/22 13:07 Dose: 4 mg Documented by: TRACIE Ondansetron HCl (Ondansetron Hcl 4 Mg/2 Ml Vial) 4 mg IVPUSH Q8H PRN PRN Reason: Nausea and Vomiting Last Admin: 12/30/21 09:57 Dose: 4 mg Documented by: PARI-RAMSK Oxycodone HCl (Oxycodone Hcl Immed Release 5 Mg Tablet) 5 mg PO Q4H PRN PRN Reason: Pain, Moderate (Pain Scale 4-6 Last Admin: 01/02/22 07:40 Dose: 5 mg Documented by: NENA Sodium Chloride (0.9 % Sodium Chloride Flush 3 Ml Syringe) [facility] Last Admin: 01/02/22 07:40 Dose: 3 ml Documented by: NENA <Radha Hsieh PA-C - Last Filed: 01/02/22 12:55> Labs CBC & Chem 7: : 12/31/21 05:43 12/31/21 05:43 <Radha Hsieh PA-C - Last Filed: 01/02/22 12:55> Procedures Date of Service Date of Service: 01/02/22 <Radha Hsieh PA-C - Last Filed: 01/02/22 12:55> Progress Note: A&P Assessment and plan (1) Elevated blood pressure reading without diagnosis of hypertension: Status: Acute <Radha Hsieh PA-C - Last Filed: 01/02/22 12:55> (2) SBO (small bowel obstruction): Status: Acute <Radha Hsieh PA-C - Last Filed: 01/02/22 12:55> (3) Crohns disease of small intestine: Status: Acute <Radha Hsieh PA-C - Last Filed: 01/02/22 12:55> Assessment and Plan: continues to feel better passing good flatus still describes some sharp pain possibly advance diet later today looks well abdomen soft and benign not distended seen and examined independently -- agree with COLIN Hsieh <Rusty Cortes MD - Last Filed: 01/02/22 13:39> Plan 61 year old female with hx of Crohns dz, multiple SBO admissions Pain is better but continues with mild RLQ intermittent pains Abd exam remains benign, very soft Will advance to full liquids and then further as tolerated Due to multiple admissions - she is interested in surgical intervention- will allow inflammatory changes to subside Will probably do laparotomy as an elective procedure- pt understands HTN- seen by hospitalist service. Fluids d/c and started on norvasc. R breast erythema- likely with cellulitis from abrasion. Started on PO keflex course. No abscess appreciated. States she is UTD on mammograms. <Radha Hsieh PA-C - Last Filed: 01/02/22 12:55> Fall Risk Details Current Medications: Current Medications Acetaminophen (Acetaminophen 325 Mg Tablet) 650 mg PO Q6H PRN PRN Reason: fever, pain Last Admin: 01/01/22 16:01 Dose: 650 mg Documented by: Amlodipine Besylate (Amlodipine Besylate 5 Mg Tablet) 5 mg PO DAILY [facility]; Protocol Last Admin: 01/02/22 07:40 Dose: 5 mg Documented by: Cephalexin HCl (Cephalexin 500 Mg Capsule) 500 mg PO Q8H [facility] Last Admin: 01/02/22 08:46 Dose: 500 mg Documented by: Heparin Sodium (Porcine) (Heparin Sodium,Porcine 5,000 Unit/Ml Vial) 5,000 unit SUBCUT BID [facility] Last Admin: 01/02/22 07:40 Dose: 5,000 unit Documented by: Morphine Sulfate (Morphine Sulfate 4 Mg/Ml Cartridge) 4 mg IVPUSH Q3H PRN; Protocol PRN Reason: Pain, Severe (Pain Scale 7-10) Last Admin: 01/01/22 13:07 Dose: 4 mg Documented by: Ondansetron HCl (Ondansetron Hcl 4 Mg/2 Ml Vial) 4 mg IVPUSH Q8H PRN PRN Reason: Nausea and Vomiting Last Admin: 12/30/21 09:57 Dose: 4 mg Documented by: Oxycodone HCl (Oxycodone Hcl Immed Release 5 Mg Tablet) 5 mg PO Q4H PRN PRN Reason: Pain, Moderate (Pain Scale 4-6 Last Admin: 01/02/22 07:40 Dose: 5 mg Documented by: Sodium Chloride (0.9 % Sodium Chloride Flush 3 Ml Syringe) [facility] Last Admin: 01/02/22 07:40 Dose: 3 ml Documented by: <Radha Hsieh PA-C - Last Filed: 01/02/22 12:55> Time Spent With Patient Time: Total time spent is greater than 50% in coordination of care (as documented) at patient's floor/unit and/or counseling patient: <Radha Hsieh PA-C - Last Filed: 01/02/22 12:55> Time with patient: 15 - 24 minutes <Radha Hsieh PA-C - Last Filed: 01/02/22 12:55> Quality Stroke Does the patient have a stroke diagnosis?: No <Radha Hsieh PA-C - Last Filed: 01/02/22 12:55> VTE Prior VTE?: No <Radha Hsieh PA-C - Last Filed: 01/02/22 12:55> VTE Risk Level:: Medical - moderate - high <Radha Hsieh PA-C - Last Filed: 01/02/22 12:55> VTE Device Contraindication: N/A - Device Ordered <Radha Hsieh PA-C - Last Filed: 01/02/22 12:55> VTE Drug Contraindication: N/A - Med Ordered <Radha Hsieh PA-C - Last Filed: 01/02/22 12:55>
[2022-01-02 15:09] VITALS: BP 142/66; PULSE 56; RESP 18; TEMP 36.8; O2SAT 97
[2022-01-02] MEDS: Acetaminophen 325 MG TABLET 650 MG PO (15:14)
[2022-01-02 19:12] VITALS: BP 130/74; PULSE 80; RESP 18; TEMP 36.9; O2SAT 98
[2022-01-02 23:48] VITALS: BP 113/63; PULSE 52; RESP 16; TEMP 36.9; O2SAT 98
[2022-01-03 04:00] VITALS: BP 140/66; PULSE 50; RESP 16; TEMP 36.7; O2SAT 97
[2022-01-03 08:00] VITALS: BP 132/66; PULSE 68; RESP 18; TEMP 36.7; O2SAT 98
[2022-01-03] MEDS: cephALEXin 500 MG CAPSULE PO ×3 (08:46→23:49)
[2022-01-03] MEDS: amLODIPine Besylate 5 MG TABLET PO (08:46)
[2022-01-03] MEDS: Heparin Sodium,Porcine 5,000 UNIT/ML VIAL 5000 UNIT SUBCUT ×2 (08:46→21:16)
[2022-01-03] MEDS: 0.9 % Sodium Chloride Flush 3 ML SYRINGE IVFLUSH ×3 (08:46→21:21)
--- NOTE | 2022-01-03 09:39 | P.PNGS_ITS ---
Subjective Subjective Date of Service: 01/04/22 Interval history: feels well good flatus has BMs minimal pain says she feels ready to go home Physical Exam Verdana 4l Vital Signs: Verdana 4d Verdana 4d Vital Signs: Verdana 4d Verdana 4Bd Last Vital Signs Verdana 4d Videographer New 4d Videographer New 4d Temp 98.0 F 01/03/22 08:00 Videographer New 4d Pulse 68 01/03/22 08:00 Videographer New 4d Resp 18 01/03/22 08:00 BP 132/66 01/03/22 08:00 Pulse Ox 98 01/03/22 08:00 BMI result Body Mass Index 27.0 Const: Other: ambulating General: healthy appearing and comfortable Resp: Effort & Inspection: normal respiratory effort Cardio: Rate: regular rate GI: Palpation (GI): Soft to palpation, nontender and no guarding Objective Data Active Medications Acetaminophen (Acetaminophen 325 Mg Tablet) 650 mg PO Q6H PRN PRN Reason: fever, pain Last Admin: 01/02/22 15:14 Dose: 650 mg Documented by: GABY Amlodipine Besylate (Amlodipine Besylate 5 Mg Tablet) 5 mg PO DAILY [facility]; Protocol Last Admin: 01/03/22 08:46 Dose: 5 mg Documented by: HANNHA Cephalexin HCl (Cephalexin 500 Mg Capsule) 500 mg PO Q8H [facility] Last Admin: 01/03/22 08:46 Dose: 500 mg Documented by: HANNAH Heparin Sodium (Porcine) (Heparin Sodium,Porcine 5,000 Unit/Ml Vial) 5,000 unit SUBCUT BID [facility] Last Admin: 01/03/22 08:46 Dose: 5,000 unit Documented by: HANNAH Morphine Sulfate (Morphine Sulfate 4 Mg/Ml Cartridge) 4 mg IVPUSH Q3H PRN; Protocol PRN Reason: Pain, Severe (Pain Scale 7-10) Last Admin: 01/01/22 13:07 Dose: 4 mg Documented by: TRACIE Ondansetron HCl (Ondansetron Hcl 4 Mg/2 Ml Vial) 4 mg IVPUSH Q8H PRN PRN Reason: Nausea and Vomiting Last Admin: 12/30/21 09:57 Dose: 4 mg Documented by: DARIEL Oxycodone HCl (Oxycodone Hcl Immed Release 5 Mg Tablet) 5 mg PO Q4H PRN PRN Reason: Pain, Moderate (Pain Scale 4-6 Last Admin: 01/02/22 17:36 Dose: 5 mg Documented by: GABY Sodium Chloride (0.9 % Sodium Chloride Flush 3 Ml Syringe) 3 ml IVFLUSH QSHIFT [facility] Last Admin: 01/03/22 08:46 Dose: 3 ml Documented by: HANNAH Labs CBC & Chem 7: 12/31/21 05:43 12/31/21 05:43 Procedures Date of Service Date of Service: 01/03/22 Progress Note: A&P Assessment and plan (1) SBO (small bowel obstruction): Status: Acute Assessment and Plan: likely from stricturing ds with Crohns much improved good GI function regular diet abd soft, nontender likely home today office ffup - pt interested in surgical resection on elective basis Fall Risk Details Current Medications: Current Medications Acetaminophen (Acetaminophen 325 Mg Tablet) 650 mg PO Q6H PRN PRN Reason: fever, pain Last Admin: 01/02/22 15:14 Dose: 650 mg Documented by: Amlodipine Besylate (Amlodipine Besylate 5 Mg Tablet) 5 mg PO DAILY [facility]; Protocol Last Admin: 01/03/22 08:46 Dose: 5 mg Documented by: Cephalexin HCl (Cephalexin 500 Mg Capsule) 500 mg PO Q8H [facility] Last Admin: 01/03/22 08:46 Dose: 500 mg Documented by: Heparin Sodium (Porcine) (Heparin Sodium,Porcine 5,000 Unit/Ml Vial) 5,000 unit SUBCUT BID [facility] Last Admin: 01/03/22 08:46 Dose: 5,000 unit Documented by: Morphine Sulfate (Morphine Sulfate 4 Mg/Ml Cartridge) 4 mg IVPUSH Q3H PRN; Protocol PRN Reason: Pain, Severe (Pain Scale 7-10) Last Admin: 01/01/22 13:07 Dose: 4 mg Documented by: Ondansetron HCl (Ondansetron Hcl 4 Mg/2 Ml Vial) 4 mg IVPUSH Q8H PRN PRN Reason: Nausea and Vomiting Last Admin: 12/30/21 09:57 Dose: 4 mg Documented by: Oxycodone HCl (Oxycodone Hcl Immed Release 5 Mg Tablet) 5 mg PO Q4H PRN PRN Reason: Pain, Moderate (Pain Scale 4-6 Last Admin: 01/02/22 17:36 Dose: 5 mg Documented by: Sodium Chloride (0.9 % Sodium Chloride Flush 3 Ml Syringe) 3 ml IVFLUSH [facility] Last Admin: 01/03/22 08:46 Dose: 3 ml Documented by: Time Spent With Patient Time: Total time spent is greater than 50% in coordination of care (as documented) at patient's floor/unit and/or counseling patient: Time with patient: 15 - 24 minutes Quality Stroke Does the patient have a stroke diagnosis?: No VTE Prior VTE?: No VTE Risk Level:: Medical - moderate - high VTE Device Contraindication: N/A - Device Ordered VTE Drug Contraindication: N/A - Med Ordered
--- NOTE | 2022-01-03 10:08 | P.PNIM_ITS ---
Subjective Subjective Date of Service: 01/03/22 Interval History: walking in hallways, denies headache no lightheadedness no dizziness, no overnight events denies chest pain, no palpitation, no shortness of breath tolerated full liquid diet passing flatus no bowel movement. Review of Systems Review of Systems: Yes all other systems are reviewed and are negative Physical Exam Verdana 4l Vital Signs: Verdana 4d Verdana 4d Vital Signs: Verdana 4d Verdana 4Bd Last Vital Signs Verdana 4d Director Of Cardiac Rehabilitation New 4d Director Of Cardiac Rehabilitation New 4d Temp 98.0 F 01/03/22 08:00 Director Of Cardiac Rehabilitation New 4d Pulse 68 01/03/22 08:00 Director Of Cardiac Rehabilitation New 4d Resp 18 01/03/22 08:00 BP 132/66 01/03/22 08:00 Pulse Ox 98 01/03/22 08:00 BMI result Body Mass Index 27.0 Const: Other: General Awake alert, no acute distress.? HEENT pupil equal, reactive to light and accommodation oral mucosa moist Neck is supple no JVD. CVS? regular rate rhythm, Respiratory lungs clear to auscultation, no respiratory distress, no wheeze, no rhonchi. Gastrointestinal abdomen soft, nontender, bowel sounds audible, no guarding , no rigidity. Extremities no edema. Neuro nonfocal Skin no rash psych appropriate affect Objective Data Active Medications Acetaminophen (Acetaminophen 325 Mg Tablet) 650 mg PO Q6H PRN PRN Reason: fever, pain Last Admin: 01/02/22 15:14 Dose: 650 mg Documented by: GABY Amlodipine Besylate (Amlodipine Besylate 5 Mg Tablet) 5 mg PO DAILY [facility]; Protocol Last Admin: 01/03/22 08:46 Dose: 5 mg Documented by: HANNAH Cephalexin HCl (Cephalexin 500 Mg Capsule) 500 mg PO Q8H [facility] Last Admin: 01/03/22 08:46 Dose: 500 mg Documented by: HANNAH Heparin Sodium (Porcine) (Heparin Sodium,Porcine 5,000 Unit/Ml Vial) 5,000 unit SUBCUT BID [facility] Last Admin: 01/03/22 08:46 Dose: 5,000 unit Documented by: HANNAH Morphine Sulfate (Morphine Sulfate 4 Mg/Ml Cartridge) 4 mg IVPUSH Q3H PRN; Protocol PRN Reason: Pain, Severe (Pain Scale 7-10) Last Admin: 01/01/22 13:07 Dose: 4 mg Documented by: TRACIE Ondansetron HCl (Ondansetron Hcl 4 Mg/2 Ml Vial) 4 mg IVPUSH Q8H PRN PRN Reason: Nausea and Vomiting Last Admin: 12/30/21 09:57 Dose: 4 mg Documented by: PARI-RAMLINDA Oxycodone HCl (Oxycodone Hcl Immed Release 5 Mg Tablet) 5 mg PO Q4H PRN PRN Reason: Pain, Moderate (Pain Scale 4-6 Last Admin: 01/02/22 17:36 Dose: 5 mg Documented by: GABY Sodium Chloride (0.9 % Sodium Chloride Flush 3 Ml Syringe) 3 ml IVFLUSH [facility] Last Admin: 01/03/22 08:46 Dose: 3 ml Documented by: HANNAH Labs CBC & Chem 7: 12/31/21 05:43 12/31/21 05:43 Assessment and Plan (1) Small bowel obstruction: (2) Crohns disease of small intestine: Status: Acute (3) Hyperlipidemia: Status: Acute (4) Elevated blood pressure reading without diagnosis of hypertension: Status: Acute (5) SBO (small bowel obstruction): Status: Acute Plan 61-year-old? female with past medical history of Crohn's disease, hyperlipidemia, tobacco use disorder admitted and a surgery for small-bowel obstruction being managed conservatively with significant improvement in pain tolerating clear liquid diet and noted to have high blood pressure in last 24 hours. ? Elevated blood pressure with no prior history of hypertension ( undiagnosed essential hypertension) Blood pressure stable continue Norvasc 5 mg by mouth daily ?old records from? last year also showed high blood pressure readings. ?stable renal function,?follow? clinical course closely no further workup needed, no further medication adjustment. ?tobacco use disorder counseling done patient declined nicotine patch. ?hyperlipidemia resume statins on discharge. small-bowel obstruction management as per surgery code status full code Quality Stroke Does the patient have a stroke diagnosis?: No VTE Prior VTE?: No VTE Risk Level:: Medical - moderate - high VTE Device Contraindication: N/A - Device Ordered VTE Drug Contraindication: N/A - Med Ordered
[2022-01-03 11:34] VITALS: BP 123/59; PULSE 60; RESP 17; TEMP 36.7; O2SAT 97
[2022-01-03 15:27] VITALS: BP 120/57; PULSE 55; RESP 17; TEMP 36.6; O2SAT 97
[2022-01-03] MEDS: ondansetron HCL 4 MG/2 ML VIAL IVPUSH (18:09)
[2022-01-03 19:32] VITALS: BP 124/59; PULSE 60; RESP 17; TEMP 36.9; O2SAT 98
[2022-01-03 23:13] VITALS: BP 103/51; PULSE 59; RESP 20; TEMP 36.7; O2SAT 98
[2022-01-04 03:00] VITALS: BP 118/57; PULSE 57; RESP 20; TEMP 35.9; O2SAT 98
[2022-01-04 07:20] VITALS: BP 139/62; PULSE 56; RESP 18; TEMP 36.7; O2SAT 99
[2022-01-04] MEDS: Heparin Sodium,Porcine 5,000 UNIT/ML VIAL 5000 UNIT SUBCUT (08:14)
[2022-01-04] MEDS: cephALEXin 500 MG CAPSULE PO (08:14)
[2022-01-04] MEDS: amLODIPine Besylate 5 MG TABLET PO (08:14)
[2022-01-04] MEDS: 0.9 % Sodium Chloride Flush 3 ML SYRINGE IVFLUSH (08:15)
--- NOTE | 2022-01-04 09:52 | P.PNGS_ITS ---
Subjective Subjective Date of Service: 01/04/22 Interval history: feels great today tolerating diet well good flatus no pain has been ambulating Physical Exam Verdana 4l Vital Signs: Verdana 4d Verdana 4d Vital Signs: Verdana 4d Verdana 4Bd Last Vital Signs Verdana 4d Manager Behavior New 4d Manager Behavior New 4d Temp 98.0 F 01/04/22 07:20 Manager Behavior New 4d Pulse 56 01/04/22 07:20 Manager Behavior New 4d Resp 18 01/04/22 07:20 BP 139/62 01/04/22 07:20 Pulse Ox 99 01/04/22 07:20 BMI result Body Mass Index 27.0 Const: General: comfortable and no acute distress Resp: Effort & Inspection: normal respiratory effort Cardio: Rate: regular rate GI: Palpation (GI): Soft to palpation, not firm and nontender Objective Data Active Medications Acetaminophen (Acetaminophen 325 Mg Tablet) 650 mg PO Q6H PRN PRN Reason: fever, pain Last Admin: 01/02/22 15:14 Dose: 650 mg Documented by: GABY Amlodipine Besylate (Amlodipine Besylate 5 Mg Tablet) 5 mg PO DAILY [facility]; Protocol Last Admin: 01/04/22 08:14 Dose: 5 mg Documented by: HANNAH Cephalexin HCl (Cephalexin 500 Mg Capsule) 500 mg PO Q8H [facility] Last Admin: 01/04/22 08:14 Dose: 500 mg Documented by: HANNAH Heparin Sodium (Porcine) (Heparin Sodium,Porcine 5,000 Unit/Ml Vial) 5,000 unit SUBCUT BID [facility] Last Admin: 01/04/22 08:14 Dose: 5,000 unit Documented by: HANNAH Ondansetron HCl (Ondansetron Hcl 4 Mg/2 Ml Vial) 4 mg IVPUSH Q8H PRN PRN Reason: Nausea and Vomiting Last Admin: 01/03/22 18:09 Dose: 4 mg Documented by: HANNAH Sodium Chloride (0.9 % Sodium Chloride Flush 3 Ml Syringe) 3 ml IVFLUSH QSHIFT [facility] Last Admin: 01/04/22 08:15 Dose: 3 ml Documented by: HANNAH Labs CBC & Chem 7: 12/31/21 05:43 12/31/21 05:43 Microbiology Microbiology Results: Microbiology 12/30/21 05:33 Blood Culture - Final Blood - Venous No growth after 5 days. 12/30/21 05:29 Blood Culture - Final Blood - Venous No growth after 5 days. Procedures Date of Service Date of Service: 01/04/22 Progress Note: A&P Assessment and plan (1) SBO (small bowel obstruction): Status: Acute Assessment and Plan: symptoms resolved doing well says she is ready to be discharged she is interested in elective resection due to recurrent nature of SBO will see in office ks to [facility] Fall Risk Details Current Medications: Current Medications Acetaminophen (Acetaminophen 325 Mg Tablet) 650 mg PO Q6H PRN PRN Reason: fever, pain Last Admin: 01/02/22 15:14 Dose: 650 mg Documented by: Amlodipine Besylate (Amlodipine Besylate 5 Mg Tablet) 5 mg PO DAILY [facility]; Protocol Last Admin: 01/04/22 08:14 Dose: 5 mg Documented by: Cephalexin HCl (Cephalexin 500 Mg Capsule) 500 mg PO Q8H [facility] Last Admin: 01/04/22 08:14 Dose: 500 mg Documented by: Heparin Sodium (Porcine) (Heparin Sodium,Porcine 5,000 Unit/Ml Vial) 5,000 unit SUBCUT BID [facility] Last Admin: 01/04/22 08:14 Dose: 5,000 unit Documented by: Ondansetron HCl (Ondansetron Hcl 4 Mg/2 Ml Vial) 4 mg IVPUSH Q8H PRN PRN Reason: Nausea and Vomiting Last Admin: 01/03/22 18:09 Dose: 4 mg Documented by: Sodium Chloride (0.9 % Sodium Chloride Flush 3 Ml Syringe) 3 ml IVFLUSH QSHIFT [facility] Last Admin: 01/04/22 08:15 Dose: 3 ml Documented by: Time Spent With Patient Time: Total time spent is greater than 50% in coordination of care (as documented) at patient's floor/unit and/or counseling patient: Time with patient: 15 - 24 minutes Quality Stroke Does the patient have a stroke diagnosis?: No VTE Prior VTE?: No VTE Risk Level:: Medical - moderate - high VTE Device Contraindication: N/A - Device Ordered VTE Drug Contraindication: N/A - Med Ordered
--- NOTE | 2022-01-04 10:31 | MHC.CM.PN ---
DC HOME TODAY WITH NO SERVICES
--- NOTE | 2022-01-04 10:34 | P.PNIM_ITS ---
Subjective Subjective Date of Service: 01/04/22 Interval History: being followed for hypertension, patient denies chest pain, no palpitations, no shortness of breath, no headache, lightheadedness, dizziness, feeling good no nausea, no vomiting, walking in hallways. Review of Systems Review of Systems: Yes all other systems are reviewed and are negative Physical Exam Verdana 4l Vital Signs: Verdana 4d Verdana 4d Vital Signs: Verdana 4d Verdana 4Bd Last Vital Signs Verdana 4d Salt Grinder New 4d Salt Grinder New 4d Temp 98.0 F 01/04/22 07:20 Salt Grinder New 4d Pulse 56 01/04/22 07:20 Salt Grinder New 4d Resp 18 01/04/22 07:20 BP 139/62 01/04/22 07:20 Pulse Ox 99 01/04/22 07:20 BMI result Body Mass Index 27.0 Const: Other: General ? Awake alert, no acute distress.? HEENT pupil equal, reactive to light and accommodation oral mucosa moist Neck is supple no JVD. CVS? regular rate rhythm, Respiratory lungs clear to auscultation, no respiratory distress, no wheeze, no rhonchi. Gastrointestinal abdomen soft, nontender, bowel sounds audible, no guarding , no rigidity. Extremities no edema. Neuro nonfocal Skin no rash psych appropriate affect Objective Data Active Medications Acetaminophen (Acetaminophen 325 Mg Tablet) 650 mg PO Q6H PRN PRN Reason: fever, pain Last Admin: 01/02/22 15:14 Dose: 650 mg Documented by: GABY Amlodipine Besylate (Amlodipine Besylate 5 Mg Tablet) 5 mg PO DAILY [facility]; Protocol Last Admin: 01/04/22 08:14 Dose: 5 mg Documented by: HANNAH Cephalexin HCl (Cephalexin 500 Mg Capsule) 500 mg PO Q8H [facility] Last Admin: 01/04/22 08:14 Dose: 500 mg Documented by: HANNAH Heparin Sodium (Porcine) (Heparin Sodium,Porcine 5,000 Unit/Ml Vial) 5,000 unit SUBCUT BID [facility] Last Admin: 01/04/22 08:14 Dose: 5,000 unit Documented by: HANNAH Ondansetron HCl (Ondansetron Hcl 4 Mg/2 Ml Vial) 4 mg IVPUSH Q8H PRN PRN Reason: Nausea and Vomiting Last Admin: 01/03/22 18:09 Dose: 4 mg Documented by: HANNAH Sodium Chloride (0.9 % Sodium Chloride Flush 3 Ml Syringe) [facility] Last Admin: 01/04/22 08:15 Dose: 3 ml Documented by: HANNAH Labs CBC & Chem 7: 12/31/21 05:43 12/31/21 05:43 Microbiology Microbiology Results: Microbiology 12/30/21 05:33 Blood Culture - Final Blood - Venous No growth after 5 days. 12/30/21 05:29 Blood Culture - Final Blood - Venous No growth after 5 days. Assessment and Plan (1) Small bowel obstruction: (2) Crohns disease of small intestine: Status: Acute (3) Hyperlipidemia: Status: Acute (4) Elevated blood pressure reading without diagnosis of hypertension: Status: Acute (5) SBO (small bowel obstruction): Status: Acute Plan 61-year-old? female with past medical history of Crohn's disease, hyperlipidemia, tobacco use disorder admitted and a surgery for small-bowel obstruction being managed conservatively with significant improvement in pain tolerating clear liquid diet and noted to have high blood pressure in last 24 hours. ?Elevated blood pressure with no prior history of hypertension ( undiagnosed essential hypertension) Blood pressure stable few low blood pressure readings, patient asymptomatic,continue Norvasc 5 mg by mouth daily advised to follow-up blood pressure as outpatient and to inform PCP if noted to have any symptoms of lightheadedness dizziness suggestive of hypotension ?old records from? last year also showed high blood pressure readings. ?stable renal function,?follow? clinical course closely no further workup needed, no further medication adjustment. ?tobacco use disorder counseling done patient declined nicotine patch. ?hyperlipidemia resume statins on discharge. small-bowel obstruction management as per surgery code status full code Quality Stroke Does the patient have a stroke diagnosis?: No VTE Prior VTE?: No VTE Risk Level:: Medical - moderate - high VTE Device Contraindication: N/A - Device Ordered VTE Drug Contraindication: N/A - Med Ordered
--- NOTE | 2022-04-02 10:02 | PM.DS ---
DS: Providers Provider Date of Service: 01/04/22 Date of admission: 12/30/21 07:23 Date of discharge: 01/04/22 Primary care physician: Jorge Green MD Attending physician on admission: Rusty Cortes Consults: 01/01/22 16:14 Consult to Hospitalist Routine Consulting Provider: Hospitalist Reason For Exam: Hypertension, not previously on meds DS: Diagnosis Discharge Diagnosis (1) Small bowel obstruction: (2) Crohns disease of small intestine: Status: Acute (3) Hyperlipidemia: Status: Acute (4) Elevated blood pressure reading without diagnosis of hypertension: Status: Acute (5) SBO (small bowel obstruction): Status: Resolved DS: Summary Hospital Course Hospital Course: BRIEF HPI: Rose Nieves is a 61 year old female well known to the surgical service with a long hx of Crohn's disease with frequent admissions for SBO. This current episode of pain began Wednesday night at midnight. It is the same as previous episodes of SBO- it is severe, constant in nature and located in the right lower abdomen. She has not been passing flatus and vomited once. She was last admitted 11/2021 for treatment of SBO. She responded with conservative measures and steroid course. She also had an EGD at that time for abnml CT scan which showed hiatal hernia, gastric ulcer, gastritis and multiple duodenal ulcers and was started on omeprazole. She is on Stelara for maintenance and sees Dr. Iglesias for treatment. She just finished her steroid course Wednesday. Work up in the ED included a CT scan of the abd/pelvis which showed distal bowel segment leading to the anastomosis has a collapsed, thick-walled appearance, and multiple loops of small bowel leading to this segment are fluid-filled and dilated. She had a leukocytosis of 19.3. HOSPITAL COURSE: She was admitted to the surgical service for further treatment of the SBO. She was continued with nonoperative measures of IVF, bowel rest and pain control. NGT was held as her abd was soft, nondistended and she felt improved. She had an uncomplicated hospital course. She improved with nonoperative measures over the course of several days. Her abdominal pain resolved and she began to pass flatus and move her bowels. She was advanced to a clear liquid diet which she was tolerating. She was then advanced to a low residue diet which she was tolerating and remained asymptomatic. Given her multiple admissions with most appearing to have a transition point near the surgical anastomosis, she was interested in surgical intervention. It was discussed to allow all changes to subside and perform the laparotomy as an elective procedure. She agreed. She was discharged to home on 01/04/22 in stable condition. She is to follow up with Dr. Cortes in office to discuss and schedule the procedure. During her stay, she noticed an area of redness associated with mild pain on her left breast with changes consistent with cellulitis. She was started on keflex PO. She was prescribed had a course of PO keflex at home to finish the treatment. She also had a consistently elevated SBP. IVF were discontinued, Hospitalist consult was obtained for management. She was started on Norvasc 5mg PO daily with improvement. She was to continue this at home and follow up with her PCP for further management. Time Spent with Patient Time attestation: Total time spent providing and/or coordinating discharge services: Discharge coordination time: Greater than 30 minutes Quality: Safe Use of Opioids Does Pt have an Active Cancer Diagnosis on the Problem List?: No Quality: Stroke Does the patient have a stroke diagnosis?: No Physical Exam Vital Signs: Vital Signs: Last Vital Signs Temp 98.0 F 01/04/22 07:20 Pulse 56 01/04/22 07:20 Resp 18 01/04/22 07:20 BP 139/62 01/04/22 07:20 Pulse Ox 99 01/04/22 07:20 BMI result Body Mass Index 27.0 Discharge Plan Discharge Patient Disposition: Home, Self-Care Discharge Diagnosis: small bowel obstruction with Crohns ds Referrals: Rusty Cortes MD [Physician] - 1 Week Physician,Unknown J [Physician] - 1 Week Discharge Medications: Continued omeprazole 20 mg capsule,delayed release(DR/EC) 20 mg PO BID Qty: 60 0RF acetaminophen 325 mg Tablet 650 mg PO Q6H PRN (Reason: Headache) 0RF atorvastatin 40 mg tablet 40 mg PO DAILY 0RF No Action Stelara 90 mg/mL syringe 90 mg subcut Q4W 28 Days Qty: 1 6RF amlodipine [Norvasc] 5 mg tablet 5 mg PO DAILY Qty: 30 0RF oxycodone 5 mg tablet 5 mg PO Q4H PRN (Reason: pain (scale score 7-10)) Qty: 26 0RF Discharge Orders: Discharge Order (Routine); Ordered 01/04/22 Ordered By: Rusty Cortes Activity on Discharge: As tolerated Stand Alone Forms: Patient Portal Discharge page Care Plan Goals: control of Crohns ds Health Concerns: Crohns ds, recurrent obstruction Plan of Treatment: ffup in office diet as tolerated Assessment: doing well Discharge Date/Time: 01/04/22 10:50
== END 2022-01-04 10:50 | disposition home or self-care (01) | DRG 387 ==
LOC: HO.ED 04:38 → HO.EDOVER 07:33 → HO.S3 12-31 00:02
PROVIDERS: Admitting Provider Surgery; Emergency Provider Emergency Medicine; PCP Internal Medicine; Visit Provider Surgery
DX: K50.012 Crohn's disease of small intestine with intestinal obstruction (principal); F17.210 Nicotine dependence, cigarettes, uncomplicated; R03.0 Elevated blood-pressure reading, without diagnosis of hypertension; N61.0 Mastitis without abscess; E78.5 Hyperlipidemia, unspecified; Z71.6 Tobacco abuse counseling; Z20.822 Contact with and (suspected) exposure to COVID-19; Z88.5 Allergy status to narcotic agent; Z79.899 Other long term (current) drug therapy
CPT/HCPCS: 36415; 74177; 80048; 80076; 83605; 85025; 87040; 87635; 93005; 96361; 96374; 96375; 96376; 99285; J1170; J2270; J2405; Q9967

== ENCOUNTER → 2022-01-05 08:59 | Outpatient (BNVA) | payer MEDICARE, MEDICAID, SELFPAY | PROVIDERS: Referring Provider Internal Medicine; Visit Provider Surgery | DX: K56.609 Unspecified intestinal obstruction, unspecified as to partial versus complete obstruction (principal); K50.00 Crohn's disease of small intestine without complications | CPT/HCPCS: 99212 ==

== ENCOUNTER 2022-01-05 21:45 | Inpatient (IN) | payer MEDICARE, MEDICAID, SELFPAY ==
--- NOTE | ~2022-01-05 | CT_ITS ---
EXAMINATION: CT ABDOMEN AND PELVIS WITH CONTRAST CLINICAL INFORMATION: Vomiting, Crohn's, constipation, abdominal pain COMPARISON: 12/30/2021 TECHNIQUE: Multidetector volumetric images were obtained from the superior aspect of the liver through the pubic symphysis following administration 85 mL of Omnipaque 350 intravenous contrast. Sagittal and coronal reformatted images were obtained on the technologist's workstation. Oral contrast: No This CT examination was performed using dose optimization techniques as appropriate, variously including the following: *Automated exposure control *Adjustment of mA and/or kV according to patient size (this includes techniques or standardized protocols for targeted exams where dose is matched to indication/reason for exam; i.e. extremities or head) *Use of iterative reconstruction technique DLP: 480 mGy-cm FINDINGS: LUNG BASES: The visualized lung bases are unremarkable. Coronary artery calcifications are present. LIVER, GALLBLADDER, AND BILIARY TREE: The liver is normal in size, shape, and attenuation. A few scattered small hypodensities in the liver statistically favor cysts. No biliary ductal dilatation is present. The gallbladder is unremarkable. PANCREAS: Unremarkable. SPLEEN: Unremarkable. ADRENAL GLANDS: Unremarkable. KIDNEYS AND URETERS: Bilateral nephrograms are symmetric. No hydronephrosis or obstructing calculus identified. Small bilateral renal hypodensities favor cysts; no follow-up recommended. BLADDER: Partially distended with some excreted contrast material. GASTROINTESTINAL TRACT: Status post right hemicolectomy with ileocolonic anastomosis in the right upper quadrant. There are multiple dilated fluid-filled small bowel loops which extend to a more narrowed segment in the right abdomen approaching the anastomosis. This narrowed segment measures approximately 8 cm in length. Overall pattern is consistent with small bowel obstruction, with overall appearance similar to mildly worsened from 12/30/2021. There is increased free fluid in the abdomen compared to prior. There is suggestion of some pneumatosis in the proximal colon of the right abdomen just beyond the anastomosis. ABDOMINAL WALL: No significant hernia is appreciated. LYMPH NODES: A few mildly prominent right lower quadrant lymph nodes are favored to be reactive. VASCULAR: There is atherosclerotic calcification along the aorta. PELVIC VISCERA: Few fibroids are noted. OSSEOUS STRUCTURES: No acute osseous findings are seen. CT/CT abdomen pelvis w con IMPRESSION: Small bowel obstruction with transition point in the distalmost small bowel leading to the ileocolonic anastomosis in the right abdomen. Overall appearance is similar to mildly worsened from 12/30/2021. Increasing free fluid. There is suggestion of some pneumatosis in the proximal colon.
--- NOTE | ~2022-01-05 | XR_ITS ---
EXAMINATION: XR CHEST CLINICAL INFORMATION: NG tube placement COMPARISON: 12/06/2021 TECHNIQUE: Frontal view of the chest was obtained. FINDINGS: There are 2 images obtained. Nasogastric tube tip lies in the region of the proximal most stomach on the first image. The second image demonstrates tube tip overlying the gastric fundus with side-port below the level of the gastroesophageal junction. The lungs are hypoinflated. No focal consolidation is seen. No evidence of pneumothorax, pleural effusion, or pulmonary edema. Cardiac size is within normal limits. Calcification is present at the aortic arch. No acute osseous findings are seen. XR/XR chest 1V IMPRESSION: Second obtained image demonstrates nasogastric tube tip and side port overlying the stomach.
[2022-01-05 21:56] VITALS: BP 157/84; PULSE 87; RESP 18; TEMP 36.1; O2SAT 98; BMI 20.8
[2022-01-05 22:24] LABS: MANUAL DIFF FLAG NO
[2022-01-05 22:26] LABS: Basophils Percent Auto 0.3 % (0-2); Eosinophils Absolute Auto 0.2 X10*3/uL (0.0-0.4); Eosinophils Percent Auto 2.1 % (0-4); Hematocrit 48.3 % (37.0-47.0); Hemoglobin 16.2 g/dl (12.0-16.0); Imm Gran Abs Auto 0.07 X10*3/uL (0.00-0.03); Imm Gran Pct Auto 0.6 % (0.0-0.4); Mean Corpuscular HGB Conc 33.5 g/dl (31.0-35.0); Mean Corpuscular Hemoglobin 29.4 pg (27.0-33.0); Mean Corpuscular Volume 87.7 fL (80.0-98.0); Monocytes Absolute Auto 0.8 X10*3/uL (0.1-1.2); Monocytes Percent Auto 6.7 % (2-11); Neutrophils Absolute Auto 6.4 x10*3/uL (2.0-8.3); Neutrophils Percent Auto 55.3 % (45-73); Platelet Count 285 X10*3/uL (160-400); Red Blood Count 5.51 X10*6/uL (4.20-5.50); Red Cell Distribution Width 14.9 % (11.0-16.0); White Blood Count 11.5 X10*3/uL (4.8-10.8)
[2022-01-05 22:45] LABS: Anion Gap 14 (12-20); Blood Urea Nitrogen 9 mg/dL (9-16); Calcium 10.8 mg/dL (8.4-10.2); Carbon Dioxide 26 mmol/L (22-29); Chloride 107 mmol/L (96-108); Creatinine Clr Calc Pharmacy 66.1; Estimated Glomerular Filt Rate > 60; Glucose Random 133 mg/dL (60-115); Potassium 4.2 mmol/L (3.3-5.1); Sodium 143 mmol/L (135-145)
[2022-01-06] VITALS (11 sets, daily range): BP systolic 109–157; BP diastolic 47–79; PULSE 52–121; RESP 12–18; TEMP 36.6–37.6; O2SAT 92–99
[2022-01-06 00:45] LABS: Appearance Urine HAZY; Color Urine DK YELLOW; Glucose Urine UA NEG (NEG); Leukocyte Esterase Urine NEG (NEG); Nitrite Urine NEG (NEG); Specific Gravity - Urine >= 1.030 (1.005-1.025); Urine Blood NEG (NEG); Urine Ketones NEG (NEG); Urine Protein TRACE MG/DL (NEG-TRACE)
[2022-01-06 01:06] LABS: Alanine Aminotransferase 27 U/L (0-31); Albumin Level 4.2 g/dL (3.5-5.0); Alkaline Phosphatase 77 U/L (39-117); Aspartate Amino Transferase 26 U/L (5-31); Bilirubin Direct 0.2 mg/dL (0.0-0.5); Bilirubin Total 0.6 mg/dL (0.0-1.0); Total Protein 6.9 g/dL (6.5-8.0)
[2022-01-06] MEDS: 0.9 % Sodium Chloride 1,000 ML 999 ML IV (01:23)
[2022-01-06 01:40] LABS: Lactic Acid 2.9 mmol/L (0.5-2.0)
--- NOTE | 2022-01-06 01:44 | ED_ITS ---
HPI - Abdominal Pain General Chief Complaint: Abdominal Pain Stated Complaint: stomach pain Time Seen by Provider: 01/06/22 00:23 Source: patient Mode of arrival: ambulatory History of Present Illness HPI narrative: 61-year-old female with history of Crohn's, peptic ulcer disease, SBO presents after having been discharged for recently treated SBO and now states that after much yesterday she began crease abdominal pain and has now noted that she is no longer passing flatus. Her last BM was yesterday and she denies any fever, chills, nausea, vomiting. Related Data Home Medications Medication Instructions Recorded Confirmed atorvastatin 40 mg tablet 40 mg PO DAILY 09/23/20 01/06/22 acetaminophen 325 mg tablet 650 mg PO Q6H PRN 12/30/21 01/06/22 Previous Rx's Medication Instructions Recorded ustekinumab 90 mg/mL subcutaneous 90 mg SUBCUT Q4W 28 Days #1 ml 08/11/21 syringe (AdiCytelara) omeprazole 20 mg capsule,delayed 20 mg PO BID #60 cap 12/10/21 release Allergies Allergy/AdvReac Type Severity Reaction Status Date / Time No Known Allergies Allergy Verified 01/05/22 21:56 [No Known Allergies*] Review of Systems Review of Systems Pertinent positives and negatives as stated in HPI 10 point review of systems is otherwise negative. Physical Exam Vital Signs: Vital Signs: Last Vital Signs Temp 99.4 F 01/06/22 02:04 Pulse 76 01/06/22 04:06 Resp 16 01/06/22 04:06 BP 140/68 H 01/06/22 04:06 Pulse Ox 96 01/06/22 04:06 BMI result Body Mass Index 20.8 VITAL SIGNS: Reviewed. GENERAL: Well developed, well nourished, in no acute distress. HEAD: Normocephalic/atraumatic EYES: PERRLA, EOMI OROPHARYNX: no oral lesions noted, posterior pharynx clear LUNGS: Normal breath sounds. No adventitious sounds or accessory muscle use. SpO2<99> CARDIOVASCULAR: Regular rate and rhythm without noted murmurs, no JVD or lower extremity edema. ABDOMEN: Soft, tenderness on palpation without rebound, non-distended with hypoactive bowel sounds. SKIN: Inspection of the skin reveals no rashes NEUROLOGIC: Alert and oriented x 4. Course Course Course Narrative: 61-year-old female with history and clinical presentation consistent with likely obstruction and review of all investigations demonstrates a stress response leukocytosis without evidence SIRS and patient's lactic acid is consistent with suspected obstruction. Patient received pain medication, IV fluids. Review of all investigations consistent with SBO, NG was placed and case was discussed with surgery who accepts admission. MDM - Abdominal Pain Lab Data Result diagrams: 01/05/22 22:21 01/05/22 22:21 Labs: Lab Results 01/05/22 01/05/22 01/06/22 Range/Units 22:21 22:21 00:39 WBC 11.5 H (4.8-10.8) X10*3/uL RBC 5.51 H D (4.20-5.50) X10*6/uL Hgb 16.2 H D (12.0-16.0) g/dl Hct 48.3 H D (37.0-47.0) % MCV 87.7 D (80.0-98.0) fL MCH 29.4 (27.0-33.0) pg MCHC 33.5 (31.0-35.0) g/dl RDW 14.9 (11.0-16.0) % Plt Count 285 D (160-400) X10*3/uL MPV 10.0 (9.4-12.3) fL Immature Gran % (Auto) 0.6 H (0.0-0.4) % Neut % (Auto) 55.3 (45-73) % Lymph % (Auto) 35.0 (20-40) % [place] % (Auto) 6.7 (2-11) % Eos % (Auto) 2.1 (0-4) % Baso % (Auto) 0.3 (0-2) % Lymph # (Auto) 4.0 (1.2-4.9) X10*3/uL [place] # (Auto) 0.8 (0.1-1.2) X10*3/uL Eos # (Auto) 0.2 (0.0-0.4) X10*3/uL Baso # (Auto) 0.0 (0.0-0.2) X10*3/uL Abs Immat Gran (auto) 0.07 H (0.00-0.03) X10*3/uL Absolute Neuts (auto) 6.4 (2.0-8.3) x10*3/uL Absolute Nucleated RBC 0.000 (0.0-0.012) X10*3/uL Nucleated RBC % (auto) 0.0 (0.0-0.2) /100WBC Sodium 143 (135-145) mmol/L Potassium 4.2 (3.3-5.1) mmol/L Chloride 107 (96-108) mmol/L Carbon Dioxide 26 (22-29) mmol/L Anion Gap 14 (12-20) BUN 9 (9-16) mg/dL Creatinine 0.84 (0.5-1.4) mg/dL Estim Creat Clear Calc 66.1 Estimated GFR > 60 Random Glucose 133 H (60-115) mg/dL Lactic Acid (0.5-2.0) mmol/L Lactic Acid F/U @ 2Hr (0.5-2.0) mmol/L Calcium 10.8 H D (8.4-10.2) mg/dL Total Bilirubin 0.6 (0.0-1.0) mg/dL Direct Bilirubin 0.2 (0.0-0.5) mg/dL AST 26 (5-31) U/L ALT 27 (0-31) U/L Alkaline Phosphatase 77 (39-117) U/L Total Protein 6.9 (6.5-8.0) g/dL Albumin 4.2 (3.5-5.0) g/dL Urine Color DK YELLOW Urine Appearance HAZY Urine pH 5.0 (5.0-8.0) Ur Specific [place] >= 1.030 H (1.005-1.025) Urine Protein TRACE (NEG-TRACE) MG/DL Urine Glucose (UA) NEG (NEG) MG/DL Urine Ketones NEG (NEG) MG/DL Urine Blood NEG (NEG) Urine Nitrite NEG (NEG) Ur Leukocyte Esterase NEG (NEG) COVID-19 (LINDA) (Negative) COVID-19 Clin Com 01/06/22 01/06/22 01/06/22 Range/Units 01:15 02:18 03:57 WBC (4.8-10.8) X10*3/uL RBC (4.20-5.50) X10*6/uL Hgb (12.0-16.0) g/dl Hct (37.0-47.0) % MCV (80.0-98.0) fL MCH (27.0-33.0) pg MCHC (31.0-35.0) g/dl RDW (11.0-16.0) % Plt Count (160-400) X10*3/uL MPV (9.4-12.3) fL Immature Gran % (Auto) (0.0-0.4) % Neut % (Auto) (45-73) % Lymph % (Auto) (20-40) % [place] % (Auto) (2-11) % Eos % (Auto) (0-4) % Baso % (Auto) (0-2) % Lymph # (Auto) (1.2-4.9) X10*3/uL [place] # (Auto) (0.1-1.2) X10*3/uL Eos # (Auto) (0.0-0.4) X10*3/uL Baso # (Auto) (0.0-0.2) X10*3/uL Abs Immat Gran (auto) (0.00-0.03) X10*3/uL Absolute Neuts (auto) (2.0-8.3) x10*3/uL Absolute Nucleated RBC (0.0-0.012) X10*3/uL Nucleated RBC % (auto) (0.0-0.2) /100WBC Sodium (135-145) mmol/L Potassium (3.3-5.1) mmol/L Chloride (96-108) mmol/L Carbon Dioxide (22-29) mmol/L Anion Gap (12-20) BUN (9-16) mg/dL Creatinine (0.5-1.4) mg/dL Estim Creat Clear Calc Estimated GFR Random Glucose (60-115) mg/dL Lactic Acid 2.9 H* (0.5-2.0) mmol/L Lactic Acid F/U @ 2Hr 1.6 (0.5-2.0) mmol/L Calcium (8.4-10.2) mg/dL Total Bilirubin (0.0-1.0) mg/dL Direct Bilirubin (0.0-0.5) mg/dL AST (5-31) U/L ALT (0-31) U/L Alkaline Phosphatase (39-117) U/L Total Protein (6.5-8.0) g/dL Albumin (3.5-5.0) g/dL Urine Color Urine Appearance Urine pH (5.0-8.0) Ur Specific [place] (1.005-1.025) Urine Protein (NEG-TRACE) MG/DL Urine Glucose (UA) (NEG) MG/DL Urine Ketones (NEG) MG/DL Urine Blood (NEG) Urine Nitrite (NEG) Ur Leukocyte Esterase (NEG) COVID-19 (LINDA) Negative (Negative) COVID-19 Clin Com See Note Discharge Plan Discharge Clinical Impression: SBO (small bowel obstruction), Crohns disease of small intestine Patient Disposition: Admitted As Inpatient Prescriptions: No Action Stelara 90 mg/mL syringe 90 mg subcut Q4W 28 Days Qty: 1 6RF omeprazole 20 mg capsule,delayed release(DR/EC) 20 mg PO BID Qty: 60 0RF acetaminophen 325 mg Tablet 650 mg PO Q6H PRN (Reason: Headache) 0RF atorvastatin 40 mg tablet 40 mg PO DAILY 0RF PMFSH Past Medical History Source: nursing notes reviewed Medical History Crohns disease of small intestine Gastritis Hyperlipidemia Small bowel obstruction Surgical History History of appendectomy History of bowel resection History of esophagogastroduodenoscopy (EGD) Hx of colonoscopy S/P BSO (bilateral salpingo-oophorectomy) Family History Family History Father No problems noted. Mother Pneumonia Sister Breast cancer Social History Social History Household Members: None Housing: Apartment Do you presently have visiting nurse or other home services: No Alcohol intake: never Patient Tobacco Use Status: Current everyday Tobacco user Tobacco use type: Cigarette Cigarette Packs Per Day: 0.5 Cigarettes Per Day: 10.0 Years Smoked: many per pt Smoked in Last 30 Days: Yes e-Cigarette/Vaping Use: Never Used Second Hand Smoke Exposure: No Use of substances other than those prescribed or required for medical reasons: No Advance Directives: Yes Advance Directives on File: Yes Advance Directives Date on File: 04/13/21 service: No Current occupational status: unemployed and disabled
[2022-01-06] MEDS: HYDROmorphone HCl 0.5 MG/0.5 ML SYRINGE 0.25 MG IVPUSH (01:52)
[2022-01-06] MEDS: ondansetron HCL 4 MG/2 ML VIAL IVPUSH (02:25)
[2022-01-06 02:39] LABS: COVID-19 Test Negative (Negative); IDNOW Serial# 9DD0AD1C
[2022-01-06 03:19] LABS: Reflex Lactate? Lactic Acid Added
[2022-01-06] MEDS: iohexoL 350 MG/ML 100 ML INFUS..BTL 85 ML IV (03:32)
--- NOTE | 2022-01-06 04:13 | PC.NURSE ---
Med rec completed at PT bed side.
[2022-01-06 04:15] LABS: ~Lactic Acid-LAB USE ONLY 1.6 mmol/L (0.5-2.0)
--- NOTE | 2022-01-06 04:58 | PC.NURSE ---
NG tube inserted in PT right nare. PT tolerated procedure well. PT produced about 300 mL of vomitus immediately after procedure. No volume accumulated in suction container at this time.
[2022-01-06] MEDS: Enoxaparin Sodium 40 MG/0.4 ML SYRINGE SUBCUT (05:28)
[2022-01-06] MEDS: HYDROmorphone HCl 1 MG/ML SYRINGE 0.5 MG IVPUSH ×3 (05:28→16:49)
[2022-01-06] MEDS: Piperacillin Sodium/Tazobactam 3.375 GM in 0.9 % Sodium Chloride 50 ML IV ×3 (05:29→16:39)
[2022-01-06] MEDS: Dextrose 5 % and Lactated Ring 1,000 ML 125 ML IVCONT ×3 (05:57→16:39)
--- NOTE | 2022-01-06 08:13 | PC.NURSE ---
Rn to RN with Chris on Med Surg..
--- NOTE | 2022-01-06 08:42 | PM.HPGS ---
History of Present Illness History of Present Illness Date of Service: 01/06/22 <Radha Hsieh PA-C - Last Filed: 01/06/22 10:11> 01/06/22 <Rusty Cortes MD - Last Filed: 01/06/22 14:27> Chief complaint: Small Bowel Obstruction, Crohn's Disease <Radha Hsieh PA-C - Last Filed: 01/06/22 10:11> Narrative: Rose Nieves is a 61 year old female well known to the surgical service with multiple admissions for SBO and longstanding Crohns disease. She presented to the ED yesterday with abdominal pain. [place] [facility] [place] and was discharged 01/04/22. She improved with supportive measures however given her increasing frequent episodes, plans were being made for elective resection. She actually saw Dr. Cortes yesterday morning and felt well at that time. She went home and ate a grilled cheese sandwich yesterday afternoon and soon developed abdominal pain. The pain was located in the lower abdomen, centrally and worse in the RLQ. This was associated with abdominal distention. She had a large, soft BM the morning of presentation but has not passed flatus. She vomited in the emergency room during NGT insertion. Work up in the ED included a CT scan which showed multiple dilated fluid-filled small bowel loops which extend to a more narrowed segment in the right abdomen approaching the anastomosis measuring approximately 8 cm in length. She feels a little better with NGT in place and less bloated. She is extremely frustrated at her recurrent episodes that are increasing in frequency. <Radha Hsieh PA-C - Last Filed: 01/06/22 10:11> Review of Systems Constitutional: Constitutional: Denies chills and Denies fever(s) <Radha Hsieh PA-C - Last Filed: 01/06/22 10:11> ENT: Denies dizziness <JU Neves Last Filed: 01/06/22 10:11> Cardiovascular: Cardiovascular: Denies chest pain, Denies palpitations and Denies dyspnea <JU Neves Last Filed: 01/06/22 10:11> Respiratory: Respiratory: Denies cough and Denies dyspnea <Radha Hsieh PA-C Last Filed: 01/06/22 10:11> Gastrointestinal: Gastrointestinal: Reports as per HPI <Radha Hsieh PA-C Last Filed: 01/06/22 10:11> Genitourinary: Genitourinary: Denies hematuria <Radha Hsieh PA-C Last Filed: 01/06/22 10:11> Integumentary/Breasts: Skin/Breast: Denies rash <Radha Hsieh PA-C Last Filed: 01/06/22 10:11> Neurologic: Denies dizziness and Denies focal weakness <JU Neves Last Filed: 01/06/22 10:11> Endocrine: Endocrine: Denies palpitations <Radha Hsieh PA-C Last Filed: 01/06/22 10:11> PMFSH Past Medical History Medical History: Medical History Crohns disease of small intestine Gastritis Hyperlipidemia Small bowel obstruction <Radha Hsieh PA-C Last Filed: 01/06/22 10:11> Family History Family History: Family History Father No problems noted. Mother Pneumonia Sister Breast cancer <Radha Hsieh PA-C Last Filed: 01/06/22 10:11> Surgical History Surgical History: Surgical History History of appendectomy History of bowel resection History of esophagogastroduodenoscopy (EGD) Hx of colonoscopy S/P BSO (bilateral salpingo-oophorectomy) <JU Neves Last Filed: 01/06/22 10:11> Social History Social History: Social History Household Members: None Housing: Apartment Do you presently have visiting nurse or other home services: No Alcohol intake: never Patient Tobacco Use Status: Current everyday Tobacco user Tobacco use type: Cigarette Cigarette Packs Per Day: 0.5 Cigarettes Per Day: 10.0 Years Smoked: many per pt Smoked in Last 30 Days: Yes e-Cigarette/Vaping Use: Never Used Second Hand Smoke Exposure: No Use of substances other than those prescribed or required for medical reasons: No Advance Directives: Yes Advance Directives on File: Yes Advance Directives Date on File: 04/13/21 service: No Current occupational status: unemployed and disabled <Radha Hsieh PA-C - Last Filed: 01/06/22 10:11> Meds Allergies/Adverse reactions: Allergies Allergy/AdvReac Type Severity Reaction Status Date / Time No Known Allergies Allergy Verified 01/05/22 21:56 [No Known Allergies*] <Radha Hsieh PA-C - Last Filed: 01/06/22 10:11> Active Medications: Current Medications Enoxaparin Sodium (Enoxaparin Sodium 40 Mg/0.4 Ml Syringe) 40 mg SUBCUT Q24H [facility] Last Admin: 01/06/22 05:28 Dose: 40 mg Documented by: Hydromorphone HCl (Hydromorphone Hcl 1 Mg/Ml Syringe) 0.5 mg IVPUSH Q4H PRN; Protocol PRN Reason: Pain, Severe (Pain Scale 7-10) Last Admin: 01/06/22 05:28 Dose: 0.5 mg Documented by: Dextrose/Lactated Ringer's ([email or web address]) 1,000 mls @ 125 mls/hr IVCONT .Q8H [facility] Last Admin: 01/06/22 05:57 Dose: 125 mls/hr Documented by: Piperacillin Sod/Tazobactam (Sod 3.375 gm/ Sodium Chloride) 50 mls @ 100 mls/hr IV Q6H [facility] Last Infusion: 01/06/22 06:05 Dose: Infused Documented by: Ondansetron HCl (Ondansetron Hcl 4 Mg/2 Ml Vial) 4 mg IVPUSH QID PRN PRN Reason: Nausea Oxycodone HCl (Oxycodone Hcl Immed Release 5 Mg Tablet) 5 mg PO Q6H PRN PRN Reason: Pain, Moderate (Pain Scale 4-6 Pharmacy Consult (Consult Rx Perform Med Rec) 1 each MISCELLANE ONCE PRN PRN Reason: Consult order Sodium Chloride (0.9 % Sodium Chloride Flush 3 Ml Syringe) 3 ml IVFLUSH QSHIFT [facility] Last Admin: 01/06/22 08:04 Dose: Not Given Documented by: <JU Neves Last Filed: 01/06/22 10:11> Home medications: Home Medications Medication Instructions Recorded Confirmed Last Taken Type atorvastatin 40 mg tablet 40 mg PO DAILY 09/23/20 01/06/22 01/05/22 09:00 History acetaminophen 325 mg tablet 650 mg PO Q6H PRN 12/30/21 01/06/22 01/05/22 21:00 History <JU Neves Last Filed: 01/06/22 10:11> Physical Exam Vital Signs: Vital Signs: Last Vital Signs Temp 98.6 F 01/06/22 08:03 Pulse 60 01/06/22 08:03 Resp 18 01/06/22 08:03 BP 137/59 L 01/06/22 08:03 Pulse Ox 94 01/06/22 08:03 BMI result Body Mass Index 20.8 <JU Neves Last Filed: 01/06/22 10:11> Const: General: comfortable, no acute distress and alert <JU Neves Last Filed: 01/06/22 10:11> Orientation/consciousness: patient oriented x3 <Radha Hsieh PA-C Last Filed: 01/06/22 10:11> HENMT: Other: NGT in place <JU Neves Last Filed: 01/06/22 10:11> Eyes: Sclerae: sclerae normal <JU Neves Last Filed: 01/06/22 10:11> Resp: Effort & Inspection: normal respiratory effort <JU Neves Last Filed: 01/06/22 10:11> Cardio: Rate: regular rate <Radha Hsieh PA-C Last Filed: 01/06/22 10:11> GI: Inspection: Yes normal to inspection, No distended and Yes scar (midline, well healed) <JU Neves Last Filed: 01/06/22 10:11> Palpation (GI): Soft to palpation, Tenderness to palpation present (GI) in the RLQ and suprapubicly, no guarding and not rigid <JU Neves Last Filed: 01/06/22 10:11> Percussion: Yes normal to percussion <JU Neves Last Filed: 01/06/22 10:11> Skin: General skin exam: no rashes or lesions noted <JU Neves Last Filed: 01/06/22 10:11> Neuro: General: patient oriented x3 <JU Neves Last Filed: 01/06/22 10:11> Extrem: General: Yes no clubbing, cyanosis or edema <Radha Hsieh PA-C Last Filed: 01/06/22 10:11> Results Results Labs: Short CBC 01/05/22 Range/Units 22:21 WBC 11.5 H (4.8-10.8) X10*3/uL Hgb 16.2 H D (12.0-16.0) g/dl Hct 48.3 H D (37.0-47.0) % Plt Count 285 D (160-400) X10*3/uL BMP 01/05/22 22:21 Sodium 143 Potassium 4.2 Chloride 107 Carbon Dioxide 26 BUN 9 Creatinine 0.84 Calcium 10.8 H D Liver Function 01/05/22 Range/Units 22:21 Total Bilirubin 0.6 (0.0-1.0) mg/dL Direct Bilirubin 0.2 (0.0-0.5) mg/dL AST 26 (5-31) U/L ALT 27 (0-31) U/L Alkaline Phosphatase 77 (39-117) U/L Albumin 4.2 (3.5-5.0) g/dL Urine 01/06/22 Range/Units 00:39 Urine Color DK YELLOW Urine Appearance HAZY Urine pH 5.0 (5.0-8.0) Ur Specific [place] >= 1.030 H (1.005-1.025) Urine Protein TRACE (NEG-TRACE) MG/DL Urine Glucose (UA) NEG (NEG) MG/DL <JU Neves Last Filed: 01/06/22 10:11> Assessment and Plan (1) SBO (small bowel obstruction): Status: Acute <Radha Hsieh PA-C - Last Filed: 01/06/22 10:11> (2) Crohns disease of small intestine: Status: Acute <Radha Hsieh PA-C - Last Filed: 01/06/22 10:11> Patient recently discharged from the hospital for SBO Did well at home for about 2 days I had seen the patient the office yesterday and had planned on elective resection of area of recurrent obstruction She says he had another episode however yesterday afternoon Describes pain in the right side, no vomiting Abdomen currently soft, no guarding or rebound, has minimal tenderness on the right side Looks comfortable CT reviewed - small-bowel distention proximal to the anastomosis but anastomosis appears patent, Pneumatosis described However remains very benign, stable In view of her recurrent obstruction, plan on laparotomy,, bowel resection of the segment last inpatient She understands plan and is comfortable Seen and examined independently - agree with COLIN Hsieh <Rusty Cortes MD - Last Filed: 01/06/22 14:27> Plan 61 year old female with history of Crohns and multiple previous SBOs presenting with abdominal pain and bloating. CT performed shows dilated small bowel loops with air fluid levels and again a narrowed segment of SB just proximal to anastomosis. The plan was to wait for inflammatory changes to subside prior to proceeding with resection but given recurrence of abdominal pain just after discharge, may need to proceed with resection during this admission. The patient agrees with this as she is very frustrated at the increasing episodes as it is giving her a poor quality of life. She does have a very benign abd exam and is very soft, nondistended. Will plan for resection of diseased segment , possible ostomy. Cont supportive measures for now of NPO status, IVF and NGT decompression. Lactic acidosis- likely secondary to hypovolemia due to dehydration. Now resolved. <Radha Hsieh PA-C - Last Filed: 01/06/22 10:11> Quality Stroke Does the patient have a stroke diagnosis?: No <Radha Hsieh PA-C - Last Filed: 01/06/22 10:11> VTE Prior VTE?: No <Radha Hsieh PA-C - Last Filed: 01/06/22 10:11> VTE Risk Level:: Surgical - moderate <Radha Hsieh PA-C - Last Filed: 01/06/22 10:11> VTE Device Contraindication: N/A - Device Ordered <Radha Hsieh PA-C - Last Filed: 01/06/22 10:11> VTE Drug Contraindication: N/A - Med Ordered <Radha Hsieh PA-C - Last Filed: 01/06/22 10:11> Procedures Date of Service Date of Service: 01/06/22 <Radha Hsieh PA-C - Last Filed: 01/06/22 10:11>
--- NOTE | 2022-01-06 09:51 | MHC.CM.PN ---
PATIENT IS A READMIT SHE WAS HOME WITH NO SERVICES AND WOULD LIKE TO RETURN HOME WITH NO NEED FOR SERVICES. SHE IS NOT COVID-19 VACCINATED HCP IS ON FILE AND VERIFIED. IMM 01/06 IN CHART
--- NOTE | 2022-01-06 11:08 | PHA.MEDREC ---
Pharmacy Consult ? Medication Reconciliation RN completed the medication reconciliation, pharmacy reviewed.
--- NOTE | 2022-01-06 16:02 | PM.EVENT ---
Event Note Date of Service: 01/08/22 Event Note: Less abdominal pain Says NG tube is the 1 that is bothering her Stable vital signs Abdomen remained soft, nondistended, no guarding, no rebound, minimal tenderness on right side Continue IV hydration Plan for laparotomy as inpatient - likely this Explained plan to patient - she understands and is comfortable with plan
[2022-01-07] MEDS: Piperacillin Sodium/Tazobactam 3.375 GM in 0.9 % Sodium Chloride 50 ML IV ×5 (00:47→22:25)
[2022-01-07] MEDS: Dextrose 5 % and Lactated Ring 1,000 ML 125 ML IVCONT ×3 (00:51→22:19)
[2022-01-07] MEDS: HYDROmorphone HCl 1 MG/ML SYRINGE 0.5 MG IVPUSH ×4 (01:41→19:29)
[2022-01-07 03:23] VITALS: BP 130/60; PULSE 51; RESP 18; TEMP 37.1; O2SAT 96
[2022-01-07] MEDS: Enoxaparin Sodium 40 MG/0.4 ML SYRINGE SUBCUT (06:06)
[2022-01-07] MEDS: ondansetron HCL 4 MG/2 ML VIAL IVPUSH ×3 (06:18→19:32)
[2022-01-07 07:45] VITALS: BP 130/64; PULSE 57; RESP 18; TEMP 36.2; O2SAT 96
--- NOTE | 2022-01-07 08:55 | P.PNGS_ITS ---
Subjective Subjective Date of Service: 01/07/22 Interval history: Says she feels much better this morning Comfortable and has minimal pain She is asking to have the NG tube removed. Had a bowel movement this morning Physical Exam Vital Signs: Vital Signs: Last Vital Signs Temp 97.1 F 01/07/22 07:45 Pulse 57 01/07/22 07:45 Resp 18 01/07/22 07:45 BP 130/64 01/07/22 07:45 Pulse Ox 96 01/07/22 07:45 BMI result Body Mass Index 20.8 Const: General: comfortable and no acute distress Resp: Effort & Inspection: normal respiratory effort GI: Inspection: No distended Palpation (GI): Soft to palpation, not firm and nontender Objective Data Active Medications Enoxaparin Sodium (Enoxaparin Sodium 40 Mg/0.4 Ml Syringe) 40 mg SUBCUT Q24H [facility] Last Admin: 01/07/22 06:06 Dose: 40 mg Documented by: RYAN Hydromorphone HCl (Hydromorphone Hcl 1 Mg/Ml Syringe) 0.5 mg IVPUSH Q4H PRN; Protocol PRN Reason: Pain, Severe (Pain Scale 7-10) Last Admin: 01/07/22 06:10 Dose: 0.5 mg Documented by: RYAN Dextrose/Lactated Ringer's (D5lr) 1,000 mls @ 125 mls/hr IVCONT .Q8H [facility] Last Admin: 01/07/22 00:51 Dose: 125 mls/hr Documented by: RYAN Piperacillin Sod/Tazobactam (Sod 3.375 gm/ Sodium Chloride) 50 mls @ 100 mls/hr IV Q6H [facility] Last Infusion: 01/07/22 07:03 Dose: 0 mls/hr Documented by: YARELY Ondansetron HCl (Ondansetron Hcl 4 Mg/2 Ml Vial) 4 mg IVPUSH QID PRN PRN Reason: Nausea Last Admin: 01/07/22 06:18 Dose: 4 mg Documented by: RYAN Oxycodone HCl (Oxycodone Hcl Immed Release 5 Mg Tablet) 5 mg PO Q6H PRN PRN Reason: Pain, Moderate (Pain Scale 4-6 Pharmacy Consult (Consult Rx Perform Med Rec) 1 each MISCELLANE ONCE PRN PRN Reason: Consult order Sodium Chloride (0.9 % Sodium Chloride Flush 3 Ml Syringe) 3 ml IVFLUSH QSHIFT [facility] Last Admin: 01/07/22 08:22 Dose: Not Given Documented by: YARELY Non-Admin Reason: IV Running Labs CBC & Chem 7: 01/05/22 22:21 01/05/22 22:21 Microbiology Microbiology Results: Microbiology 01/06/22 02:18 Blood Culture - Preliminary Blood - Venous No growth after 24 hours. 01/06/22 02:18 Blood Culture - Preliminary Blood - Venous No growth after 24 hours. Procedures Date of Service Date of Service: 01/07/22 Progress Note: A&P Assessment and plan (1) SBO (small bowel obstruction): Status: Acute Assessment and Plan: She has had repeated episodes with multiple admissions Likely from Crohn's disease versus anastomotic stricture although CT scan shows anastomosis is patent Resection had been discussed in the past but she did not want this before Now she is willing to undergo surgical resection I have discussed with her the technique of laparotomy, bowel resection, anastomosis, possible stoma, as well as the risks including but not limited to bleeding, infections, bowel injury, anastomotic leak, inherent risks of anesthesia, abscesses. I explained to her the benefits of this procedure as wel l as the a tentative which is to not do any laparotomy. She wants to proceed with surgical resection and says she understands the above She is scheduled to have this done tomorrow She continues to have a benign exam Fall Risk Details Current Medications: Current Medications Enoxaparin Sodium (Enoxaparin Sodium 40 Mg/0.4 Ml Syringe) 40 mg SUBCUT Q24H [facility] Last Admin: 01/07/22 06:06 Dose: 40 mg Documented by: Hydromorphone HCl (Hydromorphone Hcl 1 Mg/Ml Syringe) 0.5 mg IVPUSH Q4H PRN; Protocol PRN Reason: Pain, Severe (Pain Scale 7-10) Last Admin: 01/07/22 06:10 Dose: 0.5 mg Documented by: Dextrose/Lactated Ringer's (D5lr) 1,000 mls @ 125 mls/hr IVCONT .Q8H [facility] Last Admin: 01/07/22 00:51 Dose: 125 mls/hr Documented by: Piperacillin Sod/Tazobactam (Sod 3.375 gm/ Sodium Chloride) 50 mls @ 100 mls/hr IV Q6H [facility] Last Infusion: 01/07/22 07:03 Dose: Infused Documented by: Ondansetron HCl (Ondansetron Hcl 4 Mg/2 Ml Vial) 4 mg IVPUSH QID PRN PRN Reason: Nausea Last Admin: 01/07/22 06:18 Dose: 4 mg Documented by: Oxycodone HCl (Oxycodone Hcl Immed Release 5 Mg Tablet) 5 mg PO Q6H PRN PRN Reason: Pain, Moderate (Pain Scale 4-6 Pharmacy Consult (Consult Rx Perform Med Rec) 1 each MISCELLANE ONCE PRN PRN Reason: Consult order Sodium Chloride (0.9 % Sodium Chloride Flush 3 Ml Syringe) 3 ml IVFLUSH QSHIFT [facility] Last Admin: 01/07/22 08:22 Dose: Not Given Documented by: Time Spent With Patient Time: Total time spent is greater than 50% in coordination of care (as documented) at patient's floor/unit and/or counseling patient: Time with patient: 15 - 24 minutes Quality Stroke Does the patient have a stroke diagnosis?: No VTE Prior VTE?: No VTE Risk Level:: Surgical - moderate VTE Device Contraindication: N/A - Device Ordered VTE Drug Contraindication: N/A - Med Ordered
[2022-01-07 11:00] VITALS: BP 157/68; PULSE 66; RESP 18; TEMP 36.5; O2SAT 96
--- NOTE | 2022-01-07 12:19 | P.CDIC_ITS ---
CDI Concurrent Query Documentation Clarification: PHYSICIAN'S DOCUMENTATION REQUEST Date of Query: 01/07/22 1219 Patient Name: Rose Nieves Admit Date: 01/06/22 Dear Doctor, A review of the medical record indicates additional documentation may be needed. Please review below and update the documentation accordingly. Clinical Indicators: Risk Factors/Clinical Indicators/Treatments Hx Crohns of small intestine and recent hospital discharge for SBO. CT: multiple dilated fluid filled small bowel loops which extend to a narrowed segment in the right abdomen approaching the anastomosis. Plan for laparotomy 01/08/22 Based on the above, could you clarify in the Progress Notes the appropriate diagnosis, if significant, that supports the above abnormalities and additional evaluation, monitoring, and/or treatment rendered: * SBO , Complete * SBO, Partial * Other (please specify) * Unable to determine Use of terms such as suspected, likely, concern for, or probable (associated with a specific diagnosis that is being evaluated, monitored, or treated as if it exists) are acceptable and can be coded in the inpatient setting, when documented at the time of discharge. Thank you, Audra Carrizales RN Extension: [phone] Please use your independent medical judgment in providing your response. THIS QUERY IS PART OF THE PERMANENT MEDICAL RECORD Provider Response: Other Other Diagnosis: Patient being cared for by Dr. Cortes
[2022-01-07 19:57] VITALS: BP 118/56; PULSE 58; RESP 16; TEMP 36.9; O2SAT 94
[2022-01-07 23:36] VITALS: BP 113/52; PULSE 52; RESP 18; TEMP 36.2; O2SAT 99
[2022-01-08] VITALS (17 sets, daily range): BP systolic 131–191; BP diastolic 61–83; PULSE 54–94; RESP 14–20; TEMP 36.2–36.9; O2SAT 94–100
[2022-01-08] MEDS: ondansetron HCL 4 MG/2 ML VIAL IVPUSH ×2 (03:01→16:19)
[2022-01-08] MEDS: HYDROmorphone HCl 1 MG/ML SYRINGE 0.5 MG IVPUSH ×3 (03:02→22:40)
[2022-01-08] MEDS: Piperacillin Sodium/Tazobactam 3.375 GM in 0.9 % Sodium Chloride 50 ML IV (05:47)
[2022-01-08] MEDS: Dextrose 5 % and Lactated Ring 1,000 ML 125 ML IVCONT (05:50)
--- NOTE | 2022-01-08 06:55 | P.CDIC_ITS ---
CDI Concurrent Query Documentation Clarification: PHYSICIAN'S DOCUMENTATION REQUEST Date of Query: 01/08/22 0655 Patient Name: Rose Nieves Admit Date: 01/06/22 Dear Doctor, A review of the medical record indicates additional documentation may be needed. Please review below and update the documentation accordingly. Risk Factors/Clinical Indicators/Treatments Hx Crohns of small intestine and recent hospital discharge for SBO. CT: multiple dilated fluid filled small bowel loops which extend to a narrowed segment in the right abdomen approaching the anastomosis. Plan for laparotomy 01/08/22 Based on the above, could you clarify in the Progress Notes the appropriate diagnosis, if significant, that supports the above abnormalities and additional evaluation, monitoring, and/or treatment rendered: * SBO , Complete * SBO, Partial * Other?(please specify) * Unable to determine Use of terms such as suspected, likely, concern for, or probable (associated with a specific diagnosis that is being evaluated, monitored, or treated as if it exists) are acceptable and can be coded in the inpatient setting, when documented at the time of discharge. Thank you, Audra Carrizales , DIEUDONNE Extension: [phone] Please use your independent medical judgment in providing your response. THIS QUERY IS PART OF THE PERMANENT MEDICAL RECORD Provider Response: Other ( partial small-bowel obstruction) Other Diagnosis: partial small-bowel obstruction
--- NOTE | 2022-01-08 09:48 | PC.NURSE ---
Patient arrived to [facility] with a PRN angio #20 in right forearm. Site leaking. IV removed, tolerated well.
--- NOTE | 2022-01-08 09:58 | P.CONAN_ITS ---
HPI - Anesthesia Eval Consult details Narrative: 61 F for exploratory laparotomy and possible bowel resection PMFSH Active Problems Active Problems: All Active Problems (Updated 01/06/22 @ 04:23 by Stephanie Lai MD) Peptic ulcer disease (Acute) SBO (small bowel obstruction) (Acute) Elevated blood pressure reading without diagnosis of hypertension (Acute) Hyperlipidemia (Acute) Crohns disease of small intestine (Acute) Past Medical History Medical History Crohns disease of small intestine Gastritis Hyperlipidemia Small bowel obstruction Family History Family History Father No problems noted. Mother Pneumonia Sister Breast cancer Family history of problems with anesthesia: No Surgical History Surgical History History of appendectomy History of bowel resection History of esophagogastroduodenoscopy (EGD) Hx of colonoscopy S/P BSO (bilateral salpingo-oophorectomy) History of Problems with Anesthesia: No Social History Social History Household Members: Other Housing: Apartment Do you presently have visiting nurse or other home services: No Alcohol intake: never Patient Tobacco Use Status: Current everyday Tobacco user Tobacco use type: Cigarette Cigarette Packs Per Day: 0.5 Cigarettes Per Day: 10 Years Smoked: 20 Smoked in Last 30 Days: Yes e-Cigarette/Vaping Use: Never Used Second Hand Smoke Exposure: No Use of substances other than those prescribed or required for medical reasons: No Currently Displaying Signs/Symptoms of Drug Intoxication Withdrawal: No Have you been hit, kicked, punched, or otherwise hurt by someone within the past year? If so, by whom?: No Are you DNR?: No Advance Directives: Yes Advance Directives on File: Yes Advance Directives Date on File: 04/13/21 Do you have thoughts of harming others: None Do you have a plan to hurt others: No Plan Recently lost weight without trying: No Nutrition Risks: No Nutritional Risk service: No Current occupational status: unemployed and disabled Meds Allergies Allergy/AdvReac Type Severity Reaction Status Date / Time No Known Allergies Allergy Verified 01/08/22 09:20 [No Known Allergies*] Active Medications: Current Medications Enoxaparin Sodium (Enoxaparin Sodium 40 Mg/0.4 Ml Syringe) 40 mg SUBCUT Q24H [facility] Last Admin: 01/08/22 06:49 Dose: Not Given Documented by: Hydromorphone HCl (Hydromorphone Hcl 1 Mg/Ml Syringe) 0.5 mg IVPUSH Q4H PRN; Protocol PRN Reason: Pain, Severe (Pain Scale 7-10) Last Admin: 01/08/22 03:02 Dose: 0.5 mg Documented by: Dextrose/Lactated Ringer's (D5lr) 1,000 mls @ 125 mls/hr IVCONT .Q8H [facility] Last Admin: 01/08/22 05:50 Dose: 125 mls/hr Documented by: Piperacillin Sod/Tazobactam (Sod 3.375 gm/ Sodium Chloride) 50 mls @ 100 mls/hr IV Q6H [facility] Last Infusion: 01/08/22 06:39 Dose: Infused Documented by: Ondansetron HCl (Ondansetron Hcl 4 Mg/2 Ml Vial) 4 mg IVPUSH QID PRN PRN Reason: Nausea Last Admin: 01/08/22 03:01 Dose: 4 mg Documented by: Oxycodone HCl (Oxycodone Hcl Immed Release 5 Mg Tablet) 5 mg PO Q6H PRN PRN Reason: Pain, Moderate (Pain Scale 4-6 Pharmacy Consult (Consult Rx Perform Med Rec) 1 each MISCELLANE ONCE PRN PRN Reason: Consult order Sodium Chloride (0.9 % Sodium Chloride Flush 3 Ml Syringe) 3 ml IVFLUSH QSHIFT [facility] Last Admin: 01/08/22 08:31 Dose: Not Given Documented by: Home Medications Medication Instructions Recorded Confirmed Last Taken Type atorvastatin 40 mg tablet 40 mg PO DAILY 09/23/20 01/06/22 01/05/22 09:00 History acetaminophen 325 mg tablet 650 mg PO Q6H PRN 12/30/21 01/06/22 01/05/22 21:00 History Exam Exam Date and Time: January 08, 2022 0958 Height,Weight and Vital Signs: Height 5 ft 7 in Weight 60.328 kg Last Vital Signs Temp 97.8 F 01/08/22 09:22 Pulse 74 01/08/22 09:22 Resp 16 01/08/22 09:22 BP 183/83 H 01/08/22 09:22 Pulse Ox 96 01/08/22 09:22 Pertinent Lab Results Pertinent Lab Results: Laboratory Tests 01/05/22 01/05/22 01/06/22 22:21 22:21 00:39 WBC 11.5 H RBC 5.51 H D Hgb 16.2 H D Hct 48.3 H D MCV 87.7 D MCH 29.4 MCHC 33.5 RDW 14.9 Plt Count 285 D MPV 10.0 Immature Gran % (Auto) 0.6 H Neut % (Auto) 55.3 Lymph % (Auto) 35.0 Robertson % (Auto) 6.7 Eos % (Auto) 2.1 Baso % (Auto) 0.3 Lymph # (Auto) 4.0 Robertson # (Auto) 0.8 Eos # (Auto) 0.2 Baso # (Auto) 0.0 Abs Immat Gran (auto) 0.07 H Absolute Neuts (auto) 6.4 Absolute Nucleated RBC 0.000 Nucleated RBC % (auto) 0.0 Sodium 143 Potassium 4.2 Chloride 107 Carbon Dioxide 26 Anion Gap 14 BUN 9 Creatinine 0.84 Estim Creat Clear Calc 66.1 Estimated GFR > 60 Random Glucose 133 H Lactic Acid Lactic Acid F/U @ 2Hr Calcium 10.8 H D Total Bilirubin 0.6 Direct Bilirubin 0.2 AST 26 ALT 27 Alkaline Phosphatase 77 Total Protein 6.9 Albumin 4.2 Urine Color DK YELLOW Urine Appearance HAZY Urine pH 5.0 Ur Specific Seaton >= 1.030 H Urine Protein TRACE Urine Glucose (UA) NEG Urine Ketones NEG Urine Blood NEG Urine Nitrite NEG Ur Leukocyte Esterase NEG COVID-19 (LINDA) COVID-19 Clin Com Blood Type Antibody Screen 01/06/22 01/06/22 01/06/22 01:15 02:18 03:57 WBC RBC Hgb Hct MCV MCH MCHC RDW Plt Count MPV Immature Gran % (Auto) Neut % (Auto) Lymph % (Auto) Robertson % (Auto) Eos % (Auto) Baso % (Auto) Lymph # (Auto) Robertson # (Auto) Eos # (Auto) Baso # (Auto) Abs Immat Gran (auto) Absolute Neuts (auto) Absolute Nucleated RBC Nucleated RBC % (auto) Sodium Potassium Chloride Carbon Dioxide Anion Gap BUN Creatinine Estim Creat Clear Calc Estimated GFR Random Glucose Lactic Acid 2.9 H* Lactic Acid F/U @ 2Hr 1.6 Calcium Total Bilirubin Direct Bilirubin AST ALT Alkaline Phosphatase Total Protein Albumin Urine Color Urine Appearance Urine pH Ur Specific Seaton Urine Protein Urine Glucose (UA) Urine Ketones Urine Blood Urine Nitrite Ur Leukocyte Esterase COVID-19 (LINDA) Negative COVID-19 Clin Com See Note Blood Type Antibody Screen 01/07/22 11:16 WBC RBC Hgb Hct MCV MCH MCHC RDW Plt Count MPV Immature Gran % (Auto) Neut % (Auto) Lymph % (Auto) Robertson % (Auto) Eos % (Auto) Baso % (Auto) Lymph # (Auto) Robertson # (Auto) Eos # (Auto) Baso # (Auto) Abs Immat Gran (auto) Absolute Neuts (auto) Absolute Nucleated RBC Nucleated RBC % (auto) Sodium Potassium Chloride Carbon Dioxide Anion Gap BUN Creatinine Estim Creat Clear Calc Estimated GFR Random Glucose Lactic Acid Lactic Acid F/U @ 2Hr Calcium Total Bilirubin Direct Bilirubin AST ALT Alkaline Phosphatase Total Protein Albumin Urine Color Urine Appearance Urine pH Ur Specific Seaton Urine Protein Urine Glucose (UA) Urine Ketones Urine Blood Urine Nitrite Ur Leukocyte Esterase COVID-19 (LINDA) COVID-19 Clin Com Blood Type A Negative Antibody Screen NEGATIVE Airway Mallampati Class: II TM Dist: >3cm Neck ROM: Full Denture: Upper and Lower Loose/Missing/Broken Teeth: Yes Heart: rrr Lungs: bl breath sounds Assessment and Plan Assessment Anesthesia Assessment: Anesthesia Plan Discussed Final Anesthetic Review Family History of Problems with Anesthesia: No History of Problems with Anesthesia: No NPO: Yes ASA Class: III Final Preanesthetic Review: Meds/Allgs Chart Reviewed, Consent Obtained/Reviewed and Anes Risks/Benef Reviewed Patient Risk: Intermediate Procedure Risk: Intermediate Anesthetic Plan Anesthetic Plan: GA Disposition: Inp. Admit - Standard Bed
--- NOTE | 2022-01-08 10:21 | PM.EVENT ---
Event Note Date of Service: 01/08/22 Event Note: no new complaints says she has minimal abdominal pain if at all says NG tube bothers her most has BMs but denies flatus abdomen remained soft and benign she says she has no further questions proceed with laparotomy as planned
[2022-01-08] MEDS: Lactated Ringers 1,000 ML 80 ML IVCONT ×2 (10:23→16:41)
[2022-01-08] MEDS: ceFAZolin Sodium/Dextrose,Iso 2 GM/50 ML PIGGYBACK IV (10:38)
--- NOTE | 2022-01-08 12:27 | W.PM.OPN ---
Operative Note Operative Note Date of Service: 01/08/22 Narrative: Preop diagnosis: Partial small-bowel obstruction, history of Crohn's disease Postop diagnosis: Partial small-bowel obstruction, history of Crohn's disease, extensive adhesions Procedure: Laparotomy, extensive lysis of adhesions, resection of fold ileocolonic anastomosis including length of ileum, with creation of a new ileocolonic anastomosis to the more distal transverse colon Surgeon: Rusty Cortes MD judicial administrative assistant: COLIN Hsieh Findings: note of a very indurated, thickened and fibrotic short segment of ileum just proximal to the old ileo colonic anastomosis. The old ileocolonic anastomosis appears to be patent. there was also extensive adhesions in the right side the abdomen. The patient is a 61 year female with a history of Crohn's disease, who has a remote history of ileocolonic anastomosis about 20 years ago in [place]. Had multiple admissions here in the hospital for the past several years for small-bowel obstruction which seems to be just proximal to the old ileo colonic anastomosis. She was readmitted again just 3 days ago and this times, she wanted to proceed with resection. She understood the technique of laparotomy, resection of the area of recurrent obstruction. She was aware of the risks including but not limited to bleeding, infections, bowel injury, anastomotic leak, as well as benefits and alternatives She was brought to the operating room and placed supine on table under general anesthesia via endotracheal tube. And was prepped and draped in the usual sterile fashion. A Amaya catheter had been inserted. A surgical time-out was done. The patient received cefazolin 2 g IV preoperatively I made a short randall in the midline starting from just below the umbilicus extending superiorly using blade 10. This was carried down through the full-thickness skin subcutaneous fat with electrocautery down to the fascia. The fascia was incised. The peritoneum and was entered. The fascial incision was extended to optimize the length the skin incision. There was note of extensive adhesions along this fascial incision with adherent omentum. We had to do a lot of careful dissection with the LigaSure as well as Metzenbaum scissors to free up this area of adherent omentum. This took up an extended period of time because of the amount of adhesions which extended to both sides of the abdominal wall as well as inferiorly. Eventually, I was able to release all the adhesions and I was able to reflect the omentum superiorly. I was able to therefore apply the Bookwalter retractor. Examination of the right side of the abdomen revealed more adhesions going laterally. I had to do a lot of lysis of adhesions with the Metzenbaum scissors to expose the entire right side. By doing so was able to visualize what appeared to be small bowel leading to an anastomotic site. I followed this more distally and was able to identify the transverse colon wrapped in omentum. I had to do more mobilization of this distal ileum and remaining transverse colon with careful dissection using the right angle clamp and electrocautery as well as scissors. Then, there was a lot of adhesions tethering this scar distal ileum all the way to the transverse colon to the retroperitoneum on the right side. With extensive lysis of adhesions, I was able to eventually free the small bowel loops leading to the anastomotic site, as well as the anastomosis all the way to the distal transverse. I was able to identify the jessie-terminal ileum and following this there was note of a small bowel segment that was very thickened, indurated and fibrotic. This was proximal to the old [id number] anastomosis of the ileum to the colon. The old staple line was identified as well. This was also wrapped in a lot of fatty areolar tissue. I was able to completely free up this transverse colon past the anastomosis and identified this leading to the rest of the transverse colon. I was able to therefore pull up this entire distal ileum including the diseased segment leading into the old anastomosis, all the way to the transverse colon. I was able to identify the entire mesentery. The duodenum was actually also seen at the retroperitoneum after mobilization and this was protected throughout the procedure. The small bowel proximal to these diseased segment appeared healthy and inflamed. I chose a point of resection proximal to these area and created a mesenteric window. I used the SANDRA 60 mm stapler to divide this Also chose the healthy looking 1st colon distal to the old anastomosis. I created a mesenteric window with blunt dissection with the hemostat and used the SANDRA 60 mm stapler to divide this. This appeared to be just immediately distal to the middle colic vessels. However there was note of good blood supply on the transected segments. I therefore continued to define the mesentery of the attached distal small bowel and the proximal transverse colon. I planned my line of transection of this mesentery using electrocautery to thin out the mesentery as well. I divided the attached mesentery using the LigaSure along this marking starting from proximal to distal. I completed the transection of this mesentery to the liver the specimen which consisted of the distal ileum including a disease segment leading into the old ileo colonic anastomosis, as well as proximal transverse colon. I observed for hemostasis on the divided mesentery and this appeared to be adequate . I positioned the stapled end of the ileum towards the remaining transverse colon. I cleared the transverse colon near the staple line of epiploic fat. Again this and appeared to be viable and healthy looking I then opened the apex of each staple line to enter the lumen of both limbs. I positioned each arm of the SANDRA 60 mm stapler on the anti mesenteric border of each limb. This was locked in place. I made sure that there was no mesentery caught between the stapler. Once this was confirmed, I fired the stapler to create our [id number] anastomosis. I observed the staple line from both the inside of the lumen and from the serosal side and this appeared to be intact. I completed the anastomosis by closing the enterotomy with a TA 60 mm stapler.I reinforced the of the staple line with a seromuscular Dexon 3-0 stitch to release tension from the stapler line. There was note of a small serosal tear on the small bowel side which I repaired with a running Dexon 3-0 stitch. I closed the mesenteric defect with a running Dexon 3-0 stitch as well. Again I observed the new anastomotic site and this appeared to be healthy and intact. The anastomosis was widely patent when palpated between the finger and the thumb. I then irrigated copiously. Once hemostasis was ensured, I proceeded to replace this anastomotic site back into the peritoneal cavity and positioned the omentum to cover this anteriorly. We suctioned the irrigation fluid. I closed the fascia with running Maxon 1 stitch. I cClosed the skin with skin petty. The incision was infiltrated with Marcaine 0.5% for postop analgesia. Dressings were applied. The procedure was then completed. The patient tolerated the procedure well. There were no complications noted. Initial and final counts of sponges and instruments were correct. Estimated blood loss was about 25 cc . The patient was extubated without difficulty and transferred to the recovery room with stable vital signs.
--- NOTE | 2022-01-08 12:32 | PM.OP ---
Brief Operative Note Date of Service: 01/08/22 <Radha Hsieh PA-C - Last Filed: 01/08/22 12:34> Pre-op diagnosis: SBO, crohns disease <Radha Hsieh PA-C - Last Filed: 01/08/22 12:34> Post-op diagnosis: same (strictured small bowel) <Radha Hsieh PA-C - Last Filed: 01/08/22 12:34> Procedure: exploratory laparotomy, lysis of adhesions, resection of strictured small bowel and ileocolonic anastomosis <Radha Hsieh PA-C - Last Filed: 01/08/22 12:34> Surgeon: TOBIAS SMITH MD <Radha Hsieh PA-C - Last Filed: 01/08/22 12:34> Anesthesia: GETA <Radha Hsieh PA-C - Last Filed: 01/08/22 12:34> Was an Washing Machine Installer used for this Procedure?: Yes <Radha Hsieh PA-C - Last Filed: 01/08/22 12:34> No <Tobias Smith MD - Last Filed: 01/08/22 12:44> Washing Machine Installer: Radha Hsieh <Radha Hsieh PA-C - Last Filed: 01/08/22 12:34> Estimated blood loss (mL): 25 <Radha Hsieh PA-C - Last Filed: 01/08/22 12:34> Pathology: other (ILEOCOLONIC ANASTOMOSIS) <Radha Hsieh PA-C - Last Filed: 01/08/22 12:34> Condition: stable <Radha Hsieh PA-C - Last Filed: 01/08/22 12:34> Disposition: PACU <JU Neves Last Filed: 01/08/22 12:34>
[2022-01-08] MEDS: fentaNYL citrate/PF 100 MCG/2 ML VIAL 25 MCG IVPUSH ×2 (13:35→13:47)
--- NOTE | 2022-01-08 16:01 | PM.EVENT ---
Event Note Date of Service: 01/08/22 Event Note: Patient seen postop Underwent laparotomy, resection of old ileocolonic anastomosis earlier today Says pain control is adequate Stable vital signs Abdomen soft Good urine output Pain management Out of bed Incentive spirometry
[2022-01-08] MEDS: Omeprazole 20 MG CAPSULE.DR PO (20:02)
[2022-01-09] VITALS (8 sets, daily range): BP systolic 134–161; BP diastolic 55–74; PULSE 66–83; RESP 14–19; TEMP 35.9–37; O2SAT 92–96
[2022-01-09] MEDS: HYDROmorphone HCl 1 MG/ML SYRINGE 0.5 MG IVPUSH ×5 (02:15→21:55)
[2022-01-09] MEDS: Lactated Ringers 1,000 ML 80 ML IVCONT ×2 (04:33→17:25)
[2022-01-09] MEDS: Omeprazole 20 MG CAPSULE.DR PO ×2 (05:42→16:51)
[2022-01-09 06:24] LABS: MANUAL DIFF FLAG NO
[2022-01-09 06:27] LABS: Basophils Percent Auto 0.1 % (0-2); Eosinophils Percent Auto 0.3 % (0-4); Hematocrit 35.2 % (37.0-47.0); Hemoglobin 11.8 g/dl (12.0-16.0); Imm Gran Abs Auto 0.03 X10*3/uL (0.00-0.03); Imm Gran Pct Auto 0.3 % (0.0-0.4); Lymphocytes Absolute Auto 1.8 X10*3/uL (1.2-4.9); Lymphocytes Percent Auto 17.8 % (20-40); Mean Corpuscular HGB Conc 33.5 g/dl (31.0-35.0); Mean Corpuscular Hemoglobin 29.6 pg (27.0-33.0); Mean Corpuscular Volume 88.4 fL (80.0-98.0); Mean Platelet Volume 10.6 fL (9.4-12.3); Monocytes Absolute Auto 0.7 X10*3/uL (0.1-1.2); Monocytes Percent Auto 7.1 % (2-11); Neutrophils Absolute Auto 7.7 x10*3/uL (2.0-8.3); Neutrophils Percent Auto 74.4 % (45-73); Platelet Count 264 X10*3/uL (160-400); Red Blood Count 3.98 X10*6/uL (4.20-5.50); Red Cell Distribution Width 14.6 % (11.0-16.0); White Blood Count 10.3 X10*3/uL (4.8-10.8)
--- NOTE | 2022-01-09 06:50 | HO.POSTANES ---
Post Anesthesia Evaluation Post Anesthesia Evaluation Vital Signs: Vital Signs Temp Pulse Resp BP Pulse Ox 01/09/22 04:00 98 F 74 17 145/69 H 96 01/09/22 00:00 96.8 F 76 17 134/63 95 01/08/22 19:57 97.2 F 87 16 135/65 95 Anesthesia: General Endotracheal-GETA Mental Status: Awake Pain Control: Satisfactory Nausea/Vomiting: None Hydration: Adequate Anesthesia-Related Issues: No Anes. Related Issues
[2022-01-09 06:51] LABS: Anion Gap 12 (12-20); Blood Urea Nitrogen 5 mg/dL (9-16); Calcium 9.1 mg/dL (8.4-10.2); Carbon Dioxide 30 mmol/L (22-29); Chloride 106 mmol/L (96-108); Creatinine Clr Calc Pharmacy 94.1; Estimated Glomerular Filt Rate > 60; Glucose Fasting 102 mg/dL (60-99); Potassium 4.2 mmol/L (3.3-5.1); Sodium 144 mmol/L (135-145)
[2022-01-09] MEDS: amLODIPine Besylate 5 MG TABLET PO (07:54)
--- NOTE | 2022-01-09 08:40 | PM.PNGS ---
Subjective Subjective Date of Service: 01/09/22 <Radha Hsieh PA-C - Last Filed: 01/09/22 08:47> 01/09/22 <Rusty Cortes MD - Last Filed: 01/09/22 15:37> Interval history: Feels ok this morning. Sore at incision site. RLQ pain resolved. Tolerating clears. Denies nausea. No flatus yet. Has not been OOB. <Radha Hsieh PA-C - Last Filed: 01/09/22 08:47> Physical Exam Vital Signs: Vital Signs: Last Vital Signs Temp 98.1 F 01/09/22 07:34 Pulse 73 01/09/22 07:34 Resp 19 01/09/22 07:34 BP 159/55 H 01/09/22 07:34 Pulse Ox 92 01/09/22 07:34 BMI result Body Mass Index 20.8 <Radha Hsieh PA-C - Last Filed: 01/09/22 08:47> Const: General: comfortable, no acute distress and alert <Radha Hsieh PA-C - Last Filed: 01/09/22 08:47> Orientation/consciousness: patient oriented x3 <JU Neves Last Filed: 01/09/22 08:47> Resp: Effort & Inspection: normal respiratory effort <JU Neves Last Filed: 01/09/22 08:47> GI: Inspection: No distended and Yes incision (dressing c/d/i) <Radha Hsieh PA-C - Last Filed: 01/09/22 08:47> Palpation (GI): Soft to palpation, Tenderness to palpation present (GI) (incisional), no guarding and not rigid <Radha Hsieh PA-C - Last Filed: 01/09/22 08:47> Percussion: Yes normal to percussion <JU Neves Last Filed: 01/09/22 08:47> Skin: General skin exam: no rashes or lesions noted <JU Neves Last Filed: 01/09/22 08:47> Neuro: General: patient oriented x3 <Radha Hsieh PA-C - Last Filed: 01/09/22 08:47> Extrem: General: Yes no clubbing, cyanosis or edema <Radha Hsieh PA-C - Last Filed: 01/09/22 08:47> Objective Data Active Medications Amlodipine Besylate (Amlodipine Besylate 5 Mg Tablet) 5 mg PO DAILY [facility]; Protocol Last Admin: 01/09/22 07:54 Dose: 5 mg Documented by: WIL Enoxaparin Sodium (Enoxaparin Sodium 40 Mg/0.4 Ml Syringe) 40 mg SUBCUT Q24H [facility] Last Admin: 01/08/22 06:49 Dose: Not Given Documented by: RYAN Non-Admin Reason: hold lovenox for or Fentanyl (Fentanyl Citrate/Pf 100 Mcg/2 Ml Vial) 25 mcg IVPUSH Q5M PRN; Protocol PRN Reason: Pain, Moderate (Pain Scale 4-6 Last Admin: 01/08/22 13:47 Dose: 25 mcg Documented by: ANGELINA Hydromorphone HCl (Hydromorphone Hcl 0.5 Mg/0.5 Ml Syringe) 0.25 mg IVPUSH Q5M PRN; Protocol PRN Reason: Pain, Severe (Pain Scale 7-10) Hydromorphone HCl (Hydromorphone Hcl 1 Mg/Ml Syringe) 0.5 mg IVPUSH Q3H PRN; Protocol PRN Reason: Pain, Severe (Pain Scale 7-10) Last Admin: 01/09/22 05:46 Dose: 0.5 mg Documented by: YAEL Lactated Ringer's (Lr) 1,000 mls @ 80 mls/hr IVCONT .[id number] [facility] Last Admin: 01/09/22 04:33 Dose: 80 mls/hr Documented by: YAEL Promethazine HCl 12.5 mg/ (Sodium Chloride) 50.5 mls @ 202 mls/hr IV ONCE PRN PRN Reason: Nausea and Vomiting Acetaminophen (Ofirmev) 1,000 mg in 100 mls @ 400 mls/hr IV Q6H [facility] Last Admin: 01/09/22 07:54 Dose: 400 mls/hr Documented by: WIL Omeprazole (Omeprazole 20 Mg Capsule.Dr) 20 mg PO BID@8926,9040 [facility] Last Admin: 01/09/22 05:42 Dose: 20 mg Documented by: YAEL Ondansetron HCl (Ondansetron Hcl 4 Mg/2 Ml Vial) 4 mg IVPUSH QID PRN PRN Reason: Nausea Last Admin: 01/08/22 16:19 Dose: 4 mg Documented by: GUILLERMINA Oxycodone HCl (Oxycodone Hcl Immed Release 5 Mg Tablet) 5 mg PO Q6H PRN PRN Reason: Pain, Moderate (Pain Scale 4-6 Oxycodone HCl (Oxycodone Hcl Immed Release 5 Mg Tablet) 10 mg PO Q4H PRN PRN Reason: Pain, Severe (Pain Scale 7-10) Pharmacy Consult (Consult Rx Perform Med Rec) 1 each MISCELLANE ONCE PRN PRN Reason: Consult order Sodium Chloride (0.9 % Sodium Chloride Flush 3 Ml Syringe) 3 ml IVFLUSH QSHIFT [facility] Last Admin: 01/09/22 07:55 Dose: Not Given Documented by: WIL Non-Admin Reason: IV Running <Radha Hsieh PA-C - Last Filed: 01/09/22 08:47> Labs CBC & Chem 7: : 01/09/22 06:15 01/09/22 06:15 <Radah Hsieh PA-C - Last Filed: 01/09/22 08:47> Labs: Laboratory Results - last 24 hr 01/09/22 01/09/22 06:15 06:15 MCV 88.4 MCH 29.6 MCHC 33.5 RDW 14.6 Plt Count 264 MPV 10.6 Immature Gran % (Auto) 0.3 Neut % (Auto) 74.4 H Lymph % (Auto) 17.8 L Letcher % (Auto) 7.1 Eos % (Auto) 0.3 Baso % (Auto) 0.1 Lymph # (Auto) 1.8 Letcher # (Auto) 0.7 Eos # (Auto) 0.0 Baso # (Auto) 0.0 Abs Immat Gran (auto) 0.03 Absolute Neuts (auto) 7.7 Absolute Nucleated RBC 0.000 Nucleated RBC % (auto) 0.0 Anion Gap 12 Estim Creat Clear Calc 94.1 Estimated GFR > 60 Fasting Glucose 102 H Calcium 9.1 D <Radha Hsieh PA-C - Last Filed: 01/09/22 08:47> Microbiology Microbiology Results: Microbiology 01/06/22 02:18 Blood Culture - Preliminary Blood - Venous No growth after 48 hours. 01/06/22 02:18 Blood Culture - Preliminary Blood - Venous No growth after 48 hours. <Radha Hsieh PA-C - Last Filed: 01/09/22 08:47> Procedures Date of Service Date of Service: 01/09/22 <Radha Hsieh PA-C - Last Filed: 01/09/22 08:47> Progress Note: A&P Assessment and plan (1) SBO (small bowel obstruction): Status: Acute <Radha Hsieh PA-C - Last Filed: 01/09/22 08:47> (2) Crohns disease of small intestine: Status: Acute <Radha Hsieh PA-C - Last Filed: 01/09/22 08:47> (3) S/P exploratory laparotomy: Status: Acute <Radha Hsieh PA-C - Last Filed: 01/09/22 08:47> Assessment and Plan: pain control adequate await return of GI function OOB incentive spirometry keep on clears looks well seems to be doing well postop seen and examined - agree with COLIN Hsieh <Rusty Cortes MD - Last Filed: 01/09/22 15:37> Plan 61 year old female with hx of Crohns, multiple SBOs admitted with SBO. Has had multiple recent admissions for SBOs and increasing in frequency. Now POD #1 s/p ex lap, extensive KATY, resection of ileocolonic anastomosis, including length of ileum, with creation of a new ileocolonic anastomosis to the?more distal transverse colon. Note of a?very indurated, thickened and fibrotic short segment of ileum just proximal to the old ileocolonic anastomosis.? She is doing fairly well post op. Tolerating clears. VSS- hypertensive. Abd exam benign with appropriate post op tenderness, dressing c/d/i. D/c biggs today. OOB/ambulation and IS use encouraged. Continue pain control. Await return of GI function. Continue clear liquids for now. AM labs reviewed. HTN- norvasc resumed this morning. Continue to monitor. <Radha Hsieh PA-C - Last Filed: 01/09/22 08:47> Fall Risk Details Current Medications: Current Medications Amlodipine Besylate (Amlodipine Besylate 5 Mg Tablet) 5 mg PO DAILY [facility]; Protocol Last Admin: 01/09/22 07:54 Dose: 5 mg Documented by: Enoxaparin Sodium (Enoxaparin Sodium 40 Mg/0.4 Ml Syringe) 40 mg SUBCUT Q24H [facility] Last Admin: 01/08/22 06:49 Dose: Not Given Documented by: Fentanyl (Fentanyl Citrate/Pf 100 Mcg/2 Ml Vial) 25 mcg IVPUSH Q5M PRN; Protocol PRN Reason: Pain, Moderate (Pain Scale 4-6 Last Admin: 01/08/22 13:47 Dose: 25 mcg Documented by: Hydromorphone HCl (Hydromorphone Hcl 0.5 Mg/0.5 Ml Syringe) 0.25 mg IVPUSH Q5M PRN; Protocol PRN Reason: Pain, Severe (Pain Scale 7-10) Hydromorphone HCl (Hydromorphone Hcl 1 Mg/Ml Syringe) 0.5 mg IVPUSH Q3H PRN; Protocol PRN Reason: Pain, Severe (Pain Scale 7-10) Last Admin: 01/09/22 05:46 Dose: 0.5 mg Documented by: Lactated Ringer's (Lr) 1,000 mls @ 80 mls/hr IVCONT .[id number] [facility] Last Admin: 01/09/22 04:33 Dose: 80 mls/hr Documented by: Promethazine HCl 12.5 mg/ (Sodium Chloride) 50.5 mls @ 202 mls/hr IV ONCE PRN PRN Reason: Nausea and Vomiting Acetaminophen (Ofirmev) 1,000 mg in 100 mls @ 400 mls/hr IV Q6H [facility] Last Admin: 01/09/22 07:54 Dose: 400 mls/hr Documented by: Omeprazole (Omeprazole 20 Mg Capsule.) 20 mg PO BID@0630,1630 [facility] Last Admin: 01/09/22 05:42 Dose: 20 mg Documented by: Ondansetron HCl (Ondansetron Hcl 4 Mg/2 Ml Vial) 4 mg IVPUSH QID PRN PRN Reason: Nausea Last Admin: 01/08/22 16:19 Dose: 4 mg Documented by: Oxycodone HCl (Oxycodone Hcl Immed Release 5 Mg Tablet) 5 mg PO Q6H PRN PRN Reason: Pain, Moderate (Pain Scale 4-6 Oxycodone HCl (Oxycodone Hcl Immed Release 5 Mg Tablet) 10 mg PO Q4H PRN PRN Reason: Pain, Severe (Pain Scale 7-10) Pharmacy Consult (Consult Rx Perform Med Rec) 1 each MISCELLANE ONCE PRN PRN Reason: Consult order Sodium Chloride (0.9 % Sodium Chloride Flush 3 Ml Syringe) 3 ml IVFLUSH QSHIFT [facility] Last Admin: 01/09/22 07:55 Dose: Not Given Documented by: <Radha Hsieh PA-C - Last Filed: 01/09/22 08:47> Time Spent With Patient Time: Total time spent is greater than 50% in coordination of care (as documented) at patient's floor/unit and/or counseling patient: <Radha Hsieh PA-C - Last Filed: 01/09/22 08:47> Time with patient: 15 - 24 minutes <Radha Hsieh PA-C - Last Filed: 01/09/22 08:47> Quality Stroke Does the patient have a stroke diagnosis?: No <Radha Hsieh PA-C - Last Filed: 01/09/22 08:47> VTE Prior VTE?: No <Radha Hsieh PA-C - Last Filed: 01/09/22 08:47> VTE Risk Level:: Surgical - moderate <Radha Hsieh PA-C - Last Filed: 01/09/22 08:47> VTE Device Contraindication: N/A - Device Ordered <Radha Hsieh PA-C - Last Filed: 01/09/22 08:47> VTE Drug Contraindication: N/A - Med Ordered <Radha Hsieh PA-C - Last Filed: 01/09/22 08:47>
--- NOTE | 2022-01-09 14:12 | MHC.CLN ---
NUTRITION DIET=CLEAR LIQUIDS. ADDING ENSURE CLEAR TO PROVIDE ADDITIONAL 720 KCALS, 24 G PROTEIN. FOLLOW FOR DIET ADVANCEMENT.
--- NOTE | 2022-01-09 16:58 | PM.EVENT ---
Event Note Date of Service: 01/09/22 Event Note: seen on afternoon rounds continues to feel comfortable despite pain able to ambulate good pain control denies flatus voiding freely stable vital signs await return of GI function pain management out of bed
[2022-01-10] VITALS (8 sets, daily range): BP systolic 112–158; BP diastolic 63–68; PULSE 56–67; RESP 14–20; TEMP 36.1–36.9; O2SAT 94–98
[2022-01-10] MEDS: HYDROmorphone HCl 1 MG/ML SYRINGE 0.5 MG IVPUSH ×4 (04:31→20:43)
[2022-01-10] MEDS: Omeprazole 20 MG CAPSULE.DR PO ×2 (04:32→15:41)
[2022-01-10] MEDS: Lactated Ringers 1,000 ML 80 ML IVCONT ×2 (04:32→17:00)
[2022-01-10] MEDS: amLODIPine Besylate 5 MG TABLET PO (08:41)
--- NOTE | 2022-01-10 15:31 | P.PNGS_ITS ---
Subjective Subjective Date of Service: 01/10/22 Interval history: no gas as yet, feels like it could happen soon, pain ok, tolerting some liquids fine Physical Exam Vital Signs: Vital Signs: Last Vital Signs Temp 97.0 F 01/10/22 12:00 Pulse 56 01/10/22 12:00 Resp 18 01/10/22 14:44 BP 135/67 01/10/22 12:00 Pulse Ox 95 01/10/22 12:00 BMI result Body Mass Index 20.8 Resp: Auscultation: clear to auscultation bilaterally Cardio: Rate: regular rate Rhythm: regular rhythm GI: Other: abdo soft nontender mild distension present bowel sounds, bandage intact Skin: Other: right and left breast ok no color change or masses Objective Data Active Medications Amlodipine Besylate (Amlodipine Besylate 5 Mg Tablet) 5 mg PO DAILY [facility]; Protocol Last Admin: 01/10/22 08:41 Dose: 5 mg Documented by: ALBINO Enoxaparin Sodium (Enoxaparin Sodium 40 Mg/0.4 Ml Syringe) 40 mg SUBCUT Q24H [facility] Last Admin: 01/08/22 06:49 Dose: Not Given Documented by: RYAN Non-Admin Reason: hold lovenox for or Fentanyl (Fentanyl Citrate/Pf 100 Mcg/2 Ml Vial) 25 mcg IVPUSH Q5M PRN; Pr otocol PRN Reason: Pain, Moderate (Pain Scale 4-6 Last Admin: 01/08/22 13:47 Dose: 25 mcg Documented by: ANGELINA Hydromorphone HCl (Hydromorphone Hcl 0.5 Mg/0.5 Ml Syringe) 0.25 mg IVPUSH Q5M PRN; Protocol PRN Reason: Pain, Severe (Pain Scale 7-10) Hydromorphone HCl (Hydromorphone Hcl 1 Mg/Ml Syringe) 0.5 mg IVPUSH Q3H PRN; Protocol PRN Reason: Pain, Severe (Pain Scale 7-10) Last Admin: 01/10/22 14:44 Dose: 0.5 mg Documented by: ALBINO Lactated Ringer's (Lr) 1,000 mls @ 80 mls/hr IVCONT .[id number] [facility] Last Admin: 01/10/22 04:32 Dose: 80 mls/hr Documented by: KACI Promethazine HCl 12.5 mg/ (Sodium Chloride) 50.5 mls @ 202 mls/hr IV ONCE PRN PRN Reason: Nausea and Vomiting Acetaminophen (Ofirmev) 1,000 mg in 100 mls @ 400 mls/hr IV Q6H [facility] Last Admin: 01/10/22 15:15 Dose: 400 mls/hr Documented by: ALBINO Omeprazole (Omeprazole 20 Mg Capsule.Dr) 20 mg PO BID@0630,1630 [facility] Last Admin: 01/10/22 04:32 Dose: 20 mg Documented by: KACI Ondansetron HCl (Ondansetron Hcl 4 Mg/2 Ml Vial) 4 mg IVPUSH QID PRN PRN Reason: Nausea Last Admin: 01/08/22 16:19 Dose: 4 mg Documented by: GUILLERMINA Oxycodone HCl (Oxycodone Hcl Immed Release 5 Mg Tablet) 5 mg PO Q6H PRN PRN Reason: Pain, Moderate (Pain Scale 4-6 Oxycodone HCl (Oxycodone Hcl Immed Release 5 Mg Tablet) 10 mg PO Q4H PRN PRN Reason: Pain, Severe (Pain Scale 7-10) Pharmacy Consult (Consult Rx Perform Med Rec) 1 each MISCELLANE ONCE PRN PRN Reason: Consult order Sodium Chloride (0.9 % Sodium Chloride Flush 3 Ml Syringe) 3 ml IVFLUSH QSHIFT [facility] Last Admin: 01/10/22 08:41 Dose: Not Given Documented by: ALBINO Non-Admin Reason: IV Running Labs CBC & Chem 7: 01/09/22 06:15 01/09/22 06:15 Procedures Date of Service Date of Service: 01/10/22 Progress Note: A&P Assessment and plan (1) S/P exploratory laparotomy: Status: Acute Assessment and Plan: 61 year old female s/p exp lap and small bowel resection - doing well - ileus cont but not worrisome - pt cont to ambulate and ovidio po liquids without n/v hopeful return of bowel function soon she understands an agrees with the plan Fall Risk Details Current Medications: Current Medications Amlodipine Besylate (Amlodipine Besylate 5 Mg Tablet) 5 mg PO DAILY [facility]; Protocol Last Admin: 01/10/22 08:41 Dose: 5 mg Documented by: Enoxaparin Sodium (Enoxaparin Sodium 40 Mg/0.4 Ml Syringe) 40 mg SUBCUT Q24H [facility] Last Admin: 01/08/22 06:49 Dose: Not Given Documented by: Fentanyl (Fentanyl Citrate/Pf 100 Mcg/2 Ml Vial) 25 mcg IVPUSH Q5M PRN; Oren col PRN Reason: Pain, Moderate (Pain Scale 4-6 Last Admin: 01/08/22 13:47 Dose: 25 mcg Documented by: Hydromorphone HCl (Hydromorphone Hcl 0.5 Mg/0.5 Ml Syringe) 0.25 mg IVPUSH Q5M PRN; Protocol PRN Reason: Pain, Severe (Pain Scale 7-10) Hydromorphone HCl (Hydromorphone Hcl 1 Mg/Ml Syringe) 0.5 mg IVPUSH Q3H PRN; Protocol PRN Reason: Pain, Severe (Pain Scale 7-10) Last Admin: 01/10/22 14:44 Dose: 0.5 mg Documented by: Lactated Ringer's (Lr) 1,000 mls @ 80 mls/hr IVCONT .[id number] [facility] Last Admin: 01/10/22 04:32 Dose: 80 mls/hr Documented by: Promethazine HCl 12.5 mg/ (Sodium Chloride) 50.5 mls @ 202 mls/hr IV ONCE PRN PRN Reason: Nausea and Vomiting Acetaminophen (Ofirmev) 1,000 mg in 100 mls @ 400 mls/hr IV Q6H [facility] Last Admin: 01/10/22 15:15 Dose: 400 mls/hr Documented by: Omeprazole (Omeprazole 20 Mg Capsule.Dr) 20 mg PO BID@0630,1630 [facility] Last Admin: 01/10/22 04:32 Dose: 20 mg Documented by: Ondansetron HCl (Ondansetron Hcl 4 Mg/2 Ml Vial) 4 mg IVPUSH QID PRN PRN Reason: Nausea Last Admin: 01/08/22 16:19 Dose: 4 mg Documented by: Oxycodone HCl (Oxycodone Hcl Immed Release 5 Mg Tablet) 5 mg PO Q6H PRN PRN Reason: Pain, Moderate (Pain Scale 4-6 Oxycodone HCl (Oxycodone Hcl Immed Release 5 Mg Tablet) 10 mg PO Q4H PRN PRN Reason: Pain, Severe (Pain Scale 7-10) Pharmacy Consult (Consult Rx Perform Med Rec) 1 each MISCELLANE ONCE PRN PRN Reason: Consult order Sodium Chloride (0.9 % Sodium Chloride Flush 3 Ml Syringe) 3 ml IVFLUSH QSHIFT [facility] Last Admin: 01/10/22 08:41 Dose: Not Given Documented by: Time Spent With Patient Time: Total time spent is greater than 50% in coordination of care (as documented) at patient's floor/unit and/or counseling patient: Time with patient: 15 - 24 minutes Quality Stroke Does the patient have a stroke diagnosis?: No VTE Prior VTE?: No VTE Risk Level:: Surgical - moderate VTE Device Contraindication: N/A - Device Ordered VTE Drug Contraindication: N/A - Med Ordered
[2022-01-11] MEDS: HYDROmorphone HCl 1 MG/ML SYRINGE 0.5 MG IVPUSH ×4 (00:32→20:11)
[2022-01-11] MEDS: Lactated Ringers 1,000 ML 80 ML IVCONT (00:33)
[2022-01-11] MEDS: ondansetron HCL 4 MG/2 ML VIAL IVPUSH ×2 (00:38→15:46)
[2022-01-11 03:42] VITALS: BP 141/65; PULSE 57; RESP 18; TEMP 36.1; O2SAT 97
[2022-01-11] MEDS: Omeprazole 20 MG CAPSULE.DR PO ×2 (04:11→15:45)
[2022-01-11 08:00] VITALS: BP 139/67; PULSE 75; RESP 20; TEMP 36.1; O2SAT 97
[2022-01-11] MEDS: amLODIPine Besylate 5 MG TABLET PO (09:14)
[2022-01-11 12:00] VITALS: BP 135/66; RESP 20; TEMP 36.3; O2SAT 97; O2SAT 98
--- NOTE | 2022-01-11 13:37 | PM.PNGS ---
Subjective Subjective Date of Service: 01/11/22 Interval history: doing well, passing gas and had a bowel movement x2. had some lunch and now feeling a little nauseated - burping Physical Exam Vital Signs: Vital Signs: Last Vital Signs Temp 97.3 F 01/11/22 12:00 Pulse 75 01/11/22 08:00 Resp 20 01/11/22 12:00 BP 135/66 01/11/22 12:00 Pulse Ox 97 01/11/22 12:00 BMI result Body Mass Index 20.8 GI: Other: abdo soft mild tenderness over the incision little distended good active bowel sounds Objective Data Active Medications Amlodipine Besylate (Amlodipine Besylate 5 Mg Tablet) 5 mg PO DAILY [facility]; Protocol Last Admin: 01/11/22 09:14 Dose: 5 mg Documented by: GENE Enoxaparin Sodium (Enoxaparin Sodium 40 Mg/0.4 Ml Syringe) 40 mg SUBCUT Q24H [facility] Last Admin: 01/08/22 06:49 Dose: Not Given Documented by: RYAN Non-Admin Reason: hold lovenox for or Fentanyl (Fentanyl Citrate/Pf 100 Mcg/2 Ml Vial) 25 mcg IVPUSH Q5M PRN; Protocol PRN Reason: Pain, Moderate (Pain Scale 4-6 Last Admin: 01/08/22 13:47 Dose: 25 mcg Documented by: ANGELINA Hydromorphone HCl (Hydromorphone Hcl 0.5 Mg/0.5 Ml Syringe) 0.25 mg IVPUSH Q5M PRN; Protocol PRN Reason: Pain, Severe (Pain Scale 7-10) Hydromorphone HCl (Hydromorphone Hcl 1 Mg/Ml Syringe) 0.5 mg IVPUSH Q3H PRN; Protocol PRN Reason: Pain, Severe (Pain Scale 7-10) Last Admin: 01/11/22 09:13 Dose: 0.5 mg Documented by: GENE Promethazine HCl 12.5 mg/ (Sodium Chloride) 50.5 mls @ 202 mls/hr IV ONCE PRN PRN Reason: Nausea and Vomiting Acetaminophen (Ofirmev) 1,000 mg in 100 mls @ 400 mls/hr IV Q6H [facility] Last Infusion: 01/11/22 10:27 Dose: 0 mls/hr Documented by: GENE Omeprazole (Omeprazole 20 Mg Capsule.) 20 mg PO BID@0630,1630 [facility] Last Admin: 01/11/22 04:11 Dose: 20 mg Documented by: KACI Ondansetron HCl (Ondansetron Hcl 4 Mg/2 Ml Vial) 4 mg IVPUSH QID PRN PRN Reason: Nausea Last Admin: 01/11/22 00:38 Dose: 4 mg Documented by: KACI Oxycodone HCl (Oxycodone Hcl Immed Release 5 Mg Tablet) 10 mg PO Q4H PRN PRN Reason: Pain, Severe (Pain Scale 7-10) Pharmacy Consult (Consult Rx Perform Med Rec) 1 each MISCELLANE ONCE PRN PRN Reason: Consult order Sodium Chloride (0.9 % Sodium Chloride Flush 3 Ml Syringe) 3 ml IVFLUSH QSHIFT [facility] Last Admin: 01/11/22 09:14 Dose: Not Given Documented by: GENE Non-Admin Reason: IV Running Labs CBC & Chem 7: 01/09/22 06:15 01/09/22 06:15 Microbiology Microbiology Results: Microbiology 01/06/22 02:18 Blood Culture - Final Blood - Venous No growth after 5 days. 01/06/22 02:18 Blood Culture - Final Blood - Venous No growth after 5 days. Procedures Date of Service Date of Service: 01/11/22 Progress Note: A&P Assessment and plan (1) S/P exploratory laparotomy: Status: Acute Assessment and Plan: 61 yo female pod#3 s/p sb mark and sbresection - doing well - ileus resolving - had bm and advanced diet but not feeling as well now. encourage liquid diet, ambulate, slow small meals multiple times - i think by tomorrow she is ready to go home she agrees. (2) SBO (small bowel obstruction): Status: Acute Fall Risk Details Current Medications: Current Medications Amlodipine Besylate (Amlodipine Besylate 5 Mg Tablet) 5 mg PO DAILY [facility]; Protocol Last Admin: 01/11/22 09:14 Dose: 5 mg Documented by: Enoxaparin Sodium (Enoxaparin Sodium 40 Mg/0.4 Ml Syringe) 40 mg SUBCUT Q24H [facility] Last Admin: 01/08/22 06:49 Dose: Not Given Documented by: Fentanyl (Fentanyl Citrate/Pf 100 Mcg/2 Ml Vial) 25 mcg IVPUSH Q5M PRN; Protocol PRN Reason: Pain, Moderate (Pain Scale 4-6 Last Admin: 01/08/22 13:47 Dose: 25 mcg Documented by: Hydromorphone HCl (Hydromorphone Hcl 0.5 Mg/0.5 Ml Syringe) 0.25 mg IVPUSH Q5M PRN; Protocol PRN Reason: Pain, Severe (Pain Scale 7-10) Hydromorphone HCl (Hydromorphone Hcl 1 Mg/Ml Syringe) 0.5 mg IVPUSH Q3H PRN; Protocol PRN Reason: Pain, Severe (Pain Scale 7-10) Last Admin: 01/11/22 09:13 Dose: 0.5 mg Documented by: Promethazine HCl 12.5 mg/ (Sodium Chloride) 50.5 mls @ 202 mls/hr IV ONCE PRN PRN Reason: Nausea and Vomiting Acetaminophen (Ofirmev) 1,000 mg in 100 mls @ 400 mls/hr IV Q6H [facility] Last Infusion: 01/11/22 10:27 Dose: Infused Documented by: Omeprazole (Omeprazole 20 Mg Capsule.Dr) 20 mg PO BID@0630,1630 [facility] Last Admin: 01/11/22 04:11 Dose: 20 mg Documented by: Ondansetron HCl (Ondansetron Hcl 4 Mg/2 Ml Vial) 4 mg IVPUSH QID PRN PRN Reason: Nausea Last Admin: 01/11/22 00:38 Dose: 4 mg Documented by: Oxycodone HCl (Oxycodone Hcl Immed Release 5 Mg Tablet) 10 mg PO Q4H PRN PRN Reason: Pain, Severe (Pain Scale 7-10) Pharmacy Consult (Consult Rx Perform Med Rec) 1 each MISCELLANE ONCE PRN PRN Reason: Consult order Sodium Chloride (0.9 % Sodium Chloride Flush 3 Ml Syringe) [address] [facility] Last Admin: 01/11/22 09:14 Dose: Not Given Documented by: Time Spent With Patient Time: Total time spent is greater than 50% in coordination of care (as documented) at patient's floor/unit and/or counseling patient: Time with patient: 15 - 24 minutes Quality Stroke Does the patient have a stroke diagnosis?: No VTE Prior VTE?: No VTE Risk Level:: Surgical - moderate VTE Device Contraindication: N/A - Device Ordered VTE Drug Contraindication: N/A - Med Ordered
[2022-01-11] MEDS: oxyCODONE HCl Immed Release 5 MG TABLET 10 MG PO (14:03)
[2022-01-11 15:36] VITALS: BP 142/72; PULSE 68; RESP 18; TEMP 36.1; O2SAT 100
[2022-01-11] MEDS: 0.9 % Sodium Chloride Flush 3 ML SYRINGE IVFLUSH ×2 (15:46→20:11)
[2022-01-11 19:48] VITALS: BP 126/60; PULSE 64; RESP 18; TEMP 36.6; O2SAT 96
[2022-01-12] VITALS (7 sets, daily range): BP systolic 116–167; BP diastolic 56–75; PULSE 59–61; RESP 18; TEMP 36.1–36.5; O2SAT 95–98
[2022-01-12] MEDS: Omeprazole 20 MG CAPSULE.DR PO ×2 (05:59→17:36)
[2022-01-12] MEDS: amLODIPine Besylate 5 MG TABLET PO (07:48)
[2022-01-12] MEDS: 0.9 % Sodium Chloride Flush 3 ML SYRINGE IVFLUSH ×3 (07:49→23:36)
[2022-01-12] MEDS: HYDROmorphone HCl 0.5 MG/0.5 ML SYRINGE 0.25 MG IVPUSH (07:55)
--- NOTE | 2022-01-12 08:00 | P.PNGS_ITS ---
Subjective Subjective Date of Service: 01/13/22 Interval history: passing flatus has BMS tolerating diet but says a little bloated sore on abdl with ambulating Physical Exam Vital Signs: Vital Signs: Last Vital Signs Temp 97.2 F 01/12/22 04:00 Pulse 59 01/12/22 04:00 Resp 18 01/12/22 04:00 BP 167/75 H 01/12/22 04:00 Pulse Ox 95 01/12/22 04:00 BMI result Body Mass Index 20.8 Const: Other: ambulating well General: comfortable and no acute distress Resp: Effort & Inspection: normal respiratory effort Cardio: Rate: regular rate GI: Palpation (GI): Soft to palpation, not firm and no guarding Objective Data Active Medications Amlodipine Besylate (Amlodipine Besylate 5 Mg Tablet) 5 mg PO DAILY [facility]; Protocol Last Admin: 01/12/22 07:48 Dose: 5 mg Documented by: WIL Enoxaparin Sodium (Enoxaparin Sodium 40 Mg/0.4 Ml Syringe) 40 mg SUBCUT Q24H [facility] Last Admin: 01/08/22 06:49 Dose: Not Given Documented by: RYAN Non-Admin Reason: hold lovenox for or Fentanyl (Fentanyl Citrate/Pf 100 Mcg/2 Ml Vial) 25 mcg IVPUSH Q5M PRN; Protocol PRN Reason: Pain, Moderate (Pain Scale 4-6 Last Admin: 01/08/22 13:47 Dose: 25 mcg Documented by: ANGELINA Hydromorphone HCl (Hydromorphone Hcl 0.5 Mg/0.5 Ml Syringe) 0.25 mg IVPUSH Q5M PRN; Protocol PRN Reason: Pain, Severe (Pain Scale 7-10) Last Admin: 01/12/22 07:55 Dose: 0.25 mg Documented by: WIL Hydromorphone HCl (Hydromorphone Hcl 1 Mg/Ml Syringe) 0.5 mg IVPUSH Q3H PRN; Protocol PRN Reason: Pain, Severe (Pain Scale 7-10) Last Admin: 01/11/22 20:11 Dose: 0.5 mg Documented by: RIO Promethazine HCl 12.5 mg/ (Sodium Chloride) 50.5 mls @ 202 mls/hr IV ONCE PRN PRN Reason: Nausea and Vomiting Omeprazole (Omeprazole 20 Mg Capsule.) 20 mg PO BID@0630,1630 [facility] Last Admin: 01/12/22 05:59 Dose: 20 mg Documented by: RIO Ondansetron HCl (Ondansetron Hcl 4 Mg/2 Ml Vial) 4 mg IVPUSH QID PRN PRN Reason: Nausea Last Admin: 01/11/22 15:46 Dose: 4 mg Documented by: GENE Oxycodone HCl (Oxycodone Hcl Immed Release 5 Mg Tablet) 10 mg PO Q4H PRN PRN Reason: Pain, Severe (Pain Scale 7-10) Last Admin: 01/11/22 14:03 Dose: 10 mg Documented by: GENE Pharmacy Consult (Consult Rx Perform Med Rec) 1 each MISCELLANE ONCE PRN PRN Reason: Consult order Sodium Chloride (0.9 % Sodium Chloride Flush 3 Ml Syringe) 3 ml IVFLUSH QSHIFT [facility] Last Admin: 01/12/22 07:49 Dose: 3 ml Documented by: WIL Labs CBC & Chem 7: 01/09/22 06:15 01/09/22 06:15 Microbiology Microbiology Results: Microbiology 01/06/22 02:18 Blood Culture - Final Blood - Venous No growth after 5 days. 01/06/22 02:18 Blood Culture - Final Blood - Venous No growth after 5 days. Procedures Date of Service Date of Service: 01/12/22 Progress Note: A&P Assessment and plan (1) S/P exploratory laparotomy: Status: Acute Assessment and Plan: looks well ambulating well has good GI function she says she does not feel ready to go home today encouraged ambulation small frequent meals for now Fall Risk Details Current Medications: Current Medications Amlodipine Besylate (Amlodipine Besylate 5 Mg Tablet) 5 mg PO DAILY [facility]; Protocol Last Admin: 01/12/22 07:48 Dose: 5 mg Documented by: Enoxaparin Sodium (Enoxaparin Sodium 40 Mg/0.4 Ml Syringe) 40 mg SUBCUT Q24H [facility] Last Admin: 01/08/22 06:49 Dose: Not Given Documented by: Fentanyl (Fentanyl Citrate/Pf 100 Mcg/2 Ml Vial) 25 mcg IVPUSH Q5M PRN; Protocol PRN Reason: Pain, Moderate (Pain Scale 4-6 Last Admin: 01/08/22 13:47 Dose: 25 mcg Documented by: Hydromorphone HCl (Hydromorphone Hcl 0.5 Mg/0.5 Ml Syringe) 0.25 mg IVPUSH Q5M PRN; Protocol PRN Reason: Pain, Severe (Pain Scale 7-10) Last Admin: 01/12/22 07:55 Dose: 0.25 mg Documented by: Hydromorphone HCl (Hydromorphone Hcl 1 Mg/Ml Syringe) 0.5 mg IVPUSH Q3H PRN; Protocol PRN Reason: Pain, Severe (Pain Scale 7-10) Last Admin: 01/11/22 20:11 Dose: 0.5 mg Documented by: Promethazine HCl 12.5 mg/ (Sodium Chloride) 50.5 mls @ 202 mls/hr IV ONCE PRN PRN Reason: Nausea and Vomiting Omeprazole (Omeprazole 20 Mg Capsule.Dr) 20 mg PO BID@0630,1630 [facility] Last Admin: 01/12/22 05:59 Dose: 20 mg Documented by: Ondansetron HCl (Ondansetron Hcl 4 Mg/2 Ml Vial) 4 mg IVPUSH QID PRN PRN Reason: Nausea Last Admin: 01/11/22 15:46 Dose: 4 mg Documented by: Oxycodone HCl (Oxycodone Hcl Immed Release 5 Mg Tablet) 10 mg PO Q4H PRN PRN Reason: Pain, Severe (Pain Scale 7-10) Last Admin: 01/11/22 14:03 Dose: 10 mg Documented by: Pharmacy Consult (Consult Rx Perform Med Rec) 1 each MISCELLANE ONCE PRN PRN Reason: Consult order Sodium Chloride (0.9 % Sodium Chloride Flush 3 Ml Syringe) [facility] Last Admin: 01/12/22 07:49 Dose: 3 ml Documented by: Time Spent With Patient Time: Total time spent is greater than 50% in coordination of care (as documented) at patient's floor/unit and/or counseling patient: Time with patient: 15 - 24 minutes Quality Stroke Does the patient have a stroke diagnosis?: No VTE Prior VTE?: No VTE Risk Level:: Surgical - moderate VTE Device Contraindication: N/A - Device Ordered VTE Drug Contraindication: N/A - Med Ordered
[2022-01-12] MEDS: HYDROmorphone HCl 1 MG/ML SYRINGE 0.5 MG IVPUSH ×2 (11:07→15:35)
--- NOTE | 2022-01-12 12:24 | MHC.CM.PN ---
PER REVIEW OF CHART, NO PLAN FOR DISCHARGE TODAY. PATIENT WILL LIKELY RETURN HOME TOMORROW IF FEELING BETTER. SHE STILL IS NOT FEELING A NEED FOR VNA.
[2022-01-12] MEDS: oxyCODONE HCl Immed Release 5 MG TABLET 10 MG PO (20:03)
[2022-01-13] VITALS: BP 110/54; PULSE 56; RESP 18; TEMP 36.2; O2SAT 97
[2022-01-13 04:00] VITALS: BP 136/63; PULSE 60; RESP 18; TEMP 36.4; O2SAT 97
[2022-01-13] MEDS: Omeprazole 20 MG CAPSULE.DR PO (06:06)
[2022-01-13 07:13] VITALS: BP 126/61; PULSE 63; RESP 18; TEMP 36.8; O2SAT 98
[2022-01-13] MEDS: amLODIPine Besylate 5 MG TABLET PO (08:07)
[2022-01-13] MEDS: 0.9 % Sodium Chloride Flush 3 ML SYRINGE IVFLUSH (08:07)
[2022-01-13 10:25] LABS: CDiff Gene PCR NEGATIVE (Negative)
--- NOTE | 2022-01-13 11:16 | MHC.CM.PN ---
PATIENT IS DC TO HOME TODAY - SELF CARE. IMM 01/12 IN CHART RN AWARE OF PLAN
--- NOTE | 2022-01-13 11:16 | PM.PNGS ---
Subjective Subjective Date of Service: 01/13/22 <Radha Hsieh PA-C - Last Filed: 01/13/22 11:21> 01/13/22 <Rusty Cortes MD - Last Filed: 01/13/22 11:55> Interval history: Overall feels well, some incisional pain but comfortable with PO analgesics. Notes watery, liquid frequent bowel movements. Tolerating solid diet. <Radha Hsieh PA-C - Last Filed: 01/13/22 11:21> Physical Exam Vital Signs: Vital Signs: Last Vital Signs Temp 98.2 F 01/13/22 07:13 Pulse 63 01/13/22 07:13 Resp 18 01/13/22 07:13 BP 126/61 01/13/22 07:13 Pulse Ox 98 01/13/22 07:13 BMI result Body Mass Index 20.8 <Radha Hsieh PA-C - Last Filed: 01/13/22 11:21> Const: General: comfortable, no acute distress, well developed and alert <Radha Hsieh PA-C - Last Filed: 01/13/22 11:21> Orientation/consciousness: patient oriented x3 <Radha Hsieh PA-C - Last Filed: 01/13/22 11:21> Resp: Effort & Inspection: normal respiratory effort <Radha Hsieh PA-C - Last Filed: 01/13/22 11:21> GI: Inspection: No distended and Yes incision (clean) <Radha Hsieh PA-C - Last Filed: 01/13/22 11:21> Palpation (GI): Soft to palpation, Tenderness to palpation present (GI) (mild, incisional), no guarding and not rigid <Radha Hsieh PA-C - Last Filed: 01/13/22 11:21> Percussion: Yes normal to percussion <JU Neves Last Filed: 01/13/22 11:21> Skin: General skin exam: no rashes or lesions noted <Radha Hsieh PA-C - Last Filed: 01/13/22 11:21> Neuro: General: patient oriented x3 <JU Neves Last Filed: 01/13/22 11:21> Extrem: General: Yes no clubbing, cyanosis or edema <Radha Hsieh PA-C - Last Filed: 01/13/22 11:21> Objective Data Active Medications Amlodipine Besylate (Amlodipine Besylate 5 Mg Tablet) 5 mg PO DAILY [facility]; Protocol Last Admin: 01/13/22 08:07 Dose: 5 mg Documented by: WIL Enoxaparin Sodium (Enoxaparin Sodium 40 Mg/0.4 Ml Syringe) 40 mg SUBCUT Q24H [facility] Last Admin: 01/08/22 06:49 Dose: Not Given Documented by: RYAN Non-Admin Reason: hold lovenox for or Hydromorphone HCl (Hydromorphone Hcl 1 Mg/Ml Syringe) 0.5 mg IVPUSH Q3H PRN; Protocol PRN Reason: Pain, Severe (Pain Scale 7-10) Last Admin: 01/12/22 15:35 Dose: 0.5 mg Documented by: TRUDI Omeprazole (Omeprazole 20 Mg Capsule.Dr) 20 mg PO BID@0630,1630 [facility] Last Admin: 01/13/22 06:06 Dose: 20 mg Documented by: HERO Ondansetron HCl (Ondansetron Hcl 4 Mg/2 Ml Vial) 4 mg IVPUSH QID PRN PRN Reason: Nausea Last Admin: 01/11/22 15:46 Dose: 4 mg Documented by: GENE Oxycodone HCl (Oxycodone Hcl Immed Release 5 Mg Tablet) 10 mg PO Q4H PRN PRN Reason: Pain, Severe (Pain Scale 7-10) Last Admin: 01/12/22 20:03 Dose: 10 mg Documented by: HERO Pharmacy Consult (Consult Rx Perform Med Rec) 1 each MISCELLANE ONCE PRN PRN Reason: Consult order Sodium Chloride (0.9 % Sodium Chloride Flush 3 Ml Syringe) 3 ml IVFLUSH QSHIFT [facility] Last Admin: 01/13/22 08:07 Dose: 3 ml Documented by: WIL <Radha Hsieh PA-C - Last Filed: 01/13/22 11:21> Labs CBC & Chem 7: : 01/09/22 06:15 01/09/22 06:15 <Radha Hsieh PA-C - Last Filed: 01/13/22 11:21> Labs: Laboratory Results - last 24 hr 01/13/22 09:20 C. difficile Tox B Gene NEGATIVE <Radha Hsieh PA-C - Last Filed: 01/13/22 11:21> Procedures Date of Service Date of Service: 01/13/22 <Radha Hsieh PA-C - Last Filed: 01/13/22 11:21> Progress Note: A&P Assessment and plan (1) S/P exploratory laparotomy: Status: Acute <Radha Hsieh PA-C - Last Filed: 01/13/22 11:21> Assessment and Plan: Good oral intake describes some water stools C diff test done therefore this morning - negative abdomen soft incision clean and dry she has been ambulating well good GI function okay to DC home will see in the office for follow-up seen and examined independently - agree with COLIN Hsieh <Rusty Cortes MD - Last Filed: 01/13/22 11:55> (2) Crohns disease of small intestine: Status: Acute <Radha Hsieh PA-C - Last Filed: 01/13/22 11:21> Plan 61 year old female with long history of Crohns disease, multiple SBOs admitted with SBO. She is now s/p ex lap, KATY, resection of ileocolonic anastomosis and proximal ileum. She is doing well post op, comfortable, tolerating diet and with GI function. VSS. Abd exam benign with clean incision, appropriate post op tenderness. C diff obtained to r/o as she has had multiple recent hospitalizations and antibiotic use- negative. She feels ready for discharge. Stable for d/c to home today. F/u in office in [address] Crotes. Patient comfortable with plan. <Radha Hsieh PA-C - Last Filed: 01/13/22 11:21> Fall Risk Details Current Medications: Current Medications Amlodipine Besylate (Amlodipine Besylate 5 Mg Tablet) 5 mg PO DAILY [facility]; Protocol Last Admin: 01/13/22 08:07 Dose: 5 mg Documented by: Enoxaparin Sodium (Enoxaparin Sodium 40 Mg/0.4 Ml Syringe) 40 mg SUBCUT Q24H [facility] Last Admin: 01/08/22 06:49 Dose: Not Given Documented by: Hydromorphone HCl (Hydromorphone Hcl 1 Mg/Ml Syringe) 0.5 mg IVPUSH Q3H PRN; Protocol PRN Reason: Pain, Severe (Pain Scale 7-10) Last Admin: 01/12/22 15:35 Dose: 0.5 mg Documented by: Omeprazole (Omeprazole 20 Mg Capsule.Dr) 20 mg PO BID@0630,1630 [facility] Last Admin: 01/13/22 06:06 Dose: 20 mg Documented by: Ondansetron HCl (Ondansetron Hcl 4 Mg/2 Ml Vial) 4 mg IVPUSH QID PRN PRN Reason: Nausea Last Admin: 01/11/22 15:46 Dose: 4 mg Documented by: Oxycodone HCl (Oxycodone Hcl Immed Release 5 Mg Tablet) 10 mg PO Q4H PRN PRN Reason: Pain, Severe (Pain Scale 7-10) Last Admin: 01/12/22 20:03 Dose: 10 mg Documented by: Pharmacy Consult (Consult Rx Perform Med Rec) 1 each MISCELLANE ONCE PRN PRN Reason: Consult order Sodium Chloride (0.9 % Sodium Chloride Flush 3 Ml Syringe) 3 ml IVFLUSH QSHIFT [facility] Last Admin: 01/13/22 08:07 Dose: 3 ml Documented by: <Radha Hsieh PA-C - Last Filed: 01/13/22 11:21> Time Spent With Patient Time: Total time spent is greater than 50% in coordination of care (as documented) at patient's floor/unit and/or counseling patient: <Radha Hsieh PA-C - Last Filed: 01/13/22 11:21> Time with patient: 15 - 24 minutes <Radha Hsieh PA-C - Last Filed: 01/13/22 11:21> Quality Stroke Does the patient have a stroke diagnosis?: No <Radha Hsieh PA-C - Last Filed: 01/13/22 11:21> VTE Prior VTE?: No <Radha Hsieh PA-C - Last Filed: 01/13/22 11:21> VTE Risk Level:: Surgical - moderate <Radha Hsieh PA-C - Last Filed: 01/13/22 11:21> VTE Device Contraindication: N/A - Device Ordered <Radha Hsieh PA-C - Last Filed: 01/13/22 11:21> VTE Drug Contraindication: N/A - Med Ordered <Radha Hsieh PA-C - Last Filed: 01/13/22 11:21>
--- NOTE | 2022-01-13 11:23 | P.DS_ITS ---
DS: Providers Provider Date of Service: 01/13/22 Date of admission: 01/06/22 04:52 Primary care physician: Jroge rGeen MD Attending physician on admission: Rusty Cortes DS: Diagnosis Discharge Diagnosis (1) S/P exploratory laparotomy: Status: Acute (2) Crohns disease of small intestine: Status: Acute DS: Summary Hospital Course Hospital Course: BRIEF HPI: Rose Nieves is a 61 year old female well known to the surgical service with multiple admissions for SBO and longstanding Crohns disease. She presented to the ED yesterday with abdominal pain. Her last admission to [facility] for SBO was 12/30/21 and was discharged 01/04/22. She improved with supportive measures however given her increasing frequent episodes, plans were being made for elective resection. She actually saw Dr. Cortes yesterday morning and felt well at that time. She went home and ate a grilled cheese sandwich yesterday afternoon and soon developed abdominal pain. The pain was located in the lower abdomen, centrally and worse in the RLQ. This was associated with abdominal distention. She had a large, soft BM the morning of presentation but has not passed flatus. She vomited in the emergency room during NGT insertion. Work up in the ED included a CT scan which showed multiple dilated fluid-filled small bowel loops which extend to a more narrowed segment in the right abdomen approaching the anastomosis measuring approximately 8 cm in length. HOSPITAL COURSE: The patient was admitted to the surgical service for further treatment of the SBO. In light of the increasing frequency of episodes and recurrences of SBO, she wanted to proceed with laparotomy during this admission. This was therefore planned. On 01/08/22, laparotomy, extensive lysis of adhesions, resection of old ileocolonic anastomosis including proximal ileum, with creation of a new ileocolonic anastomosis to the more distal transverse colon was performed by Dr. Cortes without complication. Findings included a very indurated, thickened and fibrotic short segment of ileum just proximal to the old ileocolonic anastomosis. The NGT was removed in the OR following the surgery. The patient tolerated the procedure well, completed routine recovery in PACU and was admitted for observation. She had an uncomplicated recovery course. She had incisional pain which was controlled with PRN IV and PO analgesics. She was tolerating clear liquids. She began to pass flatus and move her bowels and her diet was advanced to solids. She developed some nausea following this which improved with initiation of small frequent meals throughout the day. She did develop watery stools and C diff was obtained which was negative. On the day of discharge, she felt well with mild incisional pain, was tolerating a solid diet with good GI function and a benign abdominal exam with clean incision. She was discharged to home on 01/13/22 in stable condition. She is to follow up with Dr. Cortes in office in 2 weeks. Status at Discharge Functional status at discharge: independent ambulation Overall status at discharge: patient is progressing back to baseline Time Spent with Patient Time attestation: Total time spent providing and/or coordinating discharge services: Discharge coordination time: Greater than 30 minutes Quality: Stroke Does the patient have a stroke diagnosis?: No Physical Exam Vital Signs: Vital Signs: Last Vital Signs Temp 98.2 F 01/13/22 07:13 Pulse 63 01/13/22 07:13 Resp 18 01/13/22 07:13 BP 126/61 01/13/22 07:13 Pulse Ox 98 01/13/22 07:13 BMI result Body Mass Index 20.8 Const: General: comfortable, no acute distress and alert Orientation/consciousness: patient oriented x3 Resp: Effort & Inspection: normal respiratory effort GI: Inspection: No distended and Yes incision (clean) Palpation (GI): Soft to palpation and Tenderness to palpation present (GI) (incisional) Percussion: Yes normal to percussion Skin: General skin exam: no rashes or lesions noted Neuro: General: patient oriented x3 DS: Data Data Completed and Pending Completed studies during hospitalization [Text1]: Pending at discharge 01/08/22 11:40 Surgical [PTH] Routine Ileocolonic anastomosis, resection: - Ileocolonic tissue with patchy transmural chronic inflammation and patchy mucosal architectural disarray. - No dysplasia or granulomata identified. Labs on day of discharge: Laboratory Results - last 24 hr 01/13/22 09:20 C. difficile Tox B Gene NEGATIVE Discharge Plan Discharge Patient Disposition: Home, Self-Care Discharge Diagnosis: SBO, crohns disease, s/p exploratory laparotomy Referrals: Jorge Green MD [Primary Care Provider] - 1 Week Rusty Cortes MD [Physician] - 2 Weeks Discharge Medications: New amlodipine [Norvasc] 5 mg tablet 5 mg PO DAILY Qty: 30 0RF oxycodone 5 mg tablet 5 mg PO Q4H PRN (Reason: pain (scale score 7-10)) Qty: 26 0RF Continued Stelara 90 mg/mL syringe 90 mg subcut Q4W 28 Days Qty: 1 6RF omeprazole 20 mg capsule,delayed release(DR/EC) 20 mg PO BID Qty: 60 0RF acetaminophen 325 mg Tablet 650 mg PO Q6H PRN (Reason: Headache) 0RF atorvastatin 40 mg tablet 40 mg PO DAILY 0RF Discharge Orders: Discharge Order (Routine); Ordered 01/13/22 Ordered By: Radha Hsieh Diet: advance to usual diet Activity on Discharge: No heavy lifting Stand Alone Forms: Patient Portal Discharge page Activity Restrictions/Additional Instructions: If the incision area is tender, you may apply an ice pack for short intervals (No more than 20 minutes on, followed by at least 20 minutes off). Do not apply heat. Do not use creams, lotions, or topical antibiotics unless instructed to do so by your surgeon. These can cause infection or allergic reaction. Ok to shower. You have petty closing your incision and these will be removed approximately 10-14 days after surgery. NO HEAVY LIFTING (>10-20lbs). Follow up in office. ([phone]) Call Your Doctor If: -Your temperature exceeds 101.5? F -You experience excessive pain or swelling -You have an unexpected reaction to medication -You have excessive bleeding -You experience continued vomiting/nausea -Your incision begins to separate -Your incision shows signs of infection such as increased redness, swelling, excessive pain, drainage (light blood or clear fluid is normal) or heat Care Plan Goals: Return to baseline health and gradual return to activity following recovery period. Health Concerns: Crohns disease, multiple SBOs HTN Plan of Treatment: s/p exploratory laparotomy, resection of portion of ileum and ileocolonic anastomosis F/u in office with Dr. Cortes Assessment: Doing well post op. Discharge Date/Time: 01/13/22 13:41
== END 2022-01-13 13:41 | disposition home or self-care (01) | DRG 330 ==
LOC: HO.ED 01-06 04:23 → HO.EDOVER 01-06 05:06 → HO.S3 01-06 07:44
PROVIDERS: Physician Assistant Surgical; Admitting Provider Surgery; Emergency Provider Student in an Organized Health Care Education/Training Program; PCP Internal Medicine; Visit Provider Surgery
PROC: 0DBB0ZZ Excision of Ileum, Open Approach (ICD-10-PCS; CPT 49000; principal; 2022-01-08 10:10)
DX: K56.51 Intestinal adhesions [bands], with partial obstruction (principal); K50.012 Crohn's disease of small intestine with intestinal obstruction; E87.2 Acidosis; F17.210 Nicotine dependence, cigarettes, uncomplicated; Z71.6 Tobacco abuse counseling; Z20.822 Contact with and (suspected) exposure to COVID-19; Z79.899 Other long term (current) drug therapy
CPT/HCPCS: 36415; 71045; 74177; 80048; 80076; 81003; 83605; 85025; 86850; 86900; 86901; 87040; 87493; 87635; 88307; 96361; 96374; 96375; 99024; 99212; 99285; J0131; J0690; J1100; J1170; J1650; J2250; J2405; J2543; J3010; Q9967

== ENCOUNTER → 2022-01-22 08:56 | Outpatient (BNVA) | payer MEDICARE, MEDICAID, SELFPAY | PROVIDERS: PCP Internal Medicine; Referring Provider Internal Medicine; Visit Provider Surgery | DX: Z48.815 Encounter for surgical aftercare following surgery on the digestive system (principal); Z98.890 Other specified postprocedural states | CPT/HCPCS: 99212 ==

== ENCOUNTER 2022-01-29 08:01 | Outpatient (REF) | payer MEDICARE, SELFPAY ==
[2022-01-29 13:50] LABS: MANUAL DIFF FLAG NO
[2022-01-29 13:54] LABS: Basophils Absolute Auto 0.1 X10*3/uL (0.0-0.2); Basophils Percent Auto 0.8 % (0-2); Eosinophils Absolute Auto 0.5 X10*3/uL (0.0-0.4); Eosinophils Percent Auto 4.2 % (0-4); Hemoglobin 13.8 g/dl (12.0-16.0); Imm Gran Abs Auto 0.04 X10*3/uL (0.00-0.03); Imm Gran Pct Auto 0.4 % (0.0-0.4); Lymphocytes Absolute Auto 3.9 X10*3/uL (1.2-4.9); Lymphocytes Percent Auto 35.8 % (20-40); Mean Corpuscular HGB Conc 32.9 g/dl (31.0-35.0); Mean Corpuscular Hemoglobin 29.3 pg (27.0-33.0); Mean Corpuscular Volume 89.2 fL (80.0-98.0); Monocytes Absolute Auto 0.6 X10*3/uL (0.1-1.2); Monocytes Percent Auto 5.9 % (2-11); Neutrophils Absolute Auto 5.8 x10*3/uL (2.0-8.3); Neutrophils Percent Auto 52.9 % (45-73); Platelet Count 396 X10*3/uL (160-400); Red Blood Count 4.71 X10*6/uL (4.20-5.50); Red Cell Distribution Width 14.6 % (11.0-16.0); White Blood Count 10.9 X10*3/uL (4.8-10.8)
[2022-01-29 14:06] LABS: Calcium 10.5 mg/dL (8.4-10.2); Iron 72 mcg/dL (30-160)
[2022-01-29 14:17] LABS: Percent Iron Saturation 22 % (15-50); Total Iron Binding Capacity 329 mcg/dL (228-428); Unsaturated Iron Binding 257 ug/dL
== END 2022-01-29 08:02 | disposition home or self-care (01) ==
LOC: HO.LNP 08:01
PROVIDERS: PCP Internal Medicine; Visit Provider Internal Medicine Gastroenterology
DX: K50.00 Crohn's disease of small intestine without complications (principal); K27.9 Peptic ulcer, site unspecified, unspecified as acute or chronic, without hemorrhage or perforation; Z90.49 Acquired absence of other specified parts of digestive tract; D64.9 Anemia, unspecified; E83.52 Hypercalcemia
CPT/HCPCS: 82310; 83540; 85025; Q3014

== ENCOUNTER 2022-03-02 10:49 | Outpatient (REF) | payer MEDICARE, MEDICAID, SELFPAY ==
[2022-03-02 11:39] LABS: Calcium 10.3 mg/dL (8.4-10.2)
== END 2022-03-02 10:50 | disposition home or self-care (01) ==
LOC: HO.LNP 10:49
PROVIDERS: Visit Provider Internal Medicine
DX: E83.52 Hypercalcemia (principal)
CPT/HCPCS: 82310

== ENCOUNTER 2022-03-20 10:01 | Outpatient (REF) | payer MEDICARE, MEDICAID, SELFPAY ==
[2022-03-20 10:31] LABS: MANUAL DIFF FLAG NO
[2022-03-20 11:07] LABS: Basophils Absolute Auto 0.1 X10*3/uL (0.0-0.2); Basophils Percent Auto 0.7 % (0-2); Eosinophils Absolute Auto 0.1 X10*3/uL (0.0-0.4); Eosinophils Percent Auto 1.5 % (0-4); Hematocrit 43.2 % (37.0-47.0); Hemoglobin 14.1 g/dl (12.0-16.0); Imm Gran Abs Auto 0.02 X10*3/uL (0.00-0.03); Imm Gran Pct Auto 0.2 % (0.0-0.4); Lymphocytes Absolute Auto 3.6 X10*3/uL (1.2-4.9); Lymphocytes Percent Auto 37.7 % (20-40); Mean Corpuscular HGB Conc 32.6 g/dl (31.0-35.0); Mean Corpuscular Hemoglobin 28.9 pg (27.0-33.0); Mean Corpuscular Volume 88.5 fL (80.0-98.0); Mean Platelet Volume 11.7 fL (9.4-12.3); Monocytes Absolute Auto 0.5 X10*3/uL (0.1-1.2); Monocytes Percent Auto 4.8 % (2-11); Neutrophils Absolute Auto 5.3 x10*3/uL (2.0-8.3); Neutrophils Percent Auto 55.1 % (45-73); Platelet Count 223 X10*3/uL (160-400); Red Blood Count 4.88 X10*6/uL (4.20-5.50); Red Cell Distribution Width 13.8 % (11.0-16.0); White Blood Count 9.6 X10*3/uL (4.8-10.8)
[2022-03-20 11:44] LABS: Alanine Aminotransferase 17 U/L (0-31); Albumin Level 4.2 g/dL (3.5-5.0); Alkaline Phosphatase 98 U/L (39-117); Anion Gap 14 (12-20); Aspartate Amino Transferase 20 U/L (5-31); Bilirubin Total 0.5 mg/dL (0.0-1.0); Blood Urea Nitrogen 9 mg/dL (9-16); C Reactive Protein 0.14 mg/dL (< or = 0.50); Calcium 10.4 mg/dL (8.4-10.2); Carbon Dioxide 26 mmol/L (22-29); Chloride 107 mmol/L (96-108); Estimated Glomerular Filt Rate > 60; Glucose Random 113 mg/dL (60-115); Potassium 4.5 mmol/L (3.3-5.1); Sodium 142 mmol/L (135-145)
[2022-03-20 12:24] LABS: Vitamin B12 295 pg/mL (200-900)
== END 2022-03-20 10:02 | disposition home or self-care (01) ==
LOC: HO.LAB 10:01
PROVIDERS: PCP Internal Medicine; Visit Provider Internal Medicine Gastroenterology
DX: K50.00 Crohn's disease of small intestine without complications (principal)
CPT/HCPCS: 36415; 80053; 82306; 82607; 85025; 86140

== ENCOUNTER 2022-03-24 10:59 | Outpatient (REF) | payer MEDICARE, MEDICAID, SELFPAY ==
--- NOTE | ~2022-03-24 | CT_ITS ---
EXAMINATION: CT CHEST WITHOUT CONTRAST CLINICAL INFORMATION: Follow-up pulmonary nodules. COMPARISON: Previous chest CT February 2021. TECHNIQUE: Multidetector volumetric CT imaging of the chest was done. Axial MIP volume rendering provided. Sagittal and coronal reformatted images were obtained. This CT examination was performed using dose optimization techniques as appropriate, variously including the following: *Automated exposure control *Adjustment of mA and/or kV according to patient size (this includes techniques or standardized protocols for targeted exams where dose is matched to indication/reason for exam; i.e. extremities or head) *Use of iterative reconstruction technique DLP: 129 mGy-cm. FINDINGS: LUNGS: There are small bilateral pulmonary nodules that are stable. The largest right pulmonary nodule is a 4 mm right upper lobe nodule axial image 121 series 9. The largest left pulmonary nodule is a 5 mm left lower lobe nodule axial image 365 series 9. No new pulmonary nodule is seen. MEDIASTINUM: There is atherosclerotic disease and the coronary artery calcification. The mediastinum is otherwise normal. PLEURA: There is no pleural effusion. No pleural mass or thickening. AXILLA: No lymphadenopathy. UPPER ABDOMEN: There is a 1 cm low-attenuation lesion in the right lobe of the liver that is stable and probably represents a small cyst. There are stones in the upper pole of the right kidney. There is atherosclerotic disease of the upper abdominal aorta. There is question of new postoperative change to the upper anterior abdominal wall. OSSEOUS STRUCTURES: Bony structures are unremarkable. CT/CT chest wo con IMPRESSION: Stable pulmonary nodules. Fleischner guidelines were followed.
== END 2022-03-24 11:00 | disposition home or self-care (01) ==
LOC: HO.CT 10:59
PROVIDERS: Visit Provider Internal Medicine
DX: R91.1 Solitary pulmonary nodule (principal)
CPT/HCPCS: 71250

== ENCOUNTER → 2022-05-21 12:28 | Outpatient (BNVA) | payer MEDICARE, MEDICAID, SELFPAY | PROVIDERS: Visit Provider Internal Medicine Gastroenterology | DX: K50.00 Crohn's disease of small intestine without complications (principal); K27.9 Peptic ulcer, site unspecified, unspecified as acute or chronic, without hemorrhage or perforation | CPT/HCPCS: 99212 ==

== ENCOUNTER 2022-06-02 10:18 | Outpatient (REF) | payer MEDICARE, MEDICAID, SELFPAY ==
[2022-06-02 10:26] LABS: MANUAL DIFF FLAG NO
[2022-06-02 11:31] LABS: Appearance Urine HAZY; Color Urine YELLOW; Glucose Urine UA NEG (NEG); Leukocyte Esterase Urine 1+ (NEG); Nitrite Urine NEG (NEG); PH 5.5 (5.0-8.0); Specific Gravity - Urine 1.025 (1.005-1.025); Urine Blood NEG (NEG); Urine Ketones NEG (NEG); Urine Protein NEG (NEG-TRACE)
[2022-06-02 11:47] LABS: Bacteria Urine 4+ /LPF; Calcium Oxalate Crystals Urine 4+ /LPF; RBC Urine 0 /HPF (0); Squamous Epithelial Cell Urine 4+ /LPF
[2022-06-02 11:51] LABS: Basophils Absolute Auto 0.1 X10*3/uL (0.0-0.2); Basophils Percent Auto 0.9 % (0-2); Eosinophils Absolute Auto 0.1 X10*3/uL (0.0-0.4); Eosinophils Percent Auto 1.5 % (0-4); Hemoglobin 14.2 g/dl (12.0-16.0); Imm Gran Abs Auto 0.02 X10*3/uL (0.00-0.03); Imm Gran Pct Auto 0.2 % (0.0-0.4); Lymphocytes Absolute Auto 3.3 X10*3/uL (1.2-4.9); Lymphocytes Percent Auto 38.3 % (20-40); Mean Corpuscular Hemoglobin 29.2 pg (27.0-33.0); Mean Corpuscular Volume 88.3 fL (80.0-98.0); Mean Platelet Volume 11.3 fL (9.4-12.3); Monocytes Absolute Auto 0.5 X10*3/uL (0.1-1.2); Monocytes Percent Auto 5.7 % (2-11); Neutrophils Absolute Auto 4.6 x10*3/uL (2.0-8.3); Neutrophils Percent Auto 53.4 % (45-73); Platelet Count 293 X10*3/uL (160-400); Red Blood Count 4.87 X10*6/uL (4.20-5.50); Red Cell Distribution Width 14.3 % (11.0-16.0); White Blood Count 8.6 X10*3/uL (4.8-10.8)
[2022-06-02 12:35] LABS: Alanine Aminotransferase 21 U/L (0-31); Albumin Level 4.3 g/dL (3.5-5.0); Alkaline Phosphatase 89 U/L (39-117); Anion Gap 13 (12-20); Aspartate Amino Transferase 20 U/L (5-31); Bilirubin Total 0.4 mg/dL (0.0-1.0); Blood Urea Nitrogen 12 mg/dL (9-16); Calcium 9.6 mg/dL (8.4-10.2); Carbon Dioxide 24 mmol/L (22-29); Chloride 109 mmol/L (96-108); Cholesterol 171 mg/dL; Estimated Glomerular Filt Rate > 60; Glucose Fasting 93 mg/dL (60-99); HDL Cholesterol 51 mg/dL; LDL Cholesterol Calculated 93 mg/dl; Potassium 3.9 mmol/L (3.3-5.1); Sodium 142 mmol/L (135-145); Total Protein 6.8 g/dL (6.5-8.0); Triglycerides 135 mg/dL
== END 2022-06-02 10:19 | disposition home or self-care (01) ==
LOC: HO.LNP 10:18
PROVIDERS: PCP Internal Medicine; Visit Provider Internal Medicine
DX: R03.0 Elevated blood-pressure reading, without diagnosis of hypertension (principal); E78.2 Mixed hyperlipidemia; D72.9 Disorder of white blood cells, unspecified; E83.52 Hypercalcemia
CPT/HCPCS: 80053; 80061; 81001; 85025

== ENCOUNTER 2022-06-05 08:04 | Outpatient (REF) | payer MEDICARE, MEDICAID, SELFPAY ==
--- NOTE | ~2022-06-05 | MM_ITS ---
EXAMINATION: BONE DENSITOMETRY CLINICAL INDICATION: Menopause. COMPARISON: Previous BD dated 05/29/2020 and baseline BD dated 05/06/2018. TECHNIQUE: Using a [employer]ono DXA System (software version: 13.1) manufactured by [employer], dual-energy x-ray absorptiometry was performed of the lumbar spine and left hip. The images are of good technical quality. Summary results are attached. FINDINGS: AP SPINE L1-L4: Current: BMD 1.004 g/cm2, Z-score 0.2, T-score -1.5, osteopenia, 7.4% increase from previous, 4.3% increase from baseline (<5% change is not significant). Prior: BMD 0.935 g/cm2. Baseline: BMD 0.963 g/cm2. LEFT FEMUR, NECK: Current: BMD 0.735 g/cm2, Z-score -0.7, T-score -2.2, osteopenia. Prior: BMD 0.722 g/cm2. Baseline: BMD 0.755 g/cm2. LEFT FEMUR, TOTAL: Current: BMD 0.807 g/cm2, Z-score -0.4, T-score -1.6, osteopenia, 6.2% increase from previous, 0.9% increase from baseline (<5% change is not significant). Prior: BMD 0.760 g/cm2. Baseline: BMD 0.800 g/cm2. IDENTIFIED RISK FACTORS: Early menopause, hysterectomy, bilateral oophorectomy, secondary osteoporosis, tobacco use (current smoker). HISTORY OF FRACTURE: None listed. MEDICATIONS: None listed. MM/XR DEXA axial skeleton IMPRESSION: 1. DIAGNOSIS: Osteopenia based on the lowest T-score value of -2.2 in the femoral neck applying World Health Organization criteria. 2. 10-YEAR FRACTURE RISK PREDICTION, FRAX: Major osteoporotic fracture (clinical spine, forearm, hip or shoulder) 11.9%. Hip fracture 3.1%. 3. Treatment Recommendations: NOF guidelines recommend consideration for treatment in postmenopausal women and men age 50 and older presenting with the following: -A hip or vertebral (clinical or morphometric) fracture. -T-score less than or equal to -2.5 at the femoral neck or spine after appropriate evaluation to exclude secondary causes. -Low bone mass at the hip or spine and a 10-year fracture probability by FRAX of greater than or equal to 3% for hip fracture or greater than or equal to 20% for major osteoporotic fracture based on the [place] adapted WHO algorithm. 4. Other Recommendations: All treatment decisions require clinical judgment and consideration of individual patient factors, including patient preferences, comorbidities, previous drug use, risk factors not captured in the FRAX model (e.g. frailty, falls, vitamin D deficiency, increased bone turnover, interval significant decline in bone density) and possible under or overestimation of fracture risk by FRAX. Additional medical evaluation for secondary cause of low bone mineral density may be appropriate. FUTURE SCAN RECOMMENDATION: People with diagnosed cases of osteoporosis or at high risk for fracture should have regular bone mineral density tests. For patients eligible for Medicare, routine testing is allowed once every 2 years. The testing frequency can be increased to one year for patients who have rapidly progressing disease, those who are receiving or discontinuing medical therapy to restore bone mass, or have additional risk factors.
--- NOTE | ~2022-06-05 | MM_ITS ---
EXAMINATION: MM SCREENING DIGITAL BREAST TOMOSYNTHESIS, BILATERAL CLINICAL INFORMATION: Screening. Asymptomatic. Family history breast cancer, sister. The lifetime risk of breast cancer based on the Tyrer-Cuzick Model is 7%. COMPARISON: Mammography: 06/04/2021, 05/29/2020, 05/10/2019 TECHNIQUE: Digital breast tomosynthesis is performed in both the craniocaudal and mediolateral oblique views along with computer-aided detection (CAD). Synthesized 2D images are generated from the tomosynthesis. FINDINGS: There are scattered areas of fibroglandular density (ACR BI-RADS breast composition Category b). There is asymmetry of the breasts, right larger, similar to prior studies. Parenchymal pattern is similar to prior studies. No developing density. There are no significant masses, abnormal calcifications, or other abnormalities. Breast tissue composition borders on predominantly fatty. MM/MM tomosynthesis screening BI IMPRESSION: No mammographic evidence of malignancy. ASSESSMENT: BI-RADS 2: Benign RECOMMENDATION: Routine annual mammography screening. This patient's information was entered into a reminder system with a target due date for their next mammogram.
== END 2022-06-05 08:05 | disposition home or self-care (01) ==
LOC: HO.MAMMO 08:04
PROVIDERS: Visit Provider Internal Medicine
DX: Z12.31 Encounter for screening mammogram for malignant neoplasm of breast (principal); Z13.820 Encounter for screening for osteoporosis; Z78.0 Asymptomatic menopausal state
CPT/HCPCS: 77063; 77067; 77080

== ENCOUNTER 2022-12-07 12:37 | Outpatient (REF) | payer MEDICARE, MEDICAID, SELFPAY ==
[2022-12-07 12:47] LABS: MANUAL DIFF FLAG NO
[2022-12-07 14:08] LABS: Basophils Absolute Auto 0.1 X10*3/uL (0.0-0.2); Basophils Percent Auto 0.9 % (0-2); Eosinophils Absolute Auto 0.2 X10*3/uL (0.0-0.4); Hematocrit 44.8 % (37.0-47.0); Hemoglobin 14.9 g/dl (12.0-16.0); Imm Gran Abs Auto 0.03 X10*3/uL (0.00-0.03); Imm Gran Pct Auto 0.3 % (0.0-0.4); Lymphocytes Absolute Auto 4.7 X10*3/uL (1.2-4.9); Lymphocytes Percent Auto 41.7 % (20-40); Mean Corpuscular HGB Conc 33.3 g/dl (31.0-35.0); Mean Corpuscular Hemoglobin 29.4 pg (27.0-33.0); Mean Corpuscular Volume 88.4 fL (80.0-98.0); Mean Platelet Volume 11.7 fL (9.4-12.3); Monocytes Absolute Auto 0.7 X10*3/uL (0.1-1.2); Monocytes Percent Auto 6.6 % (2-11); Neutrophils Absolute Auto 5.4 x10*3/uL (2.0-8.3); Neutrophils Percent Auto 48.5 % (45-73); Platelet Count 283 X10*3/uL (160-400); Red Blood Count 5.07 X10*6/uL (4.20-5.50); Red Cell Distribution Width 13.9 % (11.0-16.0); White Blood Count 11.1 X10*3/uL (4.8-10.8)
[2022-12-07 14:37] LABS: Alanine Aminotransferase 25 U/L (0-31); Albumin Level 4.7 g/dL (3.5-5.0); Alkaline Phosphatase 117 U/L (39-117); Anion Gap 17 (12-20); Aspartate Amino Transferase 22 U/L (5-31); Bilirubin Total 0.5 mg/dL (0.0-1.0); Blood Urea Nitrogen 9 mg/dL (9-16); C Reactive Protein 0.14 mg/dL (< or = 0.50); Calcium 10.6 mg/dL (8.4-10.2); Carbon Dioxide 23 mmol/L (22-29); Chloride 110 mmol/L (96-108); Estimated Glomerular Filt Rate > 60; Glucose Random 79 mg/dL (60-115); Potassium 4.4 mmol/L (3.3-5.1); Sodium 146 mmol/L (135-145); Total Protein 7.5 g/dL (6.5-8.0)
[2022-12-10 11:54] LABS: TS Negative Control Passed; TS Panel A 1; TS Panel B 0; TS Positive Control Passed; TSpotTB Negative (Negative)
== END 2022-12-07 12:38 | disposition home or self-care (01) ==
LOC: HO.LAB 12:37
PROVIDERS: PCP Internal Medicine; Visit Provider Internal Medicine Gastroenterology
DX: K50.00 Crohn's disease of small intestine without complications (principal)
CPT/HCPCS: 36415; 80053; 85025; 86140; 86481

== ENCOUNTER 2022-12-11 10:19 | Outpatient (REF) | payer MEDICARE, MEDICAID, SELFPAY ==
[2022-12-11 11:59] LABS: Alanine Aminotransferase 22 U/L (0-31); Albumin Level 4.1 g/dL (3.5-5.0); Alkaline Phosphatase 99 U/L (39-117); Aspartate Amino Transferase 25 U/L (5-31); Bilirubin Direct < 0.2 mg/dL (0.0-0.5); Bilirubin Total 0.4 mg/dL (0.0-1.0); Cholesterol 169 mg/dL; HDL Cholesterol 56 mg/dL; LDL Cholesterol Calculated 86 mg/dl; Triglycerides 139 mg/dL
[2022-12-11 13:26] LABS: Reflex LDLD? No
== END 2022-12-11 10:20 | disposition home or self-care (01) ==
LOC: HO.LNP 10:19
PROVIDERS: PCP Internal Medicine; Visit Provider Internal Medicine
DX: E78.2 Mixed hyperlipidemia (principal)
CPT/HCPCS: 80061; 80076

== ENCOUNTER 2023-02-08 08:40 | Day surgery (SDC) | payer MEDICARE, MEDICAID, SELFPAY ==
[2023-02-03 15:52] VITALS: BMI 26.5
--- NOTE | 2023-02-05 12:12 | P.CONAN_ITS ---
Documented by User: Sue Salazar NP 02/05/23 12:21 HPI - Anesthesia Eval Consult details Narrative: 62yo F for Upper Endoscopy and Colonoscopy s/p ex lap 12/2021 [facility] Active Problems Active Problems: All Active Problems (Updated 01/12/22 @ 00:01 by Paulette Boo) Peptic ulcer disease (Acute) Elevated blood pressure reading without diagnosis of hypertension (Acute) Hyperlipidemia (Acute) S/P exploratory laparotomy (Acute) Crohns disease of small intestine (Acute) Past Medical History Medical History Crohns disease of small intestine Gastritis Hyperlipidemia Small bowel obstruction Smoker Family History Family History Father No problems noted. Mother Pneumonia Sister Breast cancer Family history of problems with anesthesia: No Surgical History Surgical History (Updated 02/03/23 @ 15:50 by Ivy Anna RN) History of appendectomy History of bowel resection History of esophagogastroduodenoscopy (EGD) History of laparotomy Hx of colonoscopy Hx of endoscopy S/P BSO (bilateral salpingo-oophorectomy) History of Problems with Anesthesia: No Social History Social History Household Members: Other Housing: Apartment Do you presently have visiting nurse or other home services: No Alcohol intake: never Patient Tobacco Use Status: Current everyday Tobacco user Tobacco use type: Cigarette Cigarette Packs Per Day: 0.5 Cigarettes Per Day: 10.0 Years Smoked: 45 e-Cigarette/Vaping Use: Never Used Second Hand Smoke Exposure: No Use of substances other than those prescribed or required for medical reasons: No Are you DNR?: No Advance Directives: Yes Advance Directives on File: Yes Advance Directives Date on File: 04/13/21 service: No Current occupational status: unemployed and disabled Meds Allergies Allergy/AdvReac Type Severity Reaction Status Date / Time No Known Allergies Allergy Verified 05/21/22 12:31 [No Known Allergies*] Home Medications Medication Instructions Recorded Confirmed Last Taken Type atorvastatin 40 mg tablet 40 mg PO DAILY 09/23/20 02/03/23 01/05/22 09:00 History acetaminophen 325 mg tablet 650 mg PO Q6H PRN Headache 12/30/21 02/03/23 01/05/22 21:00 History Exam Exam Date and Time: February 05, 2023 1212 Height,Weight and Vital Signs: Height 5 ft Weight 61.689 kg Pertinent Lab Results Pertinent Lab Results: Laboratory Tests 12/07/22 12/07/22 12:45 12:45 WBC 11.1 H Hgb 14.9 Hct 44.8 Plt Count 283 Sodium 146 H Potassium 4.4 Chloride 110 H Carbon Dioxide 23 BUN 9 Creatinine 0.78 Assessment and Plan Assessment Anesthesia Assessment: Chart Reviewed Final Anesthetic Review Family History of Problems with Anesthesia: No History of Problems with Anesthesia: No Documented by User: Chantal Henson MD 02/08/23 09:02 PMFSH Past Medical History Medical History Crohns disease of small intestine Gastritis Hyperlipidemia Small bowel obstruction Smoker Family History Family History Father No problems noted. Mother Pneumonia Sister Breast cancer Surgical History Surgical History (Updated 02/03/23 @ 15:50 by Ivy Anna RN) History of appendectomy History of bowel resection History of esophagogastroduodenoscopy (EGD) History of laparotomy Hx of colonoscopy Hx of endoscopy S/P BSO (bilateral salpingo-oophorectomy) Social History Social History Household Members: Other Housing: Apartment Do you presently have visiting nurse or other home services: No Alcohol intake: never Patient Tobacco Use Status: Current everyday Tobacco user Tobacco use type: Cigarette Cigarette Packs Per Day: 0.5 Cigarettes Per Day: 10.0 Years Smoked: 45 e-Cigarette/Vaping Use: Never Used Second Hand Smoke Exposure: No Use of substances other than those prescribed or required for medical reasons: No Are you DNR?: No Advance Directives: Yes Advance Directives on File: Yes Advance Directives Date on File: 04/13/21 service: No Current occupational status: unemployed and disabled Meds Allergies Allergy/AdvReac Type Severity Reaction Status Date / Time No Known Allergies Allergy Verified 05/21/22 12:31 [No Known Allergies*] Home Medications Medication Instructions Recorded Confirmed Last Taken Type atorvastatin 40 mg tablet 40 mg PO DAILY 09/23/20 02/03/23 01/05/22 09:00 History acetaminophen 325 mg tablet 650 mg PO Q6H PRN Headache 12/30/21 02/03/23 01/05/22 21:00 History Exam Airway Mallampati Class: II TM Dist: >3cm Neck ROM: Full Denture: Upper Heart: rrr Lungs: cta Assessment and Plan Assessment Anesthesia Assessment: Anesthesia Plan Discussed Final Anesthetic Review NPO: Yes ASA Class: III Final Preanesthetic Review: No Changes in Pt Med Stat, Meds/Allgs Chart Reviewed and Consent Obtained/Reviewed Patient Risk: Intermediate Procedure Risk: Intermediate Anesthetic Plan Anesthetic Plan: MAC: Disposition: Standard PACU
--- NOTE | 2023-02-08 09:01 | MHC.SHP ---
Pre-Procedural Eval Section A Date of Service: 02/08/23 The patient is an INPATIENT: No The History & Physical has been completed within 30 days and I have reviewed it.: No Section B Chief Complaint: Crohns,ulcer Details of Present Illness: Fu of Crohn's disease Relevant Family History (Specify if Yes): No Relevant Social History: Tobacco Use Present Medications: see Short Stay Collaborative assessment Medical History: Significant History (Crohns disease of small intestine Gastritis Hyperlipidemia Small bowel obstruction Smoker) History of Previous Operations: Relevant previous surgery/procedure and date(s) (History of appendectomy History of bowel resection History of esophagogastroduodenoscopy (EGD) Hx of colonoscopy Hx of endoscopy S/P BSO (bilateral salpingo-oophorectomy)) Allergies: Allergies Allergy/AdvReac Type Severity Reaction Status Date / Time No Known Allergies Allergy Verified 05/21/22 12:31 [No Known Allergies*] Review of Systems Sugical H&P ROS: Negative: Constitution, Cardiovascular, Respiratory and Gastrointestinal Exam Surgical H&P Exam: Normal: Heart, Normal: Lungs, Normal: Extremities and Normal: Abdomen Plan Diagnosis/Plan: Unchanged I have reviewed the history and physical and performed a pertinent physical examination on my patient. No changes have occurred unless specified. Time Spent With Patient Time: Total time managing care of this patient today ____ minutes.
--- NOTE | 2023-02-08 09:07 | P.BOP_ITS ---
Brief Operative Note Date of Service: 02/08/23 Pre-op diagnosis: Colon cancer screening, Crohn's disease, FU of gastric and duodenal ulcers Post-op diagnosis: other (Gastritis, colon polyp, diverticulosis, hemorrhoids, Crohn's disease) Procedure: FLEXIBLE TRANSORAL UPPER GASTROINTESTINAL ENDOSCOPY WITH BIOPSIES AND COLONOSCOPY TILL ILEO-COLIC ANASTOMOSIS WITH BIOPSIES Surgeon: Coty Iglesias MD Anesthesia: MAC Was an Radiator Specialist used for this Procedure?: No Radiator Specialist: Sandor Serrano Estimated blood loss (mL): 2 Pathology: other (A) BX Gastric Antrum (R/O H.Pylori) B) BX TI C) BX Colon 50cm-60cm (Crohns Disease R/O Displasia) D) BX Colon 30cm-40cm (Crohns Disease R/O Displasia) E) BX Colon 10cm-20cm (Crohns Disease R/O Dis) Condition: stable Disposition: PACU
--- NOTE | 2023-02-08 09:08 | W.PM.OPN ---
Operative Note Operative Note Date of Service: 02/08/23 Narrative: Pre-op diagnosis: Colon cancer screening, Crohn's disease, FU of gastric and duodenal ulcers Post-op diagnosis:?other (Gastritis, colon polyp, diverticulosis, hemorrhoids, Crohn's disease) Surgeon: Coty Iglesias MD Anesthesia:?MAC FLEXIBLE TRANSORAL UPPER GASTROINTESTINAL ENDOSCOPY WITH BIOPSIES AND COLONOSCOPY TILL ILEO-COLIC ANASTOMOSIS WITH BIOPSIES UPPER ENDOSCOPY Consent: Indications for the procedure and potential complications of bleeding, perforation, reaction to medications and missed diagnosis were discussed with the patient and informed consent was obtained. Instrument: Olympus GIF H 190 mid size upper endoscope Monitoring: Vital signs and clinical assessment, continuous EKG monitoring, Pulse oximetry, Carbon Dioxide monitoring and blood pressure monitoring were done throughout the procedure. Procedure: The patient was placed in the left lateral decubitis position and pre-procedure medications were administered and a bite block was placed. The endoscope was inserted into the mouth and advanced under direct vision to the third part of duodenum. A careful inspection was made as the upper endoscope was withdrawn including a retroflexed examination of the proximal stomach; Findings and interventions are described below. Findings: Larynx: Normal Esophagus: Mildly tortuous esophagus with increased tertiary contractions without stricture. GE junction at 34 cms, small hiatal hernia 34 to 35 cms with a non-obstructing Schatzki's ring. No esophagitis or Marquez's. Stomach: Moderate gastric erythema with nodular appearing mucosa in the gastric body. Ulcer seen on last EGD in the gastric body along the greater curvature healed completely.? Biopsies were obtained from the antrum. Grade 2 flap valve on retroflexed examination of the cardia. Duodenum: Normal bulb and descending duodenum Intervention: Biopsies as noted above COLONOSCOPY PROCEDURE NOTE Consent: Indications for the procedure and potential complications of bleeding, perforation, reaction to medications and missed diagnosis were discussed with the patient and informed consent was obtained. Instrument: Olympus PCF H 190 L variable stiffness pediatric colonoscope Monitoring: Vital signs and clinical assessment, intermittent blood pressure monitoring, continuous EKG monitoring, Pulse oximetry and Carbon Dioxide monitoring were done throughout the procedure. Colon withdrawl time was 20 minutes. Procedure: The patient was placed in the left lateral decubitis position and pre-procedure medications were administered. After a digital rectal examination of the ano-rectum, the video colonoscope was inserted into the rectum and advanced through the colon to the Ileo-colic anastomosis at 60 cms. The colonoscope was slowly withdrawn in a retrograde panoramic fashion and the colon mucosa was carefully examined including a retroflexed view of the rectum. Findings and interventions are described below. Procedure Difficulty: : Without difficulty Findings: Terminal Ileum: Distal 10 cms was examined and appeared normal Ileo-Colic Anastomosis: Normal appearing [id number] anastomosis. Transverse Colon: Normal Descending Colon: Normal Sigmoid Colon: Moderate diverticulosis Rectum: A 6-7 mm sessile polyp - removed with a cold bx. Ano-rectum: Small internal hemorrhoids Colon preparation: Good after copious irrigation Impression and Post Procedure Diagnosis: Endoscopy Findings: ESOPHAGUS: STOMACH: Moderate gastric erythema with nodular appearing mucosa in the gastric body. Ulcer seen on last EGD in the gastric body along the greater curvature healed completely.? Biopsies were obtained from the antrum. Colonoscopy Findings: One small polyp removed Normal appearing side to side ileo-colic anastomosis. Inactive Crohn's disease - surveillance biopsies were obtained from the colon Moderate diverticulosis seen in the sigmoid colon Small hemorrhoids on retroflexed exam. Plan: Await pathology results Patient has an appointment on 02/25/23 in the GI Clinic with Coty Iglesias M.D. Repeat Colonoscopy interval based on path results - in 3 years if polyps are adenomatous and for FU of Crohn's disease. Above findings were reviewed with the patient and colon polyps and diverticulosis handouts were given in the discharge area
[2023-02-08] MEDS: Lactated Ringers 1,000 ML 100 ML IVCONT (09:15)
[2023-02-08 10:05] VITALS: BP 122/62; PULSE 70; RESP 16; TEMP 36.3; O2SAT 97
[2023-02-08 10:20] VITALS: BP 132/63; PULSE 63; RESP 20; TEMP 36.1; O2SAT 98
== END 2023-02-08 11:19 | disposition home or self-care (01) ==
PROVIDERS: PCP Internal Medicine; Visit Provider Internal Medicine Gastroenterology
PROC: (CPT 45380; principal; 2023-02-08 10:20)
DX: Z12.11 Encounter for screening for malignant neoplasm of colon (principal); D12.8 Benign neoplasm of rectum; K57.30 Diverticulosis of large intestine without perforation or abscess without bleeding; K64.8 Other hemorrhoids; Z98.0 Intestinal bypass and anastomosis status; K50.00 Crohn's disease of small intestine without complications; K29.50 Unspecified chronic gastritis without bleeding; Z87.11 Personal history of peptic ulcer disease; E78.5 Hyperlipidemia, unspecified; Z98.890 Other specified postprocedural states; Z90.49 Acquired absence of other specified parts of digestive tract
CPT/HCPCS: 45380; 43239; 88305; 88342

== ENCOUNTER → 2023-02-25 09:15 | Outpatient (BNVA) | payer MEDICARE, MEDICAID, SELFPAY | PROVIDERS: PCP Internal Medicine; Visit Provider Internal Medicine Gastroenterology | DX: K50.00 Crohn's disease of small intestine without complications (principal); K27.9 Peptic ulcer, site unspecified, unspecified as acute or chronic, without hemorrhage or perforation | CPT/HCPCS: 99212 ==

== ENCOUNTER 2023-03-05 09:02 | Outpatient (REF) | payer MEDICARE, MEDICAID, SELFPAY ==
--- NOTE | ~2023-03-05 | CT_ITS ---
EXAMINATION: CT CHEST WITHOUT CONTRAST CLINICAL INFORMATION: Lung nodule. COMPARISON: CT chest 03/24/2022, 03/06/2021, and 01/08/2020. TECHNIQUE: Multidetector volumetric CT imaging of the chest was done. Axial MIP volume rendering provided. Sagittal and coronal reformatted images were obtained. This CT examination was performed using dose optimization techniques as appropriate, variously including the following: *Automated exposure control *Adjustment of mA and/or kV according to patient size (this includes techniques or standardized protocols for targeted exams where dose is matched to indication/reason for exam; i.e. extremities or head) *Use of iterative reconstruction technique DLP: 128 mGy-cm FINDINGS: LUNGS: There are multiple scattered micronodules which are stable compared to prior. Calcified granuloma in the right upper lobe is stable. Measurable nodules include: 1. 3.8 mm average diameter solid nodule right upper lobe series 5 image 117, stable. 2. 4.8 mm average diameter solid nodule left upper lobe series 5 image 255, stable. 3. 4.2 mm average diameter solid nodule left lower lobe series 5 image 408, stable. MEDIASTINUM: No adenopathy. CORONARY ARTERY CALCIFICATION: Present. Moderate LAD and RCA calcium. PLEURA: There is no pleural effusion. No pleural mass or thickening. AXILLA: No lymphadenopathy. UPPER ABDOMEN: Small cyst left lobe liver. The upper abdominal aorta is atherosclerotic. OSSEOUS STRUCTURES: Degenerative changes in the spine. No suspicious osseous lesions. CT/CT chest wo IV con IMPRESSION: Stable pulmonary nodules. Stability greater than 2 years is consistent with benign behavior. Follow-up if clinically indicated. Fleischner guidelines were followed.
== END 2023-03-05 09:03 | disposition home or self-care (01) ==
LOC: HO.CT 09:02
PROVIDERS: PCP Internal Medicine; Visit Provider Internal Medicine
DX: R91.1 Solitary pulmonary nodule (principal)
CPT/HCPCS: 71250

== ENCOUNTER 2023-05-03 08:32 | Outpatient (REF) | payer MEDICARE, MEDICAID, SELFPAY ==
[2023-05-03 09:01] LABS: MANUAL DIFF FLAG NO
[2023-05-03 09:36] LABS: Basophils Absolute Auto 0.1 X10*3/uL (0.0-0.2); Basophils Percent Auto 0.8 % (0-2); Eosinophils Absolute Auto 0.3 X10*3/uL (0.0-0.4); Eosinophils Percent Auto 3.5 % (0-4); Hematocrit 41.3 % (37.0-47.0); Hemoglobin 13.6 g/dl (12.0-16.0); Imm Gran Abs Auto 0.03 X10*3/uL (0.00-0.03); Imm Gran Pct Auto 0.3 % (0.0-0.4); Lymphocytes Absolute Auto 3.2 X10*3/uL (1.2-4.9); Mean Corpuscular HGB Conc 32.9 g/dl (31.0-35.0); Mean Corpuscular Hemoglobin 29.6 pg (27.0-33.0); Mean Corpuscular Volume 89.8 fL (80.0-98.0); Mean Platelet Volume 11.2 fL (9.4-12.3); Monocytes Absolute Auto 0.5 X10*3/uL (0.1-1.2); Monocytes Percent Auto 5.5 % (2-11); Neutrophils Absolute Auto 5.6 x10*3/uL (2.0-8.3); Neutrophils Percent Auto 56.9 % (45-73); Platelet Count 293 X10*3/uL (160-400); White Blood Count 9.8 X10*3/uL (4.8-10.8)
[2023-05-03 10:28] LABS: Alanine Aminotransferase 24 U/L (0-31); Albumin Level 4.2 g/dL (3.5-5.0); Alkaline Phosphatase 100 U/L (39-117); Aspartate Amino Transferase 19 U/L (5-31); Bilirubin Direct 0.1 mg/dL (0.0-0.5); Bilirubin Total 0.4 mg/dL (0.0-1.0); Estimated Glomerular Filt Rate > 60; Total Protein 6.8 g/dL (6.5-8.0)
[2023-05-03 10:48] LABS: Folate 17.2 ng/mL (> or = 4.0); Vitamin B12 282 pg/mL (200-900)
== END 2023-05-03 08:33 | disposition home or self-care (01) ==
LOC: HO.LAB 08:32
PROVIDERS: PCP Internal Medicine; Visit Provider Internal Medicine Gastroenterology
DX: K50.00 Crohn's disease of small intestine without complications (principal)
CPT/HCPCS: 36415; 80076; 82565; 82607; 82746; 85025; 86140

== ENCOUNTER 2023-06-07 11:00 | Outpatient (REF) | payer MEDICARE, MEDICAID, SELFPAY | END 2023-06-07 11:01 | disposition home or self-care (01) | LOC: HO.LNP 11:00 | PROVIDERS: Visit Provider Internal Medicine | DX: R03.0 Elevated blood-pressure reading, without diagnosis of hypertension (principal); D72.9 Disorder of white blood cells, unspecified; E78.2 Mixed hyperlipidemia; E83.52 Hypercalcemia | CPT/HCPCS: 80053; 80061; 81001; 85025 ==

== ENCOUNTER 2023-06-09 08:29 | Outpatient (REF) | payer MEDICARE, MEDICAID, SELFPAY ==
--- NOTE | ~2023-06-09 | CT_ITS ---
EXAMINATION: CT CHEST WITHOUT CONTRAST CLINICAL INFORMATION: Lung nodule COMPARISON: Previous chest CT post recent February 2023 and chest x-ray most recent November 2021 TECHNIQUE: Multidetector volumetric CT imaging of the chest was done. Axial MIP volume rendering provided. Sagittal and coronal reformatted images were obtained. This CT examination was performed using dose optimization techniques as appropriate, variously including the following: *Automated exposure control *Adjustment of mA and/or kV according to patient size (this includes techniques or standardized protocols for targeted exams where dose is matched to indication/reason for exam; i.e. extremities or head) *Use of iterative reconstruction technique DLP: 120 mGy-cm FINDINGS: LUNGS: Multiple small bilateral pulmonary nodules stable from radius exams. Largest pulmonary nodule is a 4 mm left lower lobe nodule axial image 321 series 7. No new pulmonary nodules. Scarring or subsegmental atelectasis in the right middle lobe and lingula. MEDIASTINUM: The mediastinum is normal. CORONARY ARTERY CALCIFICATION: Moderate PLEURA: There is no pleural effusion. No pleural mass or thickening. AXILLA: No lymphadenopathy. UPPER ABDOMEN: Multiple small right renal stones. Partially visualized right ventral hernia containing fat. OSSEOUS STRUCTURES: Unremarkable. CT/CT chest wo IV con IMPRESSION: Stable bilateral pulmonary nodules. According to Fleischner guidelines, chest CT follow-up no longer needed. Moderate coronary artery calcification. Right renal stones. Fleischner guidelines were followed.
== END 2023-06-09 08:30 | disposition home or self-care (01) ==
LOC: HO.CT 08:29
PROVIDERS: PCP Internal Medicine; Visit Provider Internal Medicine
DX: R91.1 Solitary pulmonary nodule (principal)
CPT/HCPCS: 71250

== ENCOUNTER 2023-08-26 08:51 | Outpatient (AMB) | payer MEDICARE, MEDICAID, SELFPAY ==
--- NOTE | 2023-08-26 08:54 | A.OFFVIS_ITS ---
Intake Vital Signs 08/26/23 08:58 Height 5 ft Weight 141 lb BMI 27.5 BP 165/72 H Blood Pressure Location Lt brachial Position Sitting Pulse 74 Intake Visit Reasons: 6 month fu Intake Note: Patient follow up for diarrhea ad lab results. Patient ccL diarrhea and denies any other GI issues. Eradicator Required: No Accompanied by: Self / Same As Patient Allergies No Known Allergies [No Known Allergies*] Allergy (Verified 08/26/23 08:57) HPI 6 month fu HPI Details GI clinic visit for this 63-year-old female for follow-up of fibrostenotic Crohn's disease. Patient was being followed by Dr. Cruz since 2012 Pt states I have not been having any stomach pains. My stools change from day to day sometimes I have diarrhea and then sometimes I don't. But I am never constipated. I have been pretty good. Last hospitalized in Dec, 2021 with SBO. 01/08/22 pt had laparotomy, extensive eliu is of adhesions, resection of fold ileocolonic anastomosis including length of ileum, with? creation of a new ileocolonic anastomosis to the? more distal transverse colon by Dr Cortes IMAGING STUDIES:? 04/13/[address] SCAN SHOWED: *? The patient is status post right hemicolectomy with an ileocolic anastomosis within the right midabdomen. The distal 10 cm of small bowel leading up to the ileocolic anastomosis shows irregular wall thickening and luminal narrowing on a chronic basis. There is dilatation of the small bowel proximal to this segment measuring up to 4.2 cm which may represent a combination of a partial mechanical small bowel obstruction and ileus. There is an additional segment of small bowel within the left midabdomen, likely distal jejunum or proximal ileum measuring 8.6 cm in length, also showing irregular wall thickening and luminal narrowing likely representing an additional site of inflammation of indeterminate activity. *? Bilateral nonobstructive intrarenal calculi as described. ENDOSCOPIC STUDIES:?01/29/21 EGD AND COLONOSCOPY WERE PERFORMED BY DR. CRUZ: POSTOPERATIVE DIAGNOSIS: Esophagogastroduodenoscopy: Hiatal hernia, Superficial hemorrhagic gastritis; Colonoscopy: open anastomosis, ileal mucosa normal, able to intubate for approximately 8 cm, colon mucosa normal. BIOPSIES SHOWED: A.? Duodenum, biopsies:? Duodenal mucosa with no significant histopathology; no villous abnormality identified; no increase in intraepithelial lymphocytes. B.? Stomach, random, biopsies:? Gastric mucosa with mild chronic, inactive gastritis; negative for Helicobacter pylori organisms; negative for intestinal metaplasia; negative for dysplasia. C.? Small bowel, biopsies:? Small bowel mucosa within normal limits; no active ?inflammation; no granulomas; negative for malignancy. ?D.? Colon, proximal, biopsies:? Colonic mucosa within normal limits. ?E.? Colon, left, biopsies:? Colonic mucosa within normal limits. TODAY'S VISIT: Notes pain in the right side of neck radiating to the right side of the head. Notes some blurred vision and denies eye pain or dizziness Always has diarrhea - notes 3-4 loose BMs a day EGD and colon results reviewed. Doing well and denies any problems Has a BM daily without diarrhea or rectal bleeding Abdominal pain has resolved. Wt is stable PAST VISITS: Pt states I have not been having any stomach pains. PAST VISIT:My stools change from day to day sometimes I have diarrhea and then sometimes I don't. But I am never constipated. I have been pretty good. Doing well after the surgery. Notes intermittent sharp pain after she is sitting for a while. Appetite is good - advised to eat 5 small meals throughout the day. Has 2 loose BMs a day. PAST VISITS: I am doing good. I have no problems at all Has a BM daily - can have diarrhea or normal stools depending on her diet. Drinks V8 juice instead of taking vegetables. She is taking Stelara every 4-weeks - last injection was on 05/21/21. In 11/2020 she had her Stelara level checked and she was within therapeutic range without antibodies. She continues to smoke? but has cut down to 10 cigarettes a day. She intermittently using the Nicotine patches. Her last OV was on 03/24/21 after a hospitalization for small bowel obstruction. She was hospitalized IN 04/17 at [facility] [place] During that time, she did appear to? have a Crohn?s flare. Did not get vaccinated for COVID yet and planning to get vaccinated in the near future. Can have diarrhea intermittently - a few days a week.? 4-5 watery BMs a day without blood or mucous. No BM on some days. Notes a knot in her stomach if she moves a certain way - ? due to scar tissue. Her wt has been stable. Eats small amounts of food during the summer months. Patient denies symptoms of heartburn, dysphagia, nausea, vomiting, change in weight.? Denies recent change in bowel habits, constipation, diarrhea, black stools or rectal bleeding. Patient denies major cardiac or pulmonary problems, loud snoring or sleep apnea Denies problems with anesthesia in the past. Denies being on chronic anticoagulation. Patient denies known family history of colon polyps, colon cancer or other GI malignancies. PAST GI HISTORY BY REVIEW OF MEDICAL RECORDS: 58 YF with known history of Crohn's dise ase s/p small bowel resection x 2 and past history of recurrent SBO followed by Dr Cruz. Patient was diagnosed with Crohn's disease at age 39 years. Paient was initially treated with medication. She is unable to recall the names - she thinks she took Asacol and steroids. She had two surgeries which were performed in [place] > 10 years ago with resection of small bowel and right colon. She was treated with Infliximab for a year 4 years ago and was subsequently discontinued for unclear reasons. Patient moved to [place] 4 years ago. She was started on Entyvio infusions every 8 weeks 1 year ago - last infusion was on 05/05/2018. She has had multiple past admissions for SBO which resolves with conservative management. She was previously reluctant to have surgery and is now aggreeable to proceeding with surgery. She noted onset of RLQ pain yesterday evening associated with nausea and vomting. She denies fever and noted some chills. Denies having any BM or passing gas since yesterday evening. She denies symptoms suggestive of extraintestional manifestation of?Crohn's disease [facility] Medical History (Updated 02/25/23 @ 09:58 by Coty Iglesias MD) Smoker Gastritis Small bowel obstruction Hyperlipidemia Crohns disease of small intestine Surgical History History of appendectomy History of bowel resection History of esophagogastroduodenoscopy (EGD) History of laparotomy Hx of colonoscopy Hx of endoscopy S/P BSO (bilateral salpingo-oophorectomy) Family History Father No problems noted. Mother Pneumonia Sister Breast cancer Social History Household Members: Other Housing: Apartment Do you presently have visiting nurse or other home services: No Alcohol intake: never Patient Tobacco Use Status: Current everyday Tobacco user Tobacco use type: Cigarette Cigarette Packs Per Day: 0.5 Cigarettes Per Day: 10.0 Years Smoked: 45 e-Cigarette/Vaping Use: Never Used Second Hand Smoke Exposure: No Advance Directives Date on File: 04/13/21 service: No Current occupational status: unemployed and disabled Review of Systems Const All systems reviewed & are unremarkable except as noted in HPI and below Physical Exam Const General: healthy appearing and no acute distress Nutritional Appearance: overweight Orientation/consciousness: patient oriented x3 Limitations: no limitations HEENT Head: Yes normal to inspection Ears: hearing grossly normal bilaterally Eyes Sclerae: sclerae normal Pupils: Equal, round and reactive pupils present Neck Neck: Yes normal visual inspection Chest Chest palpation & inspection: normal inspection of the chest Resp Effort & Inspection: normal respiratory effort Auscultation: clear to auscultation bilaterally Cardio Palpation: normal PMI Rate: regular rate Rhythm: regular rhythm Heart sounds: S1 normal heart sound present, S2 normal heart sound present and no murmurs GI Inspection: Yes scar (midline scar of past abd surgeries) Palpation (GI): Soft to palpation, nontender and No hepatosplenomegaly present Auscultation: normal bowel sounds Rectal Exam - Female: deferred Skin General skin exam: no rashes or lesions noted Neuro General: patient oriented x3, gait normal and moves all extremities Cranial nerves: Yes Equal, round and reactive pupils present Psych Appearance: grossly normal Mental Status: mental status grossly normal Assessment & Plan Assessment & Plan (1) Crohns disease of small intestine: Code(s): K50.00 - Crohn's disease of small intestine without complications (2) Peptic ulcer disease: Code(s): K27.9 - Peptic ulcer, site unspecified, unspecified as acute or chronic, without hemorrhage or perforation Plan 63 YF diagnosed with Crohn's disease diagnosed > than 20 yrs ago. Pt is status post right colon and small bowel resection x 3 Her course has been complicated by recurrent SBO due to fibrostenotic disease. Patient was last admitted with another episode of SBO in Dec 2021 and had laparotomy, extensive lysis of adhesions, resection of old ileocolonic anastomosis including length of ileum, with?creation of a new ileocolonic anastomosis to the?more distal transverse colon on 01/08/22 She is doing well after surgery. Patient was advised to continue Stelara 90 mg every 4 weeks. 02/08/23 Pt had an EGD which showed gastritis and a Colonoscopy which showed normal ileo-colic anastomosis and inactive Crohn's disease. Pt advised to start calcium + Vitamin D supplement for osteopenia noted on last bone scan 08/26/23 Crohn's disease is well controlled with Stelara Pt complains of right sided neck and head pain and will contact her PCP for advice. FU in 6 months. Coding Level of Care Code Est Pt Level 4 (29154) Diagnoses Crohn's disease of small intestine with intestinal obstruction K50.00 Peptic ulcer disease K27.9 Time Spent (min) 19
[2023-08-26 08:58] VITALS: BP 165/72; PULSE 74; BMI 27.5
== END 2023-08-26 09:18 | disposition home or self-care (01) ==
PROVIDERS: PCP Internal Medicine; Visit Provider Internal Medicine Gastroenterology
DX: K50.00 Crohn's disease of small intestine without complications (principal); K27.9 Peptic ulcer, site unspecified, unspecified as acute or chronic, without hemorrhage or perforation
CPT/HCPCS: 99214

== ENCOUNTER → 2023-08-26 08:51 | Outpatient (BNVA) | payer MEDICARE, MEDICAID, SELFPAY | PROVIDERS: PCP Internal Medicine; Visit Provider Internal Medicine Gastroenterology | DX: K50.00 Crohn's disease of small intestine without complications (principal); K27.9 Peptic ulcer, site unspecified, unspecified as acute or chronic, without hemorrhage or perforation | CPT/HCPCS: 99212 ==

== ENCOUNTER 2023-12-16 10:48 | Outpatient (REF) | payer MEDICARE, MEDICAID, SELFPAY ==
[2023-12-16 11:38] LABS: Alanine Aminotransferase 27 U/L (0-31); Albumin Level 4.4 g/dL (3.5-5.0); Alkaline Phosphatase 105 U/L (39-117); Aspartate Amino Transferase 24 U/L (5-31); Bilirubin Direct 0.2 mg/dL (0.0-0.5); Bilirubin Total 0.5 mg/dL (0.0-1.0); Cholesterol 184 mg/dL (<200); HDL Cholesterol 65 mg/dL (>40); LDL Cholesterol Calculated 96 mg/dL (<100); Total Protein 7.8 g/dL (6.5-8.0); Triglycerides 117 mg/dL (<150)
== END 2023-12-16 10:49 | disposition home or self-care (01) ==
LOC: HO.LNP 10:48
PROVIDERS: Visit Provider Internal Medicine
DX: E78.2 Mixed hyperlipidemia (principal)
CPT/HCPCS: 80061; 80076

== ENCOUNTER 2024-02-24 09:02 | Outpatient (AMB) | payer MEDICARE, MEDICAID, SELFPAY ==
--- NOTE | 2024-02-24 09:10 | A.OFFVIS_ITS ---
Intake Vital Signs 02/24/24 09:13 Height 5 ft Weight 143 lb BMI 27.9 BP 159/65 H Blood Pressure Location Lt brachial Position Sitting Pulse 75 Intake Visit Reasons: 6 month follow up Intake Note: Patient follow up for Crohn's disease. Patient denies any GI issues. Key Cutter Required: No Accompanied by: Self / Same As Patient Allergies No Known Allergies [No Known Allergies*] Allergy (Verified 02/24/24 09:09) Medication List - Last Reconciled 02/24/24 by Coty Iglesias MD amlodipine (Norvasc) 5 mg PO DAILY atorvastatin 40 mg PO DAILY omeprazole 20 mg PO BID 60 days ustekinumab (Stelara) 90 mg subcut Q4W 28 days HPI 6 month follow up HPI Details GI clinic visit for this 63-year-old female for follow-up of fibro- stenotic Crohn's disease. Patient was being followed by Dr. Cruz since 2012 Pt states I have not been having any stomach pains. My stools change from day to day sometimes I have diarrhea and then sometimes I don't. But I am never constipated. I have been pretty good. Last hospitalized in Dec, 2021 with SBO. 01/08/22 pt had laparotomy, extensive eliu is of adhesions, resection of fold ileocolonic anastomosis including length of ileum, with? creation of a new ileocolonic anastomosis to the? more distal transverse colon by Dr Cortes IMAGING STUDIES:? 04/13/[address] SCAN SHOWED: *? The patient is status post right hemicolectomy with an ileocolic anastomosis within the right midabdomen. The distal 10 cm of small bowel leading up to the ileocolic anastomosis shows irregular wall thickening and luminal narrowing on a chronic basis. There is dilatation of the small bowel proximal to this segment measuring up to 4.2 cm which may represent a combination of a partial mechanical smallbowel obstruction and ileus. There is an additional segment of small bowel within the left midabdomen, likely distal jejunum or proximal ileum measuring 8.6 cm in length, also showing irregular wall thickening and luminal narrowing likely representing an additional site of inflammation of indeterminate activity. *? Bilateral nonobstructive intrarenal calculi as described. ENDOSCOPIC STUDIES:?01/29/21 EGD AND COLONOSCOPY WERE PERFORMED BY DR. CRUZ: POSTOPERATIVE DIAGNOSIS: Esophagogastroduodenoscopy: Hiatal hernia, Superficial hemorrhagic gastritis; Colonoscopy: open anastomosis, ileal mucosa normal, able to intubate for approximately 8 cm, colon mucosa normal. BIOPSIES SHOWED: A.? Duodenum, biopsies:? Duodenal mucosa with no significant histopathology; no villous abnormality identified; no increase in intraepithelial lymphocytes. B.? Stomach, random, biopsies:? Gastric mucosa with mild chronic, inactive gastritis; negative for Helicobacter pylori organisms; negative for intestinal metaplasia; negative for dysplasia. C.? Small bowel, biopsies:? Small bowel mucosa within normal limits; no active ?inflammation; no granulomas; negative for malignancy. ?D.? Colon, proximal, biopsies:? Colonic mucosa within normal limits. ?E.? Colon, left, biopsies:? Colonic mucosa within normal limits. TODAY'S VISIT: Denies any GI complaints. Neck pain has resolved. Has 1-2 soft BMs daily PAST VISITS: Notes pain in the right side of neck radiating to the right side of the head. Notes some blurred vision and denies eye pain or dizziness Always has diarrhea - notes 3-4 loose BMs a day EGD and colon results reviewed. Doing well and denies any problems Has a BM daily without diarrhea or rectal bleeding Abdominal pain has resolved. Wt is stable Pt states I have not been having any stomach pains. PAST VISIT:My stools change from day to day sometimes I have diarrhea and then sometimes I don't. But I am never constipated. I have been pretty good. Doing well after the surgery. Notes intermittent sharp pain after she is sitting for a while. Appetite is good - advised to eat 5 small meals throughout the day. Has 2 loose BMs a day. PAST VISITS: I am doing good. I have no problems at all Has a BM daily - can have diarrhea or normal stools depending on her diet. Drinks V8 juice instead of taking vegetables. She is taking Stelara every 4-weeks - last injection was on 05/21/21. In 11/2020 she had her Stelara level checked and she was within therapeutic range without antibodies. She continues to smoke? but has cut down to 10 cigarettes a day. She intermittently using the Nicotine patches. Her last OV was on 03/24/21 after a hospitalization for small bowel obstruction. She was hospitalized IN 04/17 at [facility] [place] During that time, she did appear to? have a Crohn?s flare. Did not get vaccinated for COVID yet and planning to get vaccinated in the near future. Can have diarrhea intermittently - a few days a week.? 4-5 watery BMs a day without blood or mucous. No BM on some days. Notes a knot in her stomach if she moves a certain way - ? due to scar tissue. Her wt has been stable. Eats small amounts of food during the summer months. Patient denies symptoms of heartburn, dysphagia, nausea, vomiting, change in w eight.? Denies recent change in bowel habits, constipation, diarrhea, black stools or rectal bleeding. Patient denies major cardiac or pulmonary problems, loud snoring or sleep apnea Denies problems with anesthesia in the past. Denies being on chronic anticoagulation. Patient denies known family history of colon polyps, colon cancer or other GI malignancies. PAST GI HISTORY BY REVIEW OF MEDICAL RECORDS: 58 YF with known history of Crohn's dise ase s/p small bowel resection x 2 andpast history of recurrent SBO followed by Dr Cruz. Patient was diagnosed with Crohn's disease at age 39 years. Paient was initially treated with medication. She is unable to recall the names - she thinks she took Asacol and steroids. She had two surgeries which were performed in [place] > 10 years ago with resection of small bowel and right colon. She was treated with Infliximab for a year 4 years ago and was subsequently discontinued for unclear reasons. Patient moved to [place] 4 years ago. She was started on Entyvio infusions every 8 weeks 1 year ago - last infusion was on 05/05/2018. She has had multiple past admissions for SBO which resolves with conservative management. She was previously reluctant to have surgery and is now aggreeable to proceeding with surgery. She noted onset of RLQ pain yesterday evening associated with nausea and vomting. She denies fever and noted some chills. Denies having any BM or passing gas since yesterday evening. She denies symptoms suggestive of extraintestional manifestation of?Crohn's disease [facility] Medical History (Updated 02/25/23 @ 09:58 by Coty Iglesias MD) Smoker Gastritis Small bowel obstruction Hyperlipidemia Crohns disease of small intestine Surgical History History of laparotomy Hx of endoscopy History of bowel resection S/P BSO (bilateral salpingo-oophorectomy) History of appendectomy History of esophagogastroduodenoscopy (EGD) Hx of colonoscopy Family History Father No problems noted. Mother Pneumonia Sister Breast cancer Social History Household Members: Other Housing: Apartment Do you presently have visiting nurse or other home services: No Alcohol intake: never Comment: pt asleep Patient Tobacco Use Status: Current everyday Tobacco user Tobacco use type: Cigarette Cigarette Packs Per Day: 0.5 Cigarettes Per Day: 10.0 Years Smoked: 45 e-Cigarette/Vaping Use: Never Used Second Hand Smoke Exposure: No Advance Directives Date on File: 04/13/21 service: No Current occupational status: unemployed and disabled Review of Systems Const All systems reviewed & are unremarkable except as noted in HPI and below Physical Exam Vital Signs: Last Vital Signs Pulse 75 02/24/24 09:13 BP 159/65 H 02/24/24 09:13 BMI result Body Mass Index 27.9 Const General: healthy appearing and no acute distress Nutritional Appearance: overweight Orientation/consciousness: patient oriented x3 Limitations: no limitations HEENT Head: Yes normal to inspection Ears: hearing grossly normal bilaterally Eyes Sclerae: sclerae normal Pupils: Equal, round and reactive pupils present Neck Neck: Yes normal visual inspection Chest Chest palpation & inspection: normal inspection of the chest Resp Effort & Inspection: normal respiratory effort Auscultation: clear to auscultation bilaterally Cardio Palpation: normal PMI Rate: regular rate Rhythm: regular rhythm Heart sounds: S1 normal heart sound present, S2 normal heart sound present and no murmurs GI Palpation (GI): Soft to palpation, nontender and No hepatosplenomegaly present Auscultation: normal bowel sounds Rectal Exam - Female: deferred Skin General skin exam: no rashes or lesions noted Neuro General: patient oriented x3, gait normal and moves all extremities Cranial nerves: Yes Equal, round and reactive pupils present Psych Appearance: grossly normal Mental Status: mental status grossly normal Assessment & Plan Assessment & Plan (1) Crohns disease of small intestine: Code(s): K50.00 - Crohn's disease of small intestine without complications (2) Peptic ulcer disease: Code(s): K27.9 - Peptic ulcer, site unspecified, unspecified as acute or chronic, without hemorrhage or perforation Plan 63 YF diagnosed with Crohn's disease diagnosed > than 20 yrs ago. Pt is status post right colon and small bowel resection x 3 Her course has been complicated by recurrent SBO due to fibrostenotic disease - last surgery was in Dec, 2021. Patient was last admitted with another episode of SBO in Dec 2021 and had laparotomy, extensive lysis of adhesions, resection of old ileocolonic anastomosis including length of ileum, with?creation of a new ileocolonic anastomosis to the?more distal transverse colon on 01/08/22 She is doing well after surgery. Patient was advised to continue Stelara 90 mg every 4 weeks. 02/08/23 Pt had an EGD which showed gastritis and a Colonoscopy which showed normal ileo-colic anastomosis and inactive Crohn's disease. Pt advised to start calcium + Vitamin D supplement for osteopenia noted on last bone scan 08/26/23 Crohn's disease is well controlled with Stelara Pt complains of right sided neck and head pain and will contact her PCP for advice. 02/24/24 Denies any GI complaints. Neck pain has resolved. Has 1-2 soft BMs daily Continue Stelara 90 mg subcutaneously every 4 weeks FU in 6 months. Orders: Orders Liver Panel Today K50.00 - Crohn's disease of small intestine without complications T Spot TB Today K50.00 - Crohn's disease of small intestine without complications Complete Blood Count Auto Diff Today K50.00 - Crohn's disease of small intestine without complications Creatinine Today K50.00 - Crohn's disease of small intestine without complications Coding Level of Care Code Est Pt Level 3 (78285) Diagnoses Crohn's disease of small intestine with intestinal obstruction K50.00 Peptic ulcer disease K27.9 Time Spent (min) 18
[2024-02-24 09:13] VITALS: BP 159/65; PULSE 75; BMI 27.9
== END 2024-02-24 09:57 | disposition home or self-care (01) ==
PROVIDERS: PCP Internal Medicine; Visit Provider Internal Medicine Gastroenterology
DX: K50.00 Crohn's disease of small intestine without complications (principal); K27.9 Peptic ulcer, site unspecified, unspecified as acute or chronic, without hemorrhage or perforation
CPT/HCPCS: 99213

== ENCOUNTER → 2024-02-24 09:02 | Outpatient (BNVA) | payer MEDICARE, MEDICAID, SELFPAY | PROVIDERS: PCP Internal Medicine; Visit Provider Internal Medicine Gastroenterology | DX: K50.00 Crohn's disease of small intestine without complications (principal); K27.9 Peptic ulcer, site unspecified, unspecified as acute or chronic, without hemorrhage or perforation | CPT/HCPCS: 99212 ==

== ENCOUNTER 2024-02-25 09:07 | Outpatient (REF) | payer MEDICARE, MEDICAID, SELFPAY ==
[2024-02-25 10:34] LABS: Basophils Absolute Auto 0.1 X10*3/uL (0.0-0.2); Basophils Percent Auto 1.2 % (0-2); Eosinophils Absolute Auto 0.1 X10*3/uL (0.0-0.4); Eosinophils Percent Auto 1.5 % (0-4); Hematocrit 41.6 % (37.0-47.0); Imm Gran Abs Auto 0.02 X10*3/uL (0.00-0.03); Imm Gran Pct Auto 0.3 % (0.0-0.4); Lymphocytes Absolute Auto 2.8 X10*3/uL (1.2-4.9); Lymphocytes Percent Auto 41.4 % (20-40); MANUAL DIFF FLAG SCAN; Mean Corpuscular HGB Conc 33.7 g/dl (31.0-35.0); Mean Corpuscular Hemoglobin 28.7 pg (27.0-33.0); Mean Corpuscular Volume 85.4 fL (80.0-98.0); Monocytes Absolute Auto 0.4 X10*3/uL (0.1-1.2); Monocytes Percent Auto 6.2 % (2-11); Neutrophils Absolute Auto 3.3 x10*3/uL (2.0-8.3); Neutrophils Percent Auto 49.4 % (45-73); PLT CLUMP 1; Red Blood Count 4.87 X10*6/uL (4.20-5.50); Red Cell Distribution Width 14.1 % (11.0-16.0); SCAN SMEAR FLAG 1
[2024-02-25 11:19] LABS: Platelet Count 195 X10*3/uL (160-400); SLIDE REVIEW VERIFIED; White Blood Count 6.7 X10*3/uL (4.8-10.8)
[2024-02-25 11:28] LABS: Alanine Aminotransferase 34 U/L (0-31); Albumin Level 4.3 g/dL (3.5-5.0); Alkaline Phosphatase 88 U/L (39-117); Aspartate Amino Transferase 24 U/L (5-31); Bilirubin Direct 0.1 mg/dL (0.0-0.5); Bilirubin Total 0.4 mg/dL (0.0-1.0); Estimated Glomerular Filt Rate > 60; Total Protein 7.5 g/dL (6.5-8.0)
[2024-02-27 22:09] LABS: TS Negative Control Passed; TS Panel A 0; TS Panel B 0; TS Positive Control Passed; TSpotTB Negative (Negative)
== END 2024-02-25 09:08 | disposition home or self-care (01) ==
LOC: HO.LAB 09:07
PROVIDERS: PCP Internal Medicine; Visit Provider Internal Medicine Gastroenterology
DX: K50.00 Crohn's disease of small intestine without complications (principal)
CPT/HCPCS: 36415; 80076; 82565; 85025; 86481

== ENCOUNTER 2024-03-29 08:14 | Outpatient (REF) | payer MEDICARE, MEDICAID, SELFPAY ==
--- NOTE | ~2024-03-29 | CT_ITS ---
EXAMINATION: CT CHEST WITHOUT CONTRAST CLINICAL INFORMATION: Follow-up lung nodule. COMPARISON: Chest CT 06/09/2023, 03/05/2023, 03/24/2022. TECHNIQUE: Multidetector volumetric CT imaging of the chest was done. Axial MIP volume rendering provided. Sagittal and coronal reformatted images were obtained. This CT examination was performed using dose optimization techniques as appropriate, variously including the following: *Automated exposure control *Adjustment of mA and/or kV according to patient size (this includes techniques or standardized protocols for targeted exams where dose is matched to indication/reason for exam; i.e. extremities or head) *Use of iterative reconstruction technique DLP: 106 mGy-cm FINDINGS: LUNGS: Numerous scattered solid nodules and micronodules measuring up to 4 mm in size. No new or suspiciously enlarging pulmonary nodule. No consolidation. Mild diffuse airway wall thickening. MEDIASTINUM: No adenopathy. No aortic aneurysm. No pericardial effusion. CORONARY ARTERY CALCIFICATION: Moderate LAD and RCA calcium. PLEURA: There is no pleural effusion. No pleural mass or thickening. AXILLA: No lymphadenopathy. UPPER ABDOMEN: 3 mm nonobstructing calculus in the upper pole right kidney. Fat-containing midline ventral hernia. OSSEOUS STRUCTURES: Degenerative changes in the spine. CT/CT chest wo IV con IMPRESSION: Stable small pulmonary nodules measuring up to 4 mm in size. No follow-up imaging is recommended as per Fleischner Society guidelines. Moderate LAD and RCA coronary calcium. 3 mm nonobstructing calculus upper right kidney. Fleischner guidelines were followed.
== END 2024-03-29 08:15 | disposition home or self-care (01) ==
LOC: HO.CT 08:14
PROVIDERS: PCP Internal Medicine; Visit Provider Internal Medicine
DX: R91.1 Solitary pulmonary nodule (principal)
CPT/HCPCS: 71250

== ENCOUNTER 2024-05-08 13:09 | Outpatient (REF) | payer MEDICARE, MEDICAID, SELFPAY ==
[2024-05-08 13:39] LABS: Appearance Urine Turbid; Color Urine Dark Yellow; Glucose Urine UA Negative (Negative); Leukocyte Esterase Urine Moderate (2+) (Negative); Nitrite Urine Negative (Negative); PH 5.5 (5.0-9.0); UMIC TRIGGER UA YES; Urine Blood Negative (Negative); Urine Ketones Trace mg/dL (Negative); Urine Protein Trace mg/dL (Neg-Trace)
[2024-05-08 14:01] LABS: Bacteria Urine 4+ (None Seen); Calcium Oxalate Crystals Urine Present; Hyaline Casts Urine 0-2 /LPF (0-2); RBC Urine 0-2 /HPF (0-2); Squamous Epithelial Cell Urine >20 /HPF (0-2)
== END 2024-05-08 13:10 | disposition home or self-care (01) ==
LOC: HO.LNP 13:09
PROVIDERS: Visit Provider Internal Medicine
DX: N39.0 Urinary tract infection, site not specified (principal)
CPT/HCPCS: 81001; 87086

== ENCOUNTER 2024-06-08 11:26 | Outpatient (REF) | payer MEDICARE, MEDICAID, SELFPAY ==
[2024-06-08 11:35] LABS: MANUAL DIFF FLAG NO
[2024-06-08 11:42] LABS: Basophils Absolute Auto 0.1 X10*3/uL (0.0-0.2); Eosinophils Absolute Auto 0.1 X10*3/uL (0.0-0.4); Eosinophils Percent Auto 1.6 % (0-4); Hematocrit 42.8 % (37.0-47.0); Hemoglobin 14.4 g/dl (12.0-16.0); Imm Gran Abs Auto 0.03 X10*3/uL (0.00-0.03); Imm Gran Pct Auto 0.4 % (0.0-0.4); Lymphocytes Absolute Auto 3.1 X10*3/uL (1.2-4.9); Lymphocytes Percent Auto 38.5 % (20-40); Mean Corpuscular HGB Conc 33.6 g/dl (31.0-35.0); Mean Corpuscular Hemoglobin 29.8 pg (27.0-33.0); Mean Corpuscular Volume 88.6 fL (80.0-98.0); Mean Platelet Volume 11.1 fL (9.4-12.3); Monocytes Absolute Auto 0.4 X10*3/uL (0.1-1.2); Monocytes Percent Auto 5.5 % (2-11); Neutrophils Absolute Auto 4.3 x10*3/uL (2.0-8.3); Platelet Count 294 X10*3/uL (160-400); Red Blood Count 4.83 X10*6/uL (4.20-5.50); Red Cell Distribution Width 14.2 % (11.0-16.0); White Blood Count 8.1 X10*3/uL (4.8-10.8)
[2024-06-08 11:51] LABS: Alanine Aminotransferase 36 U/L (0-31); Albumin Level 4.5 g/dL (3.5-5.0); Alkaline Phosphatase 87 U/L (39-117); Anion Gap 14 (12-20); Aspartate Amino Transferase 27 U/L (5-31); Bilirubin Total 0.5 mg/dL (0.0-1.0); Blood Urea Nitrogen 10 mg/dL (9-16); Calcium 10.5 mg/dL (8.4-10.2); Carbon Dioxide 24 mmol/L (22-29); Chloride 110 mmol/L (96-108); Cholesterol 163 mg/dL (<200); Estimated Glomerular Filt Rate > 60; Glucose Fasting 92 mg/dL (60-99); HDL Cholesterol 54 mg/dL (>40); LDL Cholesterol Calculated 83 mg/dL (<100); Sodium 144 mmol/L (135-145); Total Protein 7.7 g/dL (6.5-8.0); Triglycerides 133 mg/dL (<150)
[2024-06-08 12:22] LABS: Appearance Urine Turbid; Color Urine Dark Yellow; Glucose Urine UA Negative (Negative); Leukocyte Esterase Urine Moderate (2+) (Negative); Nitrite Urine Negative (Negative); PH 5.5 (5.0-9.0); Specific Gravity - Urine 1.025 (1.005-1.025); UMIC TRIGGER UACC YES; Urine Blood Negative (Negative); Urine Ketones Trace mg/dL (Negative); Urine Protein 30 (1+) mg/dL (Neg-Trace)
[2024-06-08 12:38] LABS: Bacteria Urine 4+ (None Seen); Hyaline Casts Urine 0-2 /LPF (0-2); RBC Urine 0-2 /HPF (0-2); Squamous Epithelial Cell Urine >20 /HPF (0-2); UACC Culture Trigger YES; WBC Urine >50 /HPF (0-5)
== END 2024-06-08 11:27 | disposition home or self-care (01) ==
LOC: HO.LNP 11:26
PROVIDERS: Visit Provider Internal Medicine
DX: R03.0 Elevated blood-pressure reading, without diagnosis of hypertension (principal); E78.2 Mixed hyperlipidemia; D72.9 Disorder of white blood cells, unspecified; R82.90 Unspecified abnormal findings in urine
CPT/HCPCS: 80053; 80061; 81001; 85025; 87086

== ENCOUNTER 2024-07-07 09:50 | Outpatient (REF) | payer MEDICARE, MEDICAID, SELFPAY ==
--- NOTE | ~2024-07-07 | MM_ITS ---
EXAMINATION: MM SCREENING DIGITAL BREAST TOMOSYNTHESIS, BILATERAL CLINICAL INFORMATION: Screening. Asymptomatic. COMPARISON: Mammography: This study is compared with prior exams dating back to 2019. TECHNIQUE: Digital breast tomosynthesis is performed in both the craniocaudal and mediolateral oblique views along with computer-aided detection (CAD). Direct 2-D images of each breast in the standard screening projections are also obtained. FINDINGS: The breasts are almost entirely fatty (ACR BI-RADS breast composition Category a). There are no significant masses, abnormal calcifications, or other abnormalities. MM/MM tomosynthesis screening BI IMPRESSION: No mammographic evidence of malignancy. ASSESSMENT: BI-RADS BI-RADS 1 - Negative RECOMMENDATION: Routine annual mammography screening. 1 year F/U This examination should not preclude the clinical evaluation of a suspicious palpable abnormality. This patient's information was entered into a reminder system with a target due date for their next mammogram. Electronically signed by: Pily Baca MD 08/03/2024 12:11 PM EDT
== END 2024-07-07 09:51 | disposition home or self-care (01) ==
LOC: HO.MAMMO 09:50
PROVIDERS: PCP Internal Medicine; Visit Provider Internal Medicine
DX: Z12.31 Encounter for screening mammogram for malignant neoplasm of breast (principal)
CPT/HCPCS: 77063; 77067

== ENCOUNTER → 2024-07-07 10:15 | Outpatient (BNV) | payer MEDICARE, MEDICAID, SELFPAY | PROVIDERS: PCP Internal Medicine; Visit Provider Radiology Diagnostic Radiology | DX: Z12.31 Encounter for screening mammogram for malignant neoplasm of breast (principal) | CPT/HCPCS: 77063; 77067 ==

== ENCOUNTER 2024-08-24 10:16 | Outpatient (AMB) | payer MEDICARE, MEDICAID, SELFPAY ==
--- NOTE | 2024-08-24 10:21 | A.OFFVIS_ITS ---
Vital Signs 08/24/24 10:38 Weight 140 lb BP 142/68 H Blood Pressure Location Lt brachial Position Sitting Pulse 76 Intake Visit Reasons: 6 month follow up Crohns disease Intake Note: Patient follow up for Crohns disease and lab results Patient denies any GI issues. Non Destructive Evaluation Manager Required: No Accompanied by: Self / Same As Patient Allergies No Known Allergies [No Known Allergies*] Allergy (Verified 02/24/24 09:09) Medication List - Last Reconciled 08/24/24 by Coty Iglesias MD amlodipine (Norvasc) 5 mg PO DAILY atorvastatin 40 mg PO DAILY nncsnlie-rulp-FC-calcium-mins 18 mg iron-400 mcg-500 mg Ca (One-A-Day Womens Formula) tabs PO DAILY omeprazole 20 mg PO BID 60 days ustekinumab (Stelara) 90 mg subcut Q4W 28 days HPI HPI 6 month follow up Crohns disease: Details: GI clinic visit for this 64-year-old female for follow-up of fibro-stenotic Crohn's disease - on Stelara. Patient was being followed by Dr. Cruz since 2012 Pt states I have not been having any stomach pains. My stools change from day to day sometimes I have diarrhea and then sometimes I don't. But I am never constipated. I have been pretty good. Last hospitalized in Dec, 2021 with SBO. 01/08/22 pt had laparotomy, extensive lysis of adhesions, resection of fold ileocolonic anastomosis including length of ileum, with? creation of a new ileocolonic anastomosis to the? more distal transverse colon by Dr Cortes TODAY'S VISIT: Denies any GI complaints. Has 1 BM some days and 2 BMs on other days Denies mouth ulcers, jt pains, skin rash or eye problems Blurring of vision - thinks she needs glasses PAST VISITS: Neck pain has resolved. Has 1-2 soft BMs daily Notes pain in the right side of neck radiating to the right side of the head. Notes some blurred vision and denies eye pain or dizziness Always has diarrhea - notes 3-4 loose BMs a day EGD and colon results reviewed. Doing well and denies any problems Has a BM daily without diarrhea or rectal bleeding Abdominal pain has resolved. Wt is stable Pt states I have not been having any stomach pains. PAST VISIT:My stools change from day to day sometimes I have diarrhea and then sometimes I don't. But I am never constipated. I have been pretty good. Doing well after the surgery. Notes intermittent sharp pain after she is sitting for a while. Appetite is good - advised to eat 5 small meals throughout the day. Has 2 loose BMs a day. PAST VISITS: I am doing good. I have no problems at all Has a BM daily - can have diarrhea or normal stools depending on her diet. Drinks V8 juice instead of taking vegetables. She is taking Stelara every 4-weeks - last injection was on 05/21/21. In 11/2020 she had her Stelara level checked and she was within therapeutic range without antibodies. She continues to smoke? but has cut down to 10 cigarettes a day. She intermittently using the Nicotine patches. Her last OV was on 03/24/21 after a hospitalization for small bowel obstruction. She was hospitalized IN 04/17 at [facility] During that time, she did appear to? have a Crohn?s flare. Did not get vaccinated for COVID yet and planning to get vaccinated in the near future. Can have diarrhea intermittently - a few days a week.? 4-5 watery BMs a day without blood or mucous. No BM on some days. Notes a knot in her stomach if she moves a certain way - ? due to scar tissue. Her wt has been stable. Eats small amounts of food during the summer months. Patient denies symptoms of heartburn, dysphagia, nausea, vomiting, change in weight.? Denies recent change in bowel habits, constipation, diarrhea, black stools or rectal bleeding. Patient denies major cardiac or pulmonary problems, loud snoring or sleep apnea Denies problems with anesthesia in the past. Denies being on chronic anticoagulation. Patient denies known family history of colon polyps, colon cancer or other GI malignancies. PAST GI HISTORY BY REVIEW OF MEDICAL RECORDS: 58 YF with known history of Crohn's disease s/p small bowel resection x 2 andpast history of recurrent SBO followed by Dr Cruz.Patient was diagnosed with Crohn's disease at age 39 years. Paient was initially treated with medication. She is unable to recall the names - she thinks she took Asacol and steroids. She had two surgeries which were performed in [place] > 10 years ago with resection of small bowel and right colon. She was treated with Infliximab for a year 4 years ago and was subsequently discontinued for unclear reasons. Patient moved to [place] 4 years ago. She was started on Entyvio infusions every 8 weeks 1 year ago - last infusion was on 05/05/2018. She has had multiple past admissions for SBO which resolves with conservative management. She was previously reluctant to have surgery and is now aggreeable to proceeding with surgery. She noted onset of RLQ pain yesterday evening associated with nausea and vomting. She denies fever and noted some chills. Denies having any BM or passing gas sinc e yesterday evening. She denies symptoms suggestive of extraintestional manifestation of?Crohn's disease IMAGING STUDIES:? 04/13/[address] SCAN SHOWED: *? The patient is status post right hemicolectomy with an ileocolic anastomosis within the right mid-abdomen. The distal 10 cm of small bowel leading up to the ileocolic anastomosis shows irregular wall thickening and luminal narrowing on a chronic basis. There is dilatation of the small bowel proximal to this segment measuring up to 4.2 cm which may represent a combination of a partial mechanical smallbowel obstruction and ileus. There is an additional segment of smallbowel within the left midabdomen, likely distal jejunum or proximal ileum measuring 8.6 cm in length, also showing irregular wall thickening and luminal narrowing likely representing an additional site of inflammation of indeterminate activity. *? Bilateral nonobstructive intrarenal calculi as described. ENDOSCOPIC STUDIES:?01/29/21 EGD AND COLONOSCOPY WERE PERFORMED BY DR. CRUZ: Esophagogastroduodenoscopy: Hiatal hernia, Superficial hemorrhagic gastritis; Colonoscopy: open anastomosis, ileal mucosa normal, able to intubate for approximately 8 cm, colon mucosa normal. BIOPSIES SHOWED: A.? Duodenum, biopsies:? Duodenal mucosa with no significant histopathology; no villous abnormality identified; no increase in intraepithelial lymphocytes. B.? Stomach, random, biopsies:? Gastric mucosa with mild chronic, inactive gastritis; negative for Helicobacter pylori organisms; negative for intestinal metaplasia; negative for dysplasia. C.? Small bowel, biopsies:? Small bowel mucosa within normal limits; no active ?inflammation; no granulomas; negative for malignancy. ?D.? Colon, proximal, biopsies:? Colonic mucosa within normal limits. ?E.? Colon, left, biopsies:? Colonic mucosa within normal limits. [facility], [facility] Medical History (Updated 08/24/24 @ 10:49 by Coty Iglesias MD) Smoker Gastritis Small bowel obstruction Hyperlipidemia Crohns disease of small intestine Surgical History History of laparotomy Hx of endoscopy History of bowel resection S/P BSO (bilateral salpingo-oophorectomy) History of appendectomy History of esophagogastroduodenoscopy (EGD) Hx of colonoscopy Family History Father No problems noted. Mother Pneumonia Sister Breast cancer Social History Household Members: Other Housing: Apartment Do you presently have visiting nurse or other home services: No Alcohol intake: never Comment: pt asleep Patient Tobacco Use Status: Current everyday Tobacco user Tobacco use type: Cigarette Cigarette Packs Per Day: 0.5 Cigarettes Per Day: 10.0 Years Smoked: 45 e-Cigarette/Vaping Use: Never Used Second Hand Smoke Exposure: No Advance Directives Date on File: 04/13/21 service: No Current occupational status: unemployed and disabled Review of Systems Const All systems reviewed & are unremarkable except as noted in HPI and below Physical Exam Vital Signs: Last Vital Signs Pulse 76 08/24/24 10:38 BP 142/68 H 08/24/24 10:38 Const General: healthy appearing and no acute distress Nutritional Appearance: overweight Orientation/consciousness: patient oriented x3 Limitations: no limitations HEENT Head: Yes normal to inspection Ears: hearing grossly normal bilaterally Eyes Sclerae: sclerae normal Pupils: Equal, round and reactive pupils present Neck Neck: Yes normal visual inspection Chest Chest palpation & inspection: normal inspection of the chest Resp Effort & Inspection: normal respiratory effort Auscultation: clear to auscultation bilaterally Cardio Palpation: normal PMI Rate: regular rate Rhythm: regular rhythm Heart sounds: S1 normal heart sound present, S2 normal heart sound present and no murmurs GI Palpation (GI): Soft to palpation, nontender and No hepatosplenomegaly present Auscultation: normal bowel sounds Rectal Exam - Female: deferred Skin General skin exam: no rashes or lesions noted Neuro General: patient oriented x3, gait normal and moves all extremities Cranial nerves: Yes Equal, round and reactive pupils present Psych Appearance: grossly normal Mental Status: mental status grossly normal Assessment & Plan Assessment & Plan (1) Crohns disease of small intestine: Code(s): K50.00 - Crohn's disease of small intestine without complications Category: Medical (2) Elevated LFTs: Code(s): R79.89 - Other specified abnormal findings of blood chemistry Category: Medical Plan 64 YF diagnosed with Crohn's disease diagnosed > than 20 yrs ago. Pt is status post right colon and small bowel resection x 3 Her course has been complicated by recurrent SBO due to fibrostenotic disease - last surgery was in Dec, 2021. Patient was last admitted with another episode of SBO in Dec 2021 and had laparotomy, extensive lysis of adhesions, resection of old ileocolonic anastomosis including length of ileum, with?creation of a new ileocolonic anastomosis to the?more distal transverse colon on 01/08/22 She is doing well after surgery. Patient was advised to continue Stelara 90 mg every 4 weeks. 02/08/23 Pt had an EGD which showed gastritis and a Colonoscopy which showed normal ileo-colic anastomosis and inactive Crohn's disease. Pt advised to start calcium + Vitamin D supplement for osteopenia noted on last bone scan 08/26/23 Crohn's disease is well controlled with Stelara Pt complains of right sided neck and head pain and will contact her PCP for advice. 02/24/24 Denies any GI complaints. Neck pain has resolved. Has 1-2 soft BMs daily Continue Stelara 90 mg subcutaneously every 4 weeks 08/24/24 Denies any GI complaints. Has 1 BM some days and 2 BMs on other days Check labs for evaluation of intermittent LFT elevation FU in 6 months Orders: Orders Hepatitis B Surface Antibody Today R79.89 - Other specified abnormal findings of blood chemistry BRAXTON Reflex Titer and Pattern Today R79.89 - Other specified abnormal findings of blood chemistry Transglutaminase Ab IgG Today R79.89 - Other specified abnormal findings of blood chemistry US abdomen colin w elastography Today R79.89 - Other specified abnormal findings of blood chemistry Liver Panel Today R79.89 - Other specified abnormal findings of blood chemistry Protein Electrophoresis, Serum Today R79.89 - Other specified abnormal findings of blood chemistry Smooth Muscle Antibody Today R79.89 - Other specified abnormal findings of blood chemistry Immunoglobulin A Today R79.89 - Other specified abnormal findings of blood chemistry Transglutaminase IgA Today R79.89 - Other specified abnormal findings of blood chemistry Coding Level of Care Code Est Pt Level 4 (96696) Diagnoses Crohn's disease of small intestine with intestinal obstruction K50.00 Elevated LFTs R79.89 Time Spent (min) 19
[2024-08-24 10:38] VITALS: BP 142/68; PULSE 76
== END 2024-08-24 10:55 | disposition home or self-care (01) ==
PROVIDERS: PCP Internal Medicine; Visit Provider Internal Medicine Gastroenterology
DX: K50.00 Crohn's disease of small intestine without complications (principal); R79.89 Other specified abnormal findings of blood chemistry
CPT/HCPCS: 99214

== ENCOUNTER → 2024-08-24 10:16 | Outpatient (BNVA) | payer MEDICARE, MEDICAID, SELFPAY | PROVIDERS: PCP Internal Medicine; Visit Provider Internal Medicine Gastroenterology | DX: K50.00 Crohn's disease of small intestine without complications (principal); R79.89 Other specified abnormal findings of blood chemistry | CPT/HCPCS: 99212 ==

== ENCOUNTER 2024-08-27 18:39 | Emergency (ER) | payer MEDICARE, MEDICAID, SELFPAY ==
[2024-08-27 19:05] VITALS: BP 144/82; PULSE 84; RESP 18; TEMP 36.8; O2SAT 98; BMI 27.0
[2024-08-27 19:38] LABS: MANUAL DIFF FLAG NO
[2024-08-27 19:41] LABS: Basophils Absolute Auto 0.1 X10*3/uL (0.0-0.2); Basophils Percent Auto 0.5 % (0-2); Eosinophils Absolute Auto 0.1 X10*3/uL (0.0-0.4); Hematocrit 41.5 % (37.0-47.0); Hemoglobin 14.4 g/dl (12.0-16.0); Imm Gran Abs Auto 0.05 X10*3/uL (0.00-0.03); Imm Gran Pct Auto 0.3 % (0.0-0.4); Lymphocytes Absolute Auto 2.1 X10*3/uL (1.2-4.9); Mean Corpuscular HGB Conc 34.7 g/dl (31.0-35.0); Mean Corpuscular Hemoglobin 30.1 pg (27.0-33.0); Mean Corpuscular Volume 86.6 fL (80.0-98.0); Mean Platelet Volume 10.3 fL (9.4-12.3); Monocytes Absolute Auto 0.8 X10*3/uL (0.1-1.2); Monocytes Percent Auto 5.5 % (2-11); Neutrophils Absolute Auto 11.1 x10*3/uL (2.0-8.3); Neutrophils Percent Auto 77.7 % (45-73); Platelet Count 283 X10*3/uL (160-400); Red Blood Count 4.79 X10*6/uL (4.20-5.50); Red Cell Distribution Width 14.1 % (11.0-16.0); White Blood Count 14.3 X10*3/uL (4.8-10.8)
[2024-08-27 19:41] LABS: Appearance Urine Clear; Color Urine Yellow; Glucose Urine UA Negative (Negative); Leukocyte Esterase Urine Trace (Negative); Nitrite Urine Negative (Negative); Specific Gravity - Urine <= 1.005 (1.005-1.025); UMIC TRIGGER UACC YES; Urine Blood Negative (Negative); Urine Ketones Negative (Negative); Urine Protein Negative (Neg-Trace)
[2024-08-27 19:54] LABS: Alanine Aminotransferase 46 U/L (0-31); Albumin Level 4.2 g/dL (3.5-5.0); Alkaline Phosphatase 81 U/L (39-117); Anion Gap 17 (12-20); Aspartate Amino Transferase 36 U/L (5-31); Bilirubin Total 0.5 mg/dL (0.0-1.0); Blood Urea Nitrogen 11 mg/dL (9-16); Calcium 10.2 mg/dL (8.4-10.2); Carbon Dioxide 21 mmol/L (22-29); Chloride 112 mmol/L (96-108); Creatinine Clr Calc Pharmacy 64.3; Estimated Glomerular Filt Rate > 60; Glucose Random 111 mg/dL (60-115); Magnesium 1.6 mg/dL (1.6-2.6); Potassium 3.6 mmol/L (3.3-5.1); Sodium 146 mmol/L (135-145); Total Protein 7.3 g/dL (6.5-8.0)
[2024-08-27 19:58] LABS: Bacteria Urine None Seen (None Seen); Hyaline Casts Urine 0-2 /LPF (0-2); RBC Urine 0-2 /HPF (0-2); WBC Urine 0-5 /HPF (0-5)
== END 2024-08-28 01:42 | disposition left against medical advice (07) ==
PROVIDERS: Emergency Provider Emergency Medicine
DX: R10.9 Unspecified abdominal pain (principal); K50.90 Crohn's disease, unspecified, without complications
CPT/HCPCS: 36415; 80053; 81001; 83735; 85025; 99282; 99283

== ENCOUNTER 2024-09-07 08:45 | Outpatient (REF) | payer MEDICARE, MEDICAID, SELFPAY ==
--- NOTE | ~2024-09-07 | US_ITS ---
EXAMINATION: US ABDOMEN LIMITED WITH LIVER ELASTOGRAPHY CLINICAL INFORMATION: Abnormal LFTs. COMPARISON: None available. TECHNIQUE: Real-time imaging of the abdominal viscera. Noninvasive ultrasound liver fibrosis assessment is performed using Naman ElastPQ point quantification shear wave elastography (pSWE) with a 5 MHz transducer. Multiple elastography samples are obtained. FINDINGS: PANCREAS: The visualized pancreatic head and body are normal in appearance. The remainder of the pancreas is obscured from visualization by the overlying bowel gas. LIVER: . The liver demonstrates normal size and contour but with increased echogenicity consistent with hepatic steatosis. There is focal fatty sparing around the gallbladder. There is a 6 mm cyst present in the left lobe of the liver. No concerning solid focal lesion or intrahepatic biliary duct dilatation. The right lobe measures 14 cm in length. The left lobe measures 8.7 cm in length. Shear wave elastography provides a median stiffness of 1.01 m/s (reference: normal median stiffness is 0.81 - 1.22 m/s). The IQR/median stiffness to assess sampling precision is 0.22 (reference: optimal IQR/median stiffness is under 0.3). GALLBLADDER: The gallbladder is physiologically distended without evidence of stones, sludge, polyps, wall thickening or pericholecystic fluid. COMMON BILE DUCT: Normal in caliber measuring 0.6 cm in diameter. RIGHT KIDNEY: No hydronephrosis. No focal parenchymal lesions. There is a 6 x 5 x 7 mm echogenic focus in the upper pole of the right kidney with twinkle artifact consistent with a stone. The kidney measures 10.3 cm in maximum dimension. FREE FLUID: None. US/US abdomen colin w elastography IMPRESSION: 1. Hepatic steatosis. 2. Nonobstructing right renal calculus. 3. Elastography: Liver elastography measurements are within normal (METAVIR Stage F0). Electronically signed by: Raghavendra Zuñiga MD 09/27/2024 12:45 AM EDT
== END 2024-09-07 08:46 | disposition home or self-care (01) ==
LOC: HO.US 08:45
PROVIDERS: Visit Provider Internal Medicine Gastroenterology
DX: R79.89 Other specified abnormal findings of blood chemistry (principal)
CPT/HCPCS: 76705; 76981

== ENCOUNTER 2025-02-02 06:50 | Outpatient (REF) | payer MEDICARE, MEDICAID, SELFPAY ==
--- OUTSIDE RECORDS SUMMARY | 2025-02-02 06:52 | XMS_ITS ---
Author Organization Jorge Green MD Address [address] [place] [id number] Care Team Providers Care Cat Driver Name Role Phone Jorge Green Primary Care Provider [phone] Allergies Allergen (clinical drug ingredient) Drug/Non Drug Allergy documented on EMR Reaction Allergy Type Onset Date Status Pneumococcal 13-Luann Conj Vacc rash and hives Drug Allergy Active Neosporin rash Drug Allergy Active REASON FOR VISIT 6 MO F/U Medications Medication SIG (Take, Route, Frequency, Duration) Notes Start Date End Date Status Ventolin HFA 108 (90 Base) MCG/ACT 2 puffs as needed Inhalation every 4 hrs 12/01/2016 Not-Takin g Omeprazole 20 MG 1 capsule Orally twi ce a day for 90 days Active Atorvastatin Calcium 40 MG 1 tablet Oral ly Once a day Active amLODIPine Besylate 5 MG 1 tablet Orally Once a day Active Stelara 90 MG/ML Subcutaneous injecti on every 4 weeks Active Cyclobenzaprine HCl 5 MG 1 tablet at bed time as needed Orally 3 times a day for 10 days 03/13/2021 Not-Taking Vital Signs Blood pressure systolic 120 mm Hg 12/19/19 25 Blood pressure diastolic 58 mm Hg 025 Height 59 in 12/19/2024 Weight 144 lbs 12/19/2024 BMI 29.08 kg/m2 12/19/2024 Encounters Encounter Location Date Provider Diagnosis Jorge Green MD [address] [place], [place] [phone] 12/19/2024 Jorge Green History of cigarette smoking Z87.891 ; Atherosclerotic heart disease of [place] coronary artery without angina pectoris I25.10 ; Lung nodule R91.1 ; Elevated triglycerides with high cholesterol E78.2 and Borderline hypertension R03.0 Assessments Encounter Date Diagnosis (ICD Code) Assessment Notes Treatment Notes Treatment Clinical Notes Section Notes 12/19/2024 History of cigarette smoking (ICD-10 - Z87.891) is vaping which is probably better for her/ order printed and put in future folder , pending dianostic monitoring 12/19/2024 Atherosclerotic heart disease of [place] coronary artery without angina pectoris (ICD-10 - I25.10) on statins and having no pains, will coontinue current regiment 12/19/2024 Lung nodule (ICD-10 - R91.1) pending future disagnostic monitoring 12/19/2024 Elevated triglycerides with high cholesterol (ICD-10 - E78.2) stable, will continue current regiment 12/19/2024 Borderline hypertension (ICD-10 - R03.0) stable, will continue current regiment Plan Of Treatment Medication Medication Name Sig Start Date Stop Date Notes Atorvastatin Calcium 40 MG 1 tablet Orally Once a day amLODIPine Besylate 5 MG 1 tablet Orally Once a day Treatment Notes Assessment Notes History of cigarette smoking is vaping w hich is probably better for her/ order printed and put in future folder , pending dianostic monitoring Atherosclerotic heart diseas e of [place] coronary artery without angina pectoris on statins and having no pains, will coontinue current regiment Lung nodule pending future disag nostic monitoring Elevated triglycerides with high cholest dionne stable, will continue current regiment Borderline hypertension stable, will con tinue current regiment Future Test Test Name Order Date CT chest wo con 04/18/2025 Next Appt Details Provider Name:Jorge Huddleston iearam, 06/11/2025 07:30:00 AM, [address], [address], [place], [phone], Provider Name:Jorge cuadrar, 06/18/2025 10:30:00 AM, [address], [address], [place], [phone], Progress Notes * ZAC COLINDRES MDOB:1960 (64 yo F)Acc No.[id number]:12/19/2024 Progress Notes Patient:?ZAC COLINDRES M Provider:?Jorge Green MD :1960???Age:64 Y???Sex:Female D ate:12/19/2024 Address:[address] [place], [place] [id number] Subjective: * Chief Complaints: * ???6 MO F/U * HPI: ???Symptom(s):? patient is a 64 yo female here for 6 month follow up visit. head is stuffy and eyes water. no humidifier. * ROS:?General/Constitutional:?Denies?Chills.?Denies?Fatigue.?Denies?Fever.?Denies?Headache.?ENT:?Patient denies?decreased sense of smell , any loss of taste , sore throat.?Denies?Sore throat.?Respiratory:?Denies?Cough.?Denies?Shortness of breath at rest.?Denies?Shortness of breath with exertion.?Gastrointestinal:?Denies?Diarrhea.?Denies?Nausea.?Musculoskeletal:?Patient denies?muscle aches.?Peripheral Vascular:?Patient denies?red and blue toes.? * Medical History:? * Surgical History:? * Hospitalization/Major Diagno stic Procedure:? * Medications:?TakingStelara 9 0 MG/ML Solution Prefilled Syringe Subcutaneous injection every 4 weeks amLODIPine Besylate 5 MG Tablet 1 tablet Orally Once a day Omeprazole 20 MG Capsule Delayed Release 1 capsule Orally twice a day Atorvastatin Calcium 40 MG Tablet 1 tablet Orally Once a day Taking Stelara 90 MG/ML Solution Prefilled Syringe Subcutaneous injection every 4 weeks Taking amLODIPine Besylate 5 MG Tablet 1 tablet Orally Once a day Taking Omeprazole 20 MG Capsule Delayed Release 1 capsule Orally twice a day Taking Atorvastatin Calcium 40 MG Tablet 1 tablet Orally Once a day Not-Taking/PRNCyclobenzaprine HCl 5 MG Tablet 1 tablet at bedtime as needed Orally 3 times a day Ventolin HFA 108 (90 Base) MCG/ACT Aerosol Solution 2 puffs as needed Inhalation every 4 hrs Medication List reviewed and reconciled with the patientNot-Taking/PRN Cyclobenzaprine HCl 5 MG Tablet 1 tablet at bedtime as needed Orally 3 times a day Not-Taking/PRN Ventolin HFA 108 (90 Base) MCG/ACT Aerosol Solution 2 puffs as needed Inhalation every 4 hrs Medication List reviewed and reconciled with the patient * Allergies:?Neosporin: rashPn eumococcal 13-Luann Conj Vacc: rash and hivesyes[Allergies Verified] Objective: * Vitals:?Ht: 59, Wt:144, BMI: 29.08, BP:120/58. * ???Past Orders: ???Lab:Liver Panel (Order Da te - 12/11/2024) (Collection Date & Time - 12/11/2024 07:45 AM) ? Value Reference Range ?Bilirubin Total 0.5 0.0- 1.0 - mg/dL ?Bilirubin Direct 0.2 0.0 -0.5 - mg/dL ?Aspartate Amino Transferase 27 5-31 - U/L ?Alanine Aminotransferase 32 H 0-31 - U/L ?Total Protein 7.4 6.5-8. 0 - g/dL ?Albumin Level 4.2 3.5-5. 0 - g/dL ?Alkaline Phosphatase 96 39-117 - U/L ???Lab:Lipid Panel with Refl ex (Order Date - 12/11/2024) (Collection Date & Time - 12/11/2024 07:45 AM) ? Value Reference Range ?Triglycerides 112 <150 - mg/dL ?Cholesterol 155 <200 - m g/dL ?LDL Cholesterol Calculated 75 <100 - mg/dL ?HDL Cholesterol 58 >40 - mg/dL * Examination: ???General Examination: ?GENERAL APPEARANCE:?alert, well hydrated, in no distress.?HEAD:?normocephalic.?SKIN:?good turgor.?HEART:?no murmurs, rubs, gallops , regular rate and rhythm.?LUNGS:?no wheezes, rales, rhonchi , good air movement , clear to auscultation bilaterally.? Assessment: * Assessment: 1.?History of cigarette smok ing - Z87.891 (Primary)???2.?Atherosclerotic heart disease of [place] coronary artery without angina pectoris - I25.10???3.?Lung nodule - R91.1???4.?Elevated triglycerides with high cholesterol - E78.2? ?5.?Borderline hypertension - R03.0??? Plan: * Treatment: Notes: is vaping which is probably better for her/ order printed and put in future folder , pendingdianostic monitoring??2.?Atherosclerotic heart disease of [place] coronary artery without angina pectoris? Continue Atorvastatin Calcium Tablet, 40 MG, 1 tablet, Orally, Once a day.?? Notes: on statins and having no pains, will coontinue current regiment??3.?Lung nodule?Imaging: CT chest wo con (Ordered for 04/18/2025)* due March 2025 Notes: pending future disagnostic monitoring??4.?Elevated triglycerides with high cholesterol? Notes: stable, will continue current regiment??5.?Borderline hypertension? Continue amLODIPine Besylate Tablet, 5 MG, 1 tablet, Orally, Once a day.?? Notes: stable, will continue current regiment?? * Procedure Codes:? * * Sign off status: Completed true * Provider:?Jorge Green MD Date:?0 12/19/2024 Generated for Dulce jules/Marco/eTransmitting on:?02/02/2025 06:52 AM EST History and Physical Notes * HPI (History of Present Illness) Category Sub-Category Detail Notes Category Not es Symptom(s) patient is a 64 yo female here for 6 month follow up visit. head is stuffy and eyes water. no humidifier. Examination Category Sub-Category Detail Notes Category Not es General Examination GENERAL APPEARANCE: alert, w ell hydrated, in no distress HEAD: normocephalic HEART: no murmurs, rubs, ga llops , regular rate and rhythm LUNGS: no wheezes, rales, r honchi , good air movement , clear to auscultation bilaterally SKIN: good turgor
--- OUTSIDE RECORDS SUMMARY | 2025-02-02 06:52 | XMS_ITS ---
Author Organization Jorge Green MD Address [address] [place] [phone] Care Team Providers Care Canteen Attendant Name Role Phone DavidAgnes sanzn Primary Care Provider [phone] Results Component Value Reference Range Notes Liver Panel Reviewed date:12/11/2024 12:47:11 PM Interpretation: Performing Lab:[facility], [address] [place] [phone] Notes/Report: Bilirubin Total 0.5 0.0-1.0 mg/dL Bilirubin Direct 0.2 0.0-0.5 mg/dL Aspartate Amino Transferase 27 5-31 U/L Alanine Aminotransferase 32 0-31 U/L Total Protein 7.4 6.5-8.0 g/dL Albumin Level 4.2 3.5-5.0 g/dL Alkaline Phosphatase 96 39-117 U/L Lipid Panel with Reflex Reviewed date:12/11/2024 02:29:10 PM Interpretation: Performing Lab:[facility], [address] [place] [phone] Notes/Report: Triglycerides 112 <150 mg/dL Desirable Triglyceride: less than 150 mg/dL Borderline High Triglyceride 150-199 mg/dL High Triglyceride: 200-499 mg/dL Very High Triglyceride: greater than or equal to 5OO mg/dL Cholesterol 155 <200 mg/dL Desirable Cholesterol: less than 200 mg/dL Borderline High Cholesterol: 200-239 mg/dL High Cholesterol: greater than 239 mg/dL LDL Cholesterol Calculated 75 <100 mg/dL Desirable LDL: less than 100 mg/dL Near Optimal/Above Optimal LDL: 110-129 mg/dL Borderline High LDL: 130-159 mg/dL High LDL: 160-189 mg/dL Very High LDL: greater than or equal to 190 mg/dL HDL Cholesterol 58 >40 mg/dL Desirable HDL: greater than 40 mg/dL Note: This HDL assay may give artificially low results in patients with liver disease. REASON FOR VISIT FASTING LIPIDS Encounters Encounter Location Date Provider Diagnosis Jorge Green MD [address] [place] [phone] 12/11/2024 Jorge Green Elevated triglycerides with high cholesterol E78.2 Assessments Encounter Date Diagnosis (ICD Code) Assessment Notes Treatment Notes Treatment Clinical Notes Section Notes 12/11/2024 Elevated triglycerides with high cholesterol (ICD-10 - E78.2) Plan Of Treatment Next Appt Details Provider Name:Jorge horn, 06/11/2025 07:30:00 AM, [address] [place] [address], [address], [phone], Provider Name:Jorge horn, 06/18/2025 10:30:00 AM, [address] [place] [address], [address], [phone], Progress Notes * ZAC COLINDRES MDOB:1960 (64 yo F)Acc No.[id number]:12/11/2024 Progress Note Patient:?ZAC COLINDRES Provider:?Jorge Green MD :1960???Age:64 Y???Sex:Female D ate:12/11/2024 Address:[address] [place], [place] [id number] Subjective: * Chief Complaints: * ???1. FASTING LIPIDS. * Medical History:? Objective: * Vitals:? Assessment: * Assessment: 1.?Elevated triglycerides wi th high cholesterol - E78.2 (Primary)??? Plan: * Treatment: * Procedure Codes:?69844 VENIP UNCT, ROUTINE* * * The named appointment provid er may or may not be the originator of this progress note, and it is not deemed complete until electronically signed by the appointment provider. Sign off status: Pending * Provider:?Jorge Green MD Date:?0 12/11/2024 Generated for Dulce jules/Marco/Wilfredosmitting on:?02/02/2025 06:52 AM EST
--- OUTSIDE RECORDS SUMMARY | 2025-02-02 06:53 | XMS_ITS ---
Author Organization Jorge Green MD Address [address] [place] [phone] Care Team Providers Care Film Washer Name Role Phone Jogre Green Primary Care Provider [phone] Allergies Allergen (clinical drug ingredient) Drug/Non Drug Allergy documented on EMR Reaction Allergy Type Onset Date Status Pneumococcal 13-Luann Conj Vacc rash and hives Drug Allergy Active Neosporin rash Drug Allergy Active REASON FOR VISIT cold, coughing, c/o chills nonproductive cough, runny nose congested, diarrhea x 1 week, Audio [phone] Medications Medication SIG (Take, Route, Frequency, Duration) Notes Start Date End Date Status Omeprazole 20 MG 1 capsule Orally twi ce a day for 90 days Active Stelara 90 MG/ML Subcutaneous injecti on every 4 weeks Active Atorvastatin Calcium 40 MG 1 tablet Oral ly Once a day Active amLODIPine Besylate 5 MG 1 tablet Orally Once a day Active Cyclobenzaprine HCl 5 MG 1 tablet at bed time as needed Orally 3 times a day for 10 days 03/13/2021 Not-Taking Albuterol Sulfate HFA 108 (90 Base) MCG/ACT 1 puff as needed Inhalation every 4 hrs for 30 days 01/22/2025 Active predniSONE 10 MG 1 tablet with food o r milk Orally 4 tabs for 3 days,3tabs for 3 days, 2 tabs for 3 days, and 1 tab for 3 days for 14 days 01/22/2025 Active Amoxicillin-Pot Clavulanate 875-125 MG 1 tablet Orally every 12 hrs for 10 days 01/22/2025 Active Ventolin HFA 108 (90 Base) MCG/ACT 2 puffs as needed Inhalation every 4 hrs 12/01/2016 Asim renteria Vital Signs Height 59 in 01/22/2025 weight and BP not taken at h ome today Encounters Encounter Location Date Provider Diagnosis Jorge Green MD [address] [place] [address] Drive [address] [place] [phone] 01/22/2025 Jorge Green Bronchitis J40 Assessments Encounter Date Diagnosis (ICD Code) Assessment Notes Treatment Notes Treatment Clinical Notes Section Notes 01/22/2025 Bronchitis (ICD-10 - J40) patient verbalized understanding of medication and directions for use Plan Of Treatment Medication Medication Name Sig Start Date Stop Date Notes Albuterol Sulfate HFA 108 (9 0 Base) MCG/ACT 1 puff as needed Inhalation every 4 hrs for 30 days 01/22/2025 predniSONE 10 MG 1 tablet with food o r milk Orally 4 tabs for 3 days,3tabs for 3 days, 2 tabs for 3 days, and 1 tab for 3 days for 14 days 01/22/2025 Amoxicillin-Pot Clavulanate 875-125 MG 1 tablet Orally every 12 hrs for 10 days 01/22/2025 Treatment Notes Assessment Notes Bronchitis patient verbalized u nderstanding of medication and directions for use Next Appt Details Provider Name:Jorge horn, 06/11/2025 07:30:00 AM, [address] [place] [address], Suite [facility], [place], [place], [phone], Provider Name:Jorge horn, 06/18/2025 10:30:00 AM, [address] [place] [address], Suite [facility], [place], [place], [phone], Progress Notes * ZAC COLINDRES MDOB:1960 (64 yo F)Acc No.[id number]:01/22/2025 Patient:?ZAC COLINDRES Provider:?Jorge Green MD :1960???Age:64 Y???Sex:Female D ate:01/22/2025 Address:[address] [place] [address], [place], [id number] Subjective: * Chief Complaints: * ???Cold, coughing, c/o chill s nonproductive cough, runny nose congested, [phone] * HPI: ???Symptom(s):?Telehealth?Location of provider rendering services:?[address], [address],?Location of patient:?at address listed in demographics for today's visit,?Patient identification confirmed using:?Name, ,?Telehealth method:?Telephone only. Patient not visible to care provider.,?Consent:?Patient verbally consented to treatment, Patient verbally consented to billing insurance company, Patient informed of any privacy concerns related to method of visit,?Total time spend talking with patient (minutes)?12.?patient is a 64 yo female audio telehealth visit, has a cough and feels like eyes are running. coughing a lot. no fever. * ROS:?General/Constitutional:?Admits?Chills.?Denies?Fatigue.?Denies?Fever.?Denies?Headache.?ENT:?Patient denies?decreased sense of smell, any loss of taste, sore throat.?Respiratory:?Admits?Cough.?Denies?Shortness of breath at rest.?Denies?Shortness of breath with exertion.?Denies?Sputum production.?Gastrointestinal:?Denies?Diarrhea.?Denies?Nausea.?Musculoskeletal:?Patient denies?muscle aches.?Peripheral Vascular:?Patient denies?red and blue toes.? * Medical History:? * Surgical History:? * Hospitalization/Major Diagno stic Procedure:? * Medications:?TakingStelara 9 0 MG/ML Solution Prefilled Syringe Subcutaneous injection every 4 weeks Omeprazole 20 MG Capsule Delayed Release 1 capsule Orally twice a day amLODIPine Besylate 5 MG Tablet 1 tablet Orally Once a day Atorvastatin Calcium 40 MG Tablet 1 tablet Orally Once a day Taking Stelara 90 MG/ML Solution Prefilled Syringe Subcutaneous injection every 4 weeks Taking Omeprazole 20 MG Capsule Delayed Release 1 capsule Orally twice a day Taking amLODIPine Besylate 5 MG Tablet 1 tablet Orally Once a day Taking Atorvastatin Calcium 40 MG [...] rash and hivesyes[Allergies Verified] Objective: * Vitals:?Ht: 59. weight and BP? not taken at home today. * Examination: ???General Examination: ?GENERAL APPEARANCE:?repeatedly coughing.? Assessment: * Assessment: 1.?Bronchitis - J40 (Primary )??? Plan: * Treatment: * Procedure Codes:? * * Sign off status: Completed true * Provider:?Jorge Green MD Date:?0 01/22/2025 Generated for Dulce jules/Marco/Warner on:?02/02/2025 06:53 AM EST History and Physical Notes * HPI (History of Present Illness) Category Sub-Category Detail Notes Category Not es Symptom(s) [facility] [address] [place] [address], [address] patient is a 64 yo female audio telehealth visit, has a cough and feels like eyes are running. coughing a lot. no fever Location of patient:: at address listed in demographics for today's visit Patient identification confirmed using:: Name, Telehealth method:: Telephone only. Floridalma ent not visible to care provider. Consent:: Patient verbally c onsented to treatment, Patient verbally consented to billing insurance company, Patient informed of any privacy concerns related to method of visit Total time spend talking with patient (m inutes): 12 Examination Category Sub-Category Detail Notes Category Not es General Examination GENERAL APPEARANCE: repeatedly cou ghing
[2025-02-02 08:09] LABS: Alanine Aminotransferase 33 U/L (0-31); Alkaline Phosphatase 83 U/L (39-117); Aspartate Amino Transferase 26 U/L (5-31); Bilirubin Direct 0.3 mg/dL (0.0-0.5); Bilirubin Total 0.7 mg/dL (0.0-1.0); Total Protein 7.4 g/dL (6.5-8.0)
[2025-02-02 08:58] LABS: HBS Num1 0.69 mIU/mL (0-7.99); ~Hepatitis B Surface Antibody NONREACTIVE (Nonreactive)
[2025-02-03 19:19] LABS: Immunoglobulin A 365 mg/dL (70-320)
[2025-02-05 09:47] LABS: Anti Nuclear Antibody Screen NEGATIVE (NEGATIVE)
[2025-02-06 10:13] LABS: Prot Elec - Alpha1 0.3 g/dL (0.2-0.3); Prot Elec - Alpha2 0.7 g/dL (0.5-0.9); Prot Elec - Beta 1 0.5 g/dL (0.4-0.6); Prot Elec - Beta 2 0.5 g/dL (0.2-0.5); Prot Elec - Gamma 0.9 g/dL (0.8-1.7); Prot Elec - Total Protein 6.9 g/dL (6.1-8.1)
[2025-02-07 11:43] LABS: Smooth Muscle Antibody <20 U (<20)
[2025-02-08 14:57] LABS: Transglutaminase Ab IgG <1.0 U/mL; Transglutaminase IgA <1.0 U/mL
== END 2025-02-02 06:51 | disposition home or self-care (01) ==
LOC: HO.LAB 06:50
PROVIDERS: PCP Internal Medicine; Visit Provider Internal Medicine Gastroenterology
DX: R79.89 Other specified abnormal findings of blood chemistry (principal)
CPT/HCPCS: 36415; 80076; 82784; 84165; 86015; 86038; 86364; 86706

== ENCOUNTER 2025-02-08 10:48 | Outpatient (REF) | payer MEDICARE, MEDICAID, SELFPAY ==
--- NOTE | ~2025-02-08 | XR_ITS ---
EXAMINATION: XR CHEST 2 VIEWS HISTORY: CHEST PAIN COMPARISON: Comparison is made with the prior examination dated 01/06/2022. FINDINGS: PA and lateral views of the chest are submitted. The lungs are expanded and clear. There is no pleural effusion, pneumothorax, or pulmonary vascular congestion. The heart is normal in size. There is calcification of the thoracic aorta. The bones are intact. XR/XR chest 2V IMPRESSION: No acute cardiopulmonary abnormality. Electronically signed by: Sandor Son MD 02/08/2025 12:13 PM EDT
--- OUTSIDE RECORDS SUMMARY | 2025-02-08 13:45 | XMS_ITS ---
Author Organization Jorge Green MD Address [address] [place] [phone] Care Team Providers Care Supercharge Repair Supervisor Name Role Phone Jorge Green Primary Care Provider [phone] Allergies Allergen (clinical drug ingredient) Drug/Non Drug [...] Green MD [address] [place], [place] [phone] 12/19/2024 Jorge Green History of cigarette smoking Z87.891 ; Atherosclerotic heart disease of [place] coronary artery without angina pectoris I25.10 ; [...] dianostic monitoring 12/19/2024 Atherosclerotic heart disease of [place] coronary artery without angina pectoris (ICD-10 - [...] dianostic monitoring Atherosclerotic heart diseas e of [place] coronary artery without angina pectoris on statins [...] AM, [address], [address], [place], [phone], Provider Name:Jorge cuadrar, 06/18/2025 10:30:00 AM, [address], [address], [place], [phone], Progress Notes * ZAC COLINDRES MDOB:1960 (64 yo F)Acc No.[id number]:12/19/2024 Progress Notes Patient:?ZAC COLINDRES M Provider:?Jorge Green MD :1960???Age:64 Y???Sex:Female D ate:12/19/2024 Address:[address] [place], [place] [phone] Subjective: * Chief Complaints: * ???6 MO [...] ing - Z87.891 (Primary)???2.?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 ?5.?Borderline hypertension - R03.0??? Plan: * Treatment: Notes: is vaping which is probably better for her/ order printed and put in future folder , pendingdianostic monitoring??2.?Atherosclerotic heart disease of [place] coronary artery without angina pectoris? Continue Atorvastatin [...] MD Date:?0 12/19/2024 Generated for Dulce jules/Marco/eTransmitting on:?02/08/2025 01:45 PM EDT History and Physical Notes * HPI (History [...]
--- OUTSIDE RECORDS SUMMARY | 2025-02-08 13:45 | XMS_ITS ---
Author Organization Jorge Green MD Address [address] [place] [phone] Care Team Providers Care Export Manager Name Role Phone Jorge Green Primary Care Provider Results Component Value Reference Range Notes XR chest 2V Reviewed date:02/08/2025 12:38:43 PM Interpretation: Performing Lab: Notes/Report: [address] [address] XRay Report Signed Patient: Rose Colindres MR#: [id number] 9 : 1960 Acct:[id number] Age/Sex: 64 / F ADM Date: 02/08/25 Loc: [facility] Attending Dr: Jorge Green MD Ordering Physician: Jorge Green MD Date of Service: 02/08/25 Procedure(s): XR chest 2V Accession Number(s): [id number] cc: Jorge Green MD EXAMINATION: XR CHEST 2 VIEWS HISTORY: CHEST PAIN COMPARISON: Comparison is made with the prior examination dated 01/06/2022. FINDINGS: PA and lateral views of the chest are submitted. The lungs are expanded and clear. There is no pleural effusion, pneumothorax, or pulmonary vascular congestion. The heart is normal in size. There is calcification of the thoracic aorta. The bones are intact. XR/XR chest 2V IMPRESSION: No acute cardiopulmonary abnormality. Electronically signed by: Snador Son MD 02/08/2025 12:13 PM EDT RP Dictated By: Sandor Son MD Signed By: <Electronically signed by Sandor Son MD in OV> 02/08/25 1213 DD/ 1055 TD/TT: 02/08/25 1100 [employer] Curer: [place] [id number] XRay Report Signed Patient: Rose Colindres MR#: [id number] 9 : 1960 Acct:[id number] Age/Sex: 64 / F ADM Date: 02/08/25 Loc: [facility] Attending Dr: Jorge Green MD Ordering Physician: Jorge Green MD Date of Service: 02/08/25 Procedure(s): XR chest 2V Accession Number(s): [id number] cc: Jorge Green MD EXAMINATION: XR CHEST 2 VIEWS HISTORY: CHEST PAIN COMPARISON: Comparis on is made with the prior examination dated 01/06/2022. FINDINGS: PA and lat eral views of the chest are submitted. The lungs are expanded and kristina ar. There is no pleural effusion, pneumothorax, or pulmonary vascular c ongestion. The heart is normal in size. There is calcification of the thoracic aorta. The bones are intact. X R/XR chest 2V IMPRESSION: No acute cardiopulmo nary abnormality. Electronically brayden d by: Sandor Son MD 02/08/2025 12:13 PM EDT RP Dictated By: Sandor Son MD Signed By: <Electron ically signed by Sandor Son MD in OV> 02/08/25 1213 DD/ 1055 TD/TT: 02/08/25 1100 [employer] Curer: REASON FOR VISIT lower right side back pain Encounters Encounter Location Date Provider Diagnosis Jorge Green MD [address] [place], [place] [phone] 02/08/2025 Jorge Green Chest pain R07.9 Assessments Encounter Date Diagnosis (ICD Code) Assessment Notes Treatment Notes Treatment Clinical Notes Section Notes 02/08/2025 Chest pain (ICD-10 - R07.9) order faxed to [facility] patient reg Plan Of Treatment Treatment Notes Assessment Notes Chest pain order faxed to [facility] p atient reg Next Appt Details Provider Name:Jorge horn, 06/11/2025 07:30:00 AM, [address], [address], [place], [place], [phone], Provider Name:Jorge horn, 06/18/2025 10:30:00 AM, [address], [address], [place], [place], [phone], Progress Notes * ROSE COLINDRES MDOB:1960 (64 yo F)Acc No.[id number]:02/08/2025 Patient:?ROSE COLINDRES :1960???Age:64 Y???Sex:Female Address:[address] [place] [address], [phone] Subjective: * Chief Complaints: * ???Lower right side back merrill n * Medical History:? * Surgical History:? * Hospitalization/Major Diagno stic Procedure:? * Medications:? Objective: * Vitals:? * Physical Examination:? Assessment: * Assessment: 1.?Chest pain - R07.9??? Plan: * Treatment: * Procedure Codes:? * true * Date:? Generated for Dulce jules/Marco/eTransmitting on:?02/08/2025 01:45 PM EDT
--- OUTSIDE RECORDS SUMMARY | 2025-02-08 13:46 | XMS_ITS ---
Author Organization Jorge Green MD Address [address] [place] [phone] Care Team Providers Care Grave Digger Name Role Phone Jorge Green Primary Care Provider [phone] Allergies Allergen (clinical drug ingredient) Drug/Non Drug Allergy documented on EMR Reaction Allergy Type Onset Date Status Pneumococcal 13-Luann Conj Vacc rash and hives Drug Allergy Active Neosporin rash Drug Allergy Active REASON FOR VISIT cold, coughing, c/o chills nonproductive cough, runny nose congested, diarrhea x 1 week, Audio [phone] Medications Medication SIG (Take, Route, Frequency, Duration) [...] Location Date Provider Diagnosis Jorge Green MD [address] [place] [address] Drive [address] [place] [phone] 01/22/2025 Jorge Geren Bronchitis J40 Assessments Encounter Date Diagnosis (ICD [...] Details Provider Name:Jorge horn, 06/11/2025 07:30:00 AM, [address] [place] [address], Suite [facility], [place], [place], [phone], Provider Name:Jorge horn, 06/18/2025 10:30:00 AM, [address] [place] [address], Suite [facility], [place], [place], [phone], Progress Notes * ZAC COLINDRES MDOB:1960 (64 yo F)Acc No.[id number]:01/22/2025 Patient:?ZAC COLINDRES Provider:?Jorge Green MD :1960???Age:64 Y???Sex:Female D ate:01/22/2025 Address:[address] [place] [address], [place], [id number] Subjective: * Chief Complaints: * ???Cold, coughing, c/o chill s nonproductive cough, runny nose congested, [facility] [phone] * HPI: ???Symptom(s):?Telehealth?Location of provider rendering services:?[address] [...] MD Date:?0 01/22/2025 Generated for Dulce jules/Marco/Warner on:?02/08/2025 01:45 PM EDT History and Physical Notes * HPI (History of Present Illness) Category Sub-Category Detail Notes Category Not es Symptom(s) Telehealth Location of [facility] ider rendering services:: [address], [address] patient is a 64 yo [...]
== END 2025-02-08 10:49 | disposition home or self-care (01) ==
LOC: HO.XRAY 10:48
PROVIDERS: PCP Internal Medicine; Visit Provider Internal Medicine
DX: R07.9 Chest pain, unspecified (principal)
CPT/HCPCS: 71046

== ENCOUNTER → 2025-02-08 10:55 | Outpatient (BNV) | payer MEDICARE, MEDICAID, SELFPAY | PROVIDERS: PCP Internal Medicine; Visit Provider Radiology Diagnostic Radiology | DX: R07.9 Chest pain, unspecified (principal) | CPT/HCPCS: 71046 ==

== ENCOUNTER 2025-02-22 10:06 | Outpatient (AMB) | payer MEDICARE, MEDICAID, SELFPAY ==
--- NOTE | 2025-02-22 10:15 | A.OFFVIS_ITS ---
Vital Signs 02/22/25 10:17 Height 5 ft Weight 140 lb BMI 27.3 BP 160/76 H Blood Pressure Location Lt brachial Position Sitting Pulse 76 Pulse Oximetry (%) 99 Oxygen Delivery Method Room Air Intake Visit Reasons: 6 month follow up Intake Note: Patient 6 month follow up for Crohns disease of small intestine, lab and Abdominal US result. Patient cc: abdominal pain on and off, between diarrhea and constipation, denies any other GI issues for today visit. Psychiatric Nursing Assistant Required: No Accompanied by: Self / Same As Patient Allergies No Known Allergies [No Known Allergies*] Allergy (Verified 02/22/25 10:15) Medication List - Last Reconciled 02/22/25 by Coty Iglesias MD amlodipine (Norvasc) 5 mg PO DAILY atorvastatin 40 mg PO DAILY arpxpzeu-zsuq-OD-calcium-mins 18 mg iron-400 mcg-500 mg Ca (One-A-Day Womens Formula) tabs PO DAILY omeprazole 20 mg PO BID 60 days ustekinumab (Stelara) 90 mg subcut Q4W 4 weeks HPI HPI 6 month follow up: Details: GI clinic visit for this 64-year-old female for follow-up of fibro-stenotic Crohn's disease - on Stelara. Patient was being followed by Dr. Cruz since 2012 Pt states I have not been having any stomach pains. My stools change from day to day sometimes I have diarrhea and then sometimes I don't. But I am never constipated. I have been pretty good. Last hospitalized in Dec, 2021 with SBO. 01/08/22 pt had laparotomy, extensive lysis of adhesions, resection of fold ileocolonic anastomosis including length of ileum, with? creation of a new ileocolonic anastomosis to the? more distal transverse colon by Dr Cortes TODAY'S VISIT: Patient 6 month follow up for Crohns disease of small intestine, lab and Abdominal US result. Patient cc: abdominal pain on and off, between diarrhea and constipation, Has diarrhea alternating with constipation - diarrhea 3 days a week and constipation 4 days Last episode of constipation was bad, took Dulcolax and pain went away. She would like to try Miralax for constipation PAST VISITS: Denies any GI complaints. Has 1 BM some days and 2 BMs on other days Denies mouth ulcers, jt pains, skin rash or eye problems Blurring of vision - thinks she needs glasses Neck pain has resolved. Has 1-2 soft BMs daily Notes pain in the right side of neck radiating to the right side of the head. Notes some blurred vision and denies eye pain or dizziness Always has diarrhea - notes 3-4 loose BMs a day EGD and colon results reviewed. Doing well and denies any problems Has a BM daily without diarrhea or rectal bleeding Abdominal pain has resolved. Wt is stable Pt states I have not been having any stomach pains. PAST VISIT:My stools change from day to day sometimes I have diarrhea and then sometimes I don't. But I am never constipated. I have been pretty good. Doing well after the surgery. Notes intermittent sharp pain after she is sitting for a while. Appetite is good - advised to eat 5 small meals throughout the day. Has 2 loose BMs a day. PAST VISITS: I am doing good. I have no problems at all Has a BM daily - can have diarrhea or normal stools depending on her diet. Drinks V8 juice instead of taking vegetables. She is taking Stelara every 4-weeks - last injection was on 05/21/21. In 11/2020 she had her Stelara level checked and she was within therapeutic range without antibodies. She continues to smoke? but has cut down to 10 cigarettes a day. She intermittently using the Nicotine patches. Her last OV was on 03/24/21 after a hospitalization for small bowel obstruction. She was hospitalized [place] 04/17 at [facility] During that time, she did appear to? have a Crohn?s flare. Did not get vaccinated for COVID yet and planning to get vaccinated in the near future. Can have diarrhea intermittently - a few days a week.? 4-5 watery BMs a day without blood or mucous. No BM on some days. Notes a knot in her stomach if she moves a certain way - ? due to scar tissue. Her wt has been stable. Eats small amounts of food during the summer months. Patient denies symptoms of heartburn, dysphagia, nausea, vomiting, change in weight.? Denies recent change in bowel habits, constipation, diarrhea, black stools or rectal bleeding. Patient denies major cardiac or pulmonary problems, loud snoring or sleep apnea Denies problems with anesthesia in the past. Denies being on chronic anticoagulation. Patient denies known family history of colon polyps, colon cancer or other GI malignancies. PAST GI HISTORY BY REVIEW OF MEDICAL RECORDS: 58 YF with known history of Crohn's disease s/p small bowel resection x 2 andpast history of recurrent SBO followed by Dr Cruz.Patient was diagnosed with Crohn's disease at age 39 years. Paient was initially treated with medication. She is unable to recall the names - she thinks she took Asacol and steroids. She had two surgeries which were performed in [place] > 10 years ago with resection of small bowel and right colon. She was treated with Infliximab for a year 4 years ago and was subsequently discontinued for unclear reasons. Patient moved to [place] 4 years ago. She was started on Entyvio infusions every 8 weeks 1 year ago - last infusion was on 05/05/2018. She has had multiple past admissions for SBO which resolves with conservative management. She was previously reluctant to have surgery and is now aggreeable to proceeding with surgery. She noted onset of RLQ pain yesterday evening associated with nausea and vomting. She denies fever and noted some chills. Denies having any BM or passing gas since yesterday evening. She denies symptoms suggestive of extraintestional manifestation of?Crohn's disease IMAGING STUDIES:? 04/13/[address] SCAN SHOWED: *? The patient is status post right hemicolectomy with an ileocolic anastomosis within the right mid-abdomen. The distal 10 cm of small bowel leading up to the ileocolic anastomosis shows irregular wall thickening and luminal narrowing on a chronic basis. There is dilatation of the small bowel proximal to this segment measuring up to 4.2 cm which may represent a combination of a partial mechanical smallbowel obstruction and ileus. There is an additional segment of smallbowel within the left midabdomen, likely distal jejunum or proximal ileum measuring 8.6 cm in length, also showing irregular wall thickening and luminal narrowing likely representing an additional site of inflammation of indeterminate activity. *? Bilateral nonobstructive intrarenal calculi as described. ENDOSCOPIC STUDIES:?01/29/21 EGD AND COLONOSCOPY WERE PERFORMED BY DR. CRUZ: Esophagogastroduodenoscopy: Hiatal hernia, Superficial hemorrhagic gastritis; Colonoscopy: open anastomosis, ileal mucosa normal, able to intubate for approximately 8 cm, colon mucosa normal. BIOPSIES SHOWED: A.? Duodenum, biopsies:? Duodenal mucosa with no significant histopathology; no villous abnormality identified; no increase in intraepithelial lymphocytes. B.? Stomach, random, biopsies:? Gastric mucosa with mild chronic, inactive gastritis; negative for Helicobacter pylori organisms; negative for intestinal metaplasia; negative for dysplasia. C.? Small bowel, biopsies:? Small bowel mucosa within normal limits; no active ?inflammation; no granulomas; negative for malignancy. ?D.? Colon, proximal, biopsies:? Colonic mucosa within normal limits. ?E.? Colon, left, biopsies:? Colonic mucosa within normal limits PFS Medical History (Updated 08/24/24 @ 10:49 by Coty Iglesias MD) Smoker Gastritis Small bowel obstruction Hyperlipidemia Crohns disease of small intestine Surgical History History of laparotomy Hx of endoscopy History of bowel resection S/P BSO (bilateral salpingo-oophorectomy) History of appendectomy History of esophagogastroduodenoscopy (EGD) Hx of colonoscopy Family History Father No problems noted. Mother Pneumonia Sister Breast cancer Social History Household Members: Other Housing: Apartment Do you presently have visiting nurse or other home services: No Alcohol intake: never Comment: pt asleep Patient Tobacco Use Status: Current everyday Tobacco user Tobacco use type: Cigarette Cigarette Packs Per Day: 0.5 Cigarettes Per Day: 10.0 Years Smoked: 45 e-Cigarette/Vaping Use: Never Used Second Hand Smoke Exposure: No Advance Directives Date on File: 04/13/21 service: No Current occupational status: unemployed and disabled Review of Systems Const All systems reviewed & are unremarkable except as noted in HPI and below Physical Exam Vital Signs: Last Vital Signs Pulse 76 02/22/25 10:17 BP 160/76 H 02/22/25 10:17 Pulse Ox 99 02/22/25 10:17 Oxygen Delivery Method Room Air 02/22/25 10:17 BMI result Body Mass Index 27.3 Const General: healthy appearing and no acute distress Nutritional Appearance: overweight Orientation/consciousness: patient oriented x3 Limitations: no limitations HEENT Head: Yes normal to inspection Ears: hearing grossly normal bilaterally Eyes Sclerae: sclerae normal Pupils: Equal, round and reactive pupils present Neck Neck: Yes normal visual inspection Chest Chest palpation & inspection: normal inspection of the chest Resp Effort & Inspection: normal respiratory effort Auscultation: clear to auscultation bilaterally Cardio Palpation: normal PMI Rate: regular rate Rhythm: regular rhythm Heart sounds: S1 normal heart sound present, S2 normal heart sound present and no murmurs GI Palpation (GI): Soft to palpation, nontender and No hepatosplenomegaly present Auscultation: normal bowel sounds Rectal Exam - Female: deferred Skin General skin exam: no rashes or lesions noted Neuro General: patient oriented x3, gait normal and moves all extremities Cranial nerves: Yes Equal, round and reactive pupils present Psych Appearance: grossly normal Mental Status: mental status grossly normal Assessment & Plan Assessment & Plan (1) Crohns disease of small intestine: Code(s): K50.00 - Crohn's disease of small intestine without complications Category: Medical (2) Elevated LFTs: Code(s): R79.89 - Other specified abnormal findings of blood chemistry Category: Medical Plan 64 YF diagnosed with Crohn's disease diagnosed > than 20 yrs ago. Pt is status post right colon and small bowel resection x 3 Her course has been complicated by recurrent SBO due to fibrostenotic disease - last surgery was in Dec, 2021. Patient was last admitted with another episode of SBO in Dec 2021 and had laparotomy, extensive lysis of adhesions, resection of old ileocolonic anastomosis including length of ileum, with?creation of a new ileocolonic anastomosis to the?more distal transverse colon on 01/08/22 She is doing well after surgery. Patient was advised to continue Stelara 90 mg every 4 weeks. 02/08/23 Pt had an EGD which showed gastritis and a Colonoscopy which showed normal ileo-colic anastomosis and inactive Crohn's disease. Pt advised to start calcium + Vitamin D supplement for osteopenia noted on last bone scan 08/26/23 Crohn's disease is well controlled with Stelara Pt complains of right sided neck and head pain and will contact her PCP for advice. 02/24/24 Denies any GI complaints. Neck pain has resolved. Has 1-2 soft BMs daily Continue Stelara 90 mg subcutaneously every 4 weeks 08/24/24 Denies any GI complaints. Has 1 BM some days and 2 BMs on other days Check labs for evaluation of intermittent LFT elevation 02/22/25 Pt advised to take Miralax every other day for constipation Schedule a colonoscopy for surveillance for Crohn's disease FU in 6 months Medications: New polyethylene glycol 3350 (Miralax) 17 grams PO DAILY 90 days 1,530 grams 3RF K59.09 - Other constipation Changed From ustekinumab (Stelara) 90 mg subcut Q4W 4 weeks 1 mL 5RF K50.00 - Crohn's disease of small intestine without complications To ustekinumab (Stelara) 90 mg subcut Q4W 12 weeks 3 mL 2RF K50.00 - Crohn's disease of small intestine without complications Coding Level of Care Code Est Pt Level 3 (19784) Diagnoses Crohn's disease of small intestine with intestinal obstruction K50.00 Elevated LFTs R79.89 Time Spent (min) 18
[2025-02-22 10:17] VITALS: BP 160/76; PULSE 76; O2SAT 99; BMI 27.3
--- OUTSIDE RECORDS SUMMARY | 2025-02-22 12:47 | XMS_ITS ---
Author Organization Jorge Green MD Address [address] [place] [phone] Care Team Providers Care Java Web User Interface Developer Name Role Phone Jorge Green Primary Care Provider Results Component Value Reference Range Notes XR chest 2V Reviewed date:02/08/2025 12:38:43 PM Interpretation: Performing Lab: Notes/Report: [address] [address] XRay Report Signed Patient: Rose Colindres MR#: [id number] 9 : 1960 Acct:[id number] Age/Sex: 64 / F ADM Date: 02/08/25 Loc: [facility] Attending Dr: Jorge Green MD Ordering Physician: Jorge Green MD Date of Service: 02/08/25 Procedure(s): XR chest 2V Accession Number(s): [id number] cc: Jorge Green MD EXAMINATION: XR CHEST [...] No acute cardiopulmonary abnormality. Electronically signed by: Sandor Son MD 02/08/2025 12:13 PM EDT RP Dictated By: Sandor Son MD Signed By: <Electronically signed by Sandor Son MD in OV> 02/08/25 1213 DD/ 1055 TD/TT: 02/08/25 1100 Regional Director Of Finance: [place] [address] XRay Report Signed Patient: Rose Colindres MR#: [id number] 9 : 1960 Acct:[id number] Age/Sex: 64 / F ADM Date: 02/08/25 Loc: HO.JULIAN Attending Dr: Jorge Green MD Ordering Physician: Jorge Green MD Date of Service: 02/08/25 Procedure(s): XR chest 2V Accession Number(s): [id number] cc: Jorge Green MD EXAMINATION: XR CHEST [...] 02/08/25 1213 DD/ 1055 TD/TT: 02/08/25 1100 Regional Director Of Finance: REASON FOR VISIT lower right side back pain Encounters Encounter Location Date Provider Diagnosis Jorge Green MD [address] [place], [place] [phone] 02/08/2025 Jorge Green Chest pain R07.9 Assessments Encounter Date Diagnosis (ICD Code) Assessment Notes Treatment Notes Treatment Clinical Notes Section Notes 02/08/2025 Chest pain (ICD-10 - R07.9) order faxed to [facility] [place] Plan Of Treatment Treatment Notes Assessment Notes Chest pain order faxed to [facility] [place] atient reg Next Appt Details Provider Name:Jorge horn, 06/11/2025 07:30:00 AM, [address], [address], [place], [place], [phone], Provider Name:Jorge horn, 06/18/2025 10:30:00 AM, [address], [address], [place], [place], [phone], Progress Notes * ROSE COLINDRES MDOB:1960 (64 yo F)Acc No.[id number]:02/08/2025 Patient:?ROSE COLINDRES :1960???Age:64 Y???Sex:Female Address:[address] [place] [address], [phone] Subjective: * Chief Complaints: * ???Lower right side back merrill n * Medical History:? * Surgical History:? * Hospitalization/Major Diagno stic Procedure:? * Medications:? Objective: * Vitals:? * Physical Examination:? Assessment: * Assessment: 1.?Chest pain - R07.9??? Plan: * Treatment: * Procedure Codes:? * true * Date:? Generated for Dulce jules/Marco/eTransmitting on:?02/22/2025 12:47 PM EDT
--- OUTSIDE RECORDS SUMMARY | 2025-02-22 12:48 | XMS_ITS ---
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 ; [...] dianostic monitoring 12/19/2024 Atherosclerotic heart disease of morongo coronary artery without angina pectoris (ICD-10 - [...] dianostic monitoring Atherosclerotic heart diseas e of morongo coronary artery without angina pectoris on statins [...] AM, [address], [address], [place], [phone], Provider Name:Jorge cuadrar, 06/18/2025 10:30:00 AM, [address], [address], [place], [phone], Progress Notes * ZAC COLINDRES MDOB:1960 (64 yo F)Acc No.[id number]:12/19/2024 Progress Notes Patient:?ZAC COLINDRES M Provider:?Jorge Green MD :1960???Age:64 Y???Sex:Female D ate:12/19/2024 Address:[address] [place], [place] [phone] Subjective: * Chief Complaints: * ???6 MO [...] ing - Z87.891 (Primary)???2.?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 ?5.?Borderline hypertension - R03.0??? Plan: * Treatment: Notes: is vaping which is probably better for her/ order printed and put in future folder , pendingdianostic monitoring??2.?Atherosclerotic heart disease of morongo coronary artery without angina pectoris? Continue Atorvastatin [...] MD Date:?0 12/19/2024 Generated for Dulce jules/Marco/eTransmitting on:?02/22/2025 12:47 PM EDT History and Physical Notes * [...]
--- OUTSIDE RECORDS SUMMARY | 2025-02-22 12:48 | XMS_ITS ---
Author Organization Jorge Green MD Address [address] [place] [phone] Care Team Providers Care Metalworker Name Role Phone Jorge Green Primary Care Provider Allergies Allergen (clinical drug ingredient) Drug/Non Drug Allergy documented on EMR Reaction Allergy Type Onset Date Status Pneumococcal 13-Luann Conj Vacc rash and hives Drug Allergy Active Neosporin rash Drug Allergy Active REASON FOR VISIT cold, coughing, c/o chills nonproductive cough, runny nose congested, diarrhea x 1 week, Audio [phone] Medications Medication SIG (Take, Route, Frequency, Duration) [...] Location Date Provider Diagnosis Jorge Green MD [address] [place] [address] Drive [address] [place] [phone] 01/22/2025 Jorge Green Bronchitis J40 Assessments Encounter [...] Details Provider Name:Jorge horn, 06/11/2025 07:30:00 AM, [address] [place] [address], Suite [facility], [place], [place], [phone], Provider Name:Jorge horn, 06/18/2025 10:30:00 AM, [address] [place] [address], Suite [facility], [place], [place], [phone], Progress Notes * ZAC COLINDRES MDOB:1960 (64 yo F)Acc No.[id number]:01/22/2025 Patient:?ZAC COLINDRES Provider:?Jorge Green MD :1960???Age:64 Y???Sex:Female D ate:01/22/2025 Address:[address] [place] [address], [place], [phone] Subjective: * Chief Complaints: * ???Cold, coughing, c/o chill s nonproductive cough, runny nose congested, [facility] [phone] * HPI: ???Symptom(s):?Telehealth?Location of provider rendering services:?[address] [...] MD Date:?0 01/22/2025 Generated for Dulce jules/Marco/Warner on:?02/22/2025 12:48 PM EDT History and Physical Notes * HPI (History of Present Illness) Category Sub-Category Detail Notes Category Not es Symptom(s) Telehealth Location of [facility] ider rendering services:: [address], [address] [...]
== END 2025-02-22 11:17 | disposition home or self-care (01) ==
LOC: HO.HGI 10:07
PROVIDERS: PCP Internal Medicine; Visit Provider Internal Medicine Gastroenterology
DX: K50.00 Crohn's disease of small intestine without complications (principal); R79.89 Other specified abnormal findings of blood chemistry
CPT/HCPCS: 99213

== ENCOUNTER → 2025-02-22 10:06 | Outpatient (BNVA) | payer MEDICARE, MEDICAID, SELFPAY | PROVIDERS: PCP Internal Medicine; Visit Provider Internal Medicine Gastroenterology | DX: K50.00 Crohn's disease of small intestine without complications (principal); R79.89 Other specified abnormal findings of blood chemistry | CPT/HCPCS: 99212 ==

== ENCOUNTER 2025-03-07 09:07 | Outpatient (REF) | payer MEDICARE, MEDICAID, SELFPAY ==
--- OUTSIDE RECORDS SUMMARY | 2025-03-07 09:40 | XMS_ITS ---
Author Organization Jorge Green MD Address [address] [place] [phone] Care Team Providers Care Health Practice Manager Name Role Phone Jorge Green Primary Care Provider [phone] Results Component Value Reference Range Notes XR chest 2V Reviewed date:02/08/2025 12:38:43 PM Interpretation: Performing Lab: Notes/Report: [address] [address] XRay Report Signed Patient: Zac Colindres MR#: [id number] 9 : 1960 Acct:[id number] Age/Sex: 64 / F ADM Date: 02/08/25 Loc: [facility] Attending Dr: Jorge Green MD Ordering Physician: Jorge Green MD Date of Service: 02/08/25 Procedure(s): XR chest 2V Accession Number(s): [id number] cc: Jorge Green MD EXAMINATION: XR CHEST [...] 02/08/25 1213 DD/ 1055 TD/TT: 02/08/25 1100 [employer] Charter Bus Driver: [place] [address] XRay Report Signed Patient: Zac Colindres MR#: [id number] 9 : 1960 Acct:[id number] Age/Sex: 64 / F ADM Date: 02/08/25 Loc: HO.JULIAN Attending Dr: Jorge Green MD Ordering Physician: Jorge Green MD Date of Service: 02/08/25 Procedure(s): XR chest 2V Accession Number(s): [id number] cc: Jorge Green MD EXAMINATION: XR CHEST [...] 02/08/25 1213 DD/ 1055 TD/TT: 02/08/25 1100 [employer] Bus Driver: REASON FOR VISIT lower right side back pain Encounters Encounter Location Date Provider Diagnosis Jorge Green MD [address] [place], [place] [phone] 02/08/2025 Jorge Green Chest pain R07.9 Assessments Encounter Date Diagnosis (ICD Code) Assessment Notes Treatment Notes Treatment Clinical Notes Section Notes 02/08/2025 Chest pain (ICD-10 - R07.9) order faxed to [facility] patient reg Plan Of Treatment Treatment Notes Assessment Notes Chest pain order faxed to [facility] p atient reg Next Appt Details Provider Name:Jorge horn, 03/23/2025 10:45:00 AM, [address], [address], [place], [place], [phone], Provider Name:Jorge horn, 06/11/2025 07:30:00 AM, [address], [place], [place], [phone], Provider Name:Jorge horn, 06/18/2025 10:30:00 AM, [address], [place], [place], [phone], Progress Notes * ZAC COLINDRES MDOB:1960 (64 yo F)Acc No.[id number]:02/08/2025 Patient:?ZAC COLINDRES :1960???Age:64 Y???Sex:Female Address:[address] [place] [address], [phone] Subjective: * Chief Complaints: * ???Lower right side back merrill n * Medical History:? * Surgical History:? * Hospitalization/Major Diagno stic Procedure:? * Medications:? Objective: * Vitals:? * Physical Examination:? Assessment: * Assessment: 1.?Chest pain - R07.9??? Plan: * Treatment: * Procedure Codes:? * true * Date:? Generated for Abdullahii dhara/Marco/eTransmitting on:?03/07/2025 09:40 AM EDT
--- OUTSIDE RECORDS SUMMARY | 2025-03-07 09:40 | XMS_ITS ---
Author Organization Jorge Green MD Address [address] [place] [address] [phone] Care Team Providers Care Virtual Reality Specialist Name Role Phone Jorge Green Primary Care Provider Allergies Allergen (clinical drug ingredient) Drug/Non Drug Allergy documented on EMR Reaction Allergy Type Onset Date Status Pneumococcal 13-Luann Conj Vacc rash and hives Drug Allergy Active Neosporin rash Drug Allergy Active REASON FOR VISIT ?HBP, BS is 116 A1C is 5.5 Medications Medication SIG (Take, Route, Frequency, Duration) Notes Start Date End Date Status amLODIPine Besylate 10 MG 1 tablet Orall y Once a day for 30 day(s) 03/02/2025 Active Ventolin HFA 108 (90 Base) MCG/ACT 2 puffs as needed Inhalation every 4 hrs 12/01/2016 Not-Takin g Cyclobenzaprine HCl 5 MG 1 tablet at bed time as needed Orally 3 times a day for 10 days 03/13/2021 Not-Taking Albuterol Sulfate HFA 108 (90 Base) MCG/ACT 1 puff as needed Inhalation every 4 hrs for 30 days 01/22/2025 Active Atorvastatin Calcium 40 MG 1 tablet Oral ly Once a day Active amLODIPine Besylate 5 MG 1 tablet Orally Once a day Active Omeprazole 20 MG 1 capsule Orally twi ce a day for 90 days Active Stelara 90 MG/ML Subcutaneous injecti on every 4 weeks Active Problems Problem Type SNOMED Code ICD Code Onset Dates Problem Status W/U Status Risk Notes Problem Essential hypertension (88429200) Essential hypertension (I10) Active confirmed Vital Signs Blood pressure systolic 152 mm Hg 03/02/20 25 Blood pressure diastolic 70 mm Hg 025 Height 59 in 03/02/2025 Weight 143 lbs 03/02/2025 BMI 28.88 kg/m2 03/02/2025 Encounters Encounter Location Date Provider Diagnosis Jorge Green MD [address] [place] [address] [phone] 03/02/2025 Jorge Green Diplopia H53.2 and Essential hypertension I10 Assessments Encounter Date Diagnosis (ICD Code) Assessment Notes Treatment Notes Treatment Clinical Notes Section Notes 03/02/2025 Diplopia (ICD-10 - H53.2) is being evaluated by ophthalmology 03/02/2025 Essential hypertension (ICD-10 - I10) running a bit high, increase amlodipine to 10 , patient verbalized understnading of increase in dose of medication Plan Of Treatment Medication Medication Name Sig Start Date Stop Date Notes amLODIPine Besylate 10 MG 1 tablet Orall y Once a day for 30 day(s) 03/02/2025 Treatment Notes Assessment Notes Diplopia is being evaluated b y ophthalmology Essential hypertension running a bit hig h, increase amlodipine to 10 , patient verbalized understnading of increase in dose of medication Next Appt Details Follow Up: 3 Weeks, Reason: Provider Name:Jorge horn, 03/23/2025 10:45:00 AM, [address] [place] [address], [address], [phone], Provider Name:Jorge horn, 06/11/2025 07:30:00 AM, [address] [place] [address], [address], [phone], Provider Name:Jorge horn, 06/18/2025 10:30:00 AM, [address] [place] [address], [address], [phone], Progress Notes * ZAC COLINDRES MDOB:1960 (64 yo F)Acc No.[id number]:03/02/2025 Progress Notes Patient:?ZAC COLINDRES Provider:?Jorge Green MD :1960???Age:64 Y???Sex:Female D ate:03/02/2025 Address:[address] [place], [place] [address] [id number] Subjective: * Chief Complaints: * ?HBPBS is 116 A1C is 5.5 * HPI: ???Symptom(s):?patient is a 64 yo female here for visit regarding high BP ?/ has double vision for one week. * ROS:?General/Constitutional:?Denies?Chills.?Denies?Fatigue.?Denies?Fever.?Denies?Headache.?ENT:?Denies?Sore throat.?Respiratory:?Denies?Cough.?Denies?Shortness of breath at rest.?Denies?Shortness of breath with exertion.?Cardiovascular:?Denies?Chest pain at rest.?Denies?Chest pain with exertion.?Denies?Palpitations.?Denies?Shortness of breath.?Gastrointestinal:?Denies?Diarrhea.?Denies?Nausea.? * Medical History:? * Surgical History:? * Hospitalization/Major Diagno stic Procedure:? * Medications:?TakingStelara 9 0 MG/ML Solution Prefilled Syringe Subcutaneous injection every 4 weeks Omeprazole 20 MG Capsule Delayed Release 1 capsule Orally twice a day amLODIPine Besylate 5 MG Tablet 1 tablet Orally Once a day Atorvastatin Calcium 40 MG Tablet 1 tablet Orally Once a day Albuterol Sulfate HFA 108 (90 Base) MCG/ACT Aerosol Solution 1 puff as needed Inhalation every 4 hrs Taking Stelara 90 MG/ML Solution Prefilled Syringe Subcutaneous injection every 4 weeks Taking Omeprazole 20 MG Capsule Delayed Release 1 capsule Orally twice a day Taking amLODIPine Besylate 5 MG Tablet 1 tablet Orally Once a day Taking Atorvastatin Calcium 40 MG Tablet 1 tablet Orally Once a day Taking Albuterol Sulfate HFA 108 (90 Base) MCG/ACT Aerosol Solution 1 puff as needed Inhalation every 4 hrs Not-Taking/PRNCyclobenzaprine HCl 5 MG Tablet 1 tablet [...] and hivesyes[Allergies Verified] Objective: * Vitals:?Ht: 59, Wt: 143, BMI :28.88, BP:152/70, Repeat BP:170/80, Wt-k.86. * Examination: ???General Examination: ?GENERAL APPEARANCE:?alert, well hydrated, in no distress.?EYES:?abnormal with inabilty of rt eye to look right.?SKIN:?good turgor.?HEART:?regular rate and rhythm, no murmurs, rubs, gallops.?LUNGS:?no wheezes, rales, rhonchi, good air movement, clear to auscultation bilaterally.? Assessment: * Assessment: 1.?Diplopia - H53.2 (Primary )???2.?Essential hypertension - I10??? Plan: * Treatment: 2.?Essential hypertension? Start amLODIPine Besylate Tablet, 10 MG, 1 tablet, Orally, Once a day, 30 day(s), 30.?? Notes: running a bit high, increase amlodipine to 10 , patient verbalized understnading of increase in dose of medication?? * Procedure Codes:? * Follow Up:?3 Weeks * * Sign off status: Completed true * Provider:?Jorge Green MD Date:?0 03/02/2025 Generated for Dulce jules/Marco/eTransmitting on:?03/07/2025 09:40 AM EDT History and Physical Notes * HPI (History of Present Illness) Category Sub-Category Detail Notes Category Not es Symptom(s) patient is a 64 yo female here for visit regarding high BP ?/ has double vision for one week Examination Category Sub-Category Detail Notes Category Not es General Examination GENERAL APPEARANCE: alert, w ell hydrated, in no distress EYES: abnormal with inabil ty of rt eye to look right HEART: regular rate and rhy thm, no murmurs, rubs, gallops LUNGS: no wheezes, rales, r honchi, good air movement, clear to auscultation bilaterally SKIN: good turgor
[2025-03-07 09:41] LABS: MANUAL DIFF FLAG NO
--- OUTSIDE RECORDS SUMMARY | 2025-03-07 09:41 | XMS_ITS ---
Author Organization Jorge Green MD Address [address] [place] [address] [phone] Care Team Providers Care Procurement Forester Name Role Phone Jorge rGeen Primary Care Provider Allergies Allergen (clinical drug ingredient) Drug/Non Drug Allergy documented on EMR Reaction Allergy Type Onset Date Status Pneumococcal 13-Luann Conj Vacc rash and hives Drug Allergy Active Neosporin rash Drug Allergy Active REASON FOR VISIT cold, coughing, c/o chills nonproductive cough, runny nose congested, diarrhea x 1 week, Audio [phone] Medications Medication SIG (Take, Route, Frequency, Duration) [...] Location Date Provider Diagnosis Jorge Green MD [address] [place] [phone] 01/22/2025 Jorge Green Bronchitis J40 Assessments Encounter [...] use Next Appt Details Provider Name:Jorge horn, 03/23/2025 10:45:00 AM, [address] [place] [address], [address], [phone], Provider Name:Jorge horn, 06/11/2025 07:30:00 AM, [address] [place] [address], [address], [phone], Provider Name:Jorge horn, 06/18/2025 10:30:00 AM, [address] [place] [address], [address] [place], [phone], Progress Notes * ZAC COLINDRES MDOB:1960 (64 yo F)Acc No.[id number]:01/22/2025 Patient:?ZAC COLINDRES Provider:?Jorge Green MD :1960???Age:64 Y???Sex:Female D ate:01/22/2025 Address:[address] [place] [address], [id number] Subjective: * Chief Complaints: * ???Cold, coughing, c/o chill s nonproductive cough, runny nose congested, [phone] * HPI: ???Symptom(s):?Telehealth?Location of provider rendering services:?[address] [place] [address], [address],?Location of patient:?at address listed in [...] MD Date:?0 01/22/2025 Generated for Dulce jules/Marco/Warner on:?03/07/2025 09:40 AM EDT History and Physical Notes * HPI (History of Present Illness) Category Sub-Category Detail Notes Category Not es Symptom(s) Telehealth Location of [facility] rendering services:: [address], [address] [...]
[2025-03-07 09:52] LABS: Estimated Average Glucose 114 mg/dL; Hemoglobin A1C 144.0052 umol/L; Hemoglobin A1c % 5.6 % (<6.0); Total Hemoglobin (HGBA1C) 3804.4294 umol/L
[2025-03-07 09:58] LABS: Basophils Absolute Auto 0.1 X10*3/uL (0.0-0.2); Basophils Percent Auto 1.3 % (0-2); Eosinophils Absolute Auto 0.1 X10*3/uL (0.0-0.4); Eosinophils Percent Auto 1.4 % (0-4); Hemoglobin 14.2 g/dl (12.0-16.0); Imm Gran Abs Auto 0.03 X10*3/uL (0.00-0.03); Imm Gran Pct Auto 0.4 % (0.0-0.4); Lymphocytes Absolute Auto 2.8 X10*3/uL (1.2-4.9); Lymphocytes Percent Auto 32.4 % (20-40); Mean Corpuscular HGB Conc 33.8 g/dl (31.0-35.0); Mean Corpuscular Hemoglobin 29.3 pg (27.0-33.0); Mean Corpuscular Volume 86.6 fL (80.0-98.0); Mean Platelet Volume 10.6 fL (9.4-12.3); Monocytes Absolute Auto 0.5 X10*3/uL (0.1-1.2); Neutrophils Percent Auto 58.5 % (45-73); Platelet Count 321 X10*3/uL (160-400); Red Blood Count 4.85 X10*6/uL (4.20-5.50); Red Cell Distribution Width 14.1 % (11.0-16.0); White Blood Count 8.6 X10*3/uL (4.8-10.8)
[2025-03-07 10:27] LABS: Erythrocyte Sedimentation Rate 12 MM/HR (0-20)
== END 2025-03-07 09:08 | disposition home or self-care (01) ==
LOC: HO.10HDL 09:07
PROVIDERS: Visit Provider Ophthalmology
DX: Z13.1 Encounter for screening for diabetes mellitus (principal); H49.21 Sixth [abducent] nerve palsy, right eye
CPT/HCPCS: 36415; 83036; 85025; 85652; 86140

== ENCOUNTER 2025-05-11 13:01 | Outpatient (REF) | payer MEDICARE, MEDICAID, SELFPAY ==
--- NOTE | ~2025-05-11 | CT_ITS ---
EXAMINATION: CT CHEST WITHOUT CONTRAST CLINICAL INFORMATION: Solitary pulmonary nodule. COMPARISON: March 29, 2024 demonstrated numerous less than 4 mm noncalcified pulmonary nodules. TECHNIQUE: Multidetector volumetric CT imaging of the chest was done. Axial MIP volume rendering provided. Sagittal and coronal reformatted images were obtained. This CT examination was performed using dose optimization techniques as appropriate, variously including the following: *Automated exposure control *Adjustment of mA and/or kV according to patient size (this includes techniques or standardized protocols for targeted exams where dose is matched to indication/reason for exam; i.e. extremities or head) *Use of iterative reconstruction technique. DLP: 132 mGy centimeter. FINDINGS: DINING ROOM MAID: Good inspiration. Cardiomediastinal silhouette size is normal. Both upper extremities at the the site of the head. Patient's large body habitus. LUNGS: There are multiple, scattered, less than 4 mm noncalcified pulmonary nodules in the periphery of the upper and lower lung lobes with similar morphology and distribution since prior exam. No bronchiectasis. No honeycombing. Respiratory airways is patent. No gross consolidation. MEDIASTINUM: No lymphadenopathy. No gross pericardial effusion. No aneurysm, thoracic aorta. Calcified plaques throughout the thoracic aorta and its main branches. Calcified plaques in the coronary arteries. No pneumomediastinum. No hemomediastinum. No hemopericardium. The heart is not enlarged. CORONARY ARTERY CALCIFICATION: Calcified plaques. PLEURA: No pleural effusion. No pneumothorax. No calcified pleural plaques. No hemothorax. AXILLA: No lymphadenopathy. UPPER ABDOMEN: Calcified plaques abdominal aorta wall and its main branches. Calcified plaques in the splenic artery. Desiccation seen the pelvicalyceal system, right kidney without hydronephrosis. Fat-containing epigastric hernia. OSSEOUS STRUCTURES: Mild multilevel spondylosis without acute fracture or gross listhesis. CT/CT chest wo IV con IMPRESSION: Stable noncalcified less than 4 mm right nodules. Coronary artery disease and atherosclerosis disease. Probable nonobstructing nephrolithiasis, right kidney. Fleischner guidelines were followed. Electronically signed by: Peter Bowers MD 05/11/2025 02:10 PM EDT
--- OUTSIDE RECORDS SUMMARY | 2025-05-11 13:25 | XMS_ITS ---
Author Organization Jorge Green MD Address [address] [place] [phone] Care Team Providers Care Farm Loan Representative Name Role Phone Jorge Green Primary Care Provider REASON FOR VISIT med issue Medications Medication SIG (Take, Route, Frequency, Duration) Notes Start Date End Date Status amLODIPine Besylate 10 MG 1 tablet Orall y Once a day for 90 days 03/02/2025 Active Encounters Encounter Location Date Provider Diagnosis Jorge Green MD [address] [place] [phone] 04/17/2025 Jorge Green Essential hypertension I10 Assessments Encounter Date Diagnosis (ICD Code) Assessment Notes Treatment Notes Treatment Clinical Notes Section Notes 04/17/2025 Essential hypertension (ICD-10 - I10) Plan Of Treatment Medication Medication Name Sig Start Date Stop Date Notes amLODIPine Besylate 10 MG 1 tablet Orall y Once a day for 90 days 03/02/2025 Next Appt Details Provider Name:Jorge horn, 06/11/2025 07:30:00 AM, [address] [facility], [address] [place] [address], [phone], Provider Name:Jorge Huddleston justina, 06/18/2025 10:30:00 AM, [address], [address], [place], [phone], Progress Notes * ZAC COLINDRES MDOB:1960 (65 yo F)Acc No.[id number]:04/17/2025 Patient:?ZAC COLINDRES :1960???Age:65 Y???Sex:Female Address:[address] [place] [address] [facility] [place] [place], [phone] * Refills? Refill amLODIPine Besylate Tablet, 10 MG, Orally, 90, 1 tablet, Once a day, 90 days, Refills=3 * true * Date:? Generated for Dulce jules/Marco/eTcoltensmitting on:?05/11/2025 01:24 PM EDT
== END 2025-05-11 13:02 | disposition home or self-care (01) ==
LOC: HO.CT 13:01
PROVIDERS: PCP Internal Medicine; Visit Provider Internal Medicine
DX: R91.1 Solitary pulmonary nodule (principal); Z87.891 Personal history of nicotine dependence
CPT/HCPCS: 71250

== ENCOUNTER → 2025-05-11 13:37 | Outpatient (BNV) | payer MEDICARE, MEDICAID, SELFPAY | PROVIDERS: PCP Internal Medicine; Visit Provider Radiology Diagnostic Radiology | DX: I25.10 Atherosclerotic heart disease of native coronary artery without angina pectoris (principal); I70.90 Unspecified atherosclerosis; R91.8 Other nonspecific abnormal finding of lung field | CPT/HCPCS: 71250 ==

== ENCOUNTER 2025-06-11 11:08 | Outpatient (REF) | payer MEDICARE, MEDICAID, SELFPAY ==
--- OUTSIDE RECORDS SUMMARY | 2025-04-17 05:17 | XMS_ITS ---
Author Organization Jorge Green MD Address [address] [place] [address] [phone] Care Team Providers Care Overlocker Name Role Phone Jorge Green Primary Care Provider REASON FOR VISIT med issue Medications Medication SIG (Take, Route, Frequency, Duration) Notes Start Date End Date Status amLODIPine Besylate 10 MG 1 tablet Orall y Once a day for 90 days 03/02/2025 Active Encounters Encounter Location Date Provider Diagnosis Jorge Green MD [address] [place] [address] [phone] 04/17/2025 Jorge Green Essential hypertension I10 Assessments Encounter Date Diagnosis (ICD Code) Assessment Notes Treatment Notes Treatment Clinical Notes Section Notes 04/17/2025 Essential hypertension (ICD-10 - I10) Plan Of Treatment Medication Medication Name Sig Start Date Stop Date Notes amLODIPine Besylate 10 MG 1 tablet Orall y Once a day for 90 days 03/02/2025 Next Appt Details Provider Name:Jorge horn, 06/18/2025 10:30:00 AM, [address], [address] [place] [address], [phone], Progress Notes * ZAC COLINDRES MDOB:1960 (65 yo F)Acc No.[id number]:04/17/2025 Patient: ZAC BUTLER :1960 A ge:65 Y S ex:Female Address:[address] [place] [address] [place], [phone] * Refills Refill amLODIPine Besylate Tablet, 10 MG, Orally, 90, 1 tablet, Once a day, 90 days, Refills=3 * true * Date: Generated for Dulce jules/Marco/Belitting on: 0 06/11/2025 12:14 PM EDT
[2025-06-11 11:10] LABS: MANUAL DIFF FLAG NO
[2025-06-11 11:39] LABS: Appearance Urine Clear; Glucose Urine UA Negative (Negative); PH 6.0 (5.0-9.0); Specific Gravity - Urine 1.020 (1.005-1.025); UMIC TRIGGER UACC YES
[2025-06-11 11:42] LABS: UACC Culture Trigger YES
[2025-06-11 11:43] LABS: Hematocrit 41.5 % (37.0-47.0); Hemoglobin 14.0 g/dl (12.0-16.0); Imm Gran Abs Auto 0.01 X10*3/uL (0.00-0.03); Imm Gran Pct Auto 0.1 % (0.0-0.4); Lymphocytes Absolute Auto 2.8 X10*3/uL (1.2-4.9); Mean Corpuscular HGB Conc 33.7 g/dl (31.0-35.0); Mean Corpuscular Hemoglobin 29.0 pg (27.0-33.0); Mean Corpuscular Volume 86.1 fL (80.0-98.0); NRBC Abs Auto 0.000 X10*3/uL (0.0-0.012); NRBC Pct Auto 0.0 /100WBC (0.0-0.2); Platelet Count 317 X10*3/uL (160-400); Red Blood Count 4.82 X10*6/uL (4.20-5.50); White Blood Count 7.5 X10*3/uL (4.8-10.8)
[2025-06-11 11:54] LABS: Alanine Aminotransferase 32 U/L (0-31); Albumin Level 4.5 g/dL (3.5-5.0); Alkaline Phosphatase 81 U/L (39-117); Anion Gap 16 (12-20); Aspartate Amino Transferase 32 U/L (5-31); Blood Urea Nitrogen 10 mg/dL (9-16); Calcium 9.9 mg/dL (8.4-10.2); Carbon Dioxide 23 mmol/L (22-29); Chloride 112 mmol/L (96-108); Cholesterol 167 mg/dL (<200); Estimated Glomerular Filt Rate > 60; HDL Cholesterol 61 mg/dL (>40); Potassium 4.2 mmol/L (3.3-5.1); Sodium 147 mmol/L (135-145); Total Protein 7.3 g/dL (6.5-8.0); Triglycerides 109 mg/dL (<150)
== END 2025-06-11 11:09 | disposition home or self-care (01) ==
LOC: HO.LNP 11:08
PROVIDERS: Visit Provider Internal Medicine
DX: R03.0 Elevated blood-pressure reading, without diagnosis of hypertension (principal); D72.9 Disorder of white blood cells, unspecified; E78.2 Mixed hyperlipidemia
CPT/HCPCS: 80053; 80061; 81001; 85025; 87086

== ENCOUNTER 2025-07-13 09:54 | Outpatient (REF) | payer MEDICARE, MEDICAID, SELFPAY ==
--- OUTSIDE RECORDS SUMMARY | 2025-06-11 03:45 | XMS_ITS ---
Author Organization Jorge Green MD Address [address] [place] [phone] Care Team Providers Care Employment Appeals Examiner Name Role Phone DavidJorge sanz Primary Care Provider [phone] Results Component Value Reference Range Notes Complete Blood Count Auto Di ff Reviewed date:06/11/2025 01:00:05 PM Interpretation: Performing Lab:[facility], [address] [place] [phone] Notes/Report: White Blood Count 7.5 4.8-10.8 X10*3/uL [...] NRBC Abs Auto 0.000 0.0-0.012 X10*3/uL Comprehensive [place]. Panel Fa Reviewed date:06/11/2025 01:37:11 PM Interpretation: Performing Lab:[facility], [address] [place] [phone] Notes/Report: Sodium 147 135-145 mmol/L Potassium 4.2 [...] Panel Reviewed date:06/11/2025 12:54:27 PM Interpretation: Performing Lab:[facility], [address] [place] [phone] Notes/Report: Triglycerides 109 <150 mg/dL Desirable Triglyceride: [...] t Reviewed date:06/11/2025 01:38:57 PM Interpretation: Performing Lab:[facility], [address] [place] [phone] Notes/Report: Urine, Clean Catch Color Urine Dark Yellow Appearance Urine Clear PH 6.0 5.0-9.0 Glucose Urine UA Negative Negative mg/dL Urine Blood Negative Negative Specific [place] - Urine 1.020 1.005-1.025 Urine Protein Trace [...] Date Provider Diagnosis Jorge Green MD [address] [place], [place] [phone] 06/11/2025 Jorge Green Borderline hypertension R03.0 ; [...] Provider Name:Jorge Huddleston veneciar, 12/13/2025 07:15:00 AM, [address] [place] [address], Suite [facility], [place], [place], [phone], Provider Name:Jorge Huddleston ier, 12/20/2025 10:00:00 AM, [address], Suite [facility], [place], [place], [phone], Provider Name:Jorge Huddleston veneciar, 06/13/2026 07:15:00 AM, Hospital [facility], Suite [facility], [place], [place], [phone], Provider Name:Jorge Huddleston veneciar, 06/20/2026 11:00:00 AM, Hospital [facility], Suite [facility], [place], [place], [phone], Progress Notes * ZAC COLINDRES MDOB:1960 (65 yo F)Acc No.[id number]:06/11/2025 Progress Note Patient: ZAC BUTLER Provider: Yoon Green MD :1960 A ge:65 Y S ex:Female Date:06/11/2025 Address:[address] [place] [phone] Subjective: * Chief Complaints: * 1 . [...] - 06/11/2025 07:30 AM) L AB: Comprehensive [place]. Panel Fast (Collection Date & Time - 06/11/2025 07:30 AM) L AB: Lipid Panel (Collection Date & Time - 06/11/2025 07:30 AM) L AB: UA ClnCatch+Micro w/rflx Cult (Collection Date & Time - 06/11/2025 07:30 AM) 3. E levated triglycerides with high cholesterol L AB: Complete Blood Count Auto Diff (Collection Date & Time - 06/11/2025 07:30 AM) L AB: Comprehensive [place]. Panel Fast (Collection Date & Time - [...] 06/11/2025 Generated for Dulce jules/Marco/Belitting on: 0 07/13/2025 10:09 AM EDT
== END 2025-07-13 09:55 | disposition home or self-care (01) ==
LOC: HO.MAMMO 09:54
PROVIDERS: PCP Internal Medicine; Visit Provider Internal Medicine
DX: Z12.31 Encounter for screening mammogram for malignant neoplasm of breast (principal)
CPT/HCPCS: 77063; 77067

== ENCOUNTER → 2025-07-13 10:15 | Outpatient (BNV) | payer MEDICARE, MEDICAID, SELFPAY | PROVIDERS: PCP Internal Medicine; Visit Provider Internal Medicine | DX: Z12.31 Encounter for screening mammogram for malignant neoplasm of breast (principal) | CPT/HCPCS: 77063; 77067 ==

== ENCOUNTER 2025-08-02 10:49 | Outpatient (AMB) | payer MEDICARE, MEDICAID, SELFPAY ==
--- OUTSIDE RECORDS SUMMARY | 2025-04-16 05:44 | XMS_ITS ---
Author Organization Jorge Green MD Address [address] [place] [address] [phone] Care Team Providers Care Director Of Community Services Name Role Phone Jorge Green Primary Care Provider REASON FOR VISIT refill Medications Medication SIG (Take, Route, Frequency, Duration) Notes Start Date End Date Status amLODIPine Besylate 10 MG 1 tablet Orall y Once a day for 90 days 03/02/2025 Active Encounters Encounter Location Date Provider Diagnosis Jorge Green MD [address] [place] [address] [phone] 04/16/2025 Jorge Green Essential hypertension I10 Assessments Encounter Date Diagnosis (ICD Code) Assessment Notes Treatment Notes Treatment Clinical Notes Section Notes 04/16/2025 Essential hypertension (ICD-10 - I10) Plan Of Treatment Medication Medication Name Sig Start Date Stop Date Notes amLODIPine Besylate 10 MG 1 tablet Orall y Once a day for 90 days 03/02/2025 Next Appt Details Provider Name:Jorge horn, 12/13/2025 07:15:00 AM, [address], [address] [place] [address], [phone], Provider Name:Jorge Huddleston ier, 12/20/2025 10:00:00 AM, [address], [address], [place], [phone], Provider Name:Jorge Huddleston ier, 06/13/2026 07:15:00 AM, [address] [place] [address], [address], [place], [phone], Provider Name:Jorge Huddleston ier, 06/20/2026 11:00:00 AM, [facility], [address], [place], [phone], Progress Notes * ZAC COLINDRES MDOB:1960 (65 yo F)Acc No.[id number]:04/16/2025 Patient: [place] ZAC OLEA :1960 A ge:65 Y S ex:Female Address:[address] [place] [address], [phone] * Refills Refill amLODIPine Besylate Tablet, 10 MG, Orally, 90 Tablet, 1 tablet, Once a day, 90 days, Refills=3 * true * Date: Generated for Dulce jules/Marco/Wilfredosmitting on: 0 08/02/2025 12:26 PM EDT
--- OUTSIDE RECORDS SUMMARY | 2025-04-17 05:17 | XMS_ITS ---
Author Organization Jorge Green MD Address [address] [place] [address] [phone] Care Team Providers Care Design Coordinator Name Role Phone Jorge Green Primary Care Provider REASON FOR VISIT med issue Medications Medication SIG (Take, Route, Frequency, Duration) Notes Start Date End Date Status amLODIPine Besylate 10 MG 1 tablet Orall y Once a day for 90 days 03/02/2025 Active Encounters Encounter Location Date Provider Diagnosis Jorge Green MD [address] [place] [phone] 04/17/2025 Jorge Green Essential hypertension I10 Assessments [...] Provider Name:Jorge horn, 12/13/2025 07:15:00 AM, [address] [facility] [address], [address] [place] [address], [phone], Provider Name:Jorge Huddleston ier, 12/20/2025 10:00:00 AM, [address] [facility] [address], [address], [place], [phone], Provider Name:Jorge Huddleston ier, 06/13/2026 07:15:00 AM, [address] [place] [address], [address], [place], [phone], Provider Name:Jorge Huddleston ier, 06/20/2026 11:00:00 AM, [facility], [address], [place], [phone], Progress Notes * ZAC COLINDRES MDOB:1960 (65 yo F)Acc No.[id number]:04/17/2025 Patient: [place] ZAC OLEA :1960 A ge:65 Y S ex:Female Address:[address] [place] [address], [phone] * Refills Refill amLODIPine Besylate Tablet, 10 MG, Orally, 90, 1 tablet, Once a day, 90 days, Refills=3 * true * Date: Generated for Dulce jules/Marco/eTransmitting on: 0 08/02/2025 12:26 PM EDT
--- OUTSIDE RECORDS SUMMARY | 2025-05-14 05:38 | XMS_ITS ---
Author Organization Jorge Green MD Address [address] [place] [phone] Care Team Providers Care Route Sales Person Name Role Phone Jorge Green Primary Care Provider REASON FOR VISIT CT Scan Chest repeat 1 year Encounters Encounter Location Date Provider Diagnosis Jorge Green MD [address] [place] [address] [phone] 05/14/2025 Jorge Green Pulmonary nodule R91.1 Assessments Encounter Date Diagnosis (ICD Code) Assessment Notes Treatment Notes Treatment Clinical Notes Section Notes 05/14/2025 Pulmonary nodule (ICD-10 - R91.1) due -2025 Plan Of Treatment Treatment Notes Assessment Notes Pulmonary nodule due Pending Test Test Name Order Date CT chest wo con 05/14/2025 Next Appt Details Provider Name:Jorge horn, 12/13/2025 07:15:00 AM, [address], [address] [place] [address], [phone], Provider Name:Jorge horn, 12/20/2025 10:00:00 AM, [address], [address], [place], [place], [phone], Provider Name:Jorge Huddleston ier, 06/13/2026 07:15:00 AM, [address], [address], [place], [phone], Provider Name:Jorge Huddleston ier, 06/20/2026 11:00:00 AM, [address], [address], [place], [place], [phone], Progress Notes * ZAC COLINDRES MDOB:1960 (65 yo F)Acc No.[id number]:05/14/2025 Patient: [place] CASANDRAHernan ZAC Cross :1960 A ge:65 Y S ex:Female Address:[address] [place] [address], [phone] Subjective: * Chief Complaints: * C T Scan Chest repeat 1 year * Medical History: * Surgical History: * Hospitalization/Major Diagno stic Procedure: * Medications: Objective: * Vitals: * Physical Examination: Assessment: * Assessment: 1. P ulmonary nodule - R91.1 Plan: * Treatment: * Procedure Codes: * true * Date: Generated for Dulce jules/Marco/eTransmitting on: 0 08/02/2025 12:26 PM EDT
--- OUTSIDE RECORDS SUMMARY | 2025-06-11 03:45 | XMS_ITS ---
Author Organization Jorge Green MD Address [address] [place] [phone] Care Team Providers Care Contract Implementation Analyst Name Role Phone DavidJorge sanz Primary Care Provider Results Component Value Reference Range Notes Complete Blood Count Auto Di ff Reviewed date:06/11/2025 01:00:05 PM Interpretation: Performing Lab:[facility], [address] [place] [phone] Notes/Report: White Blood Count 7.5 4.8-10.8 X10*3/uL Red Blood Count 4.82 4.20-5.50 X10*6/uL Hemoglobin 14.0 12.0-16.0 g/dl Hematocrit 41.5 37.0-47.0 % Mean Corpuscular Volume 86.1 80.0-98.0 fL Mean Corpuscular Hemoglobin 29.0 27.0-33.0 pg Mean Corpuscular HGB Conc 33.7 31.0-35.0 g/dl Red Cell Distribution Width 14.3 11.0-16.0 % Platelet Count 317 160-400 X10*3/uL Mean Platelet Volume 10.9 9.4-12.3 fL Neutrophils Percent Auto 54.7 45-73 % Imm Gran Pct Auto 0.1 0.0-0.4 % Lymphocytes Percent Auto 37.3 20-40 % Monocytes Percent Auto 5.1 2-11 % Eosinophils Percent Auto 1.6 0-4 % Basophils Percent Auto 1.2 0-2 % NRBC Pct Auto 0.0 0.0-0.2 /100WBC Neutrophils Absolute Auto 4.1 2.0-8.3 x10*3/u L Imm Gran Abs Auto 0.01 0.00-0.03 X10*3/uL Lymphocytes Absolute Auto 2.8 1.2-4.9 X10*3/u L Monocytes Absolute Auto 0.4 0.1-1.2 X10*3/uL Eosinophils Absolute Auto 0.1 0.0-0.4 X10*3/u L Basophils Absolute Auto 0.1 0.0-0.2 X10*3/uL NRBC Abs Auto 0.000 0.0-0.012 X10*3/uL Comprehensive [place]. Panel Fa Reviewed date:06/11/2025 01:37:11 PM Interpretation: Performing Lab:[facility], [address] [place] [phone] Notes/Report: Sodium 147 135-145 mmol/L Potassium 4.2 3.3-5.1 mmol/L Chloride 112 96-108 mmol/L Carbon Dioxide 23 22-29 mmol/L Anion Gap 16 12-20 Blood Urea Nitrogen 10 9-16 mg/dL Creatinine 0.69 0.5-1.4 mg/dL Estimated Glomerular Filt Rate > 60 Chronic Kidney Disease: Estimated GFR < 60 mL/min/1.73m2 Severe Kidney Disease: Estimated GFR < 15 mL/min/1.73m2 Glucose Fasting 93 60-99 mg/dL Calcium 9.9 8.4-10.2 mg/dL Bilirubin Total 0.5 0.0-1.0 mg/dL Aspartate Amino Transferase 32 5-31 U/L Alanine Aminotransferase 32 0-31 U/L Total Protein 7.3 6.5-8.0 g/dL Albumin Level 4.5 3.5-5.0 g/dL Alkaline Phosphatase 81 39-117 U/L Lipid Panel Reviewed date:06/11/2025 12:54:27 PM Interpretation: Performing Lab:[facility], [address] [place] [phone] Notes/Report: Triglycerides 109 <150 mg/dL Desirable Triglyceride: less than 150 mg/dL Borderline High Triglyceride 150-199 mg/dL High Triglyceride: 200-499 mg/dL Very High Triglyceride: greater than or equal to 5OO mg/dL Cholesterol 167 <200 mg/dL Desirable Cholesterol: less than 200 mg/dL Borderline High Cholesterol: 200-239 mg/dL High Cholesterol: greater than 239 mg/dL LDL Cholesterol Calculated 85 <100 mg/dL Desirable LDL: less than 100 mg/dL Near Optimal/Above Optimal LDL: 110-129 mg/dL Borderline High LDL: 130-159 mg/dL High LDL: 160-189 mg/dL Very High LDL: greater than or equal to 190 mg/dL HDL Cholesterol 61 >40 mg/dL Desirable HDL: greater than 40 mg/dL Note: This HDL assay may give artificially low results in patients with liver disease. UA ClnCatch+Micro w/rflx Cul t Reviewed date:06/11/2025 01:38:57 PM Interpretation: Performing Lab:[facility], [address] [place] [phone] Notes/Report: Urine, Clean Catch Color Urine Dark Yellow Appearance Urine Clear PH 6.0 5.0-9.0 Glucose Urine UA Negative Negative mg/dL Urine Blood Negative Negative Specific [place] - Urine 1.020 1.005-1.025 Urine Protein Trace Neg-Trace mg/dL Urine Ketones Trace Negative mg/dL Nitrite Urine Negative Negative Leukocyte Esterase Urine Small (1+) Negative RBC Urine 0-2 0-2 /HPF WBC Urine 6-10 0-5 /HPF Squamous Epithelial Cell Urine 11-20 0-2 /HPF Bacteria Urine 2+ None Seen Hyaline Casts Urine 0-2 0-2 /LPF REASON FOR VISIT FASTING LABS Encounters Encounter Location Date Provider Diagnosis Jorge Green MD [address] [place], [place] [phone] 06/11/2025 Jorge Green Borderline hypertension R03.0 ; Abnormal WBC count D72.9 and Elevated triglycerides with high cholesterol E78.2 Assessments Encounter Date Diagnosis (ICD Code) Assessment Notes Treatment Notes Treatment Clinical Notes Section Notes 06/11/2025 Borderline hypertension (ICD-10 - R03.0) 06/11/2025 Abnormal WBC count (ICD-10 - D72.9) 06/11/2025 Elevated triglycerides with high cholesterol (ICD-10 - E78.2) Plan Of Treatment Next Appt Details Provider Name:Jorge Huddleston veneciar, 12/13/2025 07:15:00 AM, [address] [place] [address], Suite [facility], [place], [place], [phone], Provider Name:Jorge Huddleston ier, 12/20/2025 10:00:00 AM, [address], Suite [facility], [place], [place], [phone], Provider Name:Jorge Huddleston veneciar, 06/13/2026 07:15:00 AM, Hospital [facility], Suite [facility], [place], [place], [phone], Provider Name:Jorge Huddleston veneciar, 06/20/2026 11:00:00 AM, Hospital [facility], Suite [facility], [place], [place], [phone], Progress Notes * ZAC COLINDRES MDOB:1960 (65 yo F)Acc No.[id number]:06/11/2025 Progress Note Patient: ZAC BUTLER Provider: Yoon Green MD :1960 A ge:65 Y S ex:Female Date:06/11/2025 Address:[address] [place] [phone] Subjective: * Chief Complaints: * 1 . FASTING LABS. * Medical History: Objective: * Vitals: Assessment: * Assessment: 1. B orderline hypertension - R03.0 (Primary) 2 . A bnormal WBC count - D72.9 3 . E levated triglycerides with high cholesterol - E78.2 Plan: * Treatment: 2. A bnormal WBC count L AB: Complete Blood Count Auto Diff (Collection Date & Time - 06/11/2025 07:30 AM) L AB: Comprehensive [place]. Panel Fast (Collection Date & Time - 06/11/2025 07:30 AM) L AB: Lipid Panel (Collection Date & Time - 06/11/2025 07:30 AM) L AB: UA ClnCatch+Micro w/rflx Cult (Collection Date & Time - 06/11/2025 07:30 AM) 3. E levated triglycerides with high cholesterol L AB: Complete Blood Count Auto Diff (Collection Date & Time - 06/11/2025 07:30 AM) L AB: Comprehensive [place]. Panel Fast (Collection Date & Time - 06/11/2025 07:30 AM) L AB: Lipid Panel (Collection Date & Time - 06/11/2025 07:30 AM) L AB: UA ClnCatch+Micro w/rflx Cult (Collection Date & Time - 06/11/2025 07:30 AM) * Procedure Codes: 3 6415 VENIPUNCT, ROUTINE* * * The named appointment provid er may or may not be the originator of this progress note, and it is not deemed complete until electronically signed by the appointment provider. Sign off status: Pending * Provider: Yoon Green MD Date: 0 06/11/2025 Generated for Dulce jules/Marco/Belitting on: 0 08/02/2025 12:26 PM EDT
--- OUTSIDE RECORDS SUMMARY | 2025-06-18 06:30 | XMS_ITS ---
Author Organization Jorge Green MD Address [address] [place] [phone] Care Team Providers Care Human Machine Interface Engineer Name Role Phone Jorge Green Primary Care Provider [phone] Allergies Allergen (clinical drug ingredient) Drug/Non Drug [...] kg/m2 06/18/2025 weight is down 3 pounds [facility] 03-23-25 Encounters Encounter Location Date Provider Diagnosis Jorge Green MD [address] [place] [address] [address] [place], [place] [phone] 06/18/2025 Jorge Green Atherosclerotic hear t disease of [place] coronary artery without angina pectoris I25.10 ; Borderline hypertension R03.0 ; Elevated triglycerides with high cholesterol E78.2 ; History of Crohn's disease Z87.19 and Depression screening Z13.31 Assessments Encounter Date Diagnosis (ICD Code) Assessment Notes Treatment Notes Treatment Clinical Notes Section Notes 06/18/2025 Atherosclerotic heart disease of [place] coronary artery without angina pectoris (ICD-10 - [...] Assessment Notes Atherosclerotic heart diseas e of [place] coronary artery without angina pectoris on statins [...] Provider Name:Jorge Huddleston ier, 12/13/2025 07:15:00 AM, [address] [place] [address], Suite [facility], [place], [place], [phone], Provider Name:Jorge Huddleston ier, 12/20/2025 10:00:00 AM, [address] [place] [address], Suite [facility], [place], [place], [phone], Provider Name:Jorge Huddleston ier, 06/13/2026 07:15:00 AM, [address] [place] [address], [address] [place] [address], [phone], Provider Name:Jorge Huddleston ier, 06/20/2026 11:00:00 AM, [address] [place] [address], Suite [facility], [place], [place], [phone], Progress Notes * ZAC COLINDRES MDOB:1960 (65 yo F)Acc No.[id number]:06/18/2025 Patient: [place] ZCA OLEA Provider: Yoon Green MD :1960 A ge:65 Y S ex:Female Date:06/18/2025 Address:[address] [place], [place] [address]Wisam LOOMISSCOBEY, [id number] Subjective: * Chief Complaints: * C OMP [...] 03-23-25. * P ast Orders: L ab:Comprehensive Wendell. Panel Fast (Order Date - 06/11/2025) (Collection [...] mg/dL Urine Blood Negative Negative - Specific [place] - Urine 1.020 1.005-1.025 - Urine Protein [...] masses palpable. RECTAL EXAM: d one by vmware administrator. FEMALE GENITOURINARY: d one by vmware administrator. EXTREMITIES: n o clubbing, cyanosis, or edema. NEUROLOGIC: n onfocal, motor strength normal upper and lower extremities, sensory exam intact. Assessment: * Assessment: 1. A therosclerotic heart disease of [place] coronary artery without angina pectoris - I25.10 [...] Date: 06/18/2025 Generated for Dulce jules/Marco/Wilfredosmitting on: 08/02/2025 12:26 PM EDT History and Physical Notes * [...] mass, no lump RECTAL EXAM: done by vmware administrator FEMALE GENITOURINARY: done by vmware administrator ORAL CAVITY: mucosa moist
--- NOTE | 2025-08-02 10:52 | MHC.OFFVIS ---
Vital Signs 08/02/25 10:58 Height 5 ft Weight 136 lb BMI 26.6 BP 140/62 H Blood Pressure Location Lt brachial Position Sitting Pulse 71 Pulse Oximetry (%) 98 Oxygen Delivery Method Room Air Intake Visit Reasons: 6 mos FUV. Intake Note: Patient 6 month follow up for Crohns disease of small intestine Patient cc: abdominal bloating after meal or drink, denies any other GI issues. Patient Financial Coordinator Required: No Accompanied by: Self / Same As Patient Allergies No Known Allergies (No Known Allergies*) Allergy (Verified 08/02/25 10:52) Medication List - Last Reconciled 08/02/25 by Coty Iglesias MD amlodipine (Norvasc) 5 mg PO DAILY atorvastatin 40 mg PO DAILY rufkinvg-ffdu-XC-calcium-mins 18 mg iron-400 mcg-500 mg Ca (One-A-Day Womens Formula) tabs PO DAILY omeprazole 20 mg PO BID 60 days polyethylene glycol 3350 (Miralax) 17 grams PO DAILY 90 days ustekinumab (Stelara) 90 mg subcut Q4W 12 weeks HPI HPI 6 mos FUV.: Details: GI clinic visit for this 65-year-old female for follow-up of fibro-stenotic Crohn's disease - on Stelara. Patient was being followed by Dr. Cruz since 2012 Pt states I have not been having any stomach pains. My stools change from day to day sometimes I have diarrhea and then sometimes I don't. But I am never constipated. I have been pretty good. Last hospitalized in Dec, 2021 with SBO. 01/08/22 pt had laparotomy, extensive lysis of adhesions, resection of fold ileocolonic anastomosis including length of ileum, with? creation of a new ileocolonic anastomosis to the? more distal transverse colon by Dr Cortes TODAY'S VISIT: Patient cc: Patient cc: abdominal bloating after meal or drink, Complains of feeling bloated after she eats and resolves after 1/2 an hour. Denies association of symptoms with milk products Has a BM daily - sometimes has diarrhea alternating with normal stools PAST VISITS: Has diarrhea alternating with constipation - diarrhea 3 days a week and constipation 4 days Last episode of constipation was bad, took Dulcolax and pain went away. She would like to try Miralax for constipation Denies any GI complaints. Has 1 BM some days and 2 BMs on other days Denies mouth ulcers, jt pains, skin rash or eye problems Blurring of vision - thinks she needs glasses Neck pain has resolved. Has 1-2 soft BMs daily Notes pain in the right side of neck radiating to the right side of the head. Notes some blurred vision and denies eye pain or dizziness Always has diarrhea - notes 3-4 loose BMs a day EGD and colon results reviewed. Doing well and denies any problems Has a BM daily without diarrhea or rectal bleeding Abdominal pain has resolved. Wt is stable Pt states I have not been having any stomach pains. PAST VISIT:My stools change from day to day sometimes I have diarrhea and then sometimes I don't. But I am never constipated. I have been pretty good. Doing well after the surgery. Notes intermittent sharp pain after she is sitting for a while. Appetite is good - advised to eat 5 small meals throughout the day. Has 2 loose BMs a day. PAST VISITS: I am doing good. I have no problems at all Has a BM daily - can have diarrhea or normal stools depending on her diet. Drinks V8 juice instead of taking vegetables. She is taking Stelara every 4-weeks - last injection was on 05/21/21. In 11/2020 she had her Stelara level checked and she was within therapeutic range without antibodies. She continues to smoke? but has cut down to 10 cigarettes a day. She intermittently using the Nicotine patches. Her last OV was on 03/24/21 after a hospitalization for small bowel obstruction. She was hospitalized IN 04/17 at [facility] During that time, she did appear to? have a Crohn?s flare. Did not get vaccinated for COVID yet and planning to get vaccinated in the near future. Can have diarrhea intermittently - a few days a week.? 4-5 watery BMs a day without blood or mucous. No BM on some days. Notes a knot in her stomach if she moves a certain way - ? due to scar tissue. Her wt has been stable. Eats small amounts of food during the summer months. Patient denies symptoms of heartburn, dysphagia, nausea, vomiting, change in weight.? Denies recent change in bowel habits, constipation, diarrhea, black stools or rectal bleeding. Patient denies major cardiac or pulmonary problems, loud snoring or sleep apnea Denies problems with anesthesia in the past. Denies being on chronic anticoagulation. Patient denies known family history of colon polyps, colon cancer or other GI malignancies. PAST GI HISTORY BY REVIEW OF MEDICAL RECORDS: 58 YF with known history of Crohn's disease s/p small bowel resection x 2 andpast history of recurrent SBO followed by Dr Cruz.Patient was diagnosed with Crohn's disease at age 39 years. Paient was initially treated with medication. She is unable to recall the names - she thinks she took Asacol and steroids. She had two surgeries which were performed in [place] > 10 years ago with resection of small bowel and right colon. She was treated with Infliximab for a year 4 years ago and was subsequently discontinued for unclear reasons. Patient moved to [place] 4 years ago. She was started on Entyvio infusions every 8 weeks 1 year ago - last infusion was on 05/05/2018. She has had multiple past admissions for SBO which resolves with conservative management. She was previously reluctant to have surgery and is now aggreeable to proceeding with surgery. She noted onset of RLQ pain yesterday evening associated with nausea and vomting. She denies fever and noted some chills. Denies having any BM or passing gas since yesterday evening. She denies symptoms suggestive of extraintestional manifestation of?Crohn's disease IMAGING STUDIES:? 04/13/[address] SCAN SHOWED: *? The patient is status post right hemicolectomy with an ileocolic anastomosis within the right mid-abdomen. The distal 10 cm of small bowel leading up to the ileocolic anastomosis shows irregular wall thickening and luminal narrowing on a chronic basis. There is dilatation of the small bowel proximal to this segment measuring up to 4.2 cm which may represent a combination of a partial mechanical smallbowel obstruction and ileus. There is an additional segment of smallbowel within the left midabdomen, likely distal jejunum or proximal ileum measuring 8.6 cm in length, also showing irregular wall thickening and luminal narrowing likely representing an additional site of inflammation of indeterminate activity. *? Bilateral nonobstructive intrarenal calculi as described. ENDOSCOPIC STUDIES:?01/29/21 EGD AND COLONOSCOPY WERE PERFORMED BY DR. CRUZ: Esophagogastroduodenoscopy: Hiatal hernia, Superficial hemorrhagic gastritis; Colonoscopy: open anastomosis, ileal mucosa normal, able to intubate for approximately 8 cm, colon mucosa normal. BIOPSIES SHOWED: A.? Duodenum, biopsies:? Duodenal mucosa with no significant histopathology; no villous abnormality identified; no increase in intraepithelial lymphocytes. B.? Stomach, random, biopsies:? Gastric mucosa with mild chronic, inactive gastritis; negative for Helicobacter pylori organisms; negative for intestinal metaplasia; negative for dysplasia. C.? Small bowel, biopsies:? Small bowel mucosa within normal limits; no active ?inflammation; no granulomas; negative for malignancy. ?D.? Colon, proximal, biopsies:? Colonic mucosa within normal limits. ?E.? Colon, left, biopsies:? Colonic mucosa within normal limits [facility] Medical History (Updated 08/24/24 @ 10:49 by Coty Iglesias MD) Smoker Gastritis Small bowel obstruction Hyperlipidemia Crohns disease of small intestine Surgical History History of laparotomy Hx of endoscopy History of bowel resection S/P BSO (bilateral salpingo-oophorectomy) History of appendectomy History of esophagogastroduodenoscopy (EGD) Hx of colonoscopy Family History Father No problems noted. Mother Pneumonia Sister Breast cancer Social History Household Members: Other Housing: Apartment Do you presently have visiting nurse or other home services: No Alcohol intake: never Comment: pt asleep Patient Tobacco Use Status: Current everyday Tobacco user Tobacco use type: Cigarette Cigarette Packs Per Day: 0.5 Cigarettes Per Day: 10.0 Years Smoked: 45 e-Cigarette/Vaping Use: Never Used Second Hand Smoke Exposure: No Advance Directives Date on File: 04/13/21 service: No Current occupational status: unemployed and disabled Review of Systems Const All systems reviewed & are unremarkable except as noted in HPI and below Physical Exam Vital Signs: Last Vital Signs Pulse 71 08/02/25 10:58 BP 140/62 H 08/02/25 10:58 Pulse Ox 98 08/02/25 10:58 Oxygen Delivery Method Room Air 08/02/25 10:58 BMI result Body Mass Index 26.6 Const General: healthy appearing and no acute distress Nutritional Appearance: overweight Orientation/consciousness: patient oriented x3 Limitations: no limitations HEENT Head: Yes normal to inspection Ears: hearing grossly normal bilaterally Eyes Sclerae: sclerae normal Pupils: Equal, round and reactive pupils present Neck Neck: Yes normal visual inspection Chest Chest palpation & inspection: normal inspection of the chest Resp Effort & Inspection: normal respiratory effort Auscultation: clear to auscultation bilaterally Cardio Palpation: normal PMI Rate: regular rate Rhythm: regular rhythm Heart sounds: S1 normal heart sound present, S2 normal heart sound present and no murmurs GI Palpation (GI): Soft to palpation, nontender and No hepatosplenomegaly present Auscultation: normal bowel sounds Rectal Exam - Female: deferred Skin General skin exam: no rashes or lesions noted Neuro General: patient oriented x3, gait normal and moves all extremities Cranial nerves: Yes Equal, round and reactive pupils present Psych Appearance: grossly normal Mental Status: mental status grossly normal Assessment & Plan Assessment & Plan (1) Crohns disease of small intestine: Code(s): K50.00 - Crohn's disease of small intestine without complications Category: Medical (2) Peptic ulcer disease: Code(s): K27.9 - Peptic ulcer, site unspecified, unspecified as acute or chronic, without hemorrhage or perforation Category: Medical (3) Elevated LFTs: Code(s): R79.89 - Other specified abnormal findings of blood chemistry Category: Medical Plan 65 YF diagnosed with Crohn's disease diagnosed > than 20 yrs ago. Pt is status post right colon and small bowel resection x 3 Her course has been complicated by recurrent SBO due to fibrostenotic disease - last surgery was in Dec, 2021. Patient was last admitted with another episode of SBO in Dec 2021 and had laparotomy, extensive lysis of adhesions, resection of old ileocolonic anastomosis including length of ileum, with?creation of a new ileocolonic anastomosis to the?more distal transverse colon on 01/08/22 She is doing well after surgery. Patient was advised to continue Stelara 90 mg every 4 weeks. 02/08/23 Pt had an EGD which showed gastritis and a Colonoscopy which showed normal ileo-colic anastomosis and inactive Crohn's disease. Pt advised to start calcium + Vitamin D supplement for osteopenia noted on last bone scan 08/26/23 Crohn's disease is well controlled with Stelara Pt complains of right sided neck and head pain and will contact her PCP for advice. 02/24/24 Denies any GI complaints. Neck pain has resolved. Has 1-2 soft BMs daily Continue Stelara 90 mg subcutaneously every 4 weeks 08/24/24 Denies any GI complaints. Has 1 BM some days and 2 BMs on other days Check labs for evaluation of intermittent LFT elevation 02/22/25 Pt advised to take Miralax every other day for constipation Schedule a colonoscopy for surveillance for Crohn's disease 08/02/25 Pt scheduled for an EGD (FU of gastric intestinal metaplasia) and colonoscopy (surveillance for Crohn's disease and colon polyps) on 08/10/25 Patient was advised to continue Stelara 90 mg every 4 weeks for Crohn's disease. FU in 4 months Medications: New polyethylene glycol 3350 (Miralax) Mix Miralax with 64 oz(8 cups) of Crystal light. Take 2 tablets of Dulcolax qt 12 pm. Wait to have your 1st bowel movement, then begin drinking Miralax. Drink a glass of Miralax every 10-15 minutes until you are finished. You will drink at least another 4 cups of clear liquid of your choice over the next 2 hours. Please drink as many clear liquids as possible You may have clear liquids up to four hours before your procedure 17 grams PO DAILY 238 grams 0RF colon prep 1 day bisacodyl (Dulcolax (bisacodyl)) Take 2 tablets daily at 12 pm starting 3 days before colonoscopy appointment 10 mg (2 x 5 mg) PO ONCE 6 tabs 0RF colon prep 3 days Coding Level of Care Code Est Pt Level 4 (11064) Complex EM visit Add On G2211 Diagnoses Crohn's disease of small intestine with intestinal obstruction K50.00 Peptic ulcer disease K27.9 Elevated LFTs R79.89 Time Spent (min) 21
[2025-08-02 10:58] VITALS: BP 140/62; PULSE 71; O2SAT 98; BMI 26.6
--- OUTSIDE RECORDS SUMMARY | 2025-08-02 12:26 | XMS_ITS | Patient Health Record ---
Author Organization Jorge Green MD Address [address] [place] [phone] Care Team Providers Care Auriculotherapist Name Role Phone Norma Jorge Primary Care Provider Allergies Allergen (clinical drug ingredient) Drug/Non Drug Allergy documented on EMR Reaction Allergy Type Onset Date Status Pneumococcal 13-Luann Conj Vacc rash and hives Drug Allergy Active Neosporin rash Drug Allergy Active Results Component Value Reference Range Notes Liver Panel Reviewed date:12/11/2024 12:47:11 PM Interpretation: Performing Lab:[facility], [address] [place] [phone] Notes/Report: Bilirubin Total 0.5 0.0-1.0 mg/dL Bilirubin Direct 0.2 0.0-0.5 mg/dL Aspartate Amino Transferase 27 5-31 U/L Alanine Aminotransferase 32 0-31 U/L Total Protein 7.4 6.5-8.0 g/dL Albumin Level 4.2 3.5-5.0 g/dL Alkaline Phosphatase 96 39-117 U/L Lipid Panel with Reflex Reviewed date:12/11/2024 02:29:10 PM Interpretation: Performing Lab:[facility], [address] [place] [phone] Notes/Report: Triglycerides 112 <150 mg/dL Desirable Triglyceride: [...] low results in patients with liver disease. Complete Blood Count Auto Di ff Reviewed date:06/11/2025 01:00:05 PM Interpretation: Performing Lab:[facility], [address] [place] [phone] Notes/Report: White Blood Count 7.5 4.8-10.8 X10*3/uL [...] 0.0-0.2 /100WBC Neutrophils Absolute Auto 4.1 2.0-8.3 x10*3/uL Imm Gran Abs Auto 0.01 0.00-0.03 X10*3/uL Lymphocytes Absolute Auto 2.8 1.2-4.9 X10*3/uL Monocytes Absolute Auto 0.4 0.1-1.2 X10*3/uL Eosinophils Absolute Auto 0.1 0.0-0.4 X10*3/uL Basophils Absolute Auto 0.1 0.0-0.2 X10*3/uL NRBC Abs Auto 0.000 0.0-0.012 X10*3/uL Comprehensive [place]. Panel Fa st Reviewed date:06/11/2025 01:37:11 PM Interpretation: Performing Lab:[address] [phone] Notes/Report: Sodium 147 135-145 mmol/L Potassium 4.2 [...] Panel Reviewed date:06/11/2025 12:54:27 PM Interpretation: Performing Lab:[address] [phone] Notes/Report: Triglycerides 109 <150 mg/dL Desirable Triglyceride: [...] t Reviewed date:06/11/2025 01:38:57 PM Interpretation: Performing Lab:[facility], [address] [place] [phone] Notes/Report: Urine, Clean Catch Color Urine Dark Yellow Appearance Urine Clear PH 6.0 5.0-9.0 Glucose Urine UA Negative Negative mg/dL Urine Blood Negative Negative Specific [place] - Urine 1.020 1.005-1.025 Urine Protein Trace Neg-Trace mg/dL Urine Ketones Trace Negative mg/dL Nitrite Urine Negative Negative Leukocyte Esterase Urine Small (1+) Negative RBC Urine 0-2 0-2 /HPF WBC Urine 6-10 0-5 /HPF Squamous Epithelial Cell Urine 11-20 0-2 /HPF Bacteria Urine 2+ None Seen Hyaline Casts Urine 0-2 0-2 /LPF XR chest 2V Reviewed date:02/08/2025 12:38:43 PM Interpretation: Performing Lab: Notes/Report: [address] [address] XRay Report Signed Patient: Zac Colindres MR#: [id number] 9 : 1960 Acct:[id number] Age/Sex: 64 / F ADM Date: 02/08/25 Loc: RENITA Attending Dr: Jorge Green MD Ordering Physician: Jorge Green MD Date of Service: 02/08/25 Procedure(s): XR chest 2V Accession Number(s): [id number] cc: Jorge Green MD EXAMINATION: XR CHEST [...] 02/08/25 1213 DD/ 1055 TD/TT: 02/08/25 1100 Aviation Ordnance Officer: [address] [address] XRay Report Signed Patient: Zac Colindres MR#: [id number] 9 : 1960 Acct:[id number] Age/Sex: 64 / F ADM Date: 02/08/25 Loc: HO.JULIAN Attending Dr: Jorge Green MD Ordering Physician: Jorge Green MD Date of Service: 02/08/25 Procedure(s): XR mimi st 2V Accession Number(s): [id number] cc: Jorge Green MD EXAMINATION: XR CHES T 2 VIEWS HISTORY: CHEST PAIN COMPARISON: Comparis [...] 2V IMPRESSION: No acute cardiopulmonary abnormality. Electronically brayden d by: Sandor Son MD 02/08/2025 12:13 PM EDT RP Dictated By: Sandor Son MD Signed By: <Electronically signed by Sandor Son MD in OV> 02/08/25 1213 DD/ 1055 TD/TT: 02/08/25 1100 Aviation Ordnance Officer: Annalee Luna date:12/11/2024 01:12:46 PM Interpretation: Performing Lab:[facility], [address] [place] [phone] Notes/Report: Annalee Wyman See Note Specimen held untested for 24 hours; Call to request Chemistry testing. Liver Panel Reviewed date:02/02/2025 12:07:48 PM Interpretation: Performing Lab:[facility], [address] [place] [phone] Notes/Report: Bilirubin Total 0.7 0.0-1.0 mg/dL Bilirubin Direct 0.3 0.0-0.5 mg/dL Aspartate Amino Transferase 26 5-31 U/L Alanine Aminotransferase 33 0-31 U/L Total Protein 7.4 6.5-8.0 g/dL Albumin Level 4.0 3.5-5.0 g/dL Alkaline Phosphatase 83 39-117 U/L Protein Electrophoresis, Ser um Reviewed date:02/20/2025 08:01:20 PM Interpretation: Performing Lab:[facility], [address] [place] [phone] Notes/Report: Prot Elec - Total Protein 6.9 6.1-8.1 g/dL Prot Elec - Albumin 4.0 3.8-4.8 g/dL Prot Elec - Alpha1 0.3 0.2-0.3 g/dL Prot Elec - Alpha2 0.7 0.5-0.9 g/dL Prot Elec - Beta 1 0.5 0.4-0.6 g/dL Prot Elec - Beta 2 0.5 0.2-0.5 g/dL Prot Elec - Gamma 0.9 0.8-1.7 g/dL PES - Abn Protein Band 1 TNP PES-Abn Protein Band 2 TNP PES-Abn Protein Band 3 TNP Prot Elec - Interpretation SEE NOTE Normal Serum Protein Electrophoresis Pattern. No abnormal protein bands (M-protein) detected. THIS TEST WAS PERFORMED AT: [facility] [address] [phone] ALEM MARTEL MD Immunoglobulin A Reviewed date:02/20/2025 08:01:05 PM Interpretation: Performing Lab:[facility], [address] [place] [phone] Notes/Report: Immunoglobulin A 365 70-320 mg/dL THIS TEST WAS PERFORMED AT: [facility] [address] [place] [phone] ALEM MARTEL MD BRAXTON Reflex Titer and Pattern Reviewed date:02/06/2025 12:27:05 PM Interpretation: Performing Lab:[facility], [address] [place] [phone] Notes/Report: Anti Nuclear Antibody Screen NEGATIVE NEGATIVE BRAXTON IFA is a first line screen for detecting the presence of up to approximately 150 autoantibodies in various autoimmune diseases. A negative BRAXTON IFA result suggests an BRAXTON-associated autoimmune disease is not present at this time, but is not definitive. If there is high clinical suspicion for Sjogren's syndrome, testing for anti-SS-A/Ro antibody should be considered. Anti-Chiara-1 antibody should be considered for clinically suspected inflammatory myopathies. AC-0: Negative International Consensus on BRAXTON Patterns (https://doi.org/10.1 515/pdce-4720-4524) For additional information, please refer to http://education.[employer]ima/faq/ TZY207 (This link is being provided for informational/ educational purposes only.) THIS TEST WAS PERFORMED AT: [facility] [address] [place] [phone] ALEM MARTEL MD Anti Nuclear Antibody Titer TNP Anti Nuclear Antibody Pattern TNP BRAXTON Titer 2 TNP BRAXTON Pattern 2 TNP BRAXTON Titer 3 TNP BRAXTON Pattern 3 TNP Smooth Muscle Antibody Reviewed date:02/20/2025 08:01:27 PM Interpretation: Performing Lab:[facility], [address] [place] [phone] Notes/Report: Smooth Muscle Antibody <20 <20 U Reference Range: <20 U: Negative >or=20 U: Positive Antibodies recognizing actin are the main component of smooth muscle antibodies associated with auto- immune liver disease. Actin antibodies are found in approximately 75% of patients with autoimmune hepatitis (AIH) type 1, approximately 65% of patients with autoimmune cholangitis, approximately 30% of patients with primary biliary cirrhosis and approximately 2% of healthy controls. High values are closely correlated with AIH type 1. THIS TEST WAS PERFORMED AT: [facility]/[address] [phone] MUNA VASQUEZ MD,PHD Transglutaminase Ab IgG Reviewed date:02/20/2025 08:01:35 PM Interpretation: Performing Lab:[address] [phone] Notes/Report: Transglutaminase Ab IgG <1.0 Value Interpretation ----- <15.0 Antibody not detected > or = 15.0 Antibody detected THIS TEST WAS PERFORMED AT: [facility] [address] [place] [phone] ALEM MARTEL MD Transglutaminase IgA Reviewed date:02/20/2025 08:00:31 PM Interpretation: Performing Lab:[address] [phone] Notes/Report: Transglutaminase IgA <1.0 Value Interpretation ----- <15.0 Antibody not detected > or = 15.0 Antibody detected THIS TEST WAS PERFORMED AT: [facility] [address] [place] [phone] ALEM MARTEL MD Hepatitis B Surface Antibody Reviewed date:02/02/2025 12:07:39 PM Interpretation: Performing Lab:[facility], [address] [place] [phone] Notes/Report: Hepatitis B Surface Antibody NONREACTIVE Nonreactive Nonreactive: < 8.00 mIU/mL CT chest wo con Reviewed date:05/14/2025 10:01:57 AM Interpretation: Performing Lab: Notes/Report: [address] [address] [address] Scan Report Signed Patient: Zac Colindres MR#: [id number] 9 : 1960 Acct:[id number] Age/Sex: 65 / F ADM Date: 05/11/25 Loc: HO.CT Attending Dr: Jorge Green MD Ordering Physician: Jorge Green MD Date of Service: 05/11/25 Procedure(s): CT chest wo IV con Accession Number(s): [id number] cc: Jorge Green MD Report Number: [id number]: Total DLP = 132.00 mGy-cm EXAMINATION: CT CHEST WITHOUT CONTRAST CLINICAL INFORMATION: Solitary pulmonary nodule. COMPARISON: March 29, 2024 demonstrated numerous less than 4 mm noncalcified pulmonary nodules. TECHNIQUE: Multidetector volumetric CT imaging of the chest was done. Axial MIP volume rendering provided. Sagittal and coronal reformatted images were obtained. This CT examination was performed using dose optimization techniques as appropriate, variously including the following: *Automated exposure control *Adjustment of mA and/or kV according to patient size (this includes techniques or standardized protocols for targeted exams where dose is matched to indication/reason for exam; i.e. extremities or head) *Use of iterative reconstruction technique. DLP: 132 mGy centimeter. FINDINGS: LEPIDOPTERIST: Good inspiration. Cardiomediastinal silhouette size is normal. Both upper extremities at the the site of the head. Patient's large body habitus. LUNGS: There are multiple, scattered, less than 4 mm noncalcified pulmonary nodules in the periphery of the upper and lower lung lobes with similar morphology and distribution since prior exam. No bronchiectasis. No honeycombing. Respiratory airways is patent. No gross consolidation. MEDIASTINUM: No lymphadenopathy. No gross pericardial effusion. No aneurysm, thoracic aorta. Calcified plaques throughout the thoracic aorta and its main branches. Calcified plaques in the coronary arteries. No pneumomediastinum. No hemomediastinum. No hemopericardium. The heart is not enlarged. CORONARY ARTERY CALCIFICATION: Calcified plaques. PLEURA: No pleural effusion. No pneumothorax. No calcified pleural plaques. No hemothorax. AXILLA: No lymphadenopathy. UPPER ABDOMEN: Calcified plaques abdominal aorta wall and its main branches. Calcified plaques in the splenic artery. Desiccation seen the pelvicalyceal system, right kidney without hydronephrosis. Fat-containing epigastric hernia. OSSEOUS STRUCTURES: Mild multilevel spondylosis without acute fracture or gross listhesis. CT/CT chest wo IV con IMPRESSION: Stable noncalcified less than 4 mm right nodules. Coronary artery disease and atherosclerosis disease. Probable nonobstructing nephrolithiasis, right kidney. Fleischner guidelines were followed. Electronically signed by: Peter Bowers MD 05/11/2025 02:10 PM EDT Dictated By: Peter Silva MD Signed By: <Electronically signed by Peter Pollard MD in OV> 05/11/25 1410 DD/ 1337 TD/TT: 05/11/25 1401 Aviation Ordnance Officer: [address] [address] [address] Scan Report Signed Patient: Zac Colindres MR#: [id number] 9 : 1960 Acct:[id number] Age/Sex: 65 / F ADM Date: 05/11/25 Loc: HO.CT Attending Dr: Jorge Green MD Ordering Physician: Jorge Green MD Date of Service: 05/11/25 Procedure(s): CT mimi st wo IV con Accession Number(s): [id number] cc: Jorge Green MD Report Number: [id number]: Total DLP = 132.00 mGy-cm EXAMINATION: CT CHEST WITHOUT CONTRAST CLINICAL INFORMATION: Solitary pulmonary nodule. COMPARISON: March 29, 2024 demonstrated numerous less than 4 mm noncalcified pulmonary nodules. TECHNIQUE: Multidetector volumetric CT imaging of the chest was done. Axial MIP volume rendering provided. Sagittal and coronal reformatted images were obtained. This CT examination was performed using dose optimization techniques as appropriate, various ly including the following: *Automated exposure control *Adjustment of mA and/or kV according to patient size (this includes techniques or standardized protocols for targeted exams where dose is matched to indication/reason for exam; i.e. extremities or head) *Use of iterative reconstruction technique. DLP: 132 mGy centimeter. FINDINGS: LEPIDOPTERIST: Good inspiration. Cardiomediastinal silhouette size is normal. Both upper extremiti es at the the site of the head. Patient's large body habitus. LUNGS: There are multiple, scattered, less than 4 mm noncalcified pulmonary nodules in the periphery of the upper and lower lung lobes with similar morphol ogy and distribution since prior exam. No bronchiectasis. No honeycombing. Respiratory airways is patent. No gross consolidation. MEDIASTINUM: No lymphadenopathy. No gross pericardial effusion. No aneurysm, thoraci c aorta. Calcified plaques throughout the thoracic aorta and its main branches. Calcified plaques in the coronary arteries. No pneumomediastinum. No hemomediastinum. No hemopericardium. The heart is not enlarged. CORONARY ARTERY CALCIFICATION: Calcified plaques. PLEURA: No pleural effusion. No pneumothorax. No calcified pleural plaques. No hemothorax. AXILLA: No lymphadenopathy. UPPER ABDOMEN: Calcified plaques abdominal aorta wall and its main branches. Calcified plaques in the splenic artery. Desiccation seen the pelvicalyceal system, right kidney without hydronephrosis. Fat-containing epigastric hernia. OSSEOUS STRUCTURES: Mild multilevel spondylosis without acute fracture or gross listhesis. CT/CT chest wo IV con IMPRESSION: Stable noncalcified less than 4 mm right nodules. Coronary artery dise ase and atherosclerosis disease. Probable nonobstruct ing nephrolithiasis, right kidney. Fleischner guideline s were followed. Electronically brayden d by: Peter Bowers MD 05/11/2025 02:10 PM EDT RP Dictated By: Peter Dyer MD Signed By: <Electronically signed by Peter Pollard MD in OV> 05/11/25 1410 DD/ 1337 TD/TT: 05/11/25 1401 Aviation Ordnance Officer: Urine Culture Reviewed date:06/12/2025 12:36:58 PM Interpretation: Performing Lab:[facility], [address] [place] [phone] Notes/Report: Urine Culture Report Result Urine Culture 50,000 to 100,000 cfu/ml Urine Culture Mixed bacterial jose a characteristic of Urine Culture urogenital contamination. MM tomosynthesis screening B I Reviewed date:07/19/2025 04:26:59 PM Interpretation: Performing Lab: Notes/Report: [facility] [address] [place] [address] Mammography Report Signed Patient: Zac Colindres MR#: [id number] 9 : 1960 Acct:[id number] Age/Sex: 65 / F ADM Date: 07/13/25 Loc: KARLIEO Attending Dr: Jorge Green MD Ordering Physician: Jorge Green MD Results: 1Ne gative Date of Service: 07/13/25 Follow Up: 1 Year From Orig inal Mammogram Procedure(s): MM tomosynthesis screening BI Accession Number(s): [id number] cc: Jorge Green MD EXAMINATION: MM SCREENING DIGITAL BREAST TOMOSYNTHESIS, BILATERAL CLINICAL INFORMATION: Screening. Asymptomatic. COMPARISON: Mammography: Comparison is made with available priors TECHNIQUE: Digital breast mammography with tomosynthesis is performed in both the craniocaudal and mediolateral oblique views along with computer-aided detection (CAD). FINDINGS: The breasts are almost entirely fatty (ACR BI-RADS breast composition Category a). There are no significant masses, abnormal calcifications, or other abnormalities. MM/MM tomosynthesis screening BI IMPRESSION: No mammographic evidence of malignancy. ASSESSMENT: BI-RADS BI-RADS 1 - Negative RECOMMENDATION: Routine annual mammography screening. 1 year F/U This examination should not preclude the clinical evaluation of a suspicious palpable abnormality. This patient's information was entered into a reminder system with a target due date for their next mammogram. Electronically signed by: Puja Holcomb DO 07/18/2025 09:06 AM EDT Dictated By: Puja Holcomb DO Signed By: <Electronically signed by Puja Holcomb DO in OV> 07/18/25 0906 DD/ 1020 TD/TT: 07/13/25 1040 Aviation Ordnance Officer: Corie [facility] [address] [place], [place] [id number] Mammography Report Signed Patient: Zac Colindres MR#: [id number] 9 : 1960 Acct:[id number] Age/Sex: 65 / F ADM Date: 07/13/25 Loc: HO.MAMMO Attending Dr: Jorge Green MD Ordering Physician: Jorge Green MD Results: 1Ne gative Date of Service: 07/13/25 Follow Up: 1 Year From Orig inal Mammogram Procedure(s): MM tomosynthesis screening BI Accession Number(s): [id number] cc: Jorge Green MD EXAMINATION: MM SCREENING DIGITAL BREAST TOMOSYNTHESIS, BILATERAL CLINICAL INFORMATION: Screening. Asymptomatic. COMPARISON: Mammography: Compari son is made with available priors TECHNIQUE: Digital breast mammography with tomosynthesis is performed in both the craniocaudal and mediolateral oblique views along with computer-aided detection (CAD). FINDINGS: The breasts are almo st entirely fatty (ACR BI-RADS breast composition Category a). There are no significant masses, abnormal calcifications, or other abnormalities. MM/MM tomosynthesis screening BI IMPRESSION: No mammographic evidence of malignancy. ASSESSMENT: BI-RADS BI-RADS 1 - Negative RECOMMENDATION: Routine annual mammography screening. 1 year F/U This examination justin uld not preclude the clinical evaluation of a suspicious palpable abnormality. This patient's information was entered into a reminder system with a target due date for their next mammogram. Electronically brayden d by: Puja Holcomb DO 07/18/2025 09:06 AM EDT RP Dictated By: Puja Holcomb DO Signed By: <Electronically signed by Puja Holcomb DO in OV> 07/18/25 0906 DD/ 1020 TD/TT: 07/13/25 1040 Aviation Ordnance Officer: Reason For Referral No Information Medications Medication SIG (Take, Route, Frequency, Duration) Notes Start Date End Date Status Albuterol Sulfate HFA 108 (90 Base) MCG/ACT 1 puff as needed Inhalation every 4 hrs for 30 days 01/22/2025 Active Omeprazole 20 MG 1 capsule Orally twi ce a day for 90 days Active Stelara 90 MG/ML Subcutaneous injecti on every 4 weeks Active Ventolin HFA 108 (90 Base) MCG/ACT 2 puffs as needed Inhalation every 4 hrs 12/01/2016 Not-Takin g Cyclobenzaprine HCl 5 MG 1 tablet at bed time as needed Orally 3 times a day for 10 days 03/13/2021 Not-Taking amLODIPine Besylate 10 MG 1 tablet Orall y Once a day 03/02/2025 Active Atorvastatin Calcium 40 MG 1 tablet Oral ly Once a day Active Immunizations Vaccine Route Administration Date Status Comme nts Flu Vaccine Unknown 11/07/2014 Administered [employer] Fluarix Quadrivalent IM Intramuscular 09/24/2015 Administe red Fluarix Quadrivalent Unknown 08/24/2016 Administered HM C TDaP Unknown 04/28/2018 Administered [employer] Fluarix Quadrivalent IM Intramuscular 08/22/2018 Administe red Fluarix Quadrivalent Unknown 09/07/[address] [facility] Tetanus Unknown 04/28/2018 Administered Fluarix Quadrivalent Unknown 11/11/[address] Cruz Fluarix Quadrivalent IM Intramuscular 08/15/2021 Administe red Fluarix Quadrivalent IM Intramuscular 10/20/2022 Administe red PPSV23 (Pnemovax) Unknown 09/14/2016 Refused PPSV23 (Pnemovax) Unknown 04/26/2018 Refused Prevnar 13 Unknown 05/01/2019 Refused Covid Vaccine Unknown 04/03/2021 Refused refused cov id vaccine. Social History Tobacco Use/Smoking Question Answer Notes Additional Findings: Tobacco Non-User Cu rrent non-smoker, currently using no form of tobacco Alcohol Screen Question Answer Notes Did you have a drink containing alcohol in the p ast year? No Points 0 Interpretation Negative Section Notes: patient states has not had a cigarette in 2 weeks but vapes 20 times a day patient states has not had a cigarette in 2 weeks but vapes 20 times a day patient states has not had a cigarette in 2 weeks but vapes 20 times a day Problems Problem Type SNOMED Code ICD Code Onset Dates Problem Status W/U Status Risk Notes Problem 492769515 Atherosclerotic heart disease of ione coronary artery without angina pectoris (I25.10) Active confirmed Problem 39327339 Restless leg syndrome (G25.81) Active confirmed Problem 177463771 Atherosclerosis of abdominal aorta (I70.0) Active confirmed Problem 348180778 Bandemia (D72.825) Active confirmed Problem Hypercalcemia (24172131) Hypercalcemia (E83.52) Active confirmed Problem 86980260 Smoker (F17.200) Active confirmed Problem Essential hypertension (60639792) Essential hypertension (I10) Active confirmed Problem 889322942 Lung nodule (R91.1) Active confirmed Problem Mixed hyperlipidemia (620082397) Elevated triglycerides with high cholesterol (E78.2) Active confirmed Problem 107255646 Borderline hypertension (R03.0) Active confirmed Problem Post menopausal problems (N95.9) Active confirmed Problem 587624284 Abnormal mammogram (R92.8) Active confirmed 6 month f/u to 06/15 and 06/16/16 mammogram Problem 125142212244465 History of Crohn's disease (Z87.19) Active confirmed Problem Pulmonary nodule (013970195) Pulmonary nodule (R91.1) Active confirmed Problem 549397330 Osteopenia determined by x-ray (M85.80) Active confirmed Problem 137808859 Abnormal WBC count (D72.9) Active confirmed Vital Signs Blood pressure diastolic 70 mm Hg 06/18/2025 addy ght is down 3 pounds since 03-23-25 Height 59 in 06/18/2025 weight is down 3 pounds since 03-23-25 Blood pressure systolic 148 mm Hg 06/18/2025 weig ht is down 3 pounds since 03-23-25 Weight 141 lbs 06/18/2025 weight is down 3 pounds since 03-23-25 BMI 28.48 kg/m2 06/18/2025 weight is down 3 pounds since 03-23-25 Encounters Encounter Location Date Provider Diagnosis Jorge Green MD [address] [place] [id number] 12/11/2024 Jorge Green Elevated triglycerid es with high cholesterol E78.2 Jorge Green MD [address] [place] [id number] 06/11/2025 Jorge Green Borderline hypertens ion R03.0 ; Abnormal WBC count D72.9 and Elevated triglycerides with high cholesterol E78.2 Jorge Green MD [address] [place] [id number] 12/19/2024 Jorge Green History of cigarette smoking Z87.891 ; Atherosclerotic heart disease of ione coronary artery without angina pectoris I25.10 ; Lung nodule R91.1 ; Elevated triglycerides with high cholesterol E78.2 and Borderline hypertension R03.0 Jorge Green MD [address] [place] [id number] 01/22/2025 Jorge Green Bronchitis J40 Jorge Green MD [address] [place] [id number] 03/02/2025 Jorge Green Diplopia H53.2 and Essential hypertension I10 Jorge Green MD [address] [place] [id number] 03/23/2025 Jorge Green Diplopia H53.2 and Essential hypertension I10 Jorge Green MD [address] [place] [id number] 06/18/2025 Jorge Green Atherosclerotic hear t disease of ione coronary artery without angina pectoris I25.10 ; Borderline hypertension R03.0 ; Elevated triglycerides with high cholesterol E78.2 ; History of Crohn's disease Z87.19 and Depression screening Z13.31 Jorge Green MD [address] [place] [id number] 09/25/2024 Jorge Green Elevated triglycerid es with high cholesterol E78.2 Jorge Green MD [address] [address] [place] [address] [id number] 02/08/2025 Jorge Green Chest pain R07.[address] [place] [address] [id number] 03/29/20[address] [place] [address] [id number] 04/16/2025 Jorge Green Essential hypertensi on I10 Jorge Green MD [address] [place] [address] [id number] 04/17/2025 Jorge Green Essential hypertensi on I10 Jorge Green MD [address] [place] [address] [id number] 05/14/2025 Jorge Green Pulmonary nodule R91 .1 Assessments Encounter Date Diagnosis (ICD Code) Assessment Notes Treatment Notes Treatment Clinical Notes Section Notes 12/11/2024 Elevated triglycerides with high cholesterol (ICD-10 - E78.2) 06/11/2025 Borderline hypertension (ICD-10 - R03.0) 12/19/2024 History of cigarette smoking (ICD-10 - Z87.891) is vaping which is probably better for her/ order printed and put in future folder , pending dianostic monitoring 12/19/2024 Atherosclerotic heart disease of [place] coronary artery without angina pectoris (ICD-10 - I25.10) on statins and having no pains, will coontinue current regiment 01/22/2025 Bronchitis (ICD-10 - J40) patient verbalized understanding of medication and directions for use 03/02/2025 Diplopia (ICD-10 - H53.2) is being evaluated by ophthalmology 03/02/2025 Essential hypertension (ICD-10 - I10) running a bit high, increase amlodipine to 10 , patient verbalized understnading of increase in dose of medication 03/23/2025 Diplopia (ICD-10 - H53.2) is getting better/ / lhad an mri of her brain from the automotive painter but she doesn't have the results yet. her eoms appear normal now and she doesn't get double vision on lateral gaze now 06/18/2025 Atherosclerotic heart disease of [place] coronary artery without angina pectoris (ICD-10 - I25.10) on statins z 06/18/2025 Borderline hypertension (ICD-10 - R03.0) stable, will continue current regiment z 09/25/2024 Elevated triglycerides with high cholesterol (ICD-10 - E78.2) 02/08/2025 Chest pain (ICD-10 - R07.9) order faxed to [facility] patient reg 04/16/2025 Essential hypertension (ICD-10 - I10) 04/17/2025 Essential hypertension (ICD-10 - I10) 05/14/2025 Pulmonary nodule (ICD-10 - R91.1) due 06/11/2025 Abnormal WBC count (ICD-10 - D72.9) 12/19/2024 Lung nodule (ICD-10 - R91.1) pending future disagnostic monitoring 03/23/2025 Essential hypertension (ICD-10 - I10) doing well/ bp well controlled on the present meds. will continue 06/18/2025 Elevated triglycerides with high cholesterol (ICD-10 - E78.2) stable, will continue currenr regiment z 06/11/2025 Elevated triglycerides with high cholesterol (ICD-10 - E78.2) 12/19/2024 Elevated triglycerides with high cholesterol (ICD-10 - E78.2) stable, will continue current regiment 06/18/2025 History of Crohn's disease (ICD-10 - Z87.19) well controlled, will continue current regiment z 12/19/2024 Borderline hypertension (ICD-10 - R03.0) stable, will continue current regiment 06/18/2025 Depression screening (ICD-10 - Z13.31) negative screen z 06/18/2025 Other doing well, lab s reviewed and discussed with patient z Plan Of Treatment Pending Test Test Name Order Date IRON + IBC (FE) 05/29/2021 XR CHEST 2 VIEW PA & LAT 08/19/2015 XR CHEST 2 VIEW PA & LAT 09/06/2018 MAMMOGRAM DIGITAL BILATERAL SCREEN 06/15 CT chest wo con 06/22/2023 CT chest wo con 2024 CT chest wo con 05/14/2025 CT chest wo con 03/30/2022 CT chest wo con 03/18/2023 XR DEXA axial skeleton 05/29/2021 US carotid duplex BI 05/29/2021 Future Test Test Name Order Date CT CHEST NO CONTRAST 01/08/2021 Electrocardiogram (EKG) 03/07/2022 CT chest wo con 03/07/2022 CT chest wo con 06/11/2023 CT chest wo con 04/18/2025 Next Appt Details Provider Name:Jorge Valeriy Flaquito horn, 12/13/2025 07:15:00 AM, [address] [place] [address], [address], [phone], Provider Name:Jorge cuadrar, 12/20/2025 10:00:00 AM, [address] [place] [address], [address] [place] [address], [phone], Provider Name:Jorge cuadrar, 06/13/2026 07:15:00 AM, [address] [place] [address], [address], [phone], Provider Name:Jorge Crooks Flaquito ier, 06/20/2026 11:00:00 AM, [address] [place] [address], [address], [phone], Insurance Providers Payer Name Payer Address Payer Phone Subscriber Number Group Number Insured Name Patient Relationship to Insured Coverage Start Date Coverage End Date [employer] [address] [place] [address] [id number] ZAC COLINDRES Self - patient is the insured [address] [address] [phone] [id number] ZAC COLINDRES Self - patient is the insured 5 Medical (General) History Medical History History ICD Code colonoscopy in 2012 ([place] ) - 5 yr f/u w/Dr. Erum Cruz; colonoscopy done 11/02/17 by /Dr. Cruz; colonoscopy by Dr. Cruz w/biopsies (01/30/20)colonoscopy 02/08 repeay 3 y Asthmatic bronchitis lung nodules needs ct chest 07/2017 Surgical History Surgery Date(Month/Year) EGD with Biopsy 10/2017
== END 2025-08-02 11:54 | disposition home or self-care (01) ==
LOC: HO.HGI 10:50
PROVIDERS: PCP Internal Medicine; Visit Provider Internal Medicine Gastroenterology
DX: K50.00 Crohn's disease of small intestine without complications (principal); K27.9 Peptic ulcer, site unspecified, unspecified as acute or chronic, without hemorrhage or perforation; R79.89 Other specified abnormal findings of blood chemistry
CPT/HCPCS: 99214; G2211

== ENCOUNTER → 2025-08-02 10:49 | Outpatient (BNVA) | payer MEDICARE, MEDICAID, SELFPAY | PROVIDERS: PCP Internal Medicine; Visit Provider Internal Medicine Gastroenterology | DX: K50.00 Crohn's disease of small intestine without complications (principal); K27.9 Peptic ulcer, site unspecified, unspecified as acute or chronic, without hemorrhage or perforation; R79.89 Other specified abnormal findings of blood chemistry | CPT/HCPCS: 99212 ==

== ENCOUNTER 2025-08-10 11:12 | Day surgery (SDC) | payer MEDICARE, OTHER, SELFPAY ==
--- OUTSIDE RECORDS SUMMARY | 2025-04-16 05:44 | XMS_ITS ---
Author Organization Jorge Green MD Address [address] [place] [address] [phone] Care Team Providers Care Film Inspector Name Role Phone Jorge Green Primary Care Provider [phone] REASON FOR VISIT refill Medications Medication SIG (Take, Route, Frequency, Duration) Notes Start Date End Date Status amLODIPine Besylate 10 MG 1 tablet Orall y Once a day for 90 days 03/02/2025 Active Encounters Encounter Location Date Provider Diagnosis Jorge Green MD [address] [place] [address] [phone] 04/16/2025 Jorge rGeen Essential hypertension I10 Assessments Encounter Date Diagnosis (ICD Code) Assessment Notes Treatment Notes Treatment Clinical Notes Section Notes 04/16/2025 Essential hypertension (ICD-10 - I10) Plan Of Treatment Medication Medication Name Sig Start Date Stop Date Notes amLODIPine Besylate 10 MG 1 tablet Orall y Once a day for 90 days 03/02/2025 Next Appt Details Provider Name:Jorge horn, 12/13/2025 07:15:00 AM, [address] [facility] [address], [address] [place] [address], [phone], Provider Name:Jorge Huddleston ier, 12/20/2025 10:00:00 AM, [address] [facility], [address], [place], [phone], Provider Name:Jorge Huddleston ier, 06/13/2026 07:15:00 AM, [address] [place] [address], [address], [place], [phone], Provider Name:Jorge Huddleston ier, 06/20/2026 11:00:00 AM, [facility], [address], [place], [phone], Progress Notes * ZAC COLINDRES MDOB:1960 (65 yo F)Acc No.[id number]:04/16/2025 Patient: [place] ZAC OLEA :1960 A ge:65 Y S ex:Female Address:[address] [place] [address], [phone] * Refills Refill amLODIPine Besylate Tablet, 10 MG, Orally, 90 Tablet, 1 tablet, Once a day, 90 days, Refills=3 * true * Date: Generated for Dulce jules/Marco/Wilfredosmitting on: 0 08/07/2025 04:37 PM EDT
--- OUTSIDE RECORDS SUMMARY | 2025-04-17 05:17 | XMS_ITS ---
Author Organization Jorge Green MD Address [address] [place] [address] [phone] Care Team Providers Care Animal Laboratory Helper Name Role Phone Jorge Green Primary Care Provider REASON FOR VISIT med issue Medications Medication SIG (Take, Route, Frequency, Duration) Notes Start Date End Date Status amLODIPine Besylate 10 MG 1 tablet Orall y Once a day for 90 days 03/02/2025 Active Encounters Encounter Location Date Provider Diagnosis Jorge Green MD [address] [place] [address] [phone] 04/17/2025 Jorge Green Essential hypertension I10 Assessments Encounter Date Diagnosis (ICD Code) Assessment Notes Treatment Notes Treatment Clinical Notes Section Notes 04/17/2025 Essential hypertension (ICD-10 - I10) Plan Of Treatment Medication Medication Name Sig Start Date Stop Date Notes amLODIPine Besylate 10 MG 1 tablet Orall y Once a day for 90 days 03/02/2025 Next Appt Details Provider Name:Jorge horn, 12/13/2025 07:15:00 AM, [address] [facility], [address] [place] [address], [phone], Provider Name:Jorge Huddleston ier, 12/20/2025 10:00:00 AM, [address] [facility], [address], [place], [phone], Provider Name:Jorge Huddleston ier, 06/13/2026 07:15:00 AM, [address] [place] [address], [address], [place], [phone], Provider Name:Jorge Huddleston ier, 06/20/2026 11:00:00 AM, [facility], [address], [place], [phone], Progress Notes * ZAC COLINDRES MDOB:1960 (65 yo F)Acc No.[id number]:04/17/2025 Patient: [place] ZAC OLEA :1960 A ge:65 Y S ex:Female Address:[address] [place] [address], [phone] * Refills Refill amLODIPine Besylate Tablet, 10 MG, Orally, 90, 1 tablet, Once a day, 90 days, Refills=3 * true * Date: Generated for Dulce jules/Marco/eTcoltensmitting on: 0 08/07/2025 04:36 PM EDT
--- OUTSIDE RECORDS SUMMARY | 2025-05-14 05:38 | XMS_ITS ---
Author Organization Jorge Green MD Address [address] [place] [phone] Care Team Providers Care Strategic Partnership Manager Name Role Phone Jorge Green Primary Care Provider REASON FOR VISIT CT Scan Chest repeat 1 year Encounters Encounter Location Date Provider Diagnosis Jorge Green MD [address] [place] [phone] 05/14/2025 Jorge Green Pulmonary nodule R91.1 Assessments Encounter Date Diagnosis (ICD Code) Assessment Notes Treatment Notes Treatment Clinical Notes Section Notes 05/14/2025 Pulmonary nodule (ICD-10 - R91.1) due -2025 Plan Of Treatment Treatment Notes Assessment Notes Pulmonary nodule due Pending Test Test Name Order Date CT chest wo con 05/14/2025 Next Appt Details Provider Name:Jorge horn, 12/13/2025 07:15:00 AM, [address], [address] [place] [address], [phone], Provider Name:Jorge horn, 12/20/2025 10:00:00 AM, [address], [address], [place], [place], [phone], Provider Name:Jorge Huddleston ier, 06/13/2026 07:15:00 AM, [address], [address], [place], [place], [phone], Provider Name:Jorge Huddleston ier, 06/20/2026 11:00:00 AM, [address], [address], [place], [place], [phone], Progress Notes * ZAC COLINDRES MDOB:1960 (65 yo F)Acc No.[id number]:05/14/2025 Patient: Kingston CASANDRAHernan ZAC Cross :1960 A ge:65 Y S ex:Female Address:[address] [place] [address], [phone] Subjective: * Chief Complaints: * C T Scan Chest repeat 1 year * Medical History: * Surgical History: * Hospitalization/Major Diagno stic Procedure: * Medications: Objective: * Vitals: * Physical Examination: Assessment: * Assessment: 1. P ulmonary nodule - R91.1 Plan: * Treatment: * Procedure Codes: * true * Date: Generated for Dulce jules/Marco/eTransmitting on: 0 08/07/2025 04:37 PM EDT
--- OUTSIDE RECORDS SUMMARY | 2025-06-11 03:45 | XMS_ITS ---
Author Organization Jorge Green MD Address [address] [place] [phone] Care Team Providers Care Auto Radiator Mechanic Name Role Phone DavidJorge sanz Primary Care Provider Results Component Value Reference Range Notes Complete Blood Count Auto Di ff Reviewed date:06/11/2025 01:00:05 PM Interpretation: Performing Lab:[facility], [address] [place] [phone] Notes/Report: White Blood Count 7.5 4.8-10.8 X10*3/uL [...] NRBC Abs Auto 0.000 0.0-0.012 X10*3/uL Comprehensive [place]. Panel Fa Reviewed date:06/11/2025 01:37:11 PM Interpretation: Performing Lab:[facility], [address] [place] [phone] Notes/Report: Sodium 147 135-145 mmol/L Potassium 4.2 [...] Panel Reviewed date:06/11/2025 12:54:27 PM Interpretation: Performing Lab:[facility], [address] [place] [phone] Notes/Report: Triglycerides 109 <150 mg/dL Desirable Triglyceride: [...] t Reviewed date:06/11/2025 01:38:57 PM Interpretation: Performing Lab:[facility], [address] [place] [phone] Notes/Report: Urine, Clean Catch Color Urine Dark Yellow Appearance Urine Clear PH 6.0 5.0-9.0 Glucose Urine UA Negative Negative mg/dL Urine Blood Negative Negative Specific [place] - Urine 1.020 1.005-1.025 Urine Protein Trace [...] Date Provider Diagnosis Jorge Green MD [address] [place], [place] [phone] 06/11/2025 Jorge Green Borderline hypertension R03.0 ; [...] Provider Name:Jorge Huddleston veneciar, 12/13/2025 07:15:00 AM, [address] [place] [address], Suite [facility], [place], [place], [phone], Provider Name:Jorge Huddleston ier, 12/20/2025 10:00:00 AM, [address], Suite [facility], [place], [place], [phone], Provider Name:Jorge Huddleston veneciar, 06/13/2026 07:15:00 AM, Hospital [facility], Suite [facility], [place], [place], [phone], Provider Name:Jorge Huddleston veneciar, 06/20/2026 11:00:00 AM, Hospital [facility], Suite [facility], [place], [place], [phone], Progress Notes * ZAC COLINDRES MDOB:1960 (65 yo F)Acc No.[id number]:06/11/2025 Progress Note Patient: ZAC BUTLER Provider: Yoon Green MD :1960 A ge:65 Y S ex:Female Date:06/11/2025 Address:[address] [place] [phone] Subjective: * Chief Complaints: * 1 . [...] - 06/11/2025 07:30 AM) L AB: Comprehensive [place]. Panel Fast (Collection Date & Time - 06/11/2025 07:30 AM) L AB: Lipid Panel (Collection Date & Time - 06/11/2025 07:30 AM) L AB: UA ClnCatch+Micro w/rflx Cult (Collection Date & Time - 06/11/2025 07:30 AM) 3. E levated triglycerides with high cholesterol L AB: Complete Blood Count Auto Diff (Collection Date & Time - 06/11/2025 07:30 AM) L AB: Comprehensive [place]. Panel Fast (Collection Date & Time - [...] 06/11/2025 Generated for Dulce jules/Marco/Belitting on: 0 08/07/2025 04:37 PM EDT
--- OUTSIDE RECORDS SUMMARY | 2025-06-18 06:30 | XMS_ITS ---
Author Organization Jorge Green MD Address [address] [place] [phone] Care Team Providers Care Paralegal Assistant Name Role Phone Jorge Green Primary Care Provider Allergies Allergen (clinical drug ingredient) Drug/Non Drug Allergy documented on EMR Reaction Allergy Type Onset Date Status Pneumococcal 13-Luann Conj Vacc rash and hives Drug Allergy Active Neosporin rash Drug Allergy Active REASON FOR VISIT COMP EXAM Medications Medication SIG (Take, Route, Frequency, Duration) Notes Start Date End Date Status Albuterol Sulfate HFA 108 (90 Base) MCG/ACT 1 puff as needed Inhalation every 4 hrs for 30 days 01/22/2025 Active Omeprazole 20 MG 1 capsule Orally twi ce a day for 90 days Active Stelara 90 MG/ML Subcutaneous injecti on every 4 weeks Active amLODIPine Besylate 10 MG 1 tablet Orall y Once a day 03/02/2025 Active Atorvastatin Calcium 40 MG 1 tablet Oral ly Once a day Active Ventolin HFA 108 (90 Base) MCG/ACT 2 puffs as needed Inhalation every 4 hrs 12/01/2016 Not-Nancy renteria Cyclobenzaprine HCl 5 MG 1 tablet at bed time as needed Orally 3 times a day for 10 days 03/13/2021 Not-Taking Social History Tobacco Use/Smoking Question Answer Notes Additional Findings: Tobacco Non-User Cu rrent non-smoker, currently using no form of tobacco Alcohol Screen Question Answer Notes Did you have a drink containing alcohol in the p ast year? 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 ; Borderline hypertension R03.0 ; Elevated triglycerides with high cholesterol E78.2 ; History of Crohn's disease Z87.19 and Depression screening Z13.31 Assessments Encounter Date Diagnosis (ICD Code) Assessment Notes Treatment Notes Treatment Clinical Notes Section Notes 06/18/2025 Atherosclerotic heart disease of [place] coronary artery without angina pectoris (ICD-10 - I25.10) on statins z 06/18/2025 Borderline hypertension (ICD-10 - R03.0) stable, will continue current regiment z 06/18/2025 Elevated triglycerides with high cholesterol (ICD-10 - E78.2) stable, will continue currenr regiment z 06/18/2025 History of Crohn's disease (ICD-10 - Z87.19) well controlled, will continue current regiment z 06/18/2025 Depression screening (ICD-10 - Z13.31) negative screen z 06/18/2025 Other doing well, labs reviewed and discussed with patient z Plan Of Treatment Medication Medication Name Sig Start Date Stop Date Notes Stelara 90 MG/ML Subcutaneous injecti on every 4 weeks amLODIPine Besylate 10 MG 1 tablet Orally Once a day 03/02 Atorvastatin Calcium 40 MG 1 tablet Orally Once a day Treatment Notes Assessment Notes Atherosclerotic heart diseas e of [place] coronary artery without angina pectoris on statins Borderline hypertension stable, will con tinue current regiment Elevated triglycerides with high cholest dionne stable, will continue currenr regiment History of Crohn's disease well controll ed, will continue current regiment Depression screening negative screen Other doing well, labs rev iewed and discussed with patient Next Appt Details Follow Up: 6 Months, Reason: Provider Name:Jorge Huddleston ier, 12/13/2025 07:15:00 AM, [address] [place] [address], Suite [facility], [place], [place], [phone], Provider Name:Jorge Huddleston ier, 12/20/2025 10:00:00 AM, [address] [place] [address], Suite [facility], [place], [place], [phone], Provider Name:Jorge Huddleston ier, 06/13/2026 07:15:00 AM, [address] [place] [address], [address] [place] [address], [phone], Provider Name:Jorge Huddleston ier, 06/20/2026 11:00:00 AM, [address] [place] [address], Suite [facility], [place], [place], [phone], Progress Notes * ZAC COLINDERS MDOB:1960 (65 yo F)Acc No.[id number]:06/18/2025 Patient: [place] ZAC OLEA Provider: Yoon Green MD :1960 A ge:65 Y S ex:Female Date:06/18/2025 Address:[address] [place], [place] [address]Wisam LOOMISDERRY, [id number] Subjective: * Chief Complaints: * C OMP EXAM * HPI: D epression Screening: PHQ-9 L ittle interest or pleasure in doing things N ot at all, F eeling down, depressed, or hopeless N ot at all, T rouble falling or staying asleep, or sleeping too much N ot at all, F eeling tired or having little energy N ot at all, P oor appetite or overeating N ot at all, F eeling bad about yourself or that you are a failure, or have let yourself or your family down N ot at all, T rouble concentrating on things, such as reading the newspaper or watching television N ot at all, M oving or speaking so slowly that other people could have noticed; or the opposite, being so fidgety or restless that you have been moving around a lot more than usual N ot at all, T houghts that you would be better off or of hurting yourself in some way N ot at all, T otal Score 0 . I nterpretation and Intervention D epression Screening Findings N egative, F ollow-Up for Depression : review of PHQ-9 found negative result, no follow-up needed. Here for yearly evaluation/ getting some pains in toes and voltaren cream helps. C ommunication Needs: Communication Needs D oes the patient have a hearing impairment N o, D oes the patient have a vision impairment? Y es, I f yes, what is the vision impairment? G lasses, D oes the patient have a cognition impairment? N o. F all Risk: History H ave you had any falls with injury in the past year? N o, H ave you had two or more falls in the past year? N o. S ELENA Questions: SDOH Questions I n the past year have you been worried about losing housing? N o, I n the past year have you or any family members you live with been unable to get any of the following when it was really needed? Check all that apply: N one. S ymptom(s): patient is a 65 yo female here for visit with review of recent labs and follow up of chronic issues. * ROS: G eneral/Constitutional: Change in appetite d enies. C hills d enies. F ever d enies. O phthalmologic: Blurred vision d enies. D ischarge d enies. P ain d enies. E NT: Decreased hearing d enies. S ore throat d enies.?Swollen glands d enies. E ndocrine: Cold intolerance d enies. E xcessive thirst d enies. H eat intolerance d enies. W eight loss d enies. R espiratory: Cough d enies. S hortness of breath at rest d enies. S hortness of breath with exertion d enies. W heezing d enies. C ardiovascular: Chest pain at rest d enies. C hest pain with exertion?denies. I rregular heartbeat d enies. S hortness of breath d enies. ? G astrointestinal: Abdominal pain d enies. C hange in bowel habits d enies. D iarrhea d enies. N ausea d enies. R ectal bleeding d enies. V omiting d enies . G enitourinary: Blood in urine d enies. D ifficulty urinating d enies. F requent urination d enies. U rinary incontinence D enies. M usculoskeletal: Painful joints d enies. W eakness d enies. ? S kin: Dry skin d enies. I tching d enies. D enies?Mole(s), changes in moles, new moles or any lesions of concern. D enies P hotosensitivity. R cheko d enies. N eurologic: Dizziness d enies. F ainting d enies. H eadache?denies. * Medical History: * Surgical History: * Hospitalization/Major Diagno stic Procedure: * Family History: M other: 80 yrs. 3 brother(s) , 2 sister(s) . 3 daughter(s) . . Does not know Father , Denies mental health/substance abuse family history, Denies mental health/substance abuse family history Mothber- Respiratory, No pertinent family medical history. * Social History: T obacco Use: T obacco Use/Smoking A dditional Findings: Tobacco Non-User C urrent non-smoker, currently using no form of tobacco. D rugs/Alcohol: A lcohol Screen D id you have a drink containing alcohol in the past year? N o, P oints 0 , I nterpretation N egative. M iscellaneous: C affeine: yes, frequency:, 2-3 cups per day. Children: yes. Community involvements: no. Exercise: yes, Hand weights. Home smoke detector use: yes. Housing: renting. Living with: alone. Marital status: . Occupation: unemployed. Pets: dogs. Travel outside of the [place]: no. p atient states has not had a cigarette in 2 weeks but vapes 20 times a day. * Medications: T akingStelara 90 MG/ML Solution Prefilled Syringe Subcutaneous injection every 4 weeks Omeprazole 20 MG Capsule Delayed Release 1 capsule Orally twice a day Atorvastatin Calcium 40 MG Tablet 1 tablet Orally Once a day Albuterol Sulfate HFA 108 (90 Base) MCG/ACT Aerosol Solution 1 puff as needed Inhalation every 4 hrs amLODIPine Besylate 10 MG Tablet 1 tablet Orally Once a [...] as needed Inhalation every 4 hrs Taking amLODIPine Besylate 10 MG Tablet 1 tablet Orally Once a day Not-Taking/PRNCyclobenzaprine HCl 5 MG Tablet 1 tablet at bedtime as needed Orally 3 times a day Ventolin HFA 108 (90 Base) MCG/ACT Aerosol Solution 2 puffs as needed Inhalation every 4 hrs Not-Taking/PRN Cyclobenzaprine HCl 5 MG Tablet 1 tablet at bedtime as needed Orally 3 times a day Not-Taking/PRN Ventolin HFA 108 (90 Base) MCG/ACT Aerosol Solution 2 puffs as needed Inhalation every 4 hrs DiscontinuedamLODIPine Besylate 5 MG Tablet TAKE ONE TABLET BY MOUTH EVERY DAY Medication List reviewed and reconciled with the patientDiscontinued amLODIPine Besylate 5 MG Tablet TAKE ONE TABLET BY MOUTH EVERY DAY Medication List reviewed and reconciled with the patient * Allergies: N eosporin: rashPneumococcal 13-Luann Conj Vacc: rash and hivesyes[Allergies Verified] Objective: * Vitals: H t: 59, Wt: 141, BMI:28.48, BP:148/70, Repeat BP:150/74, Wt-k.96. weight is down 3 pounds since 03-23-25. * P ast Orders: L ab:Comprehensive Isabela. Panel Fast (Order Date - 06/11/2025) (Collection Date & Time - 06/11/2025 07:30 AM) Value Reference Range Sodium 147 H 135-145 - mmol/L Bilirubin Total 0.5 0.0-1.0 - mg/dL Aspartate Amino Transferase 32 H 5-31 - U/L Alanine Aminotransferase 32 H 0-31 - U/L Total Protein 7.3 6.5-8.0 - g/dL Albumin Level 4.5 3.5-5.0 - g/dL Alkaline Phosphatase 81 39-117 - U/L Potassium 4.2 3.3-5.1 - mmol/L Chloride 112 H 96-108 - mmol/L Carbon Dioxide 23 22-29 - mmol/L Anion Gap 16 12-20 - Blood Urea Nitrogen 10 9-16 - mg/dL Creatinine 0.69 0.5-1.4 - mg/dL Estimated Glomerular Filt Rate > 60 - Glucose Fasting 93 60-99 - mg/dL Calcium 9.9 8.4-10.2 - mg/dL L ab:Lipid Panel (Order Date - 06/11/2025) (Collection Date & Time - 06/11/2025 07:30 AM) Value Reference Range Triglycerides 109 <150 - mg/dL Cholesterol 167 <200 - mg/dL LDL Cholesterol Calculated 85 <100 - mg/dL HDL Cholesterol 61 >40 - mg/dL L ab:UA ClnCatch+Micro w/rflx Cult (Order Date - 06/11/2025) (Collection Date & Time - 06/11/2025 07:30 AM) Value Reference Range Color Urine Dark Yellow - Appearance Urine Clear - PH 6.0 5.0-9.0 - Glucose Urine UA Negative Negative - mg/dL Urine Blood Negative Negative - Specific [place] - Urine 1.020 1.005-1.025 - Urine Protein Trace Neg-Trace - mg/dL Urine Ketones Trace Negative - mg/dL Nitrite Urine Negative Negative - Leukocyte Esterase Urine Small (1+) A Negative - RBC Urine 0-2 0-2 - /HPF WBC Urine 6-10 A 0-5 - /HPF Squamous Epithelial Cell Urine 11-20 0-2 - /HP F Bacteria Urine 2+ None Seen - Hyaline Casts Urine 0-2 0-2 - /LPF L ab:Complete Blood Count Auto Diff (Order Date - 06/11/2025) (Collection Date & Time - 06/11/2025 07:30 AM) Value Reference Range White Blood Count 7.5 4.8-10.8 - X10*3/uL Red Blood Count 4.82 4.20-5.50 - X10*6/uL Hemoglobin 14.0 12.0-16.0 - g/dl Hematocrit 41.5 37.0-47.0 - % Mean Corpuscular Volume 86.1 80.0-98.0 - fL Mean Corpuscular Hemoglobin 29.0 27.0-33.0 - pg Mean Corpuscular HGB Conc 33.7 31.0-35.0 - g/ dl Red Cell Distribution Width 14.3 11.0-16.0 - % Platelet Count 317 160-400 - X10*3/uL Mean Platelet Volume 10.9 9.4-12.3 - fL Neutrophils Percent Auto 54.7 45-73 - % Imm Gran Pct Auto 0.1 0.0-0.4 - % Lymphocytes Percent Auto 37.3 20-40 - % Monocytes Percent Auto 5.1 2-11 - % Eosinophils Percent Auto 1.6 0-4 - % Basophils Percent Auto 1.2 0-2 - % NRBC Pct Auto 0.0 0.0-0.2 - /100WBC Neutrophils Absolute Auto 4.1 2.0-8.3 - x10* 3/uL Imm Gran Abs Auto 0.01 0.00-0.03 - X10*3/uL Lymphocytes Absolute Auto 2.8 1.2-4.9 - X10* 3/uL Monocytes Absolute Auto 0.4 0.1-1.2 - X10*3/ uL Eosinophils Absolute Auto 0.1 0.0-0.4 - X10* 3/uL Basophils Absolute Auto 0.1 0.0-0.2 - X10*3/ uL NRBC Abs Auto 0.000 0.0-0.012 - X10*3/uL * Examination: G eneral Examination: GENERAL APPEARANCE: w ell developed, well nourished, in no acute distress. HEAD: n ormocephalic, atraumatic. EYES: p upils equal, round, reactive to light and accommodation, sclera non-icteric. EARS: n ormal. ORAL CAVITY: m ucosa moist. THROAT: c lear. NECK/THYROID: n aaron supple, full range of motion, no cervical lymphadenopathy, no bruits. SKIN: w arm and dry, no suspicious lesions. HEART: r egular rate and rhythm, S1, S2 normal, no murmurs.? LUNGS: c lear to auscultation bilaterally. BREASTS: N o mass, no lump. ABDOMEN: s oft, nontender, nondistended, bowel sounds present, normal, no organomegaly , no masses palpable. RECTAL EXAM: d one by associate chemist. FEMALE GENITOURINARY: d one by associate chemist. EXTREMITIES: n o clubbing, cyanosis, or edema. NEUROLOGIC: n onfocal, motor strength normal upper and lower extremities, sensory exam intact. Assessment: * Assessment: 1. 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 B orderline hypertension - R03.0 3 . E levated triglycerides with high cholesterol - E78.2 4 . H istory of Crohn's disease - Z87.19 5 . D epression screening - Z13.31 z Plan: * Treatment: 2. B orderline hypertension Continue amLODIPine Besylate Tablet, 10 MG, 1 tablet, Orally, Once a day. Notes: stable, will continue current regiment 3. E levated triglycerides with high cholesterol Continue Atorvastatin Calcium Tablet, 40 MG, 1 tablet, Orally, Once a day. Notes: stable, will continue currenr regiment 4. H istory of Crohn's disease Continue Stelara Solution Prefilled Syringe, 90 MG/ML, Subcutaneous, injection every 4 weeks. ? Notes: well controlled, will continue current regiment 5. D epression screening Notes: negative screen 6. O thers Notes: doing well, labs reviewed and discussed with patient * Procedure Codes: * Follow Up: 6 Months * * Sign off status: Completed true * Provider: Yoon Green MD Date: 06/18/2025 Generated for Dulce jules/Marco/Wilfredosmitting on: 08/07/2025 04:37 PM EDT History and Physical Notes * HPI (History of Present Illness) Category Sub-Category Detail Notes Category Not es Symptom(s) patient is a 65 yo female here for visit with review of recent labs and follow up of chronic issues Depression Screening PHQ-9 Little inte rest or pleasure in doing things: Not at all Here for yearly evaluation/ getting some pains in toes and voltaren cream helps Feeling down, depressed, or hopeless: No t at all Trouble falling or staying asleep, or sl eeping too much: Not at all Feeling tired or having little energy: N ot at all Poor appetite or overeating: Not at all Feeling bad about yourself o r that you are a failure, or have let yourself or your family down: Not at all Trouble concentrating on thi ngs, such as reading the newspaper or watching television: Not at all Moving or speaking so slowly that other people could have noticed; or the opposite, being so fidgety or restless that you have been moving around a lot more than usual: Not at all Thoughts that you would be b johann off or of hurting yourself in some way: Not at all Total Score: 0 Interpretation and Intervention Depression Whit barry Findings: Negative Follow-Up for Depression: : review of PH Q-9 found negative result, no follow-up needed SDOH Questions SDOH Questions In the past year have you been worried about losing housing?: No In the past year have you or any family members you live with been unable to get any of the following when it was really needed? Check all that apply:: None Fall Risk History Have you had any falls with injury i n the past year?: No Have you had two or more falls in the st year?: No Communication Needs Communication Needs Does the patient have a hearing impairment: No Does the patient have a vision impairmen t?: Yes If yes, what is the vision impairment?: Glasses Does the patient have a cognition impair ment?: No Examination Category Sub-Category Detail Notes Category Not es General Examination GENERAL APPEARANCE: well dev eloped, well nourished, in no acute distress HEAD: normocephalic, atrau matic EYES: pupils equal, round, reactive to light and accommodation, sclera non-icteric EARS: normal THROAT: clear NECK/THYROID: neck supple, full ra nge of motion, no cervical lymphadenopathy, no bruits HEART: regular rate and rhy thm, S1, S2 normal, no murmurs LUNGS: clear to auscultatio n bilaterally ABDOMEN: soft, nontender, non distended, bowel sounds present, normal, no organomegaly , no masses palpable NEUROLOGIC: nonfocal, motor stre ngth normal upper and lower extremities, sensory exam intact SKIN: warm and dry, no neal picious lesions EXTREMITIES: no clubbing, cyanosi s, or edema BREASTS: No mass, no lump RECTAL EXAM: done by associate chemist FEMALE GENITOURINARY: done by associate chemist ORAL CAVITY: mucosa moist
--- OUTSIDE RECORDS SUMMARY | 2025-08-07 16:38 | XMS_ITS | Patient Health Record ---
Author Organization Jorge Green MD Address [address] [place] [address] [phone] Care Team Providers Care Mathematical Engineering Technician Name Role Phone Norma Jorge Primary Care Provider Allergies Allergen (clinical drug ingredient) Drug/Non Drug Allergy documented on EMR Reaction Allergy Type Onset Date Status Pneumococcal 13-Luann Conj Vacc rash and hives Drug Allergy Active Neosporin rash Drug Allergy Active Results Component Value Reference Range Notes Liver Panel Reviewed date:12/11/2024 12:47:11 PM Interpretation: Performing Lab:[facility], [address] [place] [phone] Notes/Report: Bilirubin Total 0.5 0.0-1.0 mg/dL Bilirubin Direct 0.2 0.0-0.5 mg/dL Aspartate Amino Transferase 27 5-31 U/L Alanine Aminotransferase 32 0-31 U/L Total Protein 7.4 6.5-8.0 g/dL Albumin Level 4.2 3.5-5.0 g/dL Alkaline Phosphatase 96 39-117 U/L Lipid Panel with Reflex Reviewed date:12/11/2024 02:29:10 PM Interpretation: Performing Lab:[facility], [address] [place] [phone] Notes/Report: Triglycerides 112 <150 mg/dL Desirable Triglyceride: [...] ff Reviewed date:06/11/2025 01:00:05 PM Interpretation: Performing Lab:[facility], [address] [place] [phone] Notes/Report: White Blood Count 7.5 4.8-10.8 X10*3/uL [...] NRBC Abs Auto 0.000 0.0-0.012 X10*3/uL Comprehensive [place]. Panel Fa st Reviewed date:06/11/2025 01:37:11 PM Interpretation: Performing Lab:[address] [phone] Notes/Report: Sodium 147 135-145 mmol/L Potassium 4.2 [...] Panel Reviewed date:06/11/2025 12:54:27 PM Interpretation: Performing Lab:[address] [phone] Notes/Report: Triglycerides 109 <150 mg/dL Desirable Triglyceride: [...] t Reviewed date:06/11/2025 01:38:57 PM Interpretation: Performing Lab:[facility], [address] [place] [phone] Notes/Report: Urine, Clean Catch Color Urine Dark Yellow Appearance Urine Clear PH 6.0 5.0-9.0 Glucose Urine UA Negative Negative mg/dL Urine Blood Negative Negative Specific [place] - Urine 1.020 1.005-1.025 Urine Protein Trace Neg-Trace mg/dL Urine Ketones Trace Negative mg/dL Nitrite Urine Negative Negative Leukocyte Esterase Urine Small (1+) Negative RBC Urine 0-2 0-2 /HPF WBC Urine 6-10 0-5 /HPF Squamous Epithelial Cell Urine 11-20 0-2 /HPF Bacteria Urine 2+ None Seen Hyaline Casts Urine 0-2 0-2 /LPF XR chest 2V Reviewed date:02/08/2025 12:38:43 PM Interpretation: Performing Lab: Notes/Report: [address] [address] XRay Report Signed Patient: Zac Colindres MR#: [id number] 9 : 1960 Acct:[id number] Age/Sex: 64 / F ADM Date: 02/08/25 Loc: RENITA Attending Dr: Jorge Green MD Ordering Physician: Jorge Green MD Date of Service: 02/08/25 Procedure(s): XR chest 2V Accession Number(s): [id number] cc: Jorge Green MD EXAMINATION: XR CHEST [...] 02/08/25 1213 DD/ 1055 TD/TT: 02/08/25 1100 Shift Nurse Manager: [address] [address] XRay Report Signed Patient: Zac Colindres MR#: [id number] 9 : 1960 Acct:[id number] Age/Sex: 64 / F ADM Date: 02/08/25 Loc: HO.JULIAN Attending Dr: Jorge Green MD Ordering Physician: Jorge Green MD Date of Service: 02/08/25 Procedure(s): XR mimi st 2V Accession Number(s): [id number] cc: Jorge Green MD EXAMINATION: XR CHES [...] 02/08/25 1213 DD/ 1055 TD/TT: 02/08/25 1100 Shift Nurse Manager: Annalee Luna date:12/11/2024 01:12:46 PM Interpretation: Performing Lab:[facility], [address] [place] [phone] Notes/Report: Annalee Wyman See Note Specimen held untested for 24 hours; Call to request Chemistry testing. Liver Panel Reviewed date:02/02/2025 12:07:48 PM Interpretation: Performing Lab:[facility], [address] [place] [phone] Notes/Report: Bilirubin Total 0.7 0.0-1.0 mg/dL Bilirubin Direct 0.3 0.0-0.5 mg/dL Aspartate Amino Transferase 26 5-31 U/L Alanine Aminotransferase 33 0-31 U/L Total Protein 7.4 6.5-8.0 g/dL Albumin Level 4.0 3.5-5.0 g/dL Alkaline Phosphatase 83 39-117 U/L Protein Electrophoresis, Ser um Reviewed date:02/20/2025 08:01:20 PM Interpretation: Performing Lab:[facility], [address] [place] [phone] Notes/Report: Prot Elec - Total Protein 6.9 [...] (M-protein) detected. THIS TEST WAS PERFORMED AT: [facility] [address] [address] ALEM MARTEL MD Immunoglobulin A Reviewed date:02/20/2025 08:01:05 PM Interpretation: Performing Lab:[facility], [address] [place] [phone] Notes/Report: Immunoglobulin A 365 70-320 mg/dL THIS TEST WAS PERFORMED AT: [facility] [address] [place] [phone] ALEM MARTEL MD [place] Reflex Titer and Pattern Reviewed date:02/06/2025 12:27:05 PM Interpretation: Performing Lab:[facility], [address] [place] [phone] Notes/Report: Anti Nuclear Antibody Screen NEGATIVE NEGATIVE [...] Negative International Consensus on [place] Patterns (https://doi.org/10.1 515/esdy-3108-5124) For additional information, please refer to http://education.[employer]/faq/ DMF755 (This link is being provided for informational/ educational purposes only.) THIS TEST WAS PERFORMED AT: [facility] [address] [place] [phone] ALEM MARTEL MD Anti Nuclear Antibody Titer TNP Anti Nuclear Antibody Pattern TNP [place] Titer 2 TNP [place] Pattern 2 TNP [place] Titer 3 TNP [place] Pattern 3 TNP Smooth Muscle Antibody Reviewed date:02/20/2025 08:01:27 PM Interpretation: Performing Lab:[facility], [address] [place] [phone] Notes/Report: Smooth Muscle Antibody <20 <20 U [...] type 1. THIS TEST WAS PERFORMED AT: [facility]/[address] [address] MUNA VASQUEZ MD,PHD Transglutaminase Ab IgG Reviewed date:02/20/2025 08:01:35 PM Interpretation: Performing Lab:[address] [address] Notes/Report: Transglutaminase Ab IgG <1.0 Value Interpretation ----- <15.0 Antibody not detected > or = 15.0 Antibody detected THIS TEST WAS PERFORMED AT: [facility] [address] [place] [phone] ALEM MARTEL MD Transglutaminase IgA Reviewed date:02/20/2025 08:00:31 PM Interpretation: Performing Lab:[address] [address] Notes/Report: Transglutaminase IgA <1.0 Value Interpretation ----- <15.0 Antibody not detected > or = 15.0 Antibody detected THIS TEST WAS PERFORMED AT: [facility] [address] [place] [phone] ALEM MARTEL MD Hepatitis B Surface Antibody Reviewed date:02/02/2025 12:07:39 PM Interpretation: Performing Lab:[facility], [address] [place] [phone] Notes/Report: Hepatitis B Surface Antibody NONREACTIVE Nonreactive Nonreactive: < 8.00 mIU/mL CT chest wo con Reviewed date:05/14/2025 10:01:57 AM Interpretation: Performing Lab: Notes/Report: [address] [address] [address] Scan Report Signed Patient: Zac Colindres MR#: [id number] 9 : 1960 Acct:[id number] Age/Sex: 65 / F ADM Date: 05/11/25 Loc: HO.CT Attending Dr: Jorge Green MD Ordering Physician: Jorge Green MD Date of Service: 05/11/25 Procedure(s): CT chest wo IV con Accession Number(s): [id number] cc: Jorge Green MD Report Number: [id number]: Total DLP = 132.00 mGy-cm EXAMINATION: CT [...] reconstruction technique. DLP: 132 mGy centimeter. FINDINGS: VISION IMPAIRED TEACHER: Good inspiration. Cardiomediastinal silhouette size is normal. [...] 05/11/25 1410 DD/ 1337 TD/TT: 05/11/25 1401 Shift Nurse Manager: [address] [address] [address] Scan Report Signed Patient: Zac Colindres MR#: [id number] 9 : 1960 Acct:[id number] Age/Sex: 65 / F ADM Date: 05/11/25 Loc: HO.CT Attending Dr: Jorge Green MD Ordering Physician: Jorge Green MD Date of Service: 05/11/25 Procedure(s): CT mimi st wo IV con Accession Number(s): [id number] cc: Jorge Green MD Report Number: [id number]: Total DLP = 132.00 mGy-cm EXAMINATION: CT [...] reconstruction technique. DLP: 132 mGy centimeter. FINDINGS: VISION IMPAIRED TEACHER: Good inspiration. Cardiomediastinal silhouette size is normal. [...] 05/11/25 1410 DD/ 1337 TD/TT: 05/11/25 1401 Shift Nurse Manager: Urine Culture Reviewed date:06/12/2025 12:36:58 PM Interpretation: Performing Lab:[facility], [address] [place] [phone] Notes/Report: Urine Culture Report Result Urine Culture 50,000 to 100,000 cfu/ml Urine Culture Mixed bacterial jose a characteristic of Urine Culture urogenital contamination. MM tomosynthesis screening B I Reviewed date:07/19/2025 04:26:59 PM Interpretation: Performing Lab: Notes/Report: [facility] [address] [place] [address] Mammography Report Signed Patient: Zac Colindres MR#: [id number] 9 : 1960 Acct:[id number] Age/Sex: 65 / F ADM Date: 07/13/25 Loc: KARLIEO Attending Dr: Jorge Green MD Ordering Physician: Jorge Green MD Results: 1Ne gative Date of Service: 07/13/25 Follow Up: 1 Year From Orig inal Mammogram Procedure(s): MM tomosynthesis screening BI Accession Number(s): [id number] cc: Jorge Green MD EXAMINATION: MM SCREENING [...] 07/18/25 0906 DD/ 1020 TD/TT: 07/13/25 1040 Shift Nurse Manager: [facility] [address] [place], [place] [address] Mammography Report Signed Patient: Zac Colindres MR#: [id number] 9 : 1960 Acct:[id number] Age/Sex: 65 / F ADM Date: 07/13/25 Loc: HO.MAMMO Attending Dr: Jorge Green MD Ordering Physician: Jorge Green MD Results: 1Ne gative Date of Service: 07/13/25 Follow Up: 1 Year From Orig inal Mammogram Procedure(s): MM tomosynthesis screening BI Accession Number(s): [id number] cc: Jorge Green MD EXAMINATION: MM SCREENING [...] 07/18/25 0906 DD/ 1020 TD/TT: 07/13/25 1040 Shift Nurse Manager: Reason For Referral No Information Medications Medication [...] Comme nts Flu Vaccine Unknown 11/07/2014 Administered [place] Fluarix Quadrivalent IM Intramuscular 09/24/2015 Administe red [...] Problem Status W/U Status Risk Notes Problem [id number] Atherosclerotic heart disease of [place] coronary artery without angina pectoris (I25.10) Active confirmed Problem 60735312 Restless leg syndrome (G25.81) Active confirmed Problem 008517874 Atherosclerosis of abdominal aorta (I70.0) Active confirmed Problem 989747329 Bandemia (D72.825) Active confirmed Problem Hypercalcemia (81984496) Hypercalcemia (E83.52) Active confirmed Problem 92035305 Smoker (F17.200) Active confirmed Problem Essential hypertension (28824518) Essential hypertension (I10) Active confirmed Problem 082390317 Lung nodule (R91.1) Active confirmed Problem Mixed hyperlipidemia (332035112) Elevated triglycerides with high cholesterol (E78.2) Active confirmed Problem 544060118 Borderline hypertension (R03.0) Active confirmed Problem Post menopausal problems (N95.9) Active confirmed Problem 167192848 Abnormal mammogram (R92.8) Active confirmed 6 month f/u to 06/15 and 06/16/16 mammogram Problem 451783053212571 History of Crohn's disease (Z87.19) Active confirmed Problem Pulmonary nodule (493778740) Pulmonary nodule (R91.1) Active confirmed Problem 397250030 Osteopenia determined by x-ray (M85.80) Active confirmed Problem 121210389 Abnormal WBC count (D72.9) Active confirmed Vital [...] Jorge Green MD [address] [place] [address] [id number] 12/11/2024 Jorge Green Elevated triglycerid es with high cholesterol E78.2 Jorge Green MD [address] [place] [address] [id number] 06/11/2025 Jorge Green Borderline hypertens ion R03.0 ; Abnormal WBC count D72.9 and Elevated triglycerides with high cholesterol E78.2 Jorge Green MD [address] [facility] [address] [place] [address] [id number] 12/19/2024 Jorge Green History of cigarette smoking Z87.891 ; Atherosclerotic heart disease of [place] coronary artery without angina pectoris I25.10 ; Lung nodule R91.1 ; Elevated triglycerides with high cholesterol E78.2 and Borderline hypertension R03.0 Jorge Green MD [address] [facility] [address] [place] [address] [id number] 01/22/2025 Jorge Green Bronchitis J40 Jorge Green MD [address] [facility] [address] [place] [address] [id number] 03/02/2025 Jorge Green Diplopia H53.2 and Essential hypertension I10 Jorge Green MD [address] [facility] [address] [place] [address] [id number] 03/23/2025 Jorge Green Diplopia H53.2 and Essential hypertension I10 Jorge Green MD [address] [place] [address] [id number] 06/18/2025 Jorge Green Atherosclerotic hear t disease of [place] coronary artery without angina pectoris I25.10 ; Borderline hypertension R03.0 ; Elevated triglycerides with high cholesterol E78.2 ; History of Crohn's disease Z87.19 and Depression screening Z13.31 Jorge Green MD [address] [place] [address] [id number] 09/25/2024 Jorge Green Elevated triglycerid es with high cholesterol E78.2 Jorge Green MD [address] [place] [address] [id number] 02/08/2025 Jorge Green Chest pain R07.[address] [place] [address] [id number] 03/29/2025 [address] [place] [address] [id number] 04/16/2025 Jorge Green Essential hypertensi on I10 Jorge Green MD [address] [place] [address] [id number] 04/17/2025 Jorge Green Essential hypertensi on I10 Jorge Green MD [address] [place] [address] [id number] 05/14/2025 Jorge Green Pulmonary nodule R91 .1 [...] dianostic monitoring 12/19/2024 Atherosclerotic heart disease of [place] coronary artery without angina pectoris (ICD-10 - [...] an mri of her brain from the bellman captain but she doesn't have the results yet. her eoms appear normal now and she doesn't get double vision on lateral gaze now 06/18/2025 Atherosclerotic heart disease of [place] coronary artery without angina pectoris (ICD-10 - I25.10) on statins z 06/18/2025 Borderline hypertension (ICD-10 - R03.0) stable, will continue current regiment z 09/25/2024 Elevated triglycerides with high cholesterol (ICD-10 - E78.2) 02/08/2025 Chest pain (ICD-10 - R07.9) order faxed to [facility] patient reg 04/16/2025 Essential hypertension (ICD-10 - [...] Name:Jorge Valeriy Flaquito horn, 12/13/2025 07:15:00 AM, [address] [place] [address], [address], [phone], Provider Name:Jorge cuadrar, 12/20/2025 10:00:00 AM, [address] [place] [address], [address] [place] [address], [phone], Provider Name:Jorge cuadrar, 06/13/2026 07:15:00 AM, [address] [place] [address], [address], [phone], Provider Name:Jorge Crooks Flaquito ier, 06/20/2026 11:00:00 AM, [address] [place] [address], [address], [phone], Insurance Providers Payer Name Payer Address Payer Phone Subscriber Number Group Number Insured Name Patient Relationship to Insured Coverage Start Date Coverage End Date [employer] [address] [place] [address] [id number] ZAC COLINDRES Self - patient is the insured [address] [address] [id number] ZAC COLINDRES Self - patient is the insured 5 Medical (General) History Medical History History ICD Code colonoscopy in 2012 ([place] ) - 5 yr f/u w/Dr. Erum Cruz; colonoscopy done 11/02/17 by /Dr. Cruz; colonoscopy by Dr. Cruz w/biopsies (01/30/20)colonoscopy 02/08 repeay 3 y Asthmatic bronchitis lung nodules needs ct chest 07/2017 Surgical History Surgery Date(Month/Year) EGD with Biopsy 10/2017
--- NOTE | 2025-08-08 11:37 | HO.ANESPROP2 ---
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 Mother Pneumonia Sister Breast cancer Family history of problems with anesthesia: No Surgical History Surgical History History of laparotomy Hx of endoscopy History of bowel resection S/P BSO (bilateral salpingo-oophorectomy) History of appendectomy History of esophagogastroduodenoscopy (EGD) Hx of colonoscopy History of Problems with Anesthesia: No Social History Social History Household Members: Other Housing: Apartment Do you presently have visiting nurse or other home services: No Alcohol intake: never Comment: pt asleep Patient Tobacco Use Status: Former Tobacco user Tobacco use type: Smokeless Tobacco Cigarette Packs Per Day: 0.5 Cigarettes Per Day: 10.0 Years Smoked: 45 e-Cigarette/Vaping Use: Never Used Second Hand Smoke Exposure: No Use of substances other than those prescribed or required for medical reasons: No Advance Directives: No Advance Directives Information Provided: Yes Advance Directives Date on File: 04/13/21 service: No Current occupational status: unemployed and disabled Meds Allergies Allergy/AdvReac Type Severity Reaction Status Date / Time No Known Allergies (No Known Allergy Verified 08/02/25 10:52 Allergies*) Home Medications ?Medication ?Instructions ?Recorded ?Confirmed ?Last Taken ?Type atorvastatin 40 mg tablet 40 mg PO DAILY 09/23/20 08/10/25 08/08/25 08:00 History multivit-iron 18 mg-folic acid 400 tab PO DAILY 08/24/24 08/02/25 Unknown History mcg-calcium 500 mg-minerals tablet (One-A-Day Womens Formula) amlodipine 5 mg tablet (Norvasc) 10 mg PO DAILY 08/10/25 08/10/25 08/08/25 08:00 History Assessment and Plan Final Anesthetic Review Family History of Problems with Anesthesia: No History of Problems with Anesthesia: No Documented by User: Stephanie Reeder MD 08/10/25 13:23 [facility] Past Medical History Medical History Smoker Gastritis Small bowel obstruction Hyperlipidemia Crohns disease of small intestine Family History Family History Father No problems noted. Mother Pneumonia Sister Breast cancer Surgical History Surgical History History of laparotomy Hx of endoscopy History of bowel resection S/P BSO (bilateral salpingo-oophorectomy) History of appendectomy History of esophagogastroduodenoscopy (EGD) Hx of colonoscopy Social History Social History Household Members: Other Housing: Apartment Do you presently have visiting nurse or other home services: No Alcohol intake: never Comment: pt asleep Patient Tobacco Use Status: Former Tobacco user Tobacco use type: Smokeless Tobacco Cigarette Packs Per Day: 0.5 Cigarettes Per Day: 10.0 Years Smoked: 45 e-Cigarette/Vaping Use: Never Used Second Hand Smoke Exposure: No Use of substances other than those prescribed or required for medical reasons: No Advance Directives: No Advance Directives Information Provided: Yes Advance Directives Date on File: 04/13/21 service: No Current occupational status: unemployed and disabled Meds Allergies Allergy/AdvReac Type Severity Reaction Status Date / Time No Known Allergies (No Known Allergy Verified 08/02/25 10:52 Allergies*) Home Medications ?Medication ?Instructions ?Recorded ?Confirmed ?Last Taken ?Type atorvastatin 40 mg tablet 40 mg PO DAILY 09/23/20 08/10/25 08/08/25 08:00 History multivit-iron 18 mg-folic acid 400 tab PO DAILY 08/24/24 08/02/25 Unknown History mcg-calcium 500 mg-minerals tablet (One-A-Day Womens Formula) amlodipine 5 mg tablet (Norvasc) 10 mg PO DAILY 08/10/25 08/10/25 08/08/25 08:00 History Exam Airway Mallampati Class: II (edentulous) TM Dist: >3cm Neck ROM: Full Loose/Missing/Broken Teeth: Yes, Upper and Lower Heart: RRR Lungs: CTA Assessment and Plan Assessment Anesthesia Assessment: Anesthesia Plan Discussed and Chart Reviewed Final Anesthetic Review NPO: Yes ASA Class: II Final Preanesthetic Review: Meds/Allgs Chart Reviewed, Consent Obtained/Reviewed and Anes Risks/Benef Reviewed Patient Risk: Low Procedure Risk: Intermediate Anesthetic Plan Anesthetic Plan: MAC: Disposition: Standard PACU
[2025-08-10 11:47] VITALS: BMI 26.6
[2025-08-10 12:08] VITALS: BP 124/61; PULSE 70; RESP 16; TEMP 36.8; O2SAT 96
[2025-08-10] MEDS: Lactated Ringers 1,000 ML 100 ML IVCONT (12:08)
--- NOTE | 2025-08-10 12:38 | MHC.SHP ---
Pre-Procedural Eval Section A - 24 Hr Update-Section A only Date of Service: 08/10/25 The patient is an INPATIENT: No Changes since office visit: Yes Patient answered all questions; No Cold of Flu in the past 2 weeks, No New Medical Problems and No Changes in Medication The patient has been examined within 24 hours of the surgical procedure. The History & Physical has been completed within 30 days and I have reviewed it.: Yes Section B - Complete if H&P > 30 days Chief Complaint: Crohn's disease of small intestine Allergies: Allergies Allergy/AdvReac Type Severity Reaction Status Date / Time No Known Allergies (No Known Allergy Verified 08/02/25 10:52 Allergies*) Plan Diagnosis/Plan: Unchanged I have reviewed the history and physical and performed a pertinent physical examination on my patient. No changes have occurred unless specified. Time Spent With Patient Time: Total time managing care of this patient today ____ minutes.
--- NOTE | 2025-08-10 13:43 | P.OPN-COLO_ITS ---
Colonoscopy Operative Note Operative Note Date of Service: 08/10/25 Narrative: FLEXIBLE TRANSORAL UPPER GASTROINTESTINAL ENDOSCOPY WITH BIOPSIES AND COLONOSCOPY TILL CECUM WITH BIOPSIES AND CHROMOENDOSCOPY Pre-op diagnosis: Surveillance for Crohn's disease, GERD Post-op diagnosis: Hiatal hernia, Gastritis, inactive Crohn's disease, Diverticulosis, hemorrhoids Endoscopist:? Coty Iglesias MD Anesthesia:?MAC UPPER ENDOSCOPY Consent: Indications for the procedure and potential complications of bleeding, perforation, reaction to medications and missed diagnosis were discussed with the patient and informed consent was obtained. Instrument: Olympus GIF H 190 mid size upper endoscope Monitoring: Vital signs and clinical assessment, continuous EKG monitoring, Pulse oximetry, Carbon Dioxide monitoring and blood pressure monitoring were done throughout the procedure. Procedure: The patient was placed in the left lateral decubitis position and pre-procedure medications were administered and a bite block was placed. The endoscope was inserted into the mouth and advanced under direct vision to the third part of duodenum. A careful inspection was made as the upper endoscope was withdrawn including a retroflexed examination of the proximal stomach; Findings and interventions are described below. Findings: Larynx: Normal Esophagus: GE junction at 35 cms. No esophagitis or Marquez's. Stomach: Moderate diffuse gastric erythema - biopsies were obtained from the antrum. Grade 2 flap valve on retroflexed examination of the cardia. Duodenum: Normal bulb and descending duodenum Biopsies were obtained from descending duodenum to check for celiac sprue Intervention: Biopsies as noted above COLONOSCOPY PROCEDURE NOTE Instrument: Olympus PCF H 190 L variable stiffness pediatric colonoscope Monitoring: Vital signs and clinical assessment, intermittent blood pressure monitoring, continuous EKG monitoring, Pulse oximetry and Carbon Dioxide monitoring were done throughout the procedure. Please see anesthesia flowsheet. Colon withdrawl time was 21 minutes. Procedure: The patient was placed in the left lateral decubitis position and pre-procedure medications were administered. After a digital rectal examination of the ano-rectum, the video colonoscope was inserted into the rectum and advanced through the colon to the ileocolic anastomosis. The colonoscope was slowly withdrawn in a retrograde panoramic fashion and the colon mucosa was carefully examined including a retroflexed view of the rectum. Findings and interventions are described below. Procedure Difficulty: without difficulty Findings: Terminal Ileum: Distal 10 cms was examined and appeared normal - biopsies were obtained Transverse Colon: Normal anastomosis at 80 cms Descending Colon: Normal Sigmoid Colon: Moderate diverticulosis Rectum: Normal Ano-rectum: Moderate internal hemorrhoids Colon preparation: Good after copious irrigation. [place] Bowel Preparation Scale Right colon; 2 Transverse colon: 2 Left colon; 2 (0 = Unprepared colon segment with mucosa not seen due to solid stool that cannot be cleared. 1 = Portion of mucosa of the colon segment seen, but other areas of the colon segment not well seen due to staining, residual stool and/or opaque liquid. 2 = Minor amount of residual staining, small fragments of stool and/or opaque liquid, but mucosa of colon segment seen well. 3 = Entire mucosa of colon segment seen well with no residual staining, small fragments of stool or opaque liquid) Impression and Post Procedure Diagnosis: Endoscopy Findings: ESOPHAGUS: Normal STOMACH: Moderate diffuse gastric erythema - biopsies were obtained from the antrum. DUODENUM: Normal - biopsies were obtained from 3rd part of the duodenum to check for celiac sprue. Colonoscopy Findings: No polyps were detected. Moderate diverticulosis seen in the sigmoid colon Moderate hemorrhoids on retroflexed exam. Plan: Pt to schedule a FU appointment with Dr Iglesias for follow-up of Crohn's disease. Repeat Colonoscopy in 2 years if no dysplasia on colon biopsies. A summary of above findings and relevant handouts were given to the patient. BIOPSIES SHOWED: A. Gastric antrum, biopsy: Gastric antral mucosa with mild reactive changes and focal minimal chronic inactive inflammation; negative for H.pylori, intestinal metaplasia and dysplasia. B. Terminal ileum, biopsy: Focal mild active ileitis; negative for granulomas and dysplasia. C. Colon, transverse, biopsy: Colonic mucosa with no specific change; no colitis, granulomas or dysplasia. D. Colon, descending, biopsy: Colonic mucosa with lymphoid aggregates and no specific change; no colitis, granulomas or dysplasia. E. Colon, sigmoid, biopsy: Colonic mucosa with no specific change; no colitis, granulomas or dysplasia. F. Colon, rectum, biopsy: Colonic mucosa with no specific change; no colitis/proctitis, granulomas or dysplasia. Letter sent to the patient with biopsy results. Patient was placed on the colonoscopy recall list for repeat colonoscopy in 2 years.
[2025-08-10 14:23] VITALS: BP 109/48; PULSE 57; RESP 18; TEMP 36.9; O2SAT 100
[2025-08-10 14:39] VITALS: BP 110/50; PULSE 63; RESP 18; TEMP 36.8; O2SAT 99
== END 2025-08-10 15:10 | disposition home or self-care (01) ==
PROVIDERS: PCP Internal Medicine; Visit Provider Internal Medicine Gastroenterology
PROC: (CPT 45380; principal; 2025-08-10 13:10)
DX: R14.0 Abdominal distension (gaseous) (principal); K57.30 Diverticulosis of large intestine without perforation or abscess without bleeding; K64.8 Other hemorrhoids; Z87.19 Personal history of other diseases of the digestive system; K63.89 Other specified diseases of intestine; K21.9 Gastro-esophageal reflux disease without esophagitis; K29.60 Other gastritis without bleeding; K44.9 Diaphragmatic hernia without obstruction or gangrene; R79.89 Other specified abnormal findings of blood chemistry; K27.9 Peptic ulcer, site unspecified, unspecified as acute or chronic, without hemorrhage or perforation; E78.5 Hyperlipidemia, unspecified; F17.210 Nicotine dependence, cigarettes, uncomplicated; Z79.899 Other long term (current) drug therapy; Z79.02 Long term (current) use of antithrombotics/antiplatelets
CPT/HCPCS: 45380; 43239; 88305; 88342; J2003; J2704; Q9968

== ENCOUNTER → 2025-08-10 11:12 | Outpatient (BNV) | payer MEDICARE, MEDICAID, SELFPAY | PROVIDERS: PCP Internal Medicine; Visit Provider Internal Medicine Gastroenterology | DX: K50.00 Crohn's disease of small intestine without complications (principal); K57.30 Diverticulosis of large intestine without perforation or abscess without bleeding; K64.8 Other hemorrhoids; K21.9 Gastro-esophageal reflux disease without esophagitis; K29.70 Gastritis, unspecified, without bleeding | CPT/HCPCS: 43239; 45380 ==